=== PATIENT | male | born 1950 | race Caucasian/White ===

== ENCOUNTER 2019-02-02 11:42 | Inpatient (IN) | payer MEDICARE, OTHER ==
[2019-02-02 12:16] LABS: ABSOLUTE EOSINOPHILS # (AUTO) 0.1 10^3/uL (0.0-0.6); BASOPHILS % (AUTO) 0.5 % (0-2); HEMATOCRIT 49.3 % (37.9-51.0); HEMOGLOBIN 16.4 g/dL (13.5-17.0); LYMPHOCYTES % (AUTO) 28.1 % (13-45); MEAN CORPUSCULAR HEMOGLOBIN 30.7 pg (27.0-33.4); MEAN CORPUSCULAR HGB CONC 33.2 g/dL (32.0-36.0); MEAN CORPUSCULAR VOLUME 92 fl (80-97); MONOCYTES % (AUTO) 13.9 % (3-13); PLATELET COUNT 175 10^3/uL (150-450); RED BLOOD COUNT 5.34 10^6/uL (4.35-5.55); RED CELL DISTRIBUTION WIDTH 15.5 % (11.5-14.0); SEGMENTED NEUTROPHILS % (AUTO) 56.5 % (42-78); TOTAL CELLS COUNTED % (AUTO) 100 %; WHITE BLOOD COUNT 7.1 10^3/uL (4.0-10.5)
[2019-02-02 12:39] LABS: ALANINE AMINOTRANSFERASE 158 U/L (21-72); ALBUMIN 4.2 g/dL (3.5-5.0); ALKALINE PHOSPHATASE 98 U/L (38-126); ANION GAP 10 (5-19); ASPARTATE AMINO TRANSFERASE 330 U/L (17-59); BILIRUBIN,DIRECT 0.6 mg/dL (0.0-0.4); BILIRUBIN,TOTAL 1.2 mg/dL (0.2-1.3); BLOOD UREA NITROGEN 57 mg/dL (7-20); CALCIUM 10.1 mg/dL (8.4-10.2); CARBON DIOXIDE 31 mmol/L (22-30); CHLORIDE 98 mmol/L (98-107); GLUCOSE 148 mg/dL (75-110); POTASSIUM 4.9 mmol/L (3.6-5.0); SODIUM 138.5 mmol/L (137-145); TOTAL PROTEIN 7.1 g/dL (6.3-8.2)
[2019-02-02 12:41] LABS: ARTERIAL BLOOD BASE EXCESS 0.7 mmol/L; ARTERIAL BLOOD HCO3 23.6 mmol/L (20-24); ARTERIAL BLOOD PCO2 33.2 mmHg (35-45); ARTERIAL BLOOD PH 7.47 (7.35-7.45); ARTERIAL BLOOD PO2 141.4 mmHg (80-100); ARTERIAL BLOOD TOTAL CO2 24.6 mmol/L (23-27)
[2019-02-02 12:43] LABS: ARTERIAL BLOOD FIO2 2L
[2019-02-02 12:49] LABS: CREATINE KINASE MB 50.4 ng/mL (<4.55)
[2019-02-02 12:50] LABS: CREATINE KINASE 2683 U/L (55-170)
[2019-02-02 12:51] LABS: TROPONIN I 0.048 ng/mL
--- NOTE | 2019-02-02 13:07 | RADIOLOGY REPORT (SQ) ---
EXAM DESCRIPTION: CHEST SINGLE VIEW COMPLETED DATE/TIME: 02/02/2019 12:48 pm REASON FOR STUDY: SOB COMPARISON: None. EXAM PARAMETERS: NUMBER OF VIEWS: One view. TECHNIQUE: Single frontal radiographic view of the chest acquired. RADIATION DOSE: NA LIMITATIONS: None. FINDINGS: LUNGS AND PLEURA: No opacities, masses or pneumothorax. No pleural effusion. MEDIASTINUM AND HILAR STRUCTURES: No masses. Contour normal. HEART AND VASCULAR STRUCTURES: Cardiomegaly with left chest multi lead pacer defibrillator. BONES: No acute findings. HARDWARE: None in the chest. OTHER: No other significant finding. IMPRESSION: Cardiomegaly without acute abnormality of the lungs in AP projection. TECHNICAL DOCUMENTATION: JOB ID: [id number] [email or web address]- All Rights Reserved Reading location - IP/workstation name: [email or web address]
[2019-02-02 15:40] LABS: APPEARANCE,URINE CLEAR; BILIRUBIN,URINE NEGATIVE (NEGATIVE); COLOR,URINE YELLOW; GLUCOSE, URINE NEGATIVE (NEGATIVE); KETONES,URINE NEGATIVE (NEGATIVE); LEUKOCYTE ESTERASE,URINE NEGATIVE (NEGATIVE); NITRITE,URINE NEGATIVE (NEGATIVE); PROTEIN,URINE NEGATIVE (NEGATIVE); UROBILINOGEN,URINE NEGATIVE mg/dL (<2.0)
--- NOTE | 2019-02-02 17:25 | ER Document Report ---
Entered by GEENA SANTIAGO SCRIBE 02/02/19 1221 Acting as scribe for:TAMY HARMON MD ED General - General Chief Complaint: Shortness Of Breath Stated Complaint: ABNORMAL LABS Time Seen by Provider: 02/02/19 11:55 Primary Care Provider: ELISABETH CORONA DPM [ACTIVE STAFF] - Follow up as needed Mode of Arrival: Ambulatory Information source: Patient Notes: Patient is a 68 year old male presenting to the emergency department complaining of increasing generalized weakness and shortness of breath onset 6 weeks ago. Patient states he has had a decline in general health for the last 6 weeks after having 3 foot ulcers and being diagnosed with MRSA. Patient was sent here from metal engineering process worker, Dr. Valenzuela, for low oxygen saturation rate. Patient states he has not seen his PCP, Dr. Barnes, in the last 6 weeks. Patient also complains of weight loss within the last 6 weeks. TRAVEL OUTSIDE OF THE [place] IN LAST 30 DAYS: No - Related Data Allergies/Adverse Reactions: cholestyramine [From Questran] Allergy (Verified 02/02/19 11:45) gemfibrozil [From Lopid] Allergy (Verified 02/02/19 11:45) morphine Allergy (Verified 02/02/19 11:45) niacin Allergy (Verified 02/02/19 11:45) sucrose [From Questran] Allergy (Verified 02/02/19 11:45) colesevelam [From WelChol] Adverse Reaction (Verified 02/02/19 11:45) metoprolol [From Lopressor] Adverse Reaction (Verified 02/02/19 11:45) Past Medical History - General Information source: Patient, Relative - Social History Smoking Status: Former Smoker Cigarette use (# per day): No Chew tobacco use (# tins/day): No Smoking Education Provided: No Frequency of alcohol use: None Family History: Reviewed & Not Pertinent - Past Medical History Cardiac Medical History: Reports: Hx Atrial Fibrillation, Hx Coronary Artery Disease, Hx Heart Attack - x2 1996, 2000, Hx Hypertension, Other - history of Vtach, vfib Pulmonary Medical History: Reports: Hx Bronchitis - chronic, Hx COPD, Other - history of atelectasis of LLL EENT Medical History: Reports: Eyes - Grade II retinoarteriosclerosis, Ears - Bilateral hearing loss Endocrine Medical History: Reports: Hx Diabetes Mellitus Type 2 Renal/ Medical History: Reports: Hx Benign Prostatic Hyperplasia, Hx Renal Insufficiency GI Medical History: Reports: Other - Chronic Liver disease Musculoskeletal Medical History: Reports Hx Gout, Reports Other - Spinal Degenerative Joint disease Infectious Medical History: Reports: Hx C-Diff Past Surgical History: Reports: Hx Pacemaker Review of Systems - Review of Systems Constitutional: See HPI, Weakness EENT: No symptoms reported Cardiovascular: No symptoms reported Respiratory: See HPI, Short of breath Gastrointestinal: No symptoms reported Genitourinary: No symptoms reported Male Genitourinary: No symptoms reported Musculoskeletal: No symptoms reported Skin: No symptoms reported Hematologic/Lymphatic: No symptoms reported Neurological/Psychological: No symptoms reported -: Yes All other systems reviewed and negative Physical Exam - Vital signs Vitals: Temp Pulse Resp BP Pulse Ox 97.7 F 85 18 101/66 99 02/02/19 11:50 02/02/19 11:50 02/02/19 11:50 02/02/19 11:50 02/02/19 11:50 - Notes Notes: GENERAL: Alert, appears anxious, interacts well. No acute distress. HEAD: Normocephalic, atraumatic. EYES: Pupils equal, round, and reactive to light. Extraocular movements intact. ENT: Oral mucosa moist, tongue midline. NECK: Full range of motion. Supple. Trachea midline. Venous pulsations R>L. Palpating the liver does not meet the pulsations bulge. LUNGS: Clear to auscultation bilaterally, no wheezes, rales, or rhonchi. No respiratory distress. HEART: Regular rate and rhythm. Low pitch systolic murmur. ABDOMEN: Soft, non-tender. Non-distended. Bowel sounds present in all 4 quadrants. No guarding, rigidity, or rebound. EXTREMITIES: Moves all 4 extremities spontaneously. Trace pretibial edema. Radial and dorsalis pedis pulses 2/4 bilaterally. No cyanosis. NEUROLOGICAL: Alert and oriented x3. Normal speech. PSYCH: Appears anxious. SKIN: Warm, dry, normal turgor. No rashes or lesions noted. Course - Re-evaluation Re-evalutation: 02/02/19 12:48 ABG on 2 L nasal cannula shows PCO2 of 33 and a PO2 of 141. PH is 7.47 this would suggest the patient is hyperventilating. 02/02/19 14:17 I did turn the patient's oxygen off. His room air pulse ox is 97%. I did discuss the patient's case at length with his primary care provider, Dr. Barnes. His liver function elevation is not a new finding. His last CK was about 360. I suspect his symptoms of generalized weakness and feeling short of breath along with his elevated CPK may indicate his myositis is worsening and he needs to be on higher doses of prednisone. He also may be suffering from rhabdomyolysis secondary to the statin therapy he is on. He has been on Septra for his MRSA infection in his right foot. - Vital Signs Vital signs: Temp Pulse Resp BP Pulse Ox 97.7 F 87 15 103/69 97 02/02/19 11:50 02/02/19 12:37 02/02/19 16:00 02/02/19 16:00 02/02/19 16:00 - Laboratory Result Diagrams: 02/02/19 11:58 02/02/19 11:58 Laboratory results interpreted by me: 02/02/19 02/02/19 02/02/19 11:58 11:58 11:58 RDW 15.5 H Monocytes % 13.9 H Carbonic Acid ABG pH ABG pCO2 ABG pO2 ABG O2 Saturation Carbon Dioxide 31 H BUN 57 H Creatinine 2.45 H Est GFR ( Amer) 32 L Est GFR (Non-Af Amer) 26 L Glucose 148 H Direct Bilirubin 0.6 H AST 330 H ALT 158 H Creatine Kinase 2683 H CK-MB (CK-2) 50.40 H NT-Pro-B Natriuret Pep 02/02/19 02/02/19 11:58 12:31 RDW Monocytes % Carbonic Acid 1.00 L ABG pH 7.47 H ABG pCO2 33.2 L ABG pO2 141.4 H ABG O2 Saturation 99.0 H Carbon Dioxide BUN Creatinine Est GFR ( Amer) Est GFR (Non-Af Amer) Glucose Direct Bilirubin AST ALT Creatine Kinase CK-MB (CK-2) NT-Pro-B Natriuret Pep 03715 H - Diagnostic Test Radiology reviewed: Image reviewed, Reports reviewed - Chest x-ray shows cardiomegaly without acute changes. - EKG Interpretation by Me EKG shows normal: Sinus rhythm, Drums, Intervals, ST-T Waves. abnormal: QRS Complexes - Borderline inferior Q waves, consider old anterior infarct Rate: Normal - 77 Rhythm: NSR, PVC's Voltage: Consistant with LVH When compared to previous EKG there are: Previous EKG unavailable - Consults Dr. Barnes Time consulted: 13:50 Consulted provider: will see as inpatient - [facility]MCU Discharge - Discharge Clinical Impression: Weakness, Right foot infection Dyspnea Qualifiers: Dyspnea type: unspecified Qualified Code(s): R06.00 - Dyspnea, unspecified Rhabdomyolysis Qualifiers: Rhabdomyolysis type: non-traumatic Qualified Code(s): M62.82 - Rhabdomyolysis Renal failure Qualifiers: Renal failure chronicity: acute on chronic Acute renal failure type: unspecified Chronic kidney disease stage: stage 4 (severe) Qualified Code(s): N17.9 - Acute kidney failure, unspecified; N18.4 - Chronic kidney disease, stage 4 (severe) Myositis Qualifiers: Myositis type: unspecified type Myositis location: unspecified site Qualified Code(s): M60.9 - Myositis, unspecified Condition: Good Disposition: ADMITTED INPATIENT Admitting Provider: [facility] Unit Admitted: IMCU Referrals: ELISABETH CORONA DPM [ACTIVE STAFF] - Follow up as needed Scribe Attestation: 02/02/19 12:53 I personally performed the services described in the documentation, reviewed and edited the documentation which was dictated to the scribe in my presence, and it accurately records my words and actions. I personally performed the services described in the documentation, reviewed and edited the documentation which was dictated to the scribe in my presence, and it accurately records my words and actions.
--- NOTE | 2019-02-02 17:29 | EKG REPORT ---
SEVERITY:- ABNORMAL ECG - SINUS RHYTHM MULTIFORM VENTRICULAR PREMATURE COMPLEXES LVH WITH SECONDARY REPOLARIZATION ABNORMALITY BORDERLINE INFERIOR Q WAVES CONSIDER ANTERIOR INFARCT : Confirmed by: Remington Quarles MD 02-Feb-2019 17:29:11
[2019-02-02] MEDS ORDERED: PREDNISONE 20 MG TABLET PO SCH (22:00)
[2019-02-02] MEDS ORDERED: NITROGLYCERIN 5 MG (0.2 MG/HR) PATCH.TD24 TD PRN (22:03)
[2019-02-02] MEDS ORDERED: NITROGLYCERIN 0.4 MG/TAB 25 TAB/BOTTLE SL PRN (22:03)
[2019-02-02] MEDS ORDERED: TORSEMIDE 20 MG TABLET PO SCH (22:15)
[2019-02-02] MEDS ORDERED: FENOFIBRATE NANOCRYSTALLIZED 145 MG TABLET PO SCH (22:15)
[2019-02-02] MEDS ORDERED: ERGOCALCIFEROL (VITAMIN D2) 50000 UNIT (1.25 MG) CAPSULE PO SCH (23:00)
[2019-02-03] MEDS: ASPIRIN 81 MG TABLET, ENT COATED PO SCH ×2 (00:11→10:35)
[2019-02-03] MEDS: FINASTERIDE 5 MG TABLET PO SCH ×2 (00:12→10:35)
[2019-02-03] MEDS: SPIRONOLACTONE 25 MG TABLET PO SCH ×2 (00:12→10:35)
[2019-02-03] MEDS: CLOPIDOGREL BISULFATE 75 MG TABLET PO SCH ×2 (00:12→11:20)
[2019-02-03] MEDS: FAMOTIDINE 20 MG TABLET PO SCH ×3 (00:12→21:05)
[2019-02-03] MEDS: COLCHICINE 0.6 MG TABLET PO SCH ×3 (00:14→21:05)
[2019-02-03] MEDS ORDERED: TORSEMIDE 20 MG TABLET ONE (00:31)
[2019-02-03] MEDS ORDERED: FENOFIBRATE NANOCRYSTALLIZED 145 MG TABLET ONE (00:32)
[2019-02-03] MEDS ORDERED: AMITRIPTYLINE HCL 25 MG TABLET ONE (00:32)
[2019-02-03] MEDS ORDERED: CARVEDILOL 6.25 MG TABLET ONE (00:33)
[2019-02-03] MEDS: FEBUXOSTAT 40 MG TABLET PO SCH ×2 (00:56→11:20)
[2019-02-03] MEDS: CARVEDILOL 12.5 MG TABLET PO SCH ×3 (01:01→21:04)
[2019-02-03] MEDS: AMITRIPTYLINE HCL 25 MG TABLET PO SCH ×2 (01:03→21:05)
[2019-02-03 05:02] LABS: ANION GAP 10 (5-19); BLOOD UREA NITROGEN 55 mg/dL (7-20); CALCIUM 9.9 mg/dL (8.4-10.2); CARBON DIOXIDE 31 mmol/L (22-30); CHLORIDE 97 mmol/L (98-107); GLUCOSE 227 mg/dL (75-110); POTASSIUM 4.8 mmol/L (3.6-5.0); SODIUM 138.1 mmol/L (137-145)
[2019-02-03] MEDS ORDERED: (PENDING PHARMACY ID) (Insulin Aspart [Novolog Flexpen] 20 UNIT) SUBCUT SCH (08:00)
[2019-02-03] MEDS ORDERED: GLUCAGON,HUMAN RECOMB 1 MG INJ IM PRN (08:50)
--- NOTE | 2019-02-03 09:00 | PDOC H&P ---
History of Present Illness Admission Date/PCP: 02/02/19 17:27 JEFF GLEASON MD Patient complains of: muscular weakness History of Present Illness: SIDNEY CARROLL is a 68 year old male with chronic systolic & diastolic failure and 6w increasing alegria & proximal weakness progressing throughout the day. 2008 [id number] & atorva=lft. 2015 Dr Ngo inflamatory polyarthropathy myalgia. CK667. OK sed crp c3 c4 ch50 dna. CK came down to 206 but went up to 816 by 2017. ALT usually 2*normal. 6w progressive proximal weakness. Must lift L leg with R hand. Down 20# in 1y. Past Medical History Cardiac Medical History: Reports: Atrial Fibrillation, Congestive Heart Failure, Coronary Artery Disease, Myocardial Infarction - x2 1996, 2000, Hyperlipidema, Hypertension, Other - history of Vtach, vfib Pulmonary Medical History: Reports: Bronchitis - chronic, Chronic Obstructive Pulmonary Disease (COPD), Other - history of atelectasis of LLL EENT Medical History: Reports: Eyes - Grade II retinoarteriosclerosis, Ears - Bilateral hearing loss Neurological Medical History: Reports: None Endocrine Medical History: Reports: Diabetes Mellitus Type 2 Renal/ Medical History: Reports: Chronic Kidney Disease Malignancy Medical History: Reports: None GI Medical History: Reports: Gastroesophageal Reflux Disease, Other - Chronic Liver disease Musculoskeltal Medical History: Reports: Gout, Other - Spinal Degenerative Joint disease Skin Medical History: Reports: None Psychiatric Medical History: Reports: Bipolar Disorder Traumatic Medical History: Reports: None Hematology: Reports: None Infectious Medical History: Reports: Clostridium Difficile, 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 Osei Lives with: Family Smoking Status: Former Smoker Frequency of Alcohol Use: None Hx Recreational Drug Use: No Hx Prescription Drug Abuse: No - Advance Directive Resuscitation Status: Full Code Family History Family History: Other - adopted Parental Family History Reviewed: Yes Children Family History Reviewed: Yes Sibling(s) Family History Reviewed.: Yes Medication/Allergy Home Medications: Amitriptyline HCl [Elavil 25 mg Tablet] 25 mg PO QHS 02/02/19 Aspirin [Ecotrin 81 mg EC Tablet] 81 mg PO DAILY 02/02/19 Carvedilol [Coreg 25 mg Tablet] 25 mg PO Q12 02/02/19 Clopidogrel Bisulfate [Plavix 75 mg Tablet] 75 mg PO DAILY 02/02/19 Colchicine [Colchicine 0.6 mg Tablet] 0.6 mg PO Q12 02/02/19 Ergocalciferol (Vitamin D2) [Drisdol 50,000 Unit (1.25MG) Capsule] 50,000 unit PO .02/02/19 Febuxostat [Uloric 40 mg Tablet] 40 mg PO DAILY 02/02/19 Fenofibrate Nanocrystallized [Tricor 145 mg Tablet] 145 mg PO QHS 02/02/19 Finasteride [Proscar 5 mg Tablet] 5 mg PO DAILY 02/02/19 Insulin Aspart [Novolog Flexpen] 20 unit SUBCUT AC MDD UP TO 30 PER MEAL 02/02/19 Insulin Glargine,Hum.rec.anlog [Lantus Insulin 100 Unit/1 ml 10 ml] 65 unit SUBCUT QHS 02/02/19 Nitroglycerin [Nitro-Dur 5 mg (0.2 mg/Hr) Transdermal Patch] 1 patch TD QAMP PRN 02/02/19 Nitroglycerin [Nitrostat 0.4 mg (1/150 Gr) Tabs 25/Bottle] 1 tab SL Q5MP PRN 02/02/19 Prednisone [Deltasone 5 mg Tablet] 5 mg PO DAILY 02/02/19 Ranitidine HCl [Zantac 150 mg Tablet] 150 mg PO BID 02/02/19 Ropinirole HCl [Requip 2 Mg Tablet] 2 mg PO QHS 02/02/19 Rosuvastatin Calcium [Crestor 10 mg Tablet] 10 mg PO QHS 02/02/19 Spironolactone [Aldactone 25 mg Tablet] 25 mg PO DAILY 02/02/19 Torsemide [Demadex 20 mg Tablet] 20 mg PO DAILY 02/02/19 Tramadol HCl [Ultram 50 mg Tablet] 50 mg PO Q6HP PRN 02/02/19 Allergies/Adverse Reactions: cholestyramine [From Questran] Allergy (Verified 02/02/19 11:45) gemfibrozil [From Lopid] Allergy (Verified 02/02/19 11:45) morphine Allergy (Verified 02/02/19 11:45) niacin Allergy (Verified 02/02/19 11:45) sucrose [From Questran] Allergy (Verified 02/02/19 11:45) colesevelam [From WelChol] Adverse Reaction (Verified 02/02/19 11:45) metoprolol [From Lopressor] Adverse Reaction (Verified 02/02/19 11:45) Review of Systems Constitutional: PRESENT: fatigue, weakness, weight loss. ABSENT: fever(s), headache(s) Nose, Mouth, and Throat: ABSENT: sore throat Cardiovascular: PRESENT: dyspnea on exertion, orthropnea. ABSENT: chest pain Respiratory: ABSENT: cough Gastrointestinal: ABSENT: abdominal pain, constipation, diarrhea, hematochezia, vomiting Genitourinary: ABSENT: dysuria, hematuria Musculoskeletal: PRESENT: muscle weakness, other - diffuse arthralgia worse in shoulders Integumentary: ABSENT: rash Neurological: PRESENT: weakness. ABSENT: numbness Physical Exam Vital Signs: Temp Pulse Resp BP Pulse Ox 97.8 F 87 25 H 100/73 96 02/03/19 00:01 02/02/19 12:37 02/03/19 04:31 02/03/19 04:31 02/03/19 04:31 Intake & Output 02/01/19 02/02/19 02/03/19 07:59 07:59 07:59 Weight 187 lb 6.287 oz General appearance: PRESENT: mild distress Eye exam: ABSENT: conjunctival injection, scleral icterus Mouth exam: PRESENT: moist Neck exam: ABSENT: lymphadenopathy, tenderness, thyromegaly, tracheal deviation Respiratory exam: PRESENT: clear to auscultation jerry Cardiovascular exam: ABSENT: diastolic murmur, irregular rhythm, systolic murmur Pulses: ABSENT: normal dorsalis pedis pul - thready GI/Abdominal exam: ABSENT: mass, organolmegaly, tenderness Extremities exam: ABSENT: pedal edema Neurological exam: PRESENT: oriented to situation Psychiatric exam: PRESENT: anxious Skin exam: PRESENT: other - wound lateral R foot Results Laboratory Results: Abnormal - 24 hr 02/02/19 02/02/19 02/02/19 11:58 11:58 11:58 RDW 15.5 H Monocytes % 13.9 H Carbonic Acid ABG pH ABG pCO2 ABG pO2 ABG O2 Saturation Chloride Carbon Dioxide 31 H BUN 57 H Creatinine 2.45 H Est GFR ( Amer) 32 L Est GFR (Non-Af Amer) 26 L Glucose 148 H POC Glucose Direct Bilirubin 0.6 H AST 330 H ALT 158 H Creatine Kinase 2683 H CK-MB (CK-2) 50.40 H NT-Pro-B Natriuret Pep 02/02/19 02/02/19 02/03/19 11:58 12:31 00:58 RDW Monocytes % Carbonic Acid 1.00 L ABG pH 7.47 H ABG pCO2 33.2 L ABG pO2 141.4 H ABG O2 Saturation 99.0 H Chloride Carbon Dioxide BUN Creatinine Est GFR ( Amer) Est GFR (Non-Af Amer) Glucose POC Glucose 158 H Direct Bilirubin AST ALT Creatine Kinase CK-MB (CK-2) NT-Pro-B Natriuret Pep 44036 H 02/03/19 03:55 RDW Monocytes % Carbonic Acid ABG pH ABG pCO2 ABG pO2 ABG O2 Saturation Chloride 97 L Carbon Dioxide 31 H BUN 55 H Creatinine 2.27 H Est GFR ( Amer) 35 L Est GFR (Non-Af Amer) 29 L Glucose 227 H POC Glucose Direct Bilirubin AST ALT Creatine Kinase CK-MB (CK-2) NT-Pro-B Natriuret Pep Impressions: Chest X-Ray 02/02/19 12:05 IMPRESSION: Cardiomegaly without acute abnormality of the lungs in AP projection. Assessment & Plan - Diagnosis (1) Rhabdomyolysis due to statin therapy Is this a current diagnosis for this admission?: Yes Plan: autoimmune vizcaino in past negative. Stop statin fenofibrate. 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: with fpc use Chronic kidney disease stage: stage 4 (severe) Qualified Code(s): E11.22 - Type 2 diabetes mellitus with diabetic chronic kidney disease; N18.4 - Chronic kidney disease, stage 4 (severe); Z79.4 - detention (current) use of insulin Is this a current diagnosis for this admission?: Yes (3) Restless legs syndrome Is this a current diagnosis for this admission?: Yes (4) Bipolar disorder, current episode depressed, mild Is this a current diagnosis for this admission?: Yes (5) Angina of effort Is this a current diagnosis for this admission?: Yes (6) Chronic combined systolic and diastolic heart failure Is this a current diagnosis for this admission?: Yes Plan: echo consult (7) Ventricular tachycardia Is this a current diagnosis for this admission?: Yes (8) Chronic atrial fibrillation Is this a current diagnosis for this admission?: Yes (9) Gastro-esophageal reflux disease without esophagitis Is this a current diagnosis for this admission?: Yes (10) Enlarged prostate with lower urinary tract symptoms (LUTS) Qualifiers: Lower urinary tract symptom detail: urinary hesitancy Qualified Code(s): N40.1 - Benign prostatic hyperplasia with lower urinary tract symptoms; R39.11 - Hesitancy of micturition Is this a current diagnosis for this admission?: Yes (11) Idiopathic chronic gout of multiple sites without tophus Is this a current diagnosis for this admission?: Yes (12) Foot ulcer due to secondary DM Is this a current diagnosis for this admission?: Yes Plan: Dr Riggs treated R1mtp ulcer with bactrim for mrsa till yesterday when healed but still hurts. Lateral R foot wound not healing. Doppler.
[2019-02-03] MEDS: INSULIN LISPRO 100 UNIT/ML 3 ML VIAL SUBCUT SCH ×3 (09:02→17:14)
[2019-02-03] MEDS ORDERED: (PENDING PHARMACY ID) (Ranitidine Hcl [Zantac 150 Mg Tablet] 150 MG) PO SCH (10:00)
[2019-02-03] MEDS: ENOXAPARIN SODIUM INJ 30 MG/0.3 ML DISP.SYRIN SUBCUT SCH (10:38)
--- NOTE | 2019-02-03 12:26 | XCELERA REPORT ---
[address] [address] Lower Extremity Arterial Evaluation Name: SIDNEY CARROLL Age: 68 yrs Gender: Male : 1950 Patient Status: Inpatient Patient Location: [place] [address]A Study Date: 02/03/2019 09:59 AM Procedure: A color flow and duplex scan of the lower extremity arteries was performed bilaterally with velocity and waveform anaylsis. Reason For Study: nonhealing diabetic ulcers R foot. Ordering Physician: JEFF GLEASON Performed By: Simon Emery Measurements and Calculations Right Left UX RESEARCH ASSOCIATE PSV 77.6 81.1 cm/sec Prox PFA PSV -43.7 -52.6 cm/sec Prox SFA PSV 38.5 56.6 cm/sec Mid SFA PSV -57.6 -70.7 cm/sec Dist SFA PSV -49.2 -61.1 cm/sec Prox Pop A PSV 27.8 30.6 cm/sec Dist MILLIE PSV 46.0 33.4 cm/sec Dist SENIOR CORPORATE RECRUITER PSV 13.4 36.8 cm/sec Ryan Pedis PSV -36.2 49.2 cm/sec Right Side Arterial Evaluation Normal velocity and triphasic waveforms noted from the Common Femoral artery to the infrageniculate vessels . Left Side Arterial Evaluation Normal velocity and triphasic waveforms noted from the Common Femoral artery to the infrageniculate vessels . Interpretation Summary No hemodynamically significant lesions in the bilateral lower extremities, on duplex imaging, at rest. : JEFF GLEASON > Gurmeet Orr
--- NOTE | 2019-02-03 20:43 | PDOC CONSULTATION ---
Consultation-Blank Consultation: CARDIOLOGY PROGRESS NOTE by Dr. Bonnie Doe on 02/03/2019. Patient seen at 9 AM on 02/03/2019. Reason for consultation: CHF/cardiomyopathy. CONSULT requesting physician: Dr. Howard Barnes HISTORY of PRESENT ILLNESS. Patient is a 68-year-old male with known history of coronary artery disease, history of myocardial infarction x2 in 1996 and 2000, history of stent placement in LAD in 2000, hypertension, hyperlipidemia, COPD, diabetes mellitus type 2 and chronic history of chronic kidney disease who was admitted with progressive dyspnea on exertion to rest shortness of breath. There is no leg edema. He does not have any orthopnea PND. He has an AICD placed but there is no firing of his AICD. He also has severe muscle weakness and has to use his hands to lift his leg up. The patient has a history of myositis. It was thought that the patient had myalgias secondary to simvastatin in the past and also had abnormal LFTs due to atorvastatin. But the patient also sees a crane man, and as per Dr. Sam he carries a diagnosis of myositis. The patient has not had a biopsy. The patient has no anginal symptoms. He states that he has a history of cardiac myopathy, but there is LV ejection fraction not known. Nevertheless he has an AICD placed.. He also has a history of bipolar disorder which is being stable. The patient's and the patient came that a few weeks ago he had a ulcer in the log which was positive for MRSA and which was debrided as an outpatient and subsequently the patient's symptoms escalated since then. The patient also has history of weight loss which is significant, but the exact number of problems last is not known. He also has decreased appetite. There is no fever chills or Reiger's. PAST MEDICAL HISTORY: He has history of paroxysmal atrial fibrillation, with no recurrence. He he has a history of coronary artery disease, history of LAD stent, history of myocardial infarction in the past. He has no anginal symptoms in a long time. He has a history of hypertension, but his blood pressure is low. He also has a history of hyperlipidemia. He has a history of COPD/chronic bronchitis. He has a history of bipolar disorder. He has a past history of C. difficile diarrhea. He also has a history of methicillin resistant staph aureus in the foot ulcers. He has a history of GERD. There is no history of GI bleed. He has a history of diabetes mellitus type 2. He has no thyroid disease. There is no history of TIA or CVA. He also has a history of chronic kidney disease stage appears to be stage III. He also has a history of myositis and has had a collagen vascular work-up in the past. PAST SURGICAL HISTORY: He has had a history of cardiac catheterization and stent placement. History of AICD. He is initial RV lead was recalled due to malfunction, this lead was not taken out but was capped and a new RV lead was placed. Since then the patient has not had any problems with this AICD. SOCIAL HISTORY he quit smoking long time ago. There is no history of EtOH abuse. FAMILY HISTORY: Is unknown since the patient is adopted. ALLERGIES: The patient is allergic to cholestyramine, Lopid morphine Nader sucrose metoprolol WelChol. His allergy to metoprolol might be bradycardia prior to the AICD placement. We will start the patient on Toprol since the patient has no hives or other allergies to metoprolol. DISPOSITION: The patient is a: The patient is a full code his is his surrogate healthcare decision maker. Medications reviewed as per MAR. Review SYSTEMS: CONSTITUTIONAL: Denies any fever chills or rigors. Complains of generalized fatigue and severe muscle weakness. Head denies dizziness, but states that his mentation is slow. HE eyes: No history of amblyopia diplopia. No history of amaurosis fugax. I hears: The patient has bilateral hearing loss. He has no tinnitus or vertigo. NOSE: No history of hayfever no history of bleeding from the nose. MOOD: No history of altered taste sensation. No ulcers in the mouth. THROAT: No odynophagia dysphagia no history of recurrent sore throats. SKIN: No history of skin rashes. No history of petechia or ecchymosis. No history of pruritus. No history of yellowish discoloration of the skin. NECK: Denies neck pain or neck swelling. LUNGS: Has intermittent shortness of breath. No cough or wheezing no history of sleep apnea. Patient has a history of chronic bronchitis and COPD. No history of asthma. No history of pleuritic chest pain no history of hemoptysis. No symptoms suggestive of acute exacerbation of COPD at present. HEART: History of coronary artery disease history of MT and history of stent in the LAD. No anginal symptoms. History of cardia myopathy with AICD placement no firing of AICD. History of proximal atrial fibrillation. Has not recurred in a long time. No leg swelling no PND orthopnea. GI: History of GERD present no history of GI bleed. No history of ascites. No history of jaundice. History of questionable cirrhosis of liver most likely secondary to his chronic right heart failure. And pulmonary hypertension. RENAL: History of chronic kidney disease. No symptoms of hematuria pyuria or dysuria. ENDOCRINE: No history of polydipsia polyuria no history of heat or cold intolerance. Does seem to have diabetic retinopathy by history. MUSCULOSKELETAL denies any collagen vascular disease severe muscle weakness history of myositis present? Secondary to autoimmune disease. No history of lupus. DESIGN COORDINATOR: No history of TIA or CVA. No history of sleep apnea no history of headaches migraines or seizures. History of severe muscle weakness. EXTREMITIES: He has foot ulcers which had MRSA infection. He has no calf or buttock claudication. There is no pedal edema. There is no sinus or clubbing. Hematological: No history of bleeding diathesis or clotting disorders. PSYCHIATRIC: History of bipolar disorder in remission. PHYSICAL EXAMINATION: The patient appears to be chronically ill and emaciated and malnourished he is in some mild distress due to intermittent shortness of br eath. Selected Entries 02/03/19 02/03/19 09:00 09:01 Temperature 98.4 F Temperature Oral Source Heart Rate ( 66 Monitors) Respiratory 13 Rate Blood Pressure 95/71 L Blood Pressure 79 Mean O2 Sat by Pulse 100 Oximetry HEAD: Head is atraumatic and normocephalic. EYES: Pupils are equal round regular reactive to light accommodation. Extraocular movements are normal, there is no conjunctival pallor, and no scleral icterus. EARS: Tympanic membranes are intact external auditory canals are clear. NOSE: There is no inflammation of the nasal mucous membrane there is no deviated nasal septum. MOUTH: Mucous membranes of mouth and tongue are moist, there is no ulcers in the mouth or tongue, and no bleeding from the gums. THROAT: There is no redness of the oropharynx, no exudate seen. SKIN: There is no petechia or ecchymosis. There is no rashes or lesions. NECK: Supple. There is no JVD. Carotids are equal there is no bruit. There is no lymphadenopathy. There is no goiter. Trachea central LUNGS: There is diminished air entry and prolonged expiration. Clear to auscultation bilaterally, no wheezes, rales or rhonchi. On percussion there is hyperresonance although there is no chest wall tenderness HEART: S1 and S2 are heard. S1 is of normal intensity, there is no S3 or S4 gallops. There is a systolic murmur the left sternal border and the apex. There is no rub. ABDOMEN: Normoactive bowel sounds, soft, nontender, no masses, no rebound, no guarding. There is no hepatosplenomegaly. EXTREMITIES: Femorals are slightly diminished. There is no femoral bruits. Leg pulses are diminished. There is no pedal edema. There is no DVT or cellulitis. There is no cyanosis or clubbing. There is no calf tenderness. NEUROLOGICAL the patient is awake alert oriented 3 with no focal deficits. There is muscle weakness proximal group more than distal group of muscle show weakness. PSYCHIATRIC: The patient judgment and insight are intact his affect is normal. 02/02/19 02/02/19 02/02/19 11:58 11:58 11:58 WBC 7.1 RBC 5.34 Hgb 16.4 Hct 49.3 MCV 92 MCH 30.7 MCHC 33.2 RDW 15.5 H Plt Count 175 Seg Neutrophils % 56.5 Lymphocytes % 28.1 Monocytes % 13.9 H Eosinophils % 1.0 Basophils % 0.5 Absolute Neutrophils 4.0 Absolute Lymphocytes 2.0 Absolute Monocytes 1.0 Absolute Eosinophils 0.1 Absolute Basophils 0.0 ESR Carbonic Acid HCO3/H2CO3 Ratio ABG pH ABG pCO2 ABG pO2 ABG HCO3 ABG Total CO2 ABG O2 Saturation ABG Base Excess FiO2 Sodium 138.5 Potassium 4.9 Chloride 98 Carbon Dioxide 31 H Anion Gap 10 BUN 57 H Creatinine 2.45 H Est GFR (Non-Af Amer) 26 L Glucose 148 H POC Glucose Calcium 10.1 Magnesium 2.2 Total Bilirubin 1.2 Direct Bilirubin 0.6 H Neonat Total Bilirubin Not Reportable Neonat Direct Bilirubin Not Reportable Neonat Indirect Bili Not Reportable AST 330 H ALT 158 H Alkaline Phosphatase 98 Creatine Kinase 2683 H CK-MB (CK-2) 50.40 H Troponin I 0.048 NT-Pro-B Natriuret Pep Total Protein 7.1 Albumin 4.2 02/02/19 02/02/19 02/03/19 11:58 12:31 00:58 WBC RBC Hgb Hct MCV MCH MCHC RDW Plt Count Seg Neutrophils % Lymphocytes % Monocytes % Eosinophils % Basophils % Absolute Neutrophils Absolute Lymphocytes Absolute Monocytes Absolute Eosinophils Absolute Basophils ESR Carbonic Acid 1.00 L HCO3/H2CO3 Ratio 23:1 ABG pH 7.47 H ABG pCO2 33.2 L ABG pO2 141.4 H ABG HCO3 23.6 ABG Total CO2 24.6 ABG O2 Saturation 99.0 H ABG Base Excess 0.7 FiO2 2L Sodium Potassium Chloride Carbon Dioxide Anion Gap BUN Creatinine Est GFR (Non-Af Amer) Glucose POC Glucose 158 H Calcium Magnesium Total Bilirubin Direct Bilirubin Neonat Total Bilirubin Neonat Direct Bilirubin Neonat Indirect Bili AST ALT Alkaline Phosphatase Creatine Kinase CK-MB (CK-2) Troponin I NT-Pro-B Natriuret Pep 50426 H Total Protein Albumin 02/03/19 02/08/19 03:55 06:07 WBC RBC Hgb Hct MCV MCH MCHC RDW Plt Count Seg Neutrophils % Lymphocytes % Monocytes % Eosinophils % Basophils % Absolute Neutrophils Absolute Lymphocytes Absolute Monocytes Absolute Eosinophils Absolute Basophils ESR 8 Carbonic Acid HCO3/H2CO3 Ratio ABG pH ABG pCO2 ABG pO2 ABG HCO3 ABG Total CO2 ABG O2 Saturation ABG Base Excess FiO2 Sodium 138.1 Potassium 4.8 Chloride 97 L Carbon Dioxide 31 H Anion Gap 10 BUN 55 H Creatinine 2.27 H Est GFR (Non-Af Amer) 29 L Glucose 227 H POC Glucose Calcium 9.9 Magnesium Total Bilirubin Direct Bilirubin Neonat Total Bilirubin Neonat Direct Bilirubin Neonat Indirect Bili AST ALT Alkaline Phosphatase Creatine Kinase CK-MB (CK-2) Troponin I NT-Pro-B Natriuret Pep Total Protein Albumin The patient's chest x-ray shows cardiomegaly, without heart failure. The patient's lower extremity arterial Dopplers are negative for any hemodynamically significant lesions. The patient is EKG shows sinus rhythm with APCs with ventricular capture. PVCs present possible LVH by voltage cannot exclude old anterior MT. There is small Q waves in the inferior leads. The patient's echocardiogram showed that there is a non-mobile clot adherent to the LV apex. There is left ventricle apex is akinetic to dyskinetic. The LV carrasquillo are severely hypokinetic LV ejection fraction is 15%. There is moderate to severe MR. There is no aortic stenosis. There is trace to mild aortic regurgitation. There is moderate amount of tricuspid regurgitation with a moderate pulmonary hypertension with a right total systolic pressure of 54 mmHg. There is no pericardial effusion. Please see report. IMPRESSION/RECOMMENDATION: 1. Dyspnea on exertion most likely secondary to patient's cardiomyopathy. 2. Elevated CPK with muscle weakness most likely patient has a history of myositis. But also since the sed rate is within normal limits we will try to get the patient's cardiac output increased by starting him on dobutamine to see if the patient's muscle weakness symptoms improve. Barnes to see if we can increase the patient's steroids to 1 mg/kg/day. 2. Acute on chronic systolic heart failure with low cardiac output:? Partly responsible for the patient's elevated CPK and the patient's muscle weakness due to poor perfusion. Note the patient's muscle weakness is improved and his CPK did come down with the patient being started on dobutamine IV with better cardiac output. The patient may require [place] Marylou catheter. But the patient has 3 leads and hence it might be a little problematic to place a [place]-Eric. . 3. Coronary artery disease. Patient has a prior history of MT in 1996 and 2000. History of stent in the left anterior descending artery in the past. No anginal symptoms. Note that the patient troponin I during this admission was negative, in spite of the CPK-MB being positive. 4. Hypotension: Most likely secondary to the patient's poor cardiac output. This may also due to poor cardiac output may cause the patient's CPK and CPK-MB elevation and muscle weakness. We will start the patient on dobutamine at 2.5 mcg/kg/min and increase as tolerated. We will see if these maneuvers improve the patient's blood pressure and the patient's muscle weakness. T 5. Diabetes mellitus with chronic kidney disease, and neuropathy. 6. Chronic kidney disease stage III. Most likely this is secondary to cardiorenal syndrome 7. Cardiomyopathy with severely reduced LV ejection fraction. Note that there is left ventricular apical akinesia to dyskinesia, with a chronically calcified clot . Hence there is no danger of embolization. Also the patient has no history of peripheral emboli from the LV clot. 8. Moderate to severe mitral regurgitation. 9. Moderate pulmonary hypertension with moderate tricuspid regurgitation. 10. History of AICD placement. Note that earlier paced right ventricular lead was recalled, and Hence This Was a new right ventricular lead was placed. At present seems to be functioning appropriately. No firing of the AICD this admission. 11. History of chronic obstructive pulmonary disease. 12. History of paroxysmal atrial fibrillation. No recurrence. Medications reviewed. Medications added/adjusted. Management plan discussed with Dr. Barnes as well as the medication changes. Medical decision making is of high complexity. 60 minutes spent on this patient with more than 50% of time spent in direct patient care.
[2019-02-03] MEDS: PREDNISONE 5 MG TABLET PO SCH (21:04)
[2019-02-03] MEDS: ROPINIROLE HCL 2 MG TABLET PO SCH (21:05)
[2019-02-03] MEDS: TRAMADOL HCL 50 MG TABLET PO PRN (21:09)
--- NOTE | 2019-02-03 21:57 | XCELERA REPORT ---
[address] [address] Transthoracic Echocardiogram Report Name: SIDNEY CARROLL Age: 68 yrs Gender: Male : 1950 Patient Status: Inpatient Patient Location: [place] [address]^A Study Date: 02/03/2019 09:57 AM Height: 72 in Weight: 187 lb BSA: 2.1 m2 Procedure: A two-dimensional transthoracic echocardiogram with color flow and Doppler was performed. The study was technically limited with all images being suboptimal in quality. Reason For Study: increased alegria History: increased alegria. Ordering Physician: JEFF GELASON Performed By: Stephanie Schmid Interpretation Summary LV EF is 15% The LV apex is akinetic to dyskinetic.There is a non moble clot adharent to the LV apex.The rest of the LV carrasquillo are severely hypokinetic. No subcostal views to assess for SD,VSD or PFO. The right ventricle is mild to moderately dilated. The right ventricular apex is not well visualized. There is a pacemaker lead in the right ventricle. The right atrium is mildly dilated. The left atrium is moderately dilated. There is no evidence of mitral valve prolapse. There is no vegetation seen on the mitral valve. This is a posteriorly directed eccntric MR jet. There is a moderate to severe amount of mitral regurgitation There is no aortic valvular vegetation. There is no aortic valve stenosis There is aortic sclerosis without aortic stenosis. There is a trace to mild amount of aortic regurgitation There is no tricuspid stenosis. There is a moderate amount of tricuspid regurgitation There is moderate pulmonary hypertension by echo RVSP is 54 mm of Hg , with RA mean of 10. There is no pulmonic valvular stenosis. There is a trace amount of pulmonic regurgitation There is no pericardial effusion. MMode/2D Measurements & Calculations RVDd: 4.0 cm LVIDd: 6.2 cm FS: 18.0 % Ao root diam: 3.5 cm IVSd: 0.79 cm LVIDs: 5.0 cm EDV(Teich): 190.7 ml Ao root area: 9.4 cm2 LVPWd: 1.1 cm ESV(Teich): 120.9 ml EF(Teich): 36.6 % Doppler Measurements & Calculations MV E max luanne: MV dec slope: Ao V2 max: AI max luanne: 84.2 cm/sec 620.8 cm/sec2 65.8 cm/sec 223.1 cm/sec MV A max luanne: MV dec time: Ao max PG: AI max P.9 mmHg 33.0 cm/sec 0.14 sec 1.7 mmHg AI dec slope: MV E/A: 2.6 104.0 cm/sec2 AI P1/2t: 628.4 msec LV V1 max PG: PA V2 max: TR max luanne: 1.9 mmHg 42.5 cm/sec 332.6 cm/sec LV V1 max: PA max P.72 mmHgTR max P.7 cm/sec 44.3 mmHg LV dP/dt: 491.0 mmHg/s Left Ventricle The left ventricle is moderately to severly dilated. There is normal left ventricular wall thickness. LV EF is 15%. The LV apex is akinetic to dyskinetic.There is a non moble clot adharent to the LV apex.The rest of the LV carrasquillo are severely hypokinetic. No subcostal views to assess for SD,VSD or PFO. Right Ventricle The right ventricle is mild to moderately dilated. The right ventricular apex is not well visualized. There is a pacemaker lead in the right ventricle. Atria The right atrium is mildly dilated. The left atrium is moderately dilated. Mitral Valve There is no evidence of mitral valve prolapse. There is no vegetation seen on the mitral valve. There is no mitral valve stenosis. There is a moderate to severe amount of mitral regurgitation. This is a posteriorly directed eccntric MR jet. Aortic Valve There is no aortic valvular vegetation. There is no aortic valve stenosis. There is aortic sclerosis without aortic stenosis. There is a trace to mild amount of aortic regurgitation. Tricuspid Valve There is no tricuspid stenosis. There is a moderate amount of tricuspid regurgitation. There is moderate pulmonary hypertension by echo. RVSP is 54 mm of Hg , with RA mean of 10. Pulmonic Valve There is no pulmonic valvular stenosis. There is a trace amount of pulmonic regurgitation. Great Vessels The aortic root is not well visualized. The inferior vena cava was not visualized. Effusions There is no pericardial effusion. : JEFF GLEASON > Bonnie Doe
[2019-02-03] MEDS ORDERED: INSULIN GLARGINE,HUM.REC.ANLOG 1,000 UNIT/10 ML VIAL SUBCUT SCH (22:00)
[2019-02-03] MEDS ORDERED: PREDNISONE 20 MG TABLET PO SCH (22:00)
[2019-02-03] MEDS ORDERED: ATORVASTATIN CALCIUM 20 MG TABLET PO SCH (22:00)
[2019-02-03] MEDS ORDERED: INSULIN GLARGINE,HUM.REC.ANLOG 1,000 UNIT/10 ML VIAL (PYX) SUBCUT ONE ×2 (22:10→22:11)
[2019-02-04 05:05] LABS: ANION GAP 8 (5-19); BLOOD UREA NITROGEN 59 mg/dL (7-20); CALCIUM 9.5 mg/dL (8.4-10.2); CARBON DIOXIDE 26 mmol/L (22-30); CHLORIDE 99 mmol/L (98-107); CHOLESTEROL 93.69 mg/dL (0-200); GLUCOSE 107 mg/dL (75-110); POTASSIUM 4.6 mmol/L (3.6-5.0); SODIUM 133.2 mmol/L (137-145); TRIGLYCERIDES 133 mg/dL (<150)
[2019-02-04 05:18] LABS: DIRECT LDL 54 mg/dL (<100)
[2019-02-04 05:19] LABS: CREATINE KINASE 2713 U/L (55-170)
--- NOTE | 2019-02-04 07:50 | PDOC PROGRESS REPORT ---
Subjective Progress Note for:: 02/04/19 Subjective:: no better Reason For Visit: HEART FAILURE Physical Exam Vital Signs: Temp Pulse Resp BP Pulse Ox 97.7 F 60 20 93/62 L 96 02/04/19 04:22 02/04/19 06:54 02/04/19 04:22 02/04/19 04:22 02/04/19 04:22 Intake & Output 02/02/19 02/03/19 02/04/19 07:59 07:59 07:59 Intake Total 1136 Output Total 375 Balance 761 Weight 187 lb 6.287 oz 167 lb 12.348 oz General appearance: PRESENT: no acute distress Respiratory exam: PRESENT: clear to auscultation jerry Cardiovascular exam: ABSENT: diastolic murmur, irregular rhythm, systolic murmur GI/Abdominal exam: ABSENT: mass, organolmegaly, tenderness Extremities exam: ABSENT: pedal edema Neurological exam: PRESENT: oriented to situation Psychiatric exam: PRESENT: appropriate affect Results Laboratory Results: 02/02/19 11:58 02/04/19 03:58 02/04/19 03:58 Sodium 133.2 L Potassium 4.6 Chloride 99 Carbon Dioxide 26 Anion Gap 8 BUN 59 H Creatinine 1.80 H Est GFR ( Amer) 46 L Est GFR (Non-Af Amer) 38 L Glucose 107 Calcium 9.5 Triglycerides 133 Cholesterol 93.69 LDL Cholesterol Direct 54 VLDL Cholesterol 27.0 HDL Cholesterol 30 L 02/02/19 02/02/19 02/02/19 11:58 11:58 11:58 Creatine Kinase 2683 H CK-MB (CK-2) 50.40 H Troponin I 0.048 NT-Pro-B Natriuret Pep 26918 H 02/04/19 03:58 Creatine Kinase 2713 H CK-MB (CK-2) Troponin I NT-Pro-B Natriuret Pep Impressions: Chest X-Ray 02/02/19 12:05 IMPRESSION: Cardiomegaly without acute abnormality of the lungs in AP projection. Assessment & Plan - Diagnosis (1) Chronic combined systolic and diastolic heart failure Is this a current diagnosis for this admission?: Yes Plan: La big, mr bad, pw11, Lv50, dyskinesis apical, ej15, ar mild, Rvp53, Ra Rv big. 2013 ej40. Cardiac cachexia. (2) Rhabdomyolysis due to statin therapy Is this a current diagnosis for this admission?: Yes Plan: cant fluid challenge. Will simply hold diuretics for now. (3) Type 2 diabetes mellitus with diabetic chronic kidney disease Qualifiers: Diabetes mellitus terminal clerk insulin use: with alf use Chronic kidney disease stage: stage 4 (severe) Qualified Code(s): E11.22 - Type 2 diabetes mellitus with diabetic chronic kidney disease; N18.4 - Chronic kidney disease, stage 4 (severe); Z79.4 - terminal supervisor (current) use of insulin Is this a current diagnosis for this admission?: Yes Plan: refused his basal bolus. Started SS (4) Restless legs syndrome Is this a current diagnosis for this admission?: Yes (5) Bipolar disorder, current episode depressed, mild Is this a current diagnosis for this admission?: Yes (6) Angina of effort Is this a current diagnosis for this admission?: Yes (7) Ventricular tachycardia Is this a current diagnosis for this admission?: Yes (8) Chronic atrial fibrillation Is this a current diagnosis for this admission?: Yes (9) Gastro-esophageal reflux disease without esophagitis Is this a current diagnosis for this admission?: Yes (10) Enlarged prostate with lower urinary tract symptoms (LUTS) Qualifiers: Lower urinary tract symptom detail: urinary hesitancy Qualified Code(s): N40.1 - Benign prostatic hyperplasia with lower urinary tract symptoms; R39.11 - Hesitancy of micturition Is this a current diagnosis for this admission?: Yes (11) Idiopathic chronic gout of multiple sites without tophus Is this a current diagnosis for this admission?: Yes (12) Foot ulcer due to secondary DM Is this a current diagnosis for this admission?: Yes - Inpatient Certification Medical Necessity: Failure to Improve With Outpatient Therapy, Significant Comorbidiites Make Outpatient Treatment Too Risky, Need Close Monitoring Due to Risk of Patient Decompensation, Need For Continuous Telemetry Monitoring, Risk of Complication if Not Cared For in Hospital, Risk of Diagnosis Which Will Require Inpatient Eval/Care/Monitoring
[2019-02-04] MEDS: INSULIN REG, HUMAN 100 UNIT/ML 3 ML VIAL (PYX) SUBCUT SCH ×4 (08:21→21:09)
[2019-02-04] MEDS: COLCHICINE 0.6 MG TABLET PO SCH ×2 (09:40→21:03)
[2019-02-04] MEDS: CARVEDILOL 12.5 MG TABLET PO SCH ×2 (09:40→21:04)
[2019-02-04] MEDS: CLOPIDOGREL BISULFATE 75 MG TABLET PO SCH (09:43)
[2019-02-04] MEDS: ASPIRIN 81 MG TABLET, ENT COATED PO SCH (09:44)
[2019-02-04] MEDS: FINASTERIDE 5 MG TABLET PO SCH (09:44)
[2019-02-04] MEDS: FEBUXOSTAT 40 MG TABLET PO SCH (09:44)
[2019-02-04] MEDS: FAMOTIDINE 20 MG TABLET PO SCH ×2 (09:44→21:03)
[2019-02-04] MEDS: ENOXAPARIN SODIUM INJ 30 MG/0.3 ML DISP.SYRIN SUBCUT SCH (09:44)
[2019-02-04] MEDS: DOBUTAMINE HCL/D5W 500 MG/250 ML RTUINJ IV PRN (11:56)
[2019-02-04] MEDS: AMITRIPTYLINE HCL 25 MG TABLET PO SCH (21:03)
[2019-02-04] MEDS: ROPINIROLE HCL 2 MG TABLET PO SCH (21:04)
[2019-02-04] MEDS: PREDNISONE 5 MG TABLET PO SCH (21:04)
[2019-02-04] MEDS: TRAMADOL HCL 50 MG TABLET PO PRN (21:05)
--- NOTE | 2019-02-04 22:57 | Progress Note ---
Provider Note Provider Note: CARDIOLOGY PROGRESS NOTE by Dr. Bonnie Jade on 02/04/2019. SUBJECTIVE: The patient states that this is a muscle weakness is improved on dobutamine. He is also able to tolerate the beta-nessa and RANJANA inhibitor. There is no ill effects or side effects or allergic reaction to Toprol XL. He denies any chest pain or discomfort. There is no PND orthopnea or leg edema. There is no firing of his AICD. There is no recurrence of atrial fibrillation. There is no ventricular arrhythmia seen. The patient's appetite is still not very good. The patient also seems to have some intermittent shortness of breath which is relieved with respiratory treatments. But he denies any wheezing or cough or sputum production. PHYSICAL EXAMINATION: The patient appears to be cachectic and chronically ill. In spite of is in no acute distress Selected Entries 02/04/19 12:00 Temperature 97.1 F Temperature Oral Source Pulse Rate 67 Blood Pressure 101/64 [Left Upper Arm ] Blood Pressure Supine Position [Left Upper Arm] O2 Sat by Pulse 100 Oximetry Oxygen Delivery Room Air Method ( includes room air) HEAD: Head is atraumatic and normocephalic. EYES: Pupils are equal round regular reactive to light accommodation. Extraocular movements are normal, there is no conjunctival pallor, and no scleral icterus. EARS: Tympanic membranes are intact external auditory canals are clear. NOSE: There is no inflammation of the nasal mucous membrane there is no deviated nasal septum. MOUTH: Mucous membranes of mouth and tongue are moist, there is no ulcers in the mouth or tongue, and no bleeding from the gums. THROAT: There is no redness of the oropharynx, no exudate seen. SKIN: There is no petechia or ecchymosis. There is no rashes or lesions. NECK: Supple. There is no JVD. Carotids are equal there is no bruit. There is no lymphadenopathy. There is no goiter. Trachea central LUNGS: There is diminished air entry and prolonged expiration. Clear to auscultation bilaterally, no wheezes, rales or rhonchi. On percussion there is hyperresonance although there is no chest wall tenderness HEART: S1 and S2 are heard. S1 is of normal intensity, there is no S3 or S4 gallops. There is a systolic murmur the left sternal border and the apex. There is no rub. ABDOMEN: Normoactive bowel sounds, soft, nontender, no masses, no rebound, no guarding. There is no hepatosplenomegaly. EXTREMITIES: Femorals are slightly diminished. There is no femoral bruits. Leg pulses are diminished. There is no pedal edema. There is no DVT or cellulitis. There is no cyanosis or clubbing. There is no calf tenderness. NEUROLOGICAL the patient is awake alert oriented 3 with no focal deficits. There is muscle weakness proximal group more than distal group of muscle show weakness. PSYCHIATRIC: The patient judgment and insight are intact his affect is normal. 02/04/19 02/04/19 03:58 03:58 Hemoglobin A1c % 6.6 H Creatine Kinase 2713 H Triglycerides 133 Cholesterol 93.69 LDL Cholesterol Direct 54 VLDL Cholesterol 27.0 HDL Cholesterol 30 L IMPRESSION/RECOMMENDATION: 1. Elevated CPK CPK-MB aldolase: The sed rate is also elevated.? 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 Note I have reviewed the rheumatological work- up he had he has not had any smooth muscle antibody levels done. He had a DNA which was negative. Will discuss with the [facility] rheumatology and see if the patient's multiple comorbidities are connected to a single autoimmune disease. Will discuss with Dr. Barnes to see if we can increase the patient's steroids to 1 mg/kg/day. 2. Acute on chronic systolic heart failure with low cardiac output:? Partly re sponsible for the patient's elevated CPK and the patient's muscle weakness due to poor perfusion. Note the patient's muscle weakness is improved and his CPK did come down with the patient being started on dobutamine IV with better cardiac output. The patient may require [place] Marylou catheter. But the patient has 3 leads and hence it might be a little problematic to place a [place]-Eric. Will discuss with [facility] cardiology. To make sure that the patient's cardiomyopathy is not related to a ongoing autoimmune disease the patient may need a right ventricular biopsy. 3. Coronary artery disease. Patient has a prior history of ID in 1996 and 2000. History of stent in the left anterior descending artery in the past. No anginal symptoms. Note that the patient troponin I during this admission was negative, in spite of the CPK-MB being positive. 4. Hypotension: Most likely secondary to the patient's poor cardiac output. Note his blood pressure is better with dobutamine. Also has muscle symptoms are improved with dobutamine. Will increase the dobutamine to 5 mg/kg/min. In view of the patient blood pressure coming up the patient has been started on Toprol- XL and RANJANA inhibitor. 5. Diabetes mellitus with chronic kidney disease, and neuropathy. 6. Chronic kidney disease stage III. 7. Cardiomyopathy with severely reduced LV ejection fraction. Note that there is left ventricular apical akinesia to dyskinesia, with a chronically calcified clot which is a variant. Hence there is no danger of embolization. Also the patient has no history of peripheral emboli from the LV clot. 8. Moderate to severe mitral regurgitation. 9. Moderate pulmonary hypertension with moderate tricuspid regurgitation. 10. History of AICD placement. Note that earlier paced right ventricular lead was recalled, and Hence This Was a new right ventricular lead was placed. At present seems to be functioning appropriately. No firing of the AICD this admission. 11. History of chronic obstructive pulmonary disease. 12. History of paroxysmal atrial fibrillation. No recurrence. Discussed the patient patient's . Medications reviewed medications adjusted. Management plan discussed with Dr. Barnes. Medical decision making is of high complexity. 40 minutes spent on this patient more than 50% of time spent on direct patient care. Will follow.
[2019-02-05] MEDS ORDERED: ONDANSETRON HCL INJ/PF 4 MG/2 ML SDV IV PRN (00:29)
[2019-02-05 04:47] LABS: ANION GAP 14 (5-19); BLOOD UREA NITROGEN 69 mg/dL (7-20); CALCIUM 9.5 mg/dL (8.4-10.2); CARBON DIOXIDE 24 mmol/L (22-30); CHLORIDE 97 mmol/L (98-107); GLUCOSE 87 mg/dL (75-110); SODIUM 135.1 mmol/L (137-145)
[2019-02-05 05:27] LABS: CREATINE KINASE 2085 U/L (55-170); POTASSIUM 5.8 mmol/L (3.6-5.0)
--- NOTE | 2019-02-05 08:08 | PDOC PROGRESS REPORT ---
Subjective Progress Note for:: 02/05/19 Subjective:: still weak in pm Reason For Visit: HEART FAILURE Physical Exam Vital Signs: Temp Pulse Resp BP Pulse Ox 98.8 F 66 24 H 123/61 100 02/05/19 03:34 02/05/19 06:00 02/05/19 03:01 02/05/19 06:00 02/05/19 03:01 Intake & Output 02/04/19 02/05/19 02/06/19 07:59 07:59 07:59 Intake Total 1136 1471 Output Total 375 950 Balance 761 521 Weight 167 lb 12.348 oz General appearance: PRESENT: no acute distress Respiratory exam: PRESENT: clear to auscultation jerry Cardiovascular exam: PRESENT: systolic murmur. ABSENT: diastolic murmur, irregular rhythm Murmur grade: 1 - apical GI/Abdominal exam: ABSENT: mass, organolmegaly, tenderness Extremities exam: ABSENT: pedal edema Neurological exam: PRESENT: oriented to situation Psychiatric exam: PRESENT: appropriate affect Results Laboratory Results: 02/02/19 11:58 02/05/19 03:35 02/05/19 03:35 Sodium 135.1 L Potassium 5.8 H D Chloride 97 L Carbon Dioxide 24 Anion Gap 14 BUN 69 H Creatinine 1.91 H Est GFR ( Amer) 43 L Est GFR (Non-Af Amer) 35 L Glucose 87 Calcium 9.5 02/02/19 02/02/19 02/02/19 11:58 11:58 11:58 Creatine Kinase 2683 H CK-MB (CK-2) 50.40 H Troponin I 0.048 NT-Pro-B Natriuret Pep 57232 H 02/04/19 02/05/19 03:58 03:35 Creatine Kinase 2713 H 2085 H CK-MB (CK-2) Troponin I NT-Pro-B Natriuret Pep Impressions: Chest X-Ray 02/02/19 12:05 IMPRESSION: Cardiomegaly without acute abnormality of the lungs in AP projection. Assessment & Plan - Diagnosis (1) Chronic combined systolic and diastolic heart failure Is this a current diagnosis for this admission?: Yes Plan: on dobutamine 2.5mcg. Bp low. Stop carvedilol ntg elavil. Prognosis poor. 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 Chronic kidney disease stage: stage 4 (severe) Qualified Code(s): E11.22 - Type 2 diabetes mellitus with diabetic chronic kidney disease; N18.4 - Chronic kidney disease, stage 4 (severe); Z79.4 - snf (current) use of insulin Is this a current diagnosis for this admission?: Yes (4) Restless legs syndrome Is this a current diagnosis for this admission?: Yes (5) Bipolar disorder, current episode depressed, mild Is this a current diagnosis for this admission?: Yes (6) Angina of effort Is this a current diagnosis for this admission?: Yes (7) Ventricular tachycardia Is this a current diagnosis for this admission?: Yes (8) Chronic atrial fibrillation Is this a current diagnosis for this admission?: Yes (9) Gastro-esophageal reflux disease without esophagitis Is this a current diagnosis for this admission?: Yes (10) Enlarged prostate with lower urinary tract symptoms (LUTS) Qualifiers: Lower urinary tract symptom detail: urinary hesitancy Qualified Code(s): N40.1 - Benign prostatic hyperplasia with lower urinary tract symptoms; R39.11 - Hesitancy of micturition Is this a current diagnosis for this admission?: Yes (11) Idiopathic chronic gout of multiple sites without tophus Is this a current diagnosis for this admission?: Yes (12) Foot ulcer due to secondary DM Is this a current diagnosis for this admission?: Yes - Inpatient Certification Medical Necessity: Failure to Improve With Outpatient Therapy, Significant Comorbidiites Make Outpatient Treatment Too Risky, Need Close Monitoring Due to Risk of Patient Decompensation, Need For IV Fluids, Need For Continuous Telem etry Monitoring, Need for Pain Control, Risk of Complication if Not Cared For in Hospital, Risk of Diagnosis Which Will Require Inpatient Eval/Care/Monitoring
[2019-02-05] MEDS: INSULIN REG, HUMAN 100 UNIT/ML 3 ML VIAL (PYX) SUBCUT SCH ×4 (10:07→22:05)
[2019-02-05] MEDS: FEBUXOSTAT 40 MG TABLET PO SCH (10:21)
[2019-02-05] MEDS: ASPIRIN 81 MG TABLET, ENT COATED PO SCH (10:21)
[2019-02-05] MEDS: FAMOTIDINE 20 MG TABLET PO SCH ×2 (10:22→21:55)
[2019-02-05] MEDS: FINASTERIDE 5 MG TABLET PO SCH (10:22)
[2019-02-05] MEDS: COLCHICINE 0.6 MG TABLET PO SCH (10:22)
[2019-02-05] MEDS: CLOPIDOGREL BISULFATE 75 MG TABLET PO SCH (10:22)
[2019-02-05] MEDS: ENOXAPARIN SODIUM INJ 30 MG/0.3 ML DISP.SYRIN SUBCUT SCH (10:23)
[2019-02-05] MEDS: CARVEDILOL 6.25 MG TABLET PO SCH (21:54)
[2019-02-05] MEDS: LISINOPRIL 5 MG TABLET PO SCH (21:55)
[2019-02-05] MEDS: PREDNISONE 5 MG TABLET PO SCH (21:55)
[2019-02-05] MEDS: ROPINIROLE HCL 2 MG TABLET PO SCH (21:55)
[2019-02-05] MEDS: DOBUTAMINE HCL/D5W 500 MG/250 ML RTUINJ IV PRN (22:21)
[2019-02-06] MEDS ORDERED: ACETAMINOPHEN 325 MG TABLET PO PRN (05:28)
--- NOTE | 2019-02-06 05:35 | PDOC PROGRESS REPORT ---
Subjective Progress Note for:: 02/06/19 Subjective:: slightly less weak on 5mcg Reason For Visit: HEART FAILURE Physical Exam Vital Signs: Temp Pulse Resp BP Pulse Ox 98.8 F 63 16 110/56 L 100 02/05/19 21:00 02/06/19 02:00 02/05/19 16:12 02/06/19 01:00 02/05/19 16:12 Intake & Output 02/04/19 02/05/19 02/06/19 07:59 07:59 07:59 Intake Total 1136 1471 457 Output Total 901 011 3514 Balance 761 521 -743 Weight 167 lb 12.348 oz General appearance: PRESENT: no acute distress Respiratory exam: PRESENT: clear to auscultation jerry Cardiovascular exam: ABSENT: diastolic murmur, irregular rhythm, systolic murmur GI/Abdominal exam: ABSENT: mass, organolmegaly, tenderness Extremities exam: ABSENT: pedal edema Neurological exam: PRESENT: oriented to situation Psychiatric exam: PRESENT: appropriate affect Skin exam: PRESENT: other - tender callus R1mtp with xofh2dp. Nontender crack R5mtp with old blood. Results Laboratory Results: 02/02/19 11:58 02/05/19 03:35 Impressions: Chest X-Ray 02/02/19 12:05 IMPRESSION: Cardiomegaly without acute abnormality of the lungs in AP projection. Assessment & Plan - Diagnosis (1) Chronic combined systolic and diastolic heart failure Is this a current diagnosis for this admission?: Yes Plan: bp coming up. Dr Flores resumed carvedilol at 6mg bid and toni at 5mg bid. Said plans swan today. Creatinine stable off diuretics but bun up to 70. 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 Is this a current diagnosis for this admission?: Yes (4) Restless legs syndrome Is this a current diagnosis for this admission?: Yes (5) Bipolar disorder, current episode depressed, mild Is this a current diagnosis for this admission?: Yes (6) Angina of effort Is this a current diagnosis for this admission?: Yes (7) Ventricular tachycardia Is this a current diagnosis for this admission?: Yes (8) Chronic atrial fibrillation Is this a current diagnosis for this admission?: Yes (9) Gastro-esophageal reflux disease without esophagitis Is this a current diagnosis for this admission?: Yes (10) Enlarged prostate with lower urinary tract symptoms (LUTS) Qualifiers: Lower urinary tract symptom detail: urinary hesitancy Qualified Code(s): N40.1 - Benign prostatic hyperplasia with lower urinary tract symptoms; R39.11 - Hesitancy of micturition Is this a current diagnosis for this admission?: Yes (11) Idiopathic chronic gout of multiple sites without tophus Is this a current diagnosis for this admission?: Yes (12) Foot ulcer due to secondary DM Is this a current diagnosis for this admission?: Yes - Inpatient Certification Medical Necessity: Failure to Improve With Outpatient Therapy, Significant Comorbidiites Make Outpatient Treatment Too Risky, Need for Pain Control, Risk of Complication if Not Cared For in Hospital, Risk of Diagnosis Which Will Require Inpatient Eval/Care/Monitoring
[2019-02-06] MEDS: CARVEDILOL 6.25 MG TABLET PO SCH (06:04)
[2019-02-06] MEDS: LISINOPRIL 5 MG TABLET PO SCH (06:04)
[2019-02-06 08:33] LABS: ANION GAP 7 (5-19); BLOOD UREA NITROGEN 65 mg/dL (7-20); CALCIUM 9.3 mg/dL (8.4-10.2); CARBON DIOXIDE 28 mmol/L (22-30); CHLORIDE 99 mmol/L (98-107); CREATINE KINASE 1280 U/L (55-170); GLUCOSE 134 mg/dL (75-110); POTASSIUM 4.8 mmol/L (3.6-5.0); SODIUM 134.3 mmol/L (137-145)
[2019-02-06] MEDS: INSULIN REG, HUMAN 100 UNIT/ML 3 ML VIAL (PYX) SUBCUT SCH ×4 (09:28→22:41)
[2019-02-06] MEDS: FEBUXOSTAT 40 MG TABLET PO SCH (09:37)
[2019-02-06] MEDS: FINASTERIDE 5 MG TABLET PO SCH (09:37)
[2019-02-06] MEDS: ENOXAPARIN SODIUM INJ 30 MG/0.3 ML DISP.SYRIN SUBCUT SCH (09:37)
[2019-02-06] MEDS: FAMOTIDINE 20 MG TABLET PO SCH ×2 (09:37→22:40)
[2019-02-06] MEDS: CLOPIDOGREL BISULFATE 75 MG TABLET PO SCH (09:37)
[2019-02-06] MEDS: ASPIRIN 81 MG TABLET, ENT COATED PO SCH (09:37)
[2019-02-06] MEDS ORDERED: LISINOPRIL 5 MG TABLET PO ONE (14:00)
[2019-02-06] MEDS: FUROSEMIDE INJ/PF 20 MG/2 ML SDV IV SCH ×2 (15:09→22:40)
--- NOTE | 2019-02-06 17:14 | EKG REPORT ---
SEVERITY:- ABNORMAL ECG - SINUS RHYTHM WITH FIRST DEGREE AVB WITH DEMAND A PACING. PAIRED VENTRICULAR PREMATURE COMPLEXES LVH WITH IVCD AND SECONDARY REPOL ABNRM INFERIOR INFARCT, AGE INDETERMINATE : Confirmed by: Remington Quarles MD 06-Feb-2019 17:13:30
[2019-02-06] MEDS: LISINOPRIL 10 MG TABLET PO SCH (17:56)
[2019-02-06] MEDS: CARVEDILOL 12.5 MG TABLET PO SCH (17:56)
[2019-02-06] MEDS ORDERED: CARVEDILOL 6.25 MG TABLET PO SCH (18:00)
[2019-02-06] MEDS ORDERED: LISINOPRIL 5 MG TABLET PO SCH (18:00)
--- NOTE | 2019-02-06 21:25 | Progress Note ---
Provider Note Provider Note: CARDIOLOGY PROGRESS NOTE by Dr.Lakshman Doe on 02/05/2019 SUBJECTIVE: Patient's muscle weakness slightly better. His CPK is coming down but not drastically. He has no further intermittent shortness of breath.'s. He has no firing of the AICD. He has no anginal symptoms. There is no PND orthopnea or leg edema. His renal function is improving suggesting that the patient's renal compromise may be secondary to cardiorenal syndrome. There is no TIA or CVA symptoms. There is no recurrence of atrial fibrillation. Physical EXAMINATION: The patient appears to be chronically ill and cachectic. At present in no acute distress. Selected Entries 02/05/19 10:52 Pulse Rate 62 Respiratory 18 Rate Blood Pressure 117/45 L Blood Pressure 69 Mean BP Location Left Leg BP Position Sitting O2 Sat by Pulse 100 Oximetry Oxygen Flow 2.00 Rate Oxygen Delivery Nasal Cannula Method HEAD: Head is atraumatic and normocephalic. EYES: Pupils are equal round regular reactive to light accommodation. Extraocular movements are normal, there is no conjunctival pallor, and no scleral icterus. EARS: Tympanic membranes are intact external auditory canals are clear. NOSE: There is no inflammation of the nasal mucous membrane there is no deviated nasal septum. MOUTH: Mucous membranes of mouth and tongue are moist, there is no ulcers in the mouth or tongue, and no bleeding from the gums. THROAT: There is no redness of the oropharynx, no exudate seen. SKIN: There is no petechia or ecchymosis. There is no rashes or lesions. NECK: Supple. There is no JVD. Carotids are equal there is no bruit. There is no lymphadenopathy. There is no goiter. Trachea central LUNGS: There is diminished air entry and prolonged expiration. Clear to auscultation bilaterally, no wheezes, rales or rhonchi. On percussion there is hyperresonance although there is no chest wall tenderness HEART: S1 and S2 are heard. S1 is of normal intensity, there is no S3 or S4 gallops. There is a systolic murmur the left sternal border and the apex. There is no rub. ABDOMEN: Normoactive bowel sounds, soft, nontender, no masses, no rebound, no guarding. There is no hepatosplenomegaly. EXTREMITIES: Femorals are slightly diminished. There is no femoral bruits. Leg pulses are diminished. There is no pedal edema. There is no DVT or cellulitis. There is no cyanosis or clubbing. There is no calf tenderness. NEUROLOGICAL the patient is awake alert oriented 3 with no focal deficits. There is muscle weakness proximal group more than distal group of muscle show weakness. PSYCHIATRIC: The patient judgment and insight are intact his affect is normal. 02/05/19 02/05/19 03:35 07:23 Carbon Dioxide 24 Anion Gap 14 BUN 69 H Creatinine 1.91 H Est GFR ( Amer) 43 L Est GFR (Non-Af Amer) 35 L Glucose 87 POC Glucose 82 Calcium 9.5 Creatine Kinase 2085 H IMPRESSION/RECOMMENDATION: 1. Elevated CPK CPK-MB aldolase: The sed rate is also elevated.? 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 Note I have reviewed the rheumatological work- up he had he has not had any smooth muscle antibody levels done. He had a DNA which was negative. Will discuss with the [facility] rheumatology and see if the patient's multiple comorbidities are connected to a single autoimmune disease. Will discuss with Dr. Barnes to see if we can increase the patient's steroids to 1 mg/kg/day. 2. Acute on chronic systolic heart failure with low cardiac output:? Partly responsible for the patient's elevated CPK and the patient's muscle weakness due to poor perfusion. Note the patient's muscle weakness is improved and his CPK did come down with the patient being started on dobutamine IV with better cardiac output. The patient may require [place] Marylou catheter. But the patient has 3 leads and hence it might be a little problematic to place a [place]-Eric. Will discuss with [facility] cardiology. To make sure that the patient's cardiomyopathy is not related to a ongoing autoimmune disease the patient may need a right ventricular biopsy. 3. Coronary artery disease. Patient has a prior history of PA in 1996 and 2000. History of stent in the left anterior descending artery in the past. No anginal symptoms. Note that the patient troponin I during this admission was negative, in spite of the CPK-MB being positive. 4. Hypotension: Most likely secondary to the patient's poor cardiac output. The patient at present on dobutamine support. Will add midodrine if the blood pressure still remains low. Continue with the current medication including dobutamine infusion, and the patient is being able to be placed on meaningful doses of beta-nessa and RANJANA inhibitor. 5. Diabetes mellitus with chronic kidney disease, and neuropathy. 6. Chronic kidney disease stage III. This is improving, most likely secondary to cardiorenal syndrome. 7. Cardiomyopathy with severely reduced LV ejection fraction. Note that there is left ventricular apical akinesia to dyskinesia, with a chronically calcified clot which is a variant. Hence there is no danger of embolization. Also the patient has no history of peripheral emboli from the LV clot. 8. Moderate to severe mitral regurgitation. 9. Moderate pulmonary hypertension with moderate tricuspid regurgitation. 10. History of AICD placement. Note that earlier paced right ventricular lead was recalled, and Hence This Was a new right ventricular lead was placed. At present seems to be functioning appropriately. No firing of the AICD this admission. 11. History of chronic obstructive pulmonary disease. 12. History of paroxysmal atrial fibrillation. No recurrence. Medications reviewed. Medications management plan discussed with the attending physician Dr. Barnes. Medical decision making is of high complexity. 40 minutes spent on this patient with more than 50% of time spent on direct patient care. Will follow
--- NOTE | 2019-02-06 21:27 | Progress Note ---
Provider Note Provider Note: CARDIOLOGY PROGRESS NOTE by Dr. Soraya Ray on 02/06/2019. SUBJECTIVE: The patient is feeling slightly better but still has some muscle weakness but this is improved. There is no PND orthopnea or leg edema. There is no anginal symptoms. There is no firing of the AICD. There is no TIA CVA symptoms. There is no recurrence of atrial fibrillation. There is no ventricular arrhythmia seen on the monitor. His CPK is come down to 1280 from the s. His serum aldolase is also elevated. This raises the possibility of autoimmune mild situs. PHYSICAL EXAMINATION: The patient is chronically ill-appearing and malnourished and cachectic. But he is in no acute distress. Selected Entries 02/06/19 02/06/19 02/06/19 11:00 11:53 12:00 Temperature 97.7 F Temperature Rectal Source Pulse Rate 62 71 Respiratory 16 Rate Blood Pressure 112/52 L 114/59 L O2 Sat by Pulse 100 Oximetry Oxygen Flow 2.00 Rate Oxygen Delivery Nasal Cannula Method HEAD: Head is atraumatic and normocephalic. EYES: Pupils are equal round regular reactive to light accommodation. Extraocular movements are normal, there is no conjunctival pallor, and no scleral icterus. EARS: Tympanic membranes are intact external auditory canals are clear. NOSE: There is no inflammation of the nasal mucous membrane there is no deviated nasal septum. MOUTH: Mucous membranes of mouth and tongue are moist, there is no ulcers in the mouth or tongue, and no bleeding from the gums. THROAT: There is no redness of the oropharynx, no exudate seen. SKIN: There is no petechia or ecchymosis. There is no rashes or lesions. NECK: Supple. There is no JVD. Carotids are equal there is no bruit. There is no lymphadenopathy. There is no goiter. Trachea central LUNGS: There is diminished air entry and prolonged expiration. Clear to auscultation bilaterally, no wheezes, rales or rhonchi. On percussion there is hyperresonance although there is no chest wall tenderness HEART: S1 and S2 are heard. S1 is of normal intensity, there is no S3 or S4 gallops. There is a systolic murmur the left sternal border and the apex. There is no rub. ABDOMEN: Normoactive bowel sounds, soft, nontender, no masses, no rebound, no guarding. There is no hepatosplenomegaly. EXTREMITIES: Femorals are slightly diminished. There is no femoral bruits. Leg pulses are diminished. There is no pedal edema. There is no DVT or cellulitis. There is no cyanosis or clubbing. There is no calf tenderness. NEUROLOGICAL the patient is awake alert oriented 3 with no focal deficits. There is muscle weakness proximal group more than distal group of muscle show weakness. PSYCHIATRIC: The patient judgment and insight are intact his affect is normal. 02/04/19 02/06/19 02/06/19 03:58 07:28 08:14 Sodium 134.3 L Potassium 4.8 Chloride 99 Carbon Dioxide 28 Anion Gap 7 BUN 65 H Creatinine 1.51 H Est GFR (Non-Af Amer) 46 L Glucose 134 H POC Glucose 125 H Calcium 9.3 Creatine Kinase 1280 H Aldolase 41.7 H IMPRESSION/RECOMMENDATION: 1. Elevated CPK CPK-MB and aldolase: The sed rate is also elevated.? 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 Note I have reviewed the rheumatological work- up he had he has not had any smooth muscle antibody levels done. He had a DNA which was negative. Will discuss with the [facility] rheumatology and see if the patient's multiple comorbidities are connected to a single autoimmune disease. Will discuss with Dr. Barnes to see if we can increase the patient's steroids to 1 mg/kg/day. 2. Acute on chronic systolic heart failure with low cardiac output:? Partly responsible for the patient's elevated CPK and the patient's muscle weakness due to poor perfusion. Note the patient's muscle weakness is improved and his CPK did come down with the patient being started on dobutamine IV with better cardiac output. The patient may require [place] Marylou catheter. But the patient has 3 leads and hence it might be a little problematic to place a [place]-Eric. Will discuss with [facility] cardiology. To make sure that the patient's cardiomyopathy is not related to a ongoing autoimmune disease the patient may need a right ventricular biopsy. 3. Coronary artery disease. Patient has a prior history of [place] in 1996 and 2000. History of stent in the left anterior descending artery in the past. No anginal symptoms. Note that the patient troponin I during this admission was negative, in spite of the CPK-MB being positive. 4. Hypotension: Most likely secondary to the patient's poor cardiac output. The patient at present on dobutamine support. Will add midodrine if the blood pressure still remains low. Continue with the current medication including dobutamine infusion, and the patient is being able to be placed on meaningful doses of beta-nessa and RANJANA inhibitor. 5. Diabetes mellitus with chronic kidney disease, and neuropathy. 6. Chronic kidney disease stage III. Renal functions have improved slightly. This is secondary to most likely cardiorenal syndrome. 7. Cardiomyopathy with severely reduced LV ejection fraction. Note that there is left ventricular apical akinesia to dyskinesia, with a chronically calcified clot which is a variant. Hence there is no danger of embolization. Also the patient has no history of peripheral emboli from the LV clot. 8. Moderate to severe mitral regurgitation. 9. Moderate pulmonary hypertension with moderate tricuspid regurgitation. 10. History of AICD placement. Note that earlier paced right ventricular lead was recalled, and Hence This Was a new right ventricular lead was placed. At present seems to be functioning appropriately. No firing of the AICD this admission. 11. History of chronic obstructive pulmonary disease. 12. History of paroxysmal atrial fibrillation. No recurrence.. Medications reviewed and adjusted. Medical management and management plan discussed with the attending physician Dr. Barnes. Medical decision making is of high complexity. 40 minutes spent on this patient with more than 50% of time spent direct patient care. I am trying to get hold of Dr. Murguia. Will discuss with the [facility] cardiology also about transfer. Discussed all of their well with the patient and patient's .
[2019-02-06] MEDS: PREDNISONE 5 MG TABLET PO SCH (22:40)
[2019-02-06] MEDS: ROPINIROLE HCL 2 MG TABLET PO SCH (22:40)
[2019-02-06] MEDS: DOBUTAMINE HCL/D5W 500 MG/250 ML RTUINJ IV PRN (22:46)
[2019-02-07] MEDS: CARVEDILOL 12.5 MG TABLET PO SCH ×2 (05:33→18:07)
[2019-02-07] MEDS: LISINOPRIL 10 MG TABLET PO SCH ×2 (05:33→18:08)
--- NOTE | 2019-02-07 06:58 | PDOC PROGRESS REPORT ---
Subjective Progress Note for:: 02/07/19 Subjective:: diffuse arthralgia worse off tramadol for azotemia. Reason For Visit: HEART FAILURE Physical Exam Vital Signs: Temp Pulse Resp BP Pulse Ox 97.7 F 61 20 158/98 H 100 02/06/19 20:00 02/07/19 04:00 02/06/19 23:28 02/07/19 04:00 02/06/19 23:28 Intake & Output 02/05/19 02/06/19 02/07/19 07:59 07:59 07:59 Intake Total 1471 457 848 Output Total 950 1700 2350 Balance 881 -2203 -1502 Weight 169 lb 5.04 oz 166 lb 10.711 oz General appearance: PRESENT: no acute distress Respiratory exam: PRESENT: clear to auscultation jerry Cardiovascular exam: ABSENT: diastolic murmur, irregular rhythm, systolic murmur GI/Abdominal exam: ABSENT: mass, organolmegaly, tenderness Extremities exam: ABSENT: pedal edema Neurological exam: PRESENT: oriented to situation Psychiatric exam: PRESENT: anxious Results Laboratory Results: 02/02/19 11:58 02/06/19 07:28 02/06/19 07:28 Sodium 134.3 L Potassium 4.8 Chloride 99 Carbon Dioxide 28 Anion Gap 7 BUN 65 H Creatinine 1.51 H Est GFR ( Amer) 56 L Est GFR (Non-Af Amer) 46 L Glucose 134 H Calcium 9.3 02/02/19 02/02/19 02/02/19 11:58 11:58 11:58 Creatine Kinase 2683 H CK-MB (CK-2) 50.40 H Troponin I 0.048 NT-Pro-B Natriuret Pep 77395 H 02/04/19 02/05/19 02/06/19 03:58 03:35 07:28 Creatine Kinase 2713 H 2085 H 1280 H CK-MB (CK-2) Troponin I NT-Pro-B Natriuret Pep Impressions: Chest X-Ray 02/02/19 12:05 IMPRESSION: Cardiomegaly without acute abnormality of the lungs in AP projection. Assessment & Plan - Diagnosis (1) Chronic combined systolic and diastolic heart failure Is this a current diagnosis for this admission?: Yes Plan: This is his primary diagnosis. On dobutamine 5mcg his pressure has risen enough for carvedilol 12mg lisinopril 10mg and furosemide 20mg bid. Diuresing. Azotemia improving. (2) Rhabdomyolysis due to statin therapy Is this a current diagnosis for this admission?: Yes Plan: ck decreasing (3) Type 2 diabetes mellitus with diabetic chronic kidney disease Qualifiers: Diabetes mellitus exterminator termite insulin use: with jail use Chronic kidney disease stage: stage 4 (severe) Qualified Code(s): E11.22 - Type 2 diabetes mellitus with diabetic chronic kidney disease; N18.4 - Chronic kidney disease, stage 4 (severe); Z79.4 - rat exterminator (current) use of insulin Is this a current diagnosis for this admission?: Yes (4) Restless legs syndrome Is this a current diagnosis for this admission?: Yes (5) Bipolar disorder, current episode depressed, mild Is this a current diagnosis for this admission?: Yes (6) Angina of effort Is this a current diagnosis for this admission?: Yes (7) Ventricular tachycardia Is this a current diagnosis for this admission?: Yes (8) Chronic atrial fibrillation Is this a current diagnosis for this admission?: Yes (9) Gastro-esophageal reflux disease without esophagitis Is this a current diagnosis for this admission?: Yes (10) Enlarged prostate with lower urinary tract symptoms (LUTS) Qualifiers: Lower urinary tract symptom detail: urinary hesitancy Qualified Code(s): N40.1 - Benign prostatic hyperplasia with lower urinary tract symptoms; R39.11 - Hesitancy of micturition Is this a current diagnosis for this admission?: Yes (11) Idiopathic chronic gout of multiple sites without tophus Is this a current diagnosis for this admission?: Yes (12) Foot ulcer due to secondary DM Is this a current diagnosis for this admission?: Yes (13) Rotator cuff impingement syndrome Qualifiers: Laterality: unspecified laterality Qualified Code(s): M75.40 - Impingement syndrome of unspecified shoulder Is this a current diagnosis for this admission?: Yes Plan: resume tramadol - Inpatient Certification Medical Necessity: Failure to Improve With Outpatient Therapy, Significant Comorbidiites Make Outpatient Treatment Too Risky, Need Close Monitoring Due to Risk of Patient Decompensation, Need For IV Fluids, Need For Continuous Telemetry Monitoring, Need for Pain Control, Risk of Complication if Not Cared For in Hospital, Risk of Diagnosis Which Will Require Inpatient Eval/Care/Monitoring
[2019-02-07] MEDS: INSULIN REG, HUMAN 100 UNIT/ML 3 ML VIAL (PYX) SUBCUT SCH ×4 (10:50→21:37)
[2019-02-07] MEDS: TRAMADOL HCL 50 MG TABLET PO PRN ×2 (10:51→21:48)
[2019-02-07] MEDS: ASPIRIN 81 MG TABLET, ENT COATED PO SCH (10:51)
[2019-02-07] MEDS: ENOXAPARIN SODIUM INJ 30 MG/0.3 ML DISP.SYRIN SUBCUT SCH (10:51)
[2019-02-07] MEDS: FAMOTIDINE 20 MG TABLET PO SCH ×2 (10:51→21:48)
[2019-02-07] MEDS: FINASTERIDE 5 MG TABLET PO SCH (10:51)
[2019-02-07] MEDS: FUROSEMIDE INJ/PF 20 MG/2 ML SDV IV SCH ×2 (10:51→21:48)
[2019-02-07] MEDS: FEBUXOSTAT 40 MG TABLET PO SCH (10:51)
[2019-02-07] MEDS: CLOPIDOGREL BISULFATE 75 MG TABLET PO SCH (10:51)
--- NOTE | 2019-02-07 16:10 | RADIOLOGY REPORT (SQ) ---
EXAM DESCRIPTION: CT CHEST WITHOUT COMPLETED DATE/TIME: 02/07/2019 3:41 pm REASON FOR STUDY: Pulmoary fibrosis:HI-RES COMPARISON: Chest radiograph, 02/02/2019 TECHNIQUE: CT scan performed of the chest without intravenous contrast. Images reviewed with lung, soft tissue and bone windows. All images stored on PACS. All CT scanners at this facility use dose modulation, iterative reconstruction, and/or weight based d osing when appropriate to reduce radiation dose to as low as reasonably achievable (ALARA). [facility]: Dose Right [facility]: CareDose [facility]: Dose Right [facility]: Teradose 4D [facility]: [employer] Technologies RADIATION DOSE: CT Rad equipment meets quality standard of care and radiation dose reduction techniq ues were employed. CTDIvol: 4.6 mGy. DLP: 146 mGy-cm. mGy. LIMITATIONS: No technical limitations. FINDINGS: LUNGS AND PLEURA: There is mild tubular bronchiectasis. There is no significant interstit ial lung disease. There are minimal glass centrilobular ground-glass nodules of the superior segment right lower lobe (series 2, image 14). HILAR AND MEDIASTINAL STRUCTURES: No identified masses or abnormal nodes. No obvious aneurysm. HEART AND VASCULAR STRUCTURES: No aneurysm. No pericardial effusion. Coronary artery calcifications and left chest multi lead pacer. UPPER ABDOMEN: The gallbladder is densely packed with calcified gallstones. THYROID AND OTHER SOFT TISSUES: No masses. No adenopathy. BONES: No significant finding. HARDWARE: None in the chest. OTHER: No other significant findings. IMPRESSION: 1. Mild tubular bronchiectasis. No significant interstitial lung disease. There are mi nimal clustered centrilobular ground-glass nodules of the superior segment right lower lobe, nonspeci fic and infectious or inflammatory. 2. Cholelithiasis. TECHNICAL DOCUMENTATION: JOB ID: [id number] Quality ID # [id number]: Final reports with documentation of one or more dose reduction techniques (e.g., Au tomated exposure control, adjustment of the mA and/or kV according to patient size, use of iterative reconstruction technique) 2010 [employer]- All Rights Reserved Reading location - IP/workstation name: [email or web address]
--- NOTE | 2019-02-07 20:52 | Progress Note ---
Provider Note Provider Note: CARDIOLOGY PROGRESS NOTE by Dr. Bonnie Doe on 02/07/2019. SUBJECTIVE: The patient states his muscle weakness is slightly improved on the dobutamine, with his blood pressure slightly much improved, and with his urine output also being better. There is no recurrence of atrial fibrillation. The patient denies any chest pain or discomfort. There is no increase in shortness of breath or episodic shortness of breath. There is no PND orthopnea. There is at present no leg edema. There is no firing of his AICD. Selected Entries PHYSICAL EXAMINATION: Patient appears to be chronically ill and cachectic. In spite of this he is in no acute distress. 02/07/19 02/07/19 16:53 17:00 Temperature 97.8 F Temperature Oral Source Pulse Rate 60 65 Respiratory 16 Rate Blood Pressure 97/44 L 105/48 L Blood Pressure 61 Mean BP Location Right Arm BP Position Supine O2 Sat by Pulse 96 Oximetry Oxygen Flow 2.00 Rate Oxygen Delivery Nasal Cannula Method HEAD: Head is atraumatic and normocephalic. EYES: Pupils are equal round regular reactive to light accommodation. Extraocular movements are normal, there is no conjunctival pallor, and no scleral icterus. EARS: Tympanic membranes are intact external auditory canals are clear. NOSE: There is no inf lammation of the nasal mucous membrane there is no deviated nasal septum. MOUTH: Mucous membranes of mouth and tongue are moist, there is no ulcers in the mouth or tongue, and no bleeding from the gums. THROAT: There is no redness of the oropharynx, no exudate seen. SKIN: There is no petechia or ecchymosis. There is no rashes or lesions. NECK: Supple. There is no JVD. Carotids are equal there is no bruit. There is no lymphadenopathy. There is no goiter. Trachea central LUNGS: There is diminished air entry and prolonged expiration. Clear to auscultation bilaterally, no wheezes, rales or rhonchi. On percussion there is hyperresonance although there is no chest wall tenderness HEART: S1 and S2 are heard. S1 is of normal intensity, there is no S3 or S4 gallops. There is a systolic murmur the left sternal border and the apex. There is no rub. ABDOMEN: Normoactive bowel sounds, soft, nontender, no masses, no rebound, no guarding. There is no hepatosplenomegaly. EXTREMITIES: Femorals are slightly diminished. There is no femoral bruits. Leg pulses are diminished. There is no pedal edema. There is no DVT or cellulitis. There is no cyanosis or clubbing. There is no calf tenderness. NEUROLOGICAL the patient is awake alert oriented 3 with no focal deficits. There is muscle weakness proximal group more than distal group of muscle show weakness. PSYCHIATRIC: The patient judgment and insight are intact his affect is normal. 02/07/19 02/07/19 11:38 15:00 POC Glucose 155 H Creatine Kinase 1363 H IMPRESSION/RECOMMENDATION: 1. Elevated CPK CPK-MB aldolase: The CPK has come down with dobutamine. The sed rate is also elevated.? 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 Note I have reviewed the rheumatological work-up he had he has not had any smooth muscle antibody levels done. He had a DNA which was negative. Will discuss with the [facility] rheumatology and see if the patient's multiple comorbidities are connected to a single autoimmune disease. Will discuss with Dr. Barnes to see if we can increase the patient's steroids to 1 mg/kg/day. 2. Acute on chronic systolic heart failure with low cardiac output:? Partly responsible for the patient's elevated CPK and the patient's muscle weakness due to poor perfusion. Note the patient's muscle weakness is improved and his CPK did come down with the patient being started on dobutamine IV with better cardiac output. The patient may require [place] Marylou catheter. But the patient has 3 leads and hence it might be a little problematic to place a [place]-Eric. Will discuss with [facility] cardiology. To make sure that the patient's cardiomyopathy is not related to a ongoing autoimmune disease the patient may need a right ventricular biopsy. 3. Coronary artery disease. Patient has a prior history of [place] in 1996 and 2000. History of stent in the left anterior descending artery in the past. No anginal symptoms. Note that the patient troponin I during this admission was negative, in spite of the CPK-MB being positive. 4. Hypotension: Most likely secondary to the patient's poor cardiac output. The patient at present on dobutamine support. Will add midodrine if the blood pressure still remains low. Continue with the current medication including dobutamine infusion, and the patient is being able to be placed on meaningful doses of beta-nessa and RANJANA inhibitor. 5. Diabetes mellitus with chronic kidney disease, and neuropathy. 6. Chronic kidney disease stage III. Improving this is most likely secondary to cardiorenal syndrome. 7. Cardiomyopathy with severely reduced LV ejection fraction. Note that there is left ventricular apical akinesia to dyskinesia, with a chronically calcified clot which is a variant. Hence there is no danger of embolization. Also the patient has no history of peripheral emboli from the LV clot. 8. Moderate to severe mitral regurgitation. 9. Moderate pulmonary hypertension with moderate tricuspid regurgitation. 10. History of AICD placement. Note that earlier paced right ventricular lead was recalled, and Hence This Was a new right ventricular lead was placed. At present seems to be functioning appropriately. No firing of the AICD this admission. 11. History of chronic obstructive pulmonary disease. 12. History of paroxysmal atrial fibrillation. No recurrence. Medications reviewed. Management plan discussed with the attending physician Dr. Barnes. Medical decision making is of high complexity in view of the multiple factors. Will follow. 40 minutes spent on this patient more than 50% of that spent in direct patient care.
[2019-02-07] MEDS: ROPINIROLE HCL 2 MG TABLET PO SCH (21:48)
[2019-02-07] MEDS: PREDNISONE 5 MG TABLET PO SCH (21:48)
[2019-02-07] MEDS: DOBUTAMINE HCL/D5W 500 MG/250 ML RTUINJ IV PRN (22:31)
[2019-02-08] MEDS: CARVEDILOL 12.5 MG TABLET PO SCH ×2 (05:12→17:17)
[2019-02-08] MEDS: LISINOPRIL 10 MG TABLET PO SCH ×2 (05:13→17:17)
[2019-02-08 06:46] LABS: ANION GAP 8 (5-19); BLOOD UREA NITROGEN 42 mg/dL (7-20); CALCIUM 9.3 mg/dL (8.4-10.2); CARBON DIOXIDE 30 mmol/L (22-30); CHLORIDE 97 mmol/L (98-107); GLUCOSE 115 mg/dL (75-110); SODIUM 134.8 mmol/L (137-145)
--- NOTE | 2019-02-08 07:13 | PDOC PROGRESS REPORT ---
Subjective Reason For Visit: HEART FAILURE Physical Exam Vital Signs: Temp Pulse Resp BP Pulse Ox 97.7 F 60 20 96/56 L 96 02/07/19 23:53 02/08/19 02:00 02/07/19 23:53 02/08/19 06:00 02/07/19 16:53 Intake & Output 02/06/19 02/07/19 02/08/19 07:59 07:59 07:59 Intake Total 457 848 844 Output Total 1700 8110 1800 Balance -1243 -1502 -956 Weight 169 lb 5.04 oz 166 lb 10.711 oz General appearance: PRESENT: no acute distress Respiratory exam: PRESENT: clear to auscultation jerry Cardiovascular exam: ABSENT: diastolic murmur, irregular rhythm, systolic murmur GI/Abdominal exam: ABSENT: mass, organolmegaly, tenderness Extremities exam: ABSENT: pedal edema Neurological exam: PRESENT: oriented to situation Psychiatric exam: PRESENT: appropriate affect Results Laboratory Results: 02/02/19 11:58 02/08/19 06:07 02/08/19 06:07 Sodium 134.8 L Potassium 5.0 Chloride 97 L Carbon Dioxide 30 Anion Gap 8 BUN 42 H Creatinine 0.99 Est GFR ( Amer) > 60 Est GFR (Non-Af Amer) > 60 Glucose 115 H Calcium 9.3 02/02/19 13:07 Blood Blood Culture - Final NO GROWTH IN 5 DAYS 02/02/19 11:58 Blood Blood Culture - Final NO GROWTH IN 5 DAYS 02/02/19 02/02/19 02/02/19 11:58 11:58 11:58 Creatine Kinase 2683 H CK-MB (CK-2) 50.40 H Troponin I 0.048 NT-Pro-B Natriuret Pep 96337 H 02/04/19 02/05/19 02/06/19 03:58 03:35 07:28 Creatine Kinase 2713 H 2085 H 1280 H CK-MB (CK-2) Troponin I NT-Pro-B Natriuret Pep 02/07/19 15:00 Creatine Kinase 1363 H CK-MB (CK-2) Troponin I NT-Pro-B Natriuret Pep Impressions: Chest X-Ray 02/02/19 12:05 IMPRESSION: Cardiomegaly without acute abnormality of the lungs in AP projection. Chest CT 02/07/19 00:00 IMPRESSION: 1. Mild tubular bronchiectasis. No significant interstitial lung disease. There are minimal clustered centrilobular ground-glass nodules of the superior segment right lower lobe, nonspecific and infectious or inflammatory. 2. Cholelithiasis. Assessment & Plan - Diagnosis (1) Chronic combined systolic and diastolic heart failure Is this a current diagnosis for this admission?: Yes Plan: bp lower on more toni beta but diuresing. Bun down to 42. (2) Rhabdomyolysis due to statin therapy Is this a current diagnosis for this admission?: Yes Plan: ck up slightly to 1360. Polymyositis would require emg & biospy. Sed8. I increa sed prednisone from 5 to 80mg (75kg). 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 Polymyositis antigen still unknown. (3) Type 2 diabetes mellitus with diabetic chronic kidney disease Qualifiers: Diabetes mellitus senior living insulin use: with technician terminal and repeater use Chronic kidney disease stage: stage 4 (severe) Qualified Code(s): E11.22 - Type 2 diabetes mellitus with diabetic chronic kidney disease; N18.4 - Chronic kidney disease, stage 4 (severe); Z79.4 - penitentiary (current) use of insulin Is this a current diagnosis for this admission?: Yes (4) Restless legs syndrome Is this a current diagnosis for this admission?: Yes (5) Bipolar disorder, current episode depressed, mild Is this a current diagnosis for this admission?: Yes (6) Angina of effort Is this a current diagnosis for this admission?: Yes (7) Ventricular tachycardia Is this a current diagnosis for this admission?: Yes (8) Chronic atrial fibrillation Is this a current diagnosis for this admission?: Yes (9) Gastro-esophageal reflux disease without esophagitis Is this a current diagnosis for this admission?: Yes (10) Enlarged prostate with lower urinary tract symptoms (LUTS) Qualifiers: Lower urinary tract symptom detail: urinary hesitancy Qualified Code(s): N40.1 - Benign prostatic hyperplasia with lower urinary tract symptoms; R39.11 - Hesitancy of micturition Is this a current diagnosis for this admission?: Yes (11) Idiopathic chronic gout of multiple sites without tophus Is this a current diagnosis for this admission?: Yes (12) Foot ulcer due to secondary DM Is this a current diagnosis for this admission?: Yes (13) Rotator cuff impingement syndrome Qualifiers: Laterality: unspecified laterality Qualified Code(s): M75.40 - Impingement syndrome of unspecified shoulder Is this a current diagnosis for this admission?: Yes - Inpatient Certification Medical Necessity: Failure to Improve With Outpatient Therapy, Significant Comorbidiites Make Outpatient Treatment Too Risky, Need Close Monitoring Due to Risk of Patient Decompensation, Need For IV Fluids, Need For Continuous Telemetry Monitoring, Need for Pain Control, Risk of Complication if Not Cared For in Hospital, Risk of Diagnosis Which Will Require Inpatient Eval/Care/Monitoring
[2019-02-08] MEDS: INSULIN REG, HUMAN 100 UNIT/ML 3 ML VIAL (PYX) SUBCUT SCH ×4 (09:50→22:47)
[2019-02-08] MEDS: ENOXAPARIN SODIUM INJ 30 MG/0.3 ML DISP.SYRIN SUBCUT SCH (10:18)
[2019-02-08] MEDS: PREDNISONE 20 MG TABLET PO SCH ×2 (10:18→17:17)
[2019-02-08] MEDS: FAMOTIDINE 20 MG TABLET PO SCH ×2 (10:18→22:48)
[2019-02-08] MEDS: ASPIRIN 81 MG TABLET, ENT COATED PO SCH (10:18)
[2019-02-08] MEDS: FEBUXOSTAT 40 MG TABLET PO SCH (10:18)
[2019-02-08] MEDS: CLOPIDOGREL BISULFATE 75 MG TABLET PO SCH (10:18)
[2019-02-08] MEDS: FINASTERIDE 5 MG TABLET PO SCH (10:18)
[2019-02-08] MEDS: FUROSEMIDE INJ/PF 20 MG/2 ML SDV IV SCH ×2 (10:19→22:47)
[2019-02-08] MEDS ORDERED: MIDODRINE HCL 5 MG TABLET PO ONE (10:30)
[2019-02-08] MEDS: MIDODRINE HCL 5 MG TABLET PO SCH ×2 (15:16→17:17)
[2019-02-08] MEDS: DOBUTAMINE HCL/D5W 500 MG/250 ML RTUINJ IV PRN (21:00)
[2019-02-08] MEDS: ROPINIROLE HCL 2 MG TABLET PO SCH (22:48)
[2019-02-08] MEDS: TRAMADOL HCL 50 MG TABLET PO PRN (22:49)
--- NOTE | 2019-02-08 22:51 | Progress Note ---
Provider Note Provider Note: CARDIOLOGY PROGRESS NOTE by Dr. Bonnie Doe on 02/08/2019. OBJECTIVE: The patient states that his limb/muscle weakness is slightly more than what it was yesterday. Also his blood pressure has been on the lower side. He is blood pressure did merchandise pickup/receiving associate with me to drain 10 mg and hence the patient will be placed on Midrin 10 mg p.o. 3 times daily. In the meantime the dobutamine drip was decreased to 2.5 mg/kg/min. He at present he has no shortness of breath at rest. He is too weak to get up and walk out of bed he has no chest pain or discomfort. There is no arrhythmia seen. There is no firing of his AICD. There is no TIA CVA symptoms. His renal function now is normal with a GFR of greater than 60. PHYSICAL EXAMINATION: The patient appears to be chronically ill and malnourished and cachectic. But he is in no acute distress. Selected Entries 02/08/19 16:29 Pulse Rate 63 Respiratory 15 Rate Blood Pressure 124/62 Blood Pressure 82 Mean BP Location Left Leg O2 Sat by Pulse 100 Oximetry Oxygen Flow 2.00 Rate Oxygen Delivery Nasal Cannula Method HEAD: Head is atraumatic and normocephalic. EYES: Pupils are equal round regular reactive to light accommodation. Extraocular movements are normal, there is no conjunctival pallor, and no scleral icterus. EARS: Tympanic membranes are intact external auditory canals are clear. NOSE: There is no inflammation of the nasal mucous membrane there is no deviated nasal septum. MOUTH: Mucous membranes of mouth and tongue are moist, there is no ulcers in the mouth or tongue, and no bleeding from the gums. THROAT: There is no redness of the oropharynx, no exudate seen. SKIN: There is no petechia or ecchymosis. There is no rashes or lesions. NECK: Supple. There is no JVD. Carotids are equal there is no bruit. There is no lymphadenopathy. There is no goiter. Trachea central LUNGS: There is diminished air entry and prolonged expiration. Clear to auscultation bilaterally, no wheezes, rales or rhonchi. On percussion there is hyperresonance although there is no chest wall tenderness HEART: S1 and S2 are heard. S1 is of normal intensity, there is no S3 or S4 gallops. There is a systolic murmur the left sternal border and the apex. There is no rub. ABDOMEN: Normoactive bowel sounds, soft, nontender, no masses, no rebound, no guarding. There is no hepatosplenomegaly. EXTREMITIES: Femorals are slightly diminished. There is no femoral bruits. Leg pulses are diminished. There is no pedal edema. There is no DVT or cellulitis. There is no cyanosis or clubbing. There is no calf tenderness. NEUROLOGICAL the patient is awake alert oriented 3 with no focal deficits. There is muscle weakness proximal group more than distal group of muscle show weakness. PSYCHIATRIC: The patient judgment and insight are intact his affect is normal. Chest X-Ray 02/02/19 12:05 IMPRESSION: Cardiomegaly without acute abnormality of the lungs in AP projection. Chest CT 02/07/19 00:00 IMPRESSION: 1. Mild tubular bronchiectasis. No significant interstitial lung disease. There are minimal clustered centrilobular ground-glass nodules of the superior segment right lower lobe, nonspecific and infectious or inflammatory. 2. Cholelithiasis. 02/08/19 06:07 Sodium 134.8 L Potassium 5.0 Chloride 97 L Carbon Dioxide 30 Anion Gap 8 BUN 42 H Creatinine 0.99 Est GFR (Non-Af Amer) > 60 Glucose 115 H Calcium 9.3 IMPRESSION/RECOMMENDATION. 1. Elevated CPK CPK-MB aldolase: The sed rate is also elevated.? 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 I spoke to the patient's property claim rep Dr. Murguia, who sees the patient as an outpatient. Dr. 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 He recommends an egg recommends that the patient be placed on high-dose steroids, which at present Dr. Barnes started the patient on. Dr. Murguia also thinks is a good idea to transfer the patient to [facility], where the patient can have further work-up including biopsies of the right ventricle or muscle and also have cardiac MRI. Will discuss with them in the morning. 2. Acute on chronic systolic heart failure with low cardiac output:? Partly responsible for the patient's elevated CPK and the patient's muscle weakness due to poor perfusion. Note the patient's muscle weakness is improved and his CPK did come down with the patient being started on dobutamine IV with better cardiac output. The patient may require [place] Marylou catheter. But the patient has 3 leads and hence it might be a little problematic to place a [place]-Eric. Will discuss with [facility] cardiology. To make sure that the patient's cardiomyopathy is not related to a ongoing autoimmune disease the patient may need a right ventricular biopsy. The patient's blood pressure was low hence Midrin was given and the patient blood pressure did come up. His dobutamine also has been decreased to 2.5 mg/kg/min. Will discuss with the [facility] cardiology tomorrow.. 3. Coronary artery disease. Patient has a prior history of [place] in 1996 and 2000. History of stent in the left anterior descending artery in the past. No anginal symptoms. Note that the patient troponin I during this admission was negative, in spite of the CPK-MB being positive. 4. Hypotension: Most likely secondary to the patient's poor cardiac output. The patient at present on dobutamine support. Will add midodrine if the blood pressure still remains low. Continue with the current medication including dobutamine infusion, and the patient is being able to be placed on meaningful doses of beta-nessa and RANJANA inhibitor. 5. Diabetes mellitus with chronic kidney disease, and neuropathy. 6. Chronic kidney disease stage III. Now the patient's kidney functions reverted to normal with a GFR greater than 60. This is most likely due to improved cardiac output with resolution of the cardiorenal syndrome. 7. Cardiomyopathy with severely reduced LV ejection fraction. Note that there is left ventricular apical akinesia to dyskinesia, with a chronically calcified clot which is a variant. Hence there is no danger of embolization. Also the patient has no history of peripheral emboli from the LV clot. 8. Moderate to severe mitral regurgitation. 9. Moderate pulmonary hypertension with moderate tricuspid regurgitation. 10. History of AICD placement. Note that earlier paced right ventricular lead was recalled, and Hence This Was a new right ventricular lead was placed. At present seems to be functioning appropriately. No firing of the AICD this admission. 11. History of chronic obstructive pulmonary disease. 12. History of paroxysmal atrial fibrillation. No recurrence. The patient medications reviewed. Medication adjusted. Medication changes and management plan discussed with Dr. Barnes. He is agreeable to the patient being transferred to [facility]. Will discuss with him medical decision making is of high complexity. 45 minutes spent on the patient including discussions with Dr. Murguia on the telephone, with more than 50% of the time spent in direct patient care. Will follow
[2019-02-09] MEDS: LISINOPRIL 10 MG TABLET PO SCH ×2 (06:04→19:24)
[2019-02-09] MEDS: CARVEDILOL 12.5 MG TABLET PO SCH ×2 (06:05→19:24)
[2019-02-09 06:40] LABS: ANION GAP 10 (5-19); BLOOD UREA NITROGEN 42 mg/dL (7-20); CALCIUM 9.4 mg/dL (8.4-10.2); CARBON DIOXIDE 28 mmol/L (22-30); CHLORIDE 98 mmol/L (98-107); GLUCOSE 185 mg/dL (75-110); POTASSIUM 5.1 mmol/L (3.6-5.0); SODIUM 135.7 mmol/L (137-145)
--- NOTE | 2019-02-09 08:33 | PDOC PROGRESS REPORT ---
Subjective Progress Note for:: 02/09/19 Subjective:: still weak Reason For Visit: HEART FAILURE Physical Exam Vital Signs: Temp Pulse Resp BP Pulse Ox 98.0 F 73 16 121/62 99 02/09/19 03:39 02/09/19 06:00 02/09/19 03:39 02/09/19 06:00 02/09/19 01:21 Intake & Output 02/08/19 02/09/19 02/10/19 07:59 07:59 07:59 Intake Total 844 650 Output Total 1800 1780 Balance -956 -1130 General appearance: PRESENT: no acute distress Respiratory exam: PRESENT: clear to auscultation jerry Cardiovascular exam: ABSENT: diastolic murmur, irregular rhythm, systolic murmur GI/Abdominal exam: ABSENT: mass, organolmegaly, tenderness Neurological exam: PRESENT: oriented to situation, motor sensory deficit - resisted shoulder abduction tender and weak [id number] Psychiatric exam: PRESENT: appropriate affect Results Laboratory Results: 02/02/19 11:58 02/09/19 05:49 02/09/19 05:49 Sodium 135.7 L Potassium 5.1 H Chloride 98 Carbon Dioxide 28 Anion Gap 10 BUN 42 H Creatinine 0.93 Est GFR ( Amer) > 60 Est GFR (Non-Af Amer) > 60 Glucose 185 H Calcium 9.4 Impressions: Chest X-Ray 02/02/19 12:05 IMPRESSION: Cardiomegaly without acute abnormality of the lungs in AP projection. Chest CT 02/07/19 00:00 IMPRESSION: 1. Mild tubular bronchiectasis. No significant interstitial lung disease. There are minimal clustered centrilobular ground-glass nodules of the superior segment right lower lobe, nonspecific and infectious or inflammatory. 2. Cholelithiasis. Assessment & Plan - Diagnosis (1) Chronic combined systolic and diastolic heart failure Is this a current diagnosis for this admission?: Yes Plan: Dr Flores plans R heart biopsy at [facility] when bed available. (2) Rhabdomyolysis due to statin therapy Is this a current diagnosis for this admission?: Yes Plan: Needs emg & muscle biopsy at [facility] to prove or disprove polymyositits. Continue [id number] (3) Type 2 diabetes mellitus with diabetic chronic kidney disease Qualifiers: Diabetes mellitus termite treater helper insulin use: with mcfp use Chronic kidney disease stage: stage 4 (severe) Qualified Code(s): E11.22 - Type 2 diabetes mellitus with diabetic chronic kidney disease; N18.4 - Chronic kidney disease, stage 4 (severe); Z79.4 - termite control servicer (current) use of insulin Is this a current diagnosis for this admission?: Yes (4) Restless legs syndrome Is this a current diagnosis for this admission?: Yes (5) Bipolar disorder, current episode depressed, mild Is this a current diagnosis for this admission?: Yes (6) Angina of effort Is this a current diagnosis for this admission?: Yes (7) Ventricular tachycardia Is this a current diagnosis for this admission?: Yes (8) Chronic atrial fibrillation Is this a current diagnosis for this admission?: Yes (9) Gastro-esophageal reflux disease without esophagitis Is this a current diagnosis for this admission?: Yes (10) Enlarged prostate with lower urinary tract symptoms (LUTS) Qualifiers: Lower urinary tract symptom detail: urinary hesitancy Qualified Code(s): N40.1 - Benign prostatic hyperplasia with lower urinary tract symptoms; R39.11 - Hesitancy of micturition Is this a current diagnosis for this admission?: Yes (11) Idiopathic chronic gout of multiple sites without tophus Is this a current diagnosis for this admission?: Yes (12) Foot ulcer due to secondary DM Is this a current diagnosis for this admission?: Yes (13) Rotator cuff impingement syndrome Qualifiers: Laterality: unspecified laterality Qualified Code(s): M75.40 - Impingement syndrome of unspecified shoulder Is this a current diagnosis for this admission?: Yes - Inpatient Certification Medical Necessity: Failure to Improve With Outpatient Therapy, Significant Comorbidiites Make Outpatient Treatment Too Risky, Need Close Monitoring Due to Risk of Patient Decompensation, Need For IV Fluids, Need For Continuous Telemetry Monitoring, Need for Pain Control, Risk of Complication if Not Cared For in Hospital, Risk of Diagnosis Which Will Require Inpatient Eval/Care/Monitoring
[2019-02-09] MEDS: FEBUXOSTAT 40 MG TABLET PO SCH (10:57)
[2019-02-09] MEDS: PREDNISONE 20 MG TABLET PO SCH ×2 (10:57→19:24)
[2019-02-09] MEDS: MIDODRINE HCL 5 MG TABLET PO SCH ×3 (10:57→19:24)
[2019-02-09] MEDS: CLOPIDOGREL BISULFATE 75 MG TABLET PO SCH (10:57)
[2019-02-09] MEDS: FAMOTIDINE 20 MG TABLET PO SCH ×2 (10:57→22:06)
[2019-02-09] MEDS: FINASTERIDE 5 MG TABLET PO SCH (10:57)
[2019-02-09] MEDS: FUROSEMIDE INJ/PF 20 MG/2 ML SDV IV SCH ×2 (10:57→22:01)
[2019-02-09] MEDS: ASPIRIN 81 MG TABLET, ENT COATED PO SCH (10:57)
[2019-02-09] MEDS: INSULIN REG, HUMAN 100 UNIT/ML 3 ML VIAL (PYX) SUBCUT SCH ×4 (10:58→22:05)
[2019-02-09] MEDS: ENOXAPARIN SODIUM INJ 30 MG/0.3 ML DISP.SYRIN SUBCUT SCH (10:58)
[2019-02-09] MEDS: TRAMADOL HCL 50 MG TABLET PO PRN ×2 (14:40→22:05)
[2019-02-09] MEDS: DOBUTAMINE HCL/D5W 500 MG/250 ML RTUINJ IV PRN (19:30)
--- NOTE | 2019-02-09 20:32 | Progress Note ---
Provider Note Provider Note: CARDIOLOGY PROGRESS NOTE by Dr. Bonnie Doe on 02/09/2019. SUBJECTIVE: The patient states that there is some improvement is mild muscle weakness. His CPK has come down and his sed rate is remained normal. I am not sure whether this is due to the high-dose steroids or versus increased cardiac output due to the dobutamine. The patient's blood pressure stable on midodrine. There is no firing of the AICD. There is no recurrence of paroxysmal atrial fibrillation. There is no ventricular arrhythmia seen. There is no chest pain or discomfort. There is no PND orthopnea. The patient's muscle weakness is marginally better. He can move his extremities with a little better strength than before. But still there is seeing significant weakness in his muscles of both upper and lower extremities. Selected Entries 02/09/19 15:26 Temperature 97.7 F Temperature Oral Source Pulse Rate 60 Respiratory 18 Rate Blood Pressure 107/57 L Blood Pressure 73 Mean BP Location Right Arm BP Position Supine O2 Sat by Pulse 100 Oximetry Oxygen Flow 2.00 Rate Oxygen Delivery Nasal Cannula Method HEAD: Head is atraumatic and normocephalic. EYES: Pupils are equal round regular reactive to light accommodation. Extraocular movements are normal, there is no conjunctival pallor, and no scleral icterus. EARS: Tympanic membranes are intact external auditory canals are clear. NOSE: There is no inflammation of the nasal mucous membrane there is no deviated nasal septum. MOUTH: Mucous membranes of mouth and tongue are moist, there is no ulcers in the mouth or tongue, and no bleeding from the gums. THROAT: There is no redness of the oropharynx, no exudate seen. SKIN: There is no petechia or ecchymosis. There is no rashes or lesions. NECK: Supple. There is no JVD. Carotids are equal there is no bruit. There is no lymphadenopathy. There is no goiter. Trachea central LUNGS: There is diminished air entry and prolonged expiration. Clear to auscultation bilaterally, no wheezes, rales or rhonchi. On percussion there is hyperresonance although there is no chest wall tenderness HEART: S1 and S2 are heard. S1 is of normal intensity, there is no S3 or S4 gallops. There is a systolic murmur the left sternal border and the apex. There is no rub. ABDOMEN: Normoactive bowel sounds, soft, nontender, no masses, no rebound, no guarding. There is no hepatosplenomegaly. EXTREMITIES: Femorals are slightly diminished. There is no femoral bruits. Leg pulses are diminished. There is no pedal edema. There is no DVT or cellulitis. There is no cyanosis or clubbing. There is no calf tenderness. NEUROLOGICAL the patient is awake alert oriented 3 with no focal deficits. There is muscle weakness proximal group more than distal group of muscle show weakness. PSYCHIATRIC: The patient judgment and insight are intact his affect is normal. 02/09/19 02/09/19 02/09/19 05:49 05:49 05:49 ESR 8 Sodium 135.7 L Potassium 5.1 H Chloride 98 Carbon Dioxide 28 Anion Gap 10 BUN 42 H Creatinine 0.93 Est GFR (Non-Af Amer) > 60 Glucose 185 H Calcium 9.4 Creatine Kinase 948 H The patient's 24-hour intake is 650 mL. Output is 1780 mL. IMPRESSION/RECOMMENDATION. 1. Elevated CPK CPK-MB aldolase: The sed rate is not elevated.? 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 I spoke to the patient's railway station manager Dr. Murguia, who sees the patient as an outpatient. Dr. Murguia states that the pa joanne has a diagnosis of polymyositis, but has not been proven by biopsy. He recommends an egg recommends that the patient be placed on high-dose steroids, which at present Dr. Barnes started the patient on. Dr. Murguia also thinks is a good idea to transfer the patient to [facility], where the patient can have further work-up including biopsies of the right ventricle or muscle and also have cardiac MRI. Will discuss with them in the morning. 2. Acute on chronic systolic heart failure with low cardiac output:? Partly responsible for the patient's elevated CPK and the patient's muscle weakness due to poor perfusion. Note the patient's muscle weakness is improved and his CPK did come down with the patient being started on dobutamine IV with better cardiac output. The patient may require [place] Marylou catheter. But the patient has 3 leads and hence it might be a little problematic to place a [place]-Eric. Will discuss with [facility] cardiology. To make sure that the patient's car diomyopathy is not related to a ongoing autoimmune disease the patient may need a right ventricular biopsy. The patient's blood pressure was low hence Midrin was given and the patient blood pressure did come up. His dobutamine also has been decreased to 2.5 mg/kg/min. Will discuss with the [facility] cardiology tomorrow.. 3. Coronary artery disease. Patient has a prior history of [place] in 1996 and 2000 . History of stent in the left anterior descending artery in the past. No anginal symptoms. Note that the patient troponin I during this admission was negative, in spite of the CPK-MB being positive. 4. Hypotension: Most likely secondary to the patient's poor cardiac output. The patient at present on dobutamine support. Will add midodrine if the blood pressure still remains low. Continue with the current medication including dobutamine infusion, and the patient is being able to be placed on meaningful doses of beta-nessa and RANJANA inhibitor. 5. Diabetes mellitus with chronic kidney disease, and neuropathy. 6. Chronic kidney disease stage III. Now the patient's kidney functions reverted to normal with a GFR greater than 60. This is most likely due to improved cardiac output with resolution of the cardiorenal syndrome. 7. Cardiomyopathy with severely reduced LV ejection fraction. Note that there is left ventricular apical akinesia to dyskinesia, with a chronically calcified clot which is a variant. Hence there is no danger of embolization. Also the patient has no history of peripheral emboli from the LV clot. 8. Moderate to severe mitral regurgitation. 9. Moderate pulmonary hypertension with moderate tricuspid regurgitation. 10. History of AICD placement. Note that earlier paced right ventricular lead was recalled, and Hence This Was a new right ventricular lead was placed. At present seems to be functioning appropriately. No firing of the AICD this admission. 11. History of chronic obstructive pulmonary disease. 12. History of paroxysmal atrial fibrillation. No recurrence. The patient medications reviewed. Medication adjusted. Medication changes and management plan discussed with Dr. Barnes. The patient was discussed with the [facility] cardiology, about possibly the pending myositis the patient's cardiomyopathy may be related to autoimmune disease. He may require a right radical biopsy as well as muscle biopsy and EMG. Since the diagnosis of polymyositis has not been supported by EMG or muscle biopsy. He has been accepted and is pending transfer when a bed is available in [place]. 50 minutes spent on this patient with more than 50% of time spent in direct patient care. The plan for transfer and the treatment plan have been discussed with the patient patient's . Medical decision making is of high complexity.
[2019-02-09] MEDS: ROPINIROLE HCL 2 MG TABLET PO SCH (22:05)
[2019-02-10] MEDS: LISINOPRIL 10 MG TABLET PO SCH ×2 (06:26→17:46)
[2019-02-10] MEDS: CARVEDILOL 12.5 MG TABLET PO SCH ×2 (06:26→17:46)
--- NOTE | 2019-02-10 06:46 | PDOC TRANSFER SUMMARY ---
General Admission Date/PCP: 02/02/19 17:27 JEFF GLEASON MD Admission Date: 02/02/19 Accepting Facility: [facility] Resuscitation Status: Full Code - Transfer Diagnosis (1) Polymyositis Is this a current diagnosis for this admission?: Yes Diagnosis Summary: zigzag stitcher diagnosis by Dr Ngo but needs emg & biopsy to prove. CK trending down on prednisone 40bid. (2) Chronic combined systolic and diastolic heart failure Is this a current diagnosis for this admission?: Yes (3) Rhabdomyolysis due to statin therapy Is this a current diagnosis for this admission?: Yes (4) Type 2 diabetes mellitus with diabetic chronic kidney disease Is this a current diagnosis for this admission?: Yes (5) Restless legs syndrome Is this a current diagnosis for this admission?: Yes (6) Bipolar disorder, current episode depressed, mild Is this a current diagnosis for this admission?: Yes (7) Angina of effort Is this a current diagnosis for this admission?: Yes (8) Ventricular tachycardia Is this a current diagnosis for this admission?: Yes (9) Chronic atrial fibrillation Is this a current diagnosis for this admission?: Yes (10) Gastro-esophageal reflux disease without esophagitis Is this a current diagnosis for this admission?: Yes (11) Enlarged prostate with lower urinary tract symptoms (LUTS) Is this a current diagnosis for this admission?: Yes (12) Idiopathic chronic gout of multiple sites without tophus Is this a current diagnosis for this admission?: Yes (13) Foot ulcer due to secondary DM Is this a current diagnosis for this admission?: Yes (14) Rotator cuff impingement syndrome Is this a current diagnosis for this admission?: Yes - Transfer Medications Home Medications: Amitriptyline HCl [Elavil 25 mg Tablet] 25 mg PO QHS 02/02/19 Aspirin [Ecotrin 81 mg EC Tablet] 81 mg PO DAILY 02/02/19 Carvedilol [Coreg 25 mg Tablet] 25 mg PO Q12 02/02/19 Clopidogrel Bisulfate [Plavix 75 mg Tablet] 75 mg PO DAILY 02/02/19 Colchicine [Colchicine 0.6 mg Tablet] 0.6 mg PO Q12 02/02/19 Ergocalciferol (Vitamin D2) [Drisdol 50,000 Unit (1.25MG) Capsule] 50,000 unit PO .02/02/19 Febuxostat [Uloric 40 mg Tablet] 40 mg PO DAILY 02/02/19 Fenofibrate Nanocrystallized [Tricor 145 mg Tablet] 145 mg PO QHS 02/02/19 Finasteride [Proscar 5 mg Tablet] 5 mg PO DAILY 02/02/19 Insulin Aspart [Novolog Flexpen] 20 unit SUBCUT AC MDD UP TO 30 PER MEAL Insulin Glargine,Hum.rec.anlog [Lantus Insulin 100 Unit/1 ml 10 ml] 65 unit SUBCUT QHS 02/02/19 Nitroglycerin [Nitro-Dur 5 mg (0.2 mg/Hr) Transdermal Patch] 1 patch TD QAMP PRN 02/02/19 Nitroglycerin [Nitrostat 0.4 mg (1/150 Gr) Tabs 25/Bottle] 1 tab SL Q5MP PRN 02/02/19 Prednisone [Deltasone 5 mg Tablet] 5 mg PO DAILY 02/02/19 Ranitidine HCl [Zantac 150 mg Tablet] 150 mg PO BID 02/02/19 Ropinirole HCl [Requip 2 Mg Tablet] 2 mg PO QHS 02/02/19 Rosuvastatin Calcium [Crestor 10 mg Tablet] 10 mg PO QHS 02/02/19 Spironolactone [Aldactone 25 mg Tablet] 25 mg PO DAILY 02/02/19 Torsemide [Demadex 20 mg Tablet] 20 mg PO DAILY 02/02/19 Tramadol HCl [Ultram 50 mg Tablet] 50 mg PO Q6HP PRN 02/02/19 Transfer Medications: Current Medications Acetaminophen (Tylenol 325 Mg Tablet) 325 mg PO Q4HP PRN PRN Reason: NEUROPATHIC PAIN Stop: 03/08/19 05:27 Last Admin: 02/06/19 06:04 Dose: 325 mg Documented by: Aspirin (Ecotrin 81 Mg Ec Tablet) 81 mg PO DAILY [facility] Stop: 03/04/19 22:59 Last Admin: 02/09/19 10:57 Dose: 81 mg Documented by: Carvedilol (Coreg 12.5 Mg Tablet) 12.5 mg PO Q12A [facility] Stop: 03/08/19 17:59 Last Admin: 02/10/19 06:26 Dose: 12.5 mg Documented by: Clopidogrel Bisulfate (Plavix 75 Mg Tablet) 75 mg PO DAILY [facility] Stop: 03/04/19 22:14 Last Admin: 02/09/19 10:57 Dose: 75 mg Documented by: Enoxaparin Sodium (Lovenox Inj 30 Mg/0.3 Ml Disp.Syrin) 30 mg SUBCUT DAILY [facility] Stop: 03/05/19 09:59 Last Admin: 02/09/19 10:58 Dose: 30 mg Documented by: Ergocalciferol (Drisdol 50,000 Unit (1.25mg) Capsule) 50,000 unit PO . [facility] Stop: 03/04/19 22:59 Famotidine (Pepcid 20 Mg Tablet) 20 mg PO Q12 JOANNE Stop: 03/04/19 22:59 Last Admin: 02/09/19 22:06 Dose: 20 mg Documented by: Febuxostat (Uloric 40 Mg Tablet) 40 mg PO DAILY [facility] Stop: 03/04/19 22:14 Last Admin: 02/09/19 10:57 Dose: 40 mg Documented by: Finasteride (Proscar 5 Mg Tablet) 5 mg PO DAILY [facility] Stop: 03/04/19 22:14 Last Admin: 02/09/19 10:57 Dose: 5 mg Documented by: Furosemide (Lasix Inj/Pf 20 Mg/2 Ml Sdv) 20 mg IV Q12 [facility] Stop: 03/08/19 13:59 Last Admin: 02/09/19 22:01 Dose: 20 mg Documented by: Glucagon (Glucagen Inj 1 Mg Vial) 1 mg IM PRN PRN; Protocol PRN Reason: Evaluate for BG < 70 Stop: 03/05/19 08:49 Dobutamine HCl/Dextrose (Dobutrex Rtu 500 Mg-D5w 250 Ml Premixed Bag) 500 mg in 250 mls @ 5.708 mls/hr IV CONTINUOUS PRN; Protocol PRN Reason: THIS MED IS NOT "PRN" Stop: 03/06/19 11:22 Last Admin: 02/09/19 19:30 Dose: 5 mcg/kg/min, 11.42 mls/hr Documented by: Insulin Human Regular (Humulin R (Pyxis) Insulin 100 Unit/Ml 3ml) 0 - 12 unit SUBCUT ACHS [facility]; Protocol Stop: 03/06/19 07:59 Last Admin: 02/09/19 22:05 Dose: 4 unit Documented by: Lisinopril (Prinivil 10 Mg Tablet) 10 mg PO Q12A [facility] Stop: 03/08/19 17:59 Last Admin: 02/10/19 06:26 Dose: 10 mg Documented by: Midodrine (Proamatine 5 Mg Tablet) 5 mg PO TID [facility] Stop: 03/10/19 14:39 Last Admin: 02/09/19 19:24 Dose: 5 mg Documented by: Nitroglycerin (Nitrostat 0.4 Mg (1/150 Gr) Tabs 25/Bottle) 1 tab SL Q5MP PRN PRN Reason: CHEST PAIN Stop: 03/04/19 22:02 Ondansetron HCl (Zofran Inj/Pf 4 Mg/2 Ml Sdv) 4 mg IV Q4HP PRN PRN Reason: FOR NAUSEA Stop: 03/07/19 00:28 Last Admin: 02/05/19 00:34 Dose: 4 mg Documented by: Prednisone (Deltasone 20 Mg Tablet) 40 mg PO BID [facility] Stop: 03/10/19 09:59 Last Admin: 02/09/19 19:24 Dose: 40 mg Documented by: Ropinirole HCl (Requip 2 Mg Tablet) 2 mg PO QHS [facility] Stop: 03/05/19 21:59 Last Admin: 02/09/19 22:05 Dose: 2 mg Documented by: Sodium Chloride (Saline Flush 2.5 Ml Monoject Prefil Syrin) 2.5 ml IV Q8 [facility] Stop: 03/05/19 05:59 Last Admin: 02/10/19 06:25 Dose: Not Given Documented by: Tramadol HCl (Ultram 50 Mg Tablet) 50 mg PO Q6HP PRN PRN Reason: FOR PAIN Stop: 02/14/19 06:40 Last Admin: 02/09/19 22:05 Dose: 50 mg Documented by: - Allergies Allergies/Adverse Reactions: cholestyramine [From Questran] Allergy (Verified 02/02/19 11:45) gemfibrozil [From Lopid] Allergy (Verified 02/02/19 11:45) morphine Allergy (Verified 02/02/19 11:45) niacin Allergy (Verified 02/02/19 11:45) sucrose [From Questran] Allergy (Verified 02/02/19 11:45) colesevelam [From WelChol] Adverse Reaction (Verified 02/02/19 11:45) metoprolol [From Lopressor] Adverse Reaction (Verified 02/02/19 11:45) - Diet/Activity Discharge Diet: Cardiac Discharge Activity: Activity As Tolerated Hospital Course Hospital Course: On admission his chief complaint was proximal weakness which has improved a little off rosuvastatin & colchicine on prednisone 40bid. CK has fallen from 2700 to 900. Ejection was 15%, down from 40% in 2013. On dobutamine 5mcg, he has tolerated lisinopril 10bid carvedilol 12bid and furosemide 20mg iv bid. Dr Flores requested help from [employer] for EMG and skelatal & cardiac muscle biopsies to prove or disprove polymyositis before supervisor agency appointments high dose prednisone. (Baseline dose has been 5mg.) Physical Exam Vital Signs: Temp Pulse Resp BP Pulse Ox 97.5 F 60 16 108/63 98 02/10/19 03:41 02/10/19 03:41 02/10/19 03:41 02/10/19 03:41 02/10/19 03:41 Intake & Output 02/08/19 02/09/19 02/10/19 07:59 07:59 07:59 Intake Total 464 772 1024 Output Total 1800 1780 2175 Balance -956 -1130 -815 Weight 163 lb 9.328 oz 164 lb 3.91 oz General appearance: PRESENT: no acute distress Respiratory exam: PRESENT: clear to auscultation jerry Cardiovascular exam: ABSENT: diastolic murmur, irregular rhythm, systolic murmur GI/Abdominal exam: ABSENT: mass, organolmegaly, tenderness Extremities exam: ABSENT: pedal edema Neurological exam: PRESENT: oriented to situation Psychiatric exam: PRESENT: appropriate affect Results Laboratory Results: Labs- Last Values WBC 7.1 10^3/uL (4.0-10.5) 02/02/19 11:58 RBC 5.34 10^6/uL (4.35-5.55) 02/02/19 11:58 Hgb 16.4 g/dL (13.5-17.0) 02/02/19 11:58 Hct 49.3 % (37.9-51.0) 02/02/19 11:58 MCV 92 fl (80-97) 02/02/19 11:58 MCH 30.7 pg (27.0-33.4) 02/02/19 11:58 MCHC 33.2 g/dL (32.0-36.0) 02/02/19 11:58 RDW 15.5 % (11.5-14.0) H 02/02/19 11:58 Plt Count 175 10^3/uL (150-450) 02/02/19 11:58 Seg Neutrophils % 56.5 % (42-78) 02/02/19 11:58 Lymphocytes % 28.1 % (13-45) 02/02/19 11:58 Monocytes % 13.9 % (3-13) H 02/02/19 11:58 Eosinophils % 1.0 % (0-6) 02/02/19 11:58 Basophils % 0.5 % (0-2) 02/02/19 11:58 Absolute Neutrophils 4.0 10^3/uL (1.7-8.2) 02/02/19 11:58 Absolute Lymphocytes 2.0 10^3/uL (0.5-4.7) 02/02/19 11:58 Absolute Monocytes 1.0 10^3/uL (0.1-1.4) 02/02/19 11:58 Absolute Eosinophils 0.1 10^3/uL (0.0-0.6) 02/02/19 11:58 Absolute Basophils 0.0 10^3/uL (0.0-0.2) 02/02/19 11:58 ESR 8 mm/hr (0-20) 02/09/19 05:49 Carbonic Acid 1.00 mmol/L (1.05-1.35) L 02/02/19 12:31 HCO3/H2CO3 Ratio 23:1 02/02/19 12:31 ABG pH 7.47 (7.35-7.45) H 02/02/19 12:31 ABG pCO2 33.2 mmHg (35-45) L 02/02/19 12:31 ABG pO2 141.4 mmHg (80-100) H 02/02/19 12:31 ABG HCO3 23.6 mmol/L (20-24) 02/02/19 12:31 ABG Total CO2 24.6 mmol/L (23-27) 02/02/19 12:31 ABG O2 Saturation 99.0 % (94-98) H 02/02/19 12:31 ABG Base Excess 0.7 mmol/L 02/02/19 12:31 FiO2 2L 02/02/19 12:31 Sodium 135.7 mmol/L (137-145) L 02/09/19 05:49 Potassium 5.1 mmol/L (3.6-5.0) H 02/09/19 05:49 Chloride 98 mmol/L (98-107) 02/09/19 05:49 Carbon Dioxide 28 mmol/L (22-30) 02/09/19 05:49 Anion Gap 10 (5-19) 02/09/19 05:49 BUN 42 mg/dL (7-20) H 02/09/19 05:49 Creatinine 0.93 mg/dL (0.52-1.25) 02/09/19 05:49 Est GFR ( Amer) > 60 (>60) 02/09/19 05:49 Est GFR (Non-Af Amer) > 60 (>60) 02/09/19 05:49 Glucose 185 mg/dL (75-110) H 02/09/19 05:49 POC Glucose 201 mg/dL (70-110) H 02/09/19 21:45 Hemoglobin A1c % 6.6 % (4.7-6.0) H 02/04/19 03:58 Lactic Acid 1.9 mmol/L (0.7-2.1) 02/02/19 12:31 Calcium 9.4 mg/dL (8.4-10.2) 02/09/19 05:49 Magnesium 2.2 mg/dL (1.6-2.3) 02/02/19 11:58 Total Bilirubin 1.2 mg/dL (0.2-1.3) 02/02/19 11:58 Direct Bilirubin 0.6 mg/dL (0.0-0.4) H 02/02/19 11:58 Neonat Total Bilirubin Not Reportable 02/02/19 11:58 Neonat Direct Bilirubin Not Reportable 02/02/19 11:58 Neonat Indirect Bili Not Reportable 02/02/19 11:58 AST 330 U/L (17-59) H 02/02/19 11:58 ALT 158 U/L (21-72) H 02/02/19 11:58 Alkaline Phosphatase 98 U/L (38-126) 02/02/19 11:58 Creatine Kinase 948 U/L (55-170) H 02/09/19 05:49 CK-MB (CK-2) 50.40 ng/mL (<4.55) H 02/02/19 11:58 Troponin I 0.048 ng/mL 02/02/19 11:58 NT-Pro-B Natriuret Pep 61770 pg/mL (5-900) H 02/02/19 11:58 Total Protein 7.1 g/dL (6.3-8.2) 02/02/19 11:58 Albumin 4.2 g/dL (3.5-5.0) 02/02/19 11:58 Triglycerides 133 mg/dL (<150) 02/04/19 03:58 Cholesterol 93.69 mg/dL (0-200) 02/04/19 03:58 LDL Cholesterol Direct 54 mg/dL (<100) 02/04/19 03:58 VLDL Cholesterol 27.0 mg/dL (10-31) 02/04/19 03:58 HDL Cholesterol 30 mg/dL (>40) L 02/04/19 03:58 Aldolase 41.7 U/L (3.3-10.3) H 02/04/19 03:58 Urine Color YELLOW 02/02/19 15:15 Urine Appearance CLEAR 02/02/19 15:15 Urine pH 5.0 (5.0-9.0) 02/02/19 15:15 Ur Specific [place] 1.010 02/02/19 15:15 Urine Protein NEGATIVE mg/dL (NEGATIVE) 02/02/19 15:15 Urine Glucose (UA) NEGATIVE mg/dL (NEGATIVE) 02/02/19 15:15 Urine Ketones NEGATIVE mg/dL (NEGATIVE) 02/02/19 15:15 Urine Blood NEGATIVE (NEGATIVE) 02/02/19 15:15 Urine Nitrite NEGATIVE (NEGATIVE) 02/02/19 15:15 Urine Bilirubin NEGATIVE (NEGATIVE) 02/02/19 15:15 Urine Urobilinogen NEGATIVE mg/dL (<2.0) 02/02/19 15:15 Ur Leukocyte Esterase NEGATIVE (NEGATIVE) 02/02/19 15:15 Urine WBC (Auto) 1 /HPF 02/02/19 15:15 Urine RBC (Auto) 0 /HPF 02/02/19 15:15 U Hyaline Cast (Auto) 22 /LPF 02/02/19 15:15 Squamous Epi Cells Auto <1 /HPF 02/02/19 15:15 Urine Mucus (Auto) RARE /LPF 02/02/19 15:15 Urine Ascorbic Acid NEGATIVE (NEGATIVE) 02/02/19 15:15 Impressions: Chest X-Ray 02/02/19 12:05 IMPRESSION: Cardiomegaly without acute abnormality of the lungs in AP projection. Chest CT 02/07/19 00:00 IMPRESSION: 1. Mild tubular bronchiectasis. No significant interstitial lung disease. There are minimal clustered centrilobular ground-glass nodules of the superior segment right lower lobe, nonspecific and infectious or inflammatory. 2. Cholelithiasis. Plan Discharge Plan: to [facility]
[2019-02-10 07:50] LABS: ANION GAP 9 (5-19); BLOOD UREA NITROGEN 43 mg/dL (7-20); CALCIUM 9.4 mg/dL (8.4-10.2); CARBON DIOXIDE 31 mmol/L (22-30); CHLORIDE 96 mmol/L (98-107); GLUCOSE 178 mg/dL (75-110); POTASSIUM 5.1 mmol/L (3.6-5.0); SODIUM 136.2 mmol/L (137-145)
[2019-02-10] MEDS: PREDNISONE 20 MG TABLET PO SCH ×2 (09:38→17:46)
[2019-02-10] MEDS: ASPIRIN 81 MG TABLET, ENT COATED PO SCH (09:39)
[2019-02-10] MEDS: FINASTERIDE 5 MG TABLET PO SCH (09:39)
[2019-02-10] MEDS: CLOPIDOGREL BISULFATE 75 MG TABLET PO SCH (09:39)
[2019-02-10] MEDS: FAMOTIDINE 20 MG TABLET PO SCH ×2 (09:39→21:44)
[2019-02-10] MEDS: FEBUXOSTAT 40 MG TABLET PO SCH (09:39)
[2019-02-10] MEDS: MIDODRINE HCL 5 MG TABLET PO SCH ×3 (09:39→17:46)
[2019-02-10] MEDS: FUROSEMIDE INJ/PF 20 MG/2 ML SDV IV SCH ×2 (09:39→21:43)
[2019-02-10] MEDS: INSULIN REG, HUMAN 100 UNIT/ML 3 ML VIAL (PYX) SUBCUT SCH ×4 (09:40→21:43)
[2019-02-10] MEDS: ENOXAPARIN SODIUM INJ 30 MG/0.3 ML DISP.SYRIN SUBCUT SCH (09:40)
[2019-02-10] MEDS: TRAMADOL HCL 50 MG TABLET PO PRN ×2 (14:22→21:47)
--- NOTE | 2019-02-10 19:20 | Progress Note ---
Provider Note Provider Note: CARDIOLOGY PROGRESS NOTE by Dr. Bonnie Jade on 02/10/2019. SUBJECTIVE: The patient still waiting for a bed for transfer to the [facility] cardiology in [place]. He states his weakness is better and is able to lift his legs without using the help of his hands. He has no chest pain or discomfort. There is no shortness of breath. There is no cough or sputum production. There is no PND orthopnea leg edema. There is no firing of his AICD. Has no arrhythmia seen on the monitor of ventricular or atrial. He has a no TIA CVA symptoms. There is no symptoms of peripheral embolization. Selected Entries 02/10/19 02/10/19 02/10/19 07:18 09:59 15:07 Temperature 97.4 F 97.2 F Temperature Oral Axillary Source Pulse Rate 57 L 62 60 Respiratory 18 18 Rate Blood Pressure 97/51 L 94/51 L Blood Pressure 66 65 Mean BP Location Right Arm Right Arm BP Position Supine Supine O2 Sat by Pulse 100 100 Oximetry Oxygen Flow 2.00 2.00 Rate Oxygen Delivery Nasal Cannula Method HEAD: Head is atraumatic and normocephalic. EYES: Pupils are equal round regula r reactive to light accommodation. Extraocular movements are normal, there is no conjunctival pallor, and no scleral icterus. EARS: Tympanic membranes are intact external auditory canals are clear. NOSE: There is no inflammation of the nasal mucous membrane there is no deviated nasal septum. MOUTH: Mucous membranes of mouth and tongue are moist, there is no ulcers in the mouth or tongue, and no bleeding from the gums. THROAT: There is no redness of the oropharynx, no exudate seen. SKIN: There is no petechia or ecchymosis. There is no rashes or lesions. NECK: Supple. There is no JVD. Carotids are equal there is no bruit. There is no lymphadenopathy. There is no goiter. Trachea central LUNGS: There is diminished air entry and prolonged expiration. Clear to auscultation bilaterally, no wheezes, rales or rhonchi. On percussion there is hyperresonance although there is no chest wall tenderness HEART: S1 and S2 are heard. S1 is of normal intensity, there is no S3 or S4 gallops. There is a systolic murmur the left sternal border and the apex. There is no rub. ABDOMEN: Normoactive bowel sounds, soft, nontender, no masses, no rebound, no guarding. There is no hepatosplenomegaly. EXTREMITIES: Femorals are slightly diminished. There is no femoral bruits. Leg pulses are diminished. There is no pedal edema. There is no DVT or cellulitis. There is no cyanosis or clubbing. There is no calf tenderness. NEUROLOGICAL the patient is awake alert oriented 3 with no focal deficits. There is muscle weakness proximal group more than distal group of muscle show weakness. But with weakness has improved. PSYCHIATRIC: The patient judgment and insight are intact his affect is normal. 02/10/19 06:46 Sodium 136.2 L Potassium 5.1 H Chloride 96 L Carbon Dioxide 31 H Anion Gap 9 BUN 43 H Creatinine 0.78 Est GFR (Non-Af Amer) > 60 Glucose 178 H Calcium 9.4 The patient's 24-hour intake is 1360 mL. Output is 2175 mL. IMPRESSION/RECOMMENDATION. 1. Elevated CPK CPK-MB aldolase: The sed rate is not elevated.? 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 There is been some improvement in the patient's symptomatology. He is less weakness in the muscles. Whether this is due to increased cardiac output versus secondary to the steroids is not clear. 2. Acute on chronic systolic heart failure with low cardiac output:? Partly re sponsible for the patient's elevated CPK and the patient's muscle weakness due to poor perfusion. Note the patient's muscle weakness is improved and his CPK did come down with the patient being started on dobutamine IV with better cardiac output. The patient may require [place] catheter. But the patient has 3 leads and hence it might be a little problematic to place a [place]. The case was discussed Dr Farrell.. with [facility]. To make sure that the patient's cardiomyopathy is not related to a ongoing autoimmune disease the patient may need a right ventricular biopsy. The patient's blood pressure was low hence Midrin was given and the patient blood pressure did come up. His dobutamine also at 5 mcg/kg/min. 3. Coronary artery disease. Patient has a prior history of RI in 1996 and 2000. History of stent in the left anterior descending artery in the past. No anginal symptoms. Note that the patient troponin I during this admission was negative, in spite of the CPK-MB being positive. 4. Hypotension: Most likely secondary to the patient's poor cardiac output. The patient at present on dobutamine support. Will add midodrine if the blood pressure still remains low. Continue with the current medication including dobutamine infusion, and the patient is being able to be placed on meaningful doses of beta-nessa and RANJANA inhibitor. 5. Diabetes mellitus with chronic kidney disease, and neuropathy. 6. Chronic kidney disease stage III. Now the patient's kidney functions reverted to normal with a GFR greater than 60. This is most likely due to improved cardiac output with resolution of the cardiorenal syndrome. 7. Cardiomyopathy with severely reduced LV ejection fraction. Note that there is left ventricular apical akinesia to dyskinesia, with a chronically calcified clot which is a variant. Hence there is no danger of embolization. Also the patient has no history of peripheral emboli from the LV clot. 8. Moderate to severe mitral regurgitation. 9. Moderate pulmonary hypertension with moderate tricuspid regurgitation. 10. History of AICD placement. Note that earlier paced right ventricular lead was recalled, and Hence This Was a new right ventricular lead was placed. At present seems to be functioning appropriately. No firing of the AICD this admission. 11. History of chronic obstructive pulmonary disease. 12. History of paroxysmal atrial fibrillation. No recurrence. Medications reviewed. Management plan discussed with Dr. Barnes, the attending physician on the case. Medical decision making is still of high complexity. I discussed the case with Dr. Nenita Farrell.
[2019-02-10] MEDS: DOBUTAMINE HCL/D5W 500 MG/250 ML RTUINJ IV PRN (21:38)
[2019-02-10] MEDS: ROPINIROLE HCL 2 MG TABLET PO SCH (21:44)
[2019-02-11 05:29] LABS: ANION GAP 7 (5-19); BLOOD UREA NITROGEN 54 mg/dL (7-20); CALCIUM 9.4 mg/dL (8.4-10.2); CARBON DIOXIDE 30 mmol/L (22-30); CHLORIDE 99 mmol/L (98-107); GLUCOSE 182 mg/dL (75-110); POTASSIUM 4.9 mmol/L (3.6-5.0); SODIUM 136.1 mmol/L (137-145)
[2019-02-11] MEDS: LISINOPRIL 10 MG TABLET PO SCH ×2 (05:32→17:37)
[2019-02-11] MEDS: CARVEDILOL 12.5 MG TABLET PO SCH ×2 (05:32→17:37)
--- NOTE | 2019-02-11 06:52 | PDOC PROGRESS REPORT ---
Subjective Progress Note for:: 02/11/19 Subjective:: Shoulders & hips stronger. Reason For Visit: HEART FAILURE Physical Exam Vital Signs: Temp Pulse Resp BP Pulse Ox 97.1 F 62 20 116/54 L 100 02/11/19 03:44 02/11/19 06:00 02/11/19 03:44 02/11/19 06:00 02/11/19 03:44 Intake & Output 02/09/19 02/10/19 02/11/19 07:59 07:59 07:59 Intake Total 650 1360 1852 Output Total 1780 2175 3200 Balance -1130 -547 -1345 Weight 163 lb 9.328 oz 164 lb 3.91 oz General appearance: PRESENT: no acute distress Respiratory exam: PRESENT: clear to auscultation jerry Cardiovascular exam: ABSENT: diastolic murmur, irregular rhythm, systolic murmur GI/Abdominal exam: ABSENT: mass, organolmegaly, tenderness Neurological exam: PRESENT: oriented to situation, motor sensory deficit - R deltoid 4.8 Psychiatric exam: PRESENT: appropriate affect Results Laboratory Results: Abnormal - 24 hr 02/10/19 02/10/19 02/10/19 06:46 07:16 11:32 Sodium 136.2 L Potassium 5.1 H Chloride 96 L Carbon Dioxide 31 H BUN 43 H Glucose 178 H POC Glucose 174 H 324 H 02/10/19 02/10/19 02/11/19 16:44 20:24 04:21 Sodium 136.1 L Potassium Chloride Carbon Dioxide BUN 54 H Glucose 182 H POC Glucose 279 H 252 H Impressions: Chest X-Ray 02/02/19 12:05 IMPRESSION: Cardiomegaly without acute abnormality of the lungs in AP projection. Chest CT 02/07/19 00:00 IMPRESSION: 1. Mild tubular bronchiectasis. No significant interstitial lung disease. There are minimal clustered centrilobular ground-glass nodules of the superior segment right lower lobe, nonspecific and infectious or inflammatory. 2. Cholelithiasis. Assessment & Plan - Diagnosis (1) Polymyositis Is this a current diagnosis for this admission?: Yes Plan: [id number]. Still awaiting [facility] bed. (2) Chronic combined systolic and diastolic heart failure Is this a current diagnosis for this admission?: Yes (3) Rhabdomyolysis due to statin therapy Is this a current diagnosis for this admission?: Yes (4) Type 2 diabetes mellitus with diabetic chronic kidney disease Qualifiers: Diabetes mellitus soccer commentator insulin use: with senior living use Chronic kidney disease stage: stage 4 (severe) Qualified Code(s): E11.22 - Type 2 diabetes mellitus with diabetic chronic kidney disease; N18.4 - Chronic kidney disease, stage 4 (severe); Z79.4 - bed placement coordinator (current) use of insulin Is this a current diagnosis for this admission?: Yes Plan: double sliding scale (5) Restless legs syndrome Is this a current diagnosis for this admission?: Yes (6) Bipolar disorder, current episode depressed, mild Is this a current diagnosis for this admission?: Yes (7) Angina of effort Is this a current diagnosis for this admission?: Yes (8) Ventricular tachycardia Is this a current diagnosis for this admission?: Yes (9) Chronic atrial fibrillation Is this a current diagnosis for this admission?: Yes (10) Gastro-esophageal reflux disease without esophagitis Is this a current diagnosis for this admission?: Yes (11) Enlarged prostate with lower urinary tract symptoms (LUTS) Qualifiers: Lower urinary tract symptom detail: urinary hesitancy Qualified Code(s): N40.1 - Benign prostatic hyperplasia with lower urinary tract symptoms; R39.11 - Hesitancy of micturition Is this a current diagnosis for this admission?: Yes (12) Idiopathic chronic gout of multiple sites without tophus Is this a current diagnosis for this admission?: Yes (13) Foot ulcer due to secondary DM Is this a current diagnosis for this admission?: Yes (14) Rotator cuff impingement syndrome Qualifiers: Laterality: unspecified laterality Qualified Code(s): M75.40 - Impingement syndrome of unspecified shoulder Is this a current diagnosis for this admission?: Yes
[2019-02-11] MEDS: INSULIN REG, HUMAN 100 UNIT/ML 3 ML VIAL (PYX) SUBCUT SCH ×4 (09:07→21:25)
[2019-02-11] MEDS: MIDODRINE HCL 5 MG TABLET PO SCH ×3 (10:11→17:37)
[2019-02-11] MEDS: CLOPIDOGREL BISULFATE 75 MG TABLET PO SCH (10:11)
[2019-02-11] MEDS: FUROSEMIDE INJ/PF 20 MG/2 ML SDV IV SCH ×2 (10:11→21:25)
[2019-02-11] MEDS: FINASTERIDE 5 MG TABLET PO SCH (10:11)
[2019-02-11] MEDS: PREDNISONE 20 MG TABLET PO SCH ×2 (10:11→17:37)
[2019-02-11] MEDS: FEBUXOSTAT 40 MG TABLET PO SCH (10:11)
[2019-02-11] MEDS: ASPIRIN 81 MG TABLET, ENT COATED PO SCH (10:11)
[2019-02-11] MEDS: FAMOTIDINE 20 MG TABLET PO SCH ×2 (10:11→21:25)
[2019-02-11 10:50] LABS: HEMATOCRIT 46.3 % (37.9-51.0); HEMOGLOBIN 15.3 g/dL (13.5-17.0); MEAN CORPUSCULAR HEMOGLOBIN 30.4 pg (27.0-33.4); MEAN CORPUSCULAR VOLUME 92 fl (80-97); PLATELET COUNT 163 10^3/uL (150-450); RED BLOOD COUNT 5.04 10^6/uL (4.35-5.55); RED CELL DISTRIBUTION WIDTH 16.3 % (11.5-14.0)
[2019-02-11] MEDS: ENOXAPARIN SODIUM INJ 30 MG/0.3 ML DISP.SYRIN SUBCUT SCH (11:56)
[2019-02-11] MEDS: TRAMADOL HCL 50 MG TABLET PO PRN (13:39)
[2019-02-11] MEDS ORDERED: DIAZEPAM 2 MG TABLET PO ONE (16:15)
[2019-02-11] MEDS: DOBUTAMINE HCL/D5W 500 MG/250 ML RTUINJ IV PRN (18:56)
[2019-02-11] MEDS: ROPINIROLE HCL 2 MG TABLET PO SCH (21:25)
[2019-02-12 02:27] VITALS: BP 118/72
== END 2019-02-12 03:02 | disposition short-term general hospital (02) | DRG 291 ==
LOC: ER 11:42 → EH 17:27 → 3N 02-03 13:56
PROVIDERS: ADMIT Family Medicine; ATTEND Family Medicine
DX: I13.0 Hypertensive heart and chronic kidney disease with heart failure and stage 1 through stage 4 chronic kidney disease, or unspecified chronic kidney disease (principal); I50.43 Acute on chronic combined systolic (congestive) and diastolic (congestive) heart failure; M33.20 Polymyositis, organ involvement unspecified; N17.9 Acute kidney failure, unspecified; N18.4 Chronic kidney disease, stage 4 (severe); I47.2 Ventricular tachycardia; R64 Cachexia; T46.6X5A Adverse effect of antihyperlipidemic and antiarteriosclerotic drugs, initial encounter; I48.2 Chronic atrial fibrillation; E11.621 Type 2 diabetes mellitus with foot ulcer; L97.519 Non-pressure chronic ulcer of other part of right foot with unspecified severity; I08.1 Rheumatic disorders of both mitral and tricuspid valves; I27.20 Pulmonary hypertension, unspecified; E11.22 Type 2 diabetes mellitus with diabetic chronic kidney disease; I25.10 Atherosclerotic heart disease of native coronary artery without angina pectoris; K21.9 Gastro-esophageal reflux disease without esophagitis; J44.9 Chronic obstructive pulmonary disease, unspecified; N40.1 Benign prostatic hyperplasia with lower urinary tract symptoms; R39.11 Hesitancy of micturition; M75.40 Impingement syndrome of unspecified shoulder; M1A.09X0 Idiopathic chronic gout, multiple sites, without tophus (tophi); G25.81 Restless legs syndrome; F31.9 Bipolar disorder, unspecified; I25.2 Old myocardial infarction; Z68.21 Body mass index [BMI] 21.0-21.9, adult; Z95.0 Presence of cardiac pacemaker; Z87.891 Personal history of nicotine dependence; Z79.01 Long term (current) use of anticoagulants; Z79.82 Long term (current) use of aspirin; Z79.4 Long term (current) use of insulin; Z79.52 Long term (current) use of systemic steroids; Z79.899 Other long term (current) drug therapy; Z75.1 Person awaiting admission to adequate facility elsewhere
CPT/HCPCS: 36415; 36600; 71045; 71250; 80048; 80053; 80061; 81001; 82085; 82550; 82553; 82803; 82962; 83036; 83605; 83735; 83880; 84484; 85025; 85027; 85652; 87040; 93005; 93010; 93306; 93925; 99285; J1250; J1650; J1815; J1940; J2405; J3490; J7512

== ENCOUNTER 2019-02-25 12:29 | Inpatient (IN) | payer OTHER, MEDICARE ==
--- NOTE | 2019-02-25 13:39 | RADIOLOGY REPORT (SQ) ---
EXAM DESCRIPTION: FOOT RIGHT COMPLETE COMPLETED DATE/TIME: 02/25/2019 1:28 pm REASON FOR STUDY: Malodorous diabetic ulcer at first metatarsal head COMPARISON: None. NUMBER OF VIEWS: Three views. TECHNIQUE: AP, lateral and oblique radiographic images acquired of the right foot. LIMITATIONS: None. FINDINGS: MINERALIZATION: Normal. BONES: No acute fracture or dislocation. No worrisome bone lesions. JOINTS: No effusions. SOFT TISSUES: Soft tissue swelling and ulceration over the plantar right 1st metatarsal. There is a linear metallic radiopaque foreign body in the plantar soft tissues of the heel measuring approximate ly 3 mm. OTHER: Vascular calcinosis about the ankle. IMPRESSION: 1. Soft tissue swelling and ulceration over the plantar right 1st metatarsal. No radiog raphic evidence of osteomyelitis. Consider MRI to more sensitively evaluate bone marrow edema and os teomyelitis if suspected. 2. There is a linear metallic radiopaque foreign body in the plantar soft tissues of the heel measuri ng approximately 3 mm. TECHNICAL DOCUMENTATION: JOB ID: [id number] [employer]- All Rights Reserved Reading location - IP/workstation name: [email or web address]
--- NOTE | 2019-02-25 14:10 | EKG REPORT ---
SEVERITY:- ABNORMAL ECG - ATRIAL-PACED COMPLEXES LVH WITH IVCD AND SECONDARY REPOL ABNRM INFERIOR INFARCT, AGE INDETERMINATE : Confirmed by: Remington Quarles MD 25-Feb-2019 14:10:13
[2019-02-25 14:14] LABS: ABSOLUTE LYMPHOCYTES (AUTO) 0.7 10^3/uL (0.5-4.7); ABSOLUTE MONOCYTES (AUTO) 0.4 10^3/uL (0.1-1.4); ABSOLUTE NEUT (AUTO) 8.2 10^3/uL (1.7-8.2); BASOPHILS % (AUTO) 0.1 % (0-2); EOSINOPHILS % (AUTO) 0.1 % (0-6); HEMATOCRIT 43.1 % (37.9-51.0); HEMOGLOBIN 14.3 g/dL (13.5-17.0); LYMPHOCYTES % (AUTO) 7.2 % (13-45); MEAN CORPUSCULAR HEMOGLOBIN 30.3 pg (27.0-33.4); MEAN CORPUSCULAR HGB CONC 33.3 g/dL (32.0-36.0); MEAN CORPUSCULAR VOLUME 91 fl (80-97); MONOCYTES % (AUTO) 4.5 % (3-13); PLATELET COUNT 213 10^3/uL (150-450); RED BLOOD COUNT 4.73 10^6/uL (4.35-5.55); RED CELL DISTRIBUTION WIDTH 16.4 % (11.5-14.0); SEGMENTED NEUTROPHILS % (AUTO) 88.1 % (42-78); TOTAL CELLS COUNTED % (AUTO) 100 %; WHITE BLOOD COUNT 9.3 10^3/uL (4.0-10.5)
--- NOTE | 2019-02-25 14:34 | ER Document Report ---
Entered by KAITLYNN TAVERAS SCRIBE 02/25/19 1313 Acting as scribe for:TAMY HARMON MD ED General - General Chief Complaint: Wound Infection Stated Complaint: RIGHT FOOT PAIN Time Seen by Provider: 02/25/19 12:48 Primary Care Provider: JEFF BARNES MD [Primary Care Provider] - Follow up as needed Mode of Arrival: Ambulatory Information source: Patient, Relative, [facility] Records Notes: Patient is a 69-year-old male that presents to the emergency department sent by Dr. Riggs his clarifier for concerns of possible osteomyelitis in right foot. Patient states that this ulcer was present a long time ago, healed up quite nicely without any complications. Recently noticed a small break in skin which has advanced to this deep malodorous ulcer. TRAVEL OUTSIDE OF THE [place] IN LAST 30 DAYS: No - Related Data Allergies/Adverse Reactions: cholestyramine [From Questran] Allergy (Verified 02/25/19 12:30) gemfibrozil [From Lopid] Allergy (Verified 02/25/19 12:30) morphine Allergy (Verified 02/25/19 12:30) niacin Allergy (Verified 02/25/19 12:30) sucrose [From Questran] Allergy (Verified 02/25/19 12:30) colesevelam [From WelChol] Adverse Reaction (Verified 02/25/19 12:30) metoprolol [From Lopressor] Adverse Reaction (Verified 02/25/19 12:30) Past Medical History - General Information source: Patient, Parent, [facility] Records - Social History Smoking Status: Never Smoker Cigarette use (# per day): No Chew tobacco use (# tins/day): No Smoking Education Provided: No Frequency of alcohol use: None Drug Abuse: None Lives with: Spouse/Significant other Family History: Other - adopted - Past Medical History Cardiac Medical History: Reports: Hx Atrial Fibrillation, Hx Congestive Heart Failure, Hx Coronary Artery Disease, Hx Heart Attack - x2 1996, 2000, Hx Hypercholesterolemia, Hx Hypertension Pulmonary Medical History: Reports: Hx Bronchitis - chronic, Hx COPD Endocrine Medical History: Reports: Hx Diabetes Mellitus Type 2 Renal/ Medical History: Reports: Hx Benign Prostatic Hyperplasia, Hx Renal Insufficiency GI Medical History: Reports: Hx Gastroesophageal Reflux Disease Musculoskeletal Medical History: Reports Hx Gout Psychiatric Medical History: Reports: Hx Bipolar Disorder Infectious Medical History: Reports: Hx C-Diff, Hx MRSA - foot ulcers Past Surgical History: Reports: Hx Pacemaker Review of Systems - Review of Systems Constitutional: No symptoms reported EENT: No symptoms reported Cardiovascular: No symptoms reported Respiratory: No symptoms reported Gastrointestinal: No symptoms reported Genitourinary: No symptoms reported Male Genitourinary: No symptoms reported Musculoskeletal: No symptoms reported Skin: See HPI, Lesions - ulcer on right foot Hematologic/Lymphatic: No symptoms reported Neurological/Psychological: No symptoms reported -: Yes All other systems reviewed and negative Physical Exam - Vital signs Vitals: Temp Pulse Resp BP Pulse Ox 97.9 F 70 18 100/58 L 97 02/25/19 12:36 02/25/19 12:36 02/25/19 12:36 02/25/19 12:36 02/25/19 12:36 - Notes Notes: Physical Exam: General: Alert, cachectic. HEENT: Normocephalic. Atraumatic. PERRL. Extraocular movements intact. Oropharynx clear. Neck: Supple. Non-tender. Respiratory: No respiratory distress. Clear and equal breath sounds bilaterally. Cardiovascular: Low pitched systolic murmur. Regular rhythm. Abdominal: Normal Inspection. Non-tender. No distension. Normal Bowel Sounds. Back: Non-tender. No deformity or step off. Extremities: Moves all four extremities. Upper extremities: Normal inspection. Normal ROM. Lower extremities: Right foot has a healing ulcer on the distal lateral aspect of the foot, under the first metatarsal head there is a very deep ulcer with a strong odor that is actively bleeding. No edema. Normal ROM. Neurological: Normal cognition. AAOx4. Normal speech. Psychological: Normal affect. Normal Mood. Skin: Warm. Dry. Normal color. Course - Vital Signs Vital signs: Temp Pulse Resp BP Pulse Ox 97.9 F 70 22 H 107/63 95 02/25/19 12:36 02/25/19 12:36 02/25/19 14:01 02/25/19 14:01 02/25/19 14:01 - Laboratory Result Diagrams: 02/25/19 13:54 02/25/19 13:54 Laboratory results interpreted by me: 02/25/19 02/25/19 02/25/19 13:54 13:54 13:54 RDW 16.4 H Seg Neutrophils % 88.1 H Lymphocytes % 7.2 L Carbon Dioxide 34 H BUN 36 H Glucose 126 H CK-MB (CK-2) 5.83 H Total Protein 5.8 L Albumin 3.2 L - Diagnostic Test Radiology reviewed: Image reviewed, Reports reviewed - Soft tissue swelling and ulceration seen over the plantar surface of the first metatarsal head on the right foot. No definite osteomyelitis is seen. - EKG Interpretation by Me EKG shows normal: [place], Intervals, ST-T Waves. abnormal: QRS Complexes - Old inferior VA Rate: Normal - 70 Rhythm: Other - Atrial paced complexes [place]/QRS: IVCD Voltage: Consistant with LVH When compared to previous EKG there are: No significant change - Consults Dr. Barnes Time consulted: 15:30 Consulted provider: will see as inpatient Discharge - Discharge Clinical Impression: Adult failure to thrive Diabetic foot ulcer associated with type 2 diabetes mellitus Qualifiers: Diabetic foot ulcer location: midfoot Laterality: right Non-pressure ulcer stage: with necrosis of muscle Qualified Code(s): E11.621 - Type 2 diabetes mellitus with foot ulcer; L97.413 - Non-pressure chronic ulcer of right heel and midfoot with necrosis of muscle Condition: Stable Disposition: ADMITTED INPATIENT Admitting Provider: [facility] Admitted: Medical Floor Referrals: JEFF BARNES MD [Primary Care Provider] - Follow up as needed Scribe Attestation: 02/25/19 14:45 I personally performed the services described in the documentation, reviewed and edited the documentation which was dictated to the scribe in my presence, and it accurately records my words and actions. I personally performed the services described in the documentation, reviewed and edited the documentation which was dictated to the scribe in my presence, and it accurately records my words and actions.
[2019-02-25 14:39] LABS: ALANINE AMINOTRANSFERASE 71 U/L (21-72); ALBUMIN 3.2 g/dL (3.5-5.0); ALKALINE PHOSPHATASE 70 U/L (38-126); ANION GAP 6 (5-19); ASPARTATE AMINO TRANSFERASE 39 U/L (17-59); BILIRUBIN,DIRECT 0.3 mg/dL (0.0-0.4); BLOOD UREA NITROGEN 36 mg/dL (7-20); CALCIUM 8.9 mg/dL (8.4-10.2); CARBON DIOXIDE 34 mmol/L (22-30); CHLORIDE 99 mmol/L (98-107); CREATINE KINASE 64 U/L (55-170); GLUCOSE 126 mg/dL (75-110); POTASSIUM 4.1 mmol/L (3.6-5.0); SODIUM 139.3 mmol/L (137-145); TOTAL PROTEIN 5.8 g/dL (6.3-8.2)
[2019-02-25 14:47] LABS: CREATINE KINASE MB 5.83 ng/mL (<4.55)
[2019-02-25 14:52] LABS: TROPONIN I 0.036 ng/mL
[2019-02-25 17:37] LABS: APPEARANCE,URINE CLEAR; BILIRUBIN,URINE NEGATIVE (NEGATIVE); COLOR,URINE YELLOW; GLUCOSE, URINE 50 mg/dL (NEGATIVE); KETONES,URINE NEGATIVE (NEGATIVE); LEUKOCYTE ESTERASE,URINE NEGATIVE (NEGATIVE); NITRITE,URINE NEGATIVE (NEGATIVE); PROTEIN,URINE NEGATIVE (NEGATIVE); URINE SPECIFIC GRAVITY 1.009; UROBILINOGEN,URINE NEGATIVE mg/dL (<2.0)
[2019-02-25] MEDS ORDERED: DOCUSATE SODIUM 100 MG CAPSULE PO PRN (18:51)
[2019-02-25] MEDS ORDERED: NITROGLYCERIN 0.4 MG/TAB 25 TAB/BOTTLE SL PRN (18:51)
[2019-02-25] MEDS ORDERED: NITROGLYCERIN 5 MG (0.2 MG/HR) PATCH.TD24 TD PRN (18:51)
[2019-02-25 21:35] LABS: INTERNATIONAL RATION (INR) 1.04; PROTHROMBIN TIME 14.1 SEC (11.4-15.4)
[2019-02-25 21:36] LABS: PARTIAL THROMBOPLASTIN TIME 29.7 SEC (23.5-35.8)
[2019-02-25] MEDS ORDERED: INSULIN GLARGINE,HUM.REC.ANLOG 1,000 UNIT/10 ML VIAL SUBCUT SCH (22:00)
[2019-02-25] MEDS: CARVEDILOL 6.25 MG TABLET PO SCH (22:37)
[2019-02-25] MEDS: FENOFIBRATE NANOCRYSTALLIZED 145 MG TABLET PO SCH (22:38)
[2019-02-25] MEDS: AMITRIPTYLINE HCL 25 MG TABLET PO SCH (22:38)
[2019-02-25] MEDS: ROPINIROLE HCL 2 MG TABLET PO SCH (22:38)
[2019-02-25] MEDS ORDERED: DEXTROSE 40% GEL 15 GM TUBE PO PRN (23:30)
[2019-02-25] MEDS ORDERED: DEXTROSE 40% GEL 15 GM TUBE X 2 PO PRN (23:30)
[2019-02-25] MEDS ORDERED: GLUCAGON,HUMAN RECOMB 1 MG INJ IM PRN (23:30)
[2019-02-25] MEDS ORDERED: DEXTROSE 50%-WATER SYRINGE 25 GM/50 ML DOSE IV PRN (23:30)
[2019-02-25] MEDS ORDERED: INSULIN GLARGINE,HUM.REC.ANLOG 1,000 UNIT/10 ML VIAL (PYX) SUBCUT PRN (23:36)
[2019-02-25] MEDS ORDERED: INSULIN GLARGINE,HUM.REC.ANLOG 1,000 UNIT/10 ML VIAL SUBCUT ONE (23:59)
[2019-02-25] MEDS ORDERED: INSULIN LISPRO 100 UNIT/ML 3 ML VIAL SUBCUT ONE (23:59)
--- NOTE | 2019-02-26 07:28 | PDOC H&P ---
History of Present Illness Admission Date/PCP: 02/25/19 15:44 JEFF GLEASON MD Patient complains of: R1mtp ulcer History of Present Illness: SIDNEY CARROLL is a 69 year old male 1m R1mtp crack. [address]d opened [address] Dr Riggs into foul ulcer. [facility] biopsies we requested because of rapid improvement in proximal strength. They said he could have outpatient R heart cath. Emg abnormal. Home on half of our dose of prednisone 80mg, namely 40mg qd. 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 Past Surgical History Past Surgical History: Reports: Pacemaker Social History Information Source: Office Lives with: Spouse/Significant other Smoking Status: Never Smoker Frequency of Alcohol Use: None Hx Recreational Drug Use: No Drugs: None Hx Prescription Drug Abuse: No - Advance Directive Resuscitation Status: Full Code Family History Family History: Other - adopted Parental Family History Reviewed: Yes Children Family History Reviewed: Yes Sibling(s) Family History Reviewed.: Yes Medication/Allergy Home Medications: Amitriptyline HCl [Elavil 25 mg Tablet] 25 mg PO QHS 02/02/19 Aspirin [Ecotrin 81 mg EC Tablet] 81 mg PO DAILY 02/02/19 Clopidogrel Bisulfate [Plavix 75 mg Tablet] 75 mg PO DAILY 02/02/19 Colchicine [Colchicine 0.6 mg Tablet] 0.6 mg PO Q12 02/02/19 Ergocalciferol (Vitamin D2) [Drisdol 50,000 Unit (1.25MG) Capsule] 50,000 unit PO .02/02/19 Febuxostat [Uloric 40 mg Tablet] 40 mg PO DAILY 02/02/19 Fenofibrate Nanocrystallized [Tricor 145 mg Tablet] 145 mg PO QHS 02/02/19 Finasteride [Proscar 5 mg Tablet] 5 mg PO DAILY 02/02/19 Insulin Aspart [Novolog Flexpen] 20 unit SUBCUT AC MDD UP TO 30 PER MEAL 02/02/19 Insulin Glargine,Hum.rec.anlog [Lantus Insulin 100 Unit/1 ml 10 ml] 65 unit SUBCUT QHS 02/02/19 Nitroglycerin [Nitro-Dur 5 mg (0.2 mg/Hr) Transdermal Patch] 1 patch TD QAMP PRN 02/02/19 Nitroglycerin [Nitrostat 0.4 mg (1/150 Gr) Tabs 25/Bottle] 1 tab SL Q5MP PRN 02/02/19 Ranitidine HCl [Zantac 150 mg Tablet] 150 mg PO BID 02/02/19 Ropinirole HCl [Requip 2 Mg Tablet] 2 mg PO QHS 02/02/19 Rosuvastatin Calcium [Crestor 10 mg Tablet] 10 mg PO QHS 02/02/19 Spironolactone [Aldactone 25 mg Tablet] 25 mg PO DAILY 02/02/19 Torsemide [Demadex 20 mg Tablet] 20 mg PO DAILY 02/02/19 Tramadol HCl [Ultram 50 mg Tablet] 50 mg PO Q6HP PRN 02/02/19 Apixaban [Eliquis 5 mg Tablet] 5 mg PO BID 02/25/19 Carvedilol [Coreg 6.25 mg Tablet] 6.25 mg PO Q12 02/25/19 Docusate Sodium [Colace 100 mg Capsule] 100 mg PO TIDP PRN 02/25/19 Prednisone [Deltasone 20 mg Tablet] 40 mg PO DAILY 02/25/19 Valsartan [Diovan 40 mg Tablet] 20 mg PO DAILY 02/25/19 Allergies/Adverse Reactions: cholestyramine [From Questran] Allergy (Verified 02/25/19 12:30) gemfibrozil [From Lopid] Allergy (Verified 02/25/19 12:30) morphine Allergy (Verified 02/25/19 12:30) niacin Allergy (Verified 02/25/19 12:30) sucrose [From Questran] Allergy (Verified 02/25/19 12:30) colesevelam [From WelChol] Adverse Reaction (Verified 02/25/19 12:30) metoprolol [From Lopressor] Adverse Reaction (Verified 02/25/19 12:30) Review of Systems Constitutional: PRESENT: weakness, weight loss. ABSENT: fever(s) Nose, Mouth, and Throat: ABSENT: sore throat Cardiovascular: PRESENT: dyspnea on exertion, orthropnea. ABSENT: chest pain Respiratory: ABSENT: cough Gastrointestinal: PRESENT: constipation. ABSENT: abdominal pain, diarrhea, h ematochezia, vomiting Genitourinary: ABSENT: dysuria, hematuria Musculoskeletal: PRESENT: muscle weakness Integumentary: ABSENT: rash Physical Exam Vital Signs: Temp Pulse Resp BP Pulse Ox 97.8 F 60 16 116/61 100 02/26/19 03:48 02/26/19 03:48 02/25/19 20:10 02/26/19 03:48 02/26/19 03:48 Intake & Output 02/24/19 02/25/19 02/26/19 07:59 07:59 07:59 Intake Total 420 Balance 420 Weight 152 lb 1 oz General appearance: PRESENT: no acute distress Eye exam: ABSENT: conjunctival injection, scleral icterus Mouth exam: PRESENT: neck supple Neck exam: PRESENT: lymphadenopathy. ABSENT: tenderness, thyromegaly, tracheal deviation Respiratory exam: PRESENT: clear to auscultation jerry Cardiovascular exam: ABSENT: diastolic murmur, irregular rhythm, systolic murmur GI/Abdominal exam: PRESENT: tenderness. ABSENT: mass, organolmegaly Neurological exam: PRESENT: oriented to situation Psychiatric exam: PRESENT: appropriate affect Results Laboratory Results: 02/25/19 13:54 02/25/19 13:54 02/25/19 02/25/19 02/25/19 13:54 13:54 13:54 WBC 9.3 RBC 4.73 Hgb 14.3 Hct 43.1 MCV 91 MCH 30.3 MCHC 33.3 RDW 16.4 H Plt Count 213 Seg Neutrophils % 88.1 H Lymphocytes % 7.2 L Monocytes % 4.5 Eosinophils % 0.1 Basophils % 0.1 Absolute Neutrophils 8.2 Absolute Lymphocytes 0.7 Absolute Monocytes 0.4 Absolute Eosinophils 0.0 Absolute Basophils 0.0 Sodium 139.3 Potassium 4.1 Chloride 99 Carbon Dioxide 34 H Anion Gap 6 BUN 36 H Creatinine 0.82 Est GFR ( Amer) > 60 Est GFR (Non-Af Amer) > 60 Glucose 126 H Lactic Acid 1.4 Calcium 8.9 Total Bilirubin 1.0 AST 39 ALT 71 Alkaline Phosphatase 70 Total Protein 5.8 L Albumin 3.2 L Urine Color Urine Appearance Urine pH Ur Specific [place] Urine Protein Urine Glucose (UA) Urine Ketones Urine Blood Urine Nitrite Ur Leukocyte Esterase Urine RBC (Auto) Abnormal - 24 hr 02/25/19 02/25/19 02/25/19 13:54 13:54 13:54 RDW 16.4 H Seg Neutrophils % 88.1 H Lymphocytes % 7.2 L Carbon Dioxide 34 H BUN 36 H Glucose 126 H POC Glucose CK-MB (CK-2) 5.83 H Total Protein 5.8 L Albumin 3.2 L Urine Glucose (UA) 02/25/19 02/25/19 16:49 22:41 RDW Seg Neutrophils % Lymphocytes % Carbon Dioxide BUN Glucose POC Glucose 339 H CK-MB (CK-2) Total Protein Albumin Urine Glucose (UA) 50 H Impressions: Foot X-Ray 02/25/19 13:16 IMPRESSION: 1. Soft tissue swelling and ulceration over the plantar right 1st metatarsal. No radiographic evidence of osteomyelitis. Consider MRI to more sensitively evaluate bone marrow edema and osteomyelitis if suspected. 2. There is a linear metallic radiopaque foreign body in the plantar soft tissues of the heel measuring approximately 3 mm. Assessment & Plan - Diagnosis (1) Diabetic foot ulcer associated with type 2 diabetes mellitus Qualifiers: Diabetic foot ulcer location: toe Laterality: right Non-pressure ulcer stage: with necrosis of muscle Qualified Code(s): E11.621 - Type 2 diabetes mellitus with foot ulcer; L97.513 - Non-pressure chronic ulcer of other part of right foot with necrosis of muscle Is this a current diagnosis for this admission?: Yes Plan: hold snf antibiotics till microbiological diagnosis. CT aspiration. Consult Dr Riggs for wide debridement. Hold anticoagulants. Doppler (2) Chronic atrial fibrillation Is this a current diagnosis for this admission?: Yes (3) Chronic combined systolic and diastolic heart failure Is this a current diagnosis for this admission?: Yes (4) Idiopathic chronic gout of multiple sites without tophus Is this a current diagnosis for this admission?: Yes (5) Polymyositis Is this a current diagnosis for this admission?: Yes Plan: look like tertiary centers no longer believe in biopsies. Continue prednisone 40. (6) Type 2 diabetes mellitus with diabetic chronic kidney disease Qualifiers: Diabetes mellitus snf insulin use: with watermelon inspector use Chronic kidney disease stage: stage 4 (severe) Qualified Code(s): E11.22 - Type 2 diabetes mellitus with diabetic chronic kidney disease; N18.4 - Chronic kidney disease, stage 4 (severe); Z79.4 - shelter (current) use of insulin Is this a current diagnosis for this admission?: Yes (7) Ventricular tachycardia Is this a current diagnosis for this admission?: Yes - Inpatient Certification Based on my medical assessment, after consideration of the patient's comorbidities, presenting symptoms, or acuity I expect that the services needed warrant INPATIENT care.: Yes I certify that my determination is in accordance with my understanding of Medicare's requirements for reasonable and necessary INPATIENT services [42 CFR 412.3e].: Yes Medical Necessity: Failure to Improve With Outpatient Therapy, Significant Comorbidiites Make Outpatient Treatment Too Risky, Need Close Monitoring Due to Risk of Patient Decompensation, Need for Surgery, Risk of Complication if Not Cared For in Hospital, Risk of Diagnosis Which Will Require Inpatient Eval/Care/Monitoring
[2019-02-26] MEDS: INSULIN LISPRO 100 UNIT/ML 3 ML VIAL SUBCUT SCH ×4 (08:02→21:26)
[2019-02-26] MEDS: TRAMADOL HCL 50 MG TABLET PO PRN ×2 (08:04→19:59)
[2019-02-26] MEDS ORDERED: ENOXAPARIN SODIUM INJ 30 MG/0.3 ML DISP.SYRIN SUBCUT SCH (10:00)
[2019-02-26] MEDS ORDERED: CLOPIDOGREL BISULFATE 75 MG TABLET PO SCH (10:00)
[2019-02-26] MEDS: TORSEMIDE 20 MG TABLET PO SCH (10:25)
[2019-02-26] MEDS: ASPIRIN 81 MG TABLET, ENT COATED PO SCH (10:25)
[2019-02-26] MEDS: SPIRONOLACTONE 25 MG TABLET PO SCH (10:25)
[2019-02-26] MEDS: CARVEDILOL 6.25 MG TABLET PO SCH ×2 (10:25→21:27)
[2019-02-26] MEDS: VALSARTAN 40 MG TABLET PO SCH (10:26)
[2019-02-26] MEDS: FEBUXOSTAT 40 MG TABLET PO SCH (10:26)
[2019-02-26] MEDS: PREDNISONE 20 MG TABLET PO SCH (10:26)
[2019-02-26] MEDS: FINASTERIDE 5 MG TABLET PO SCH (10:26)
--- NOTE | 2019-02-26 15:28 | PDOC CONSULTATION ---
Consultation Consult Date: 02/26/19 Provider Consulted: ELISABETH CORONA History of Present Illness Admission Date/PCP: 02/25/19 15:44 JEFF GLEASON MD Patient complains of: A painful ulcer plantar aspect right foot. History of Present Illness: SIDNEY CARROLL is a 69 year old male 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 Past Surgical History Past Surgical History: Reports: Pacemaker Social History Lives with: Spouse/Significant other Smoking Status: Never Smoker Frequency of Alcohol Use: None Hx Recreational Drug Use: No Drugs: None Hx Prescription Drug Abuse: No - Advance Directive Resuscitation Status: Full Code Family History Family History: None - adopted, Other - adopted Parental Family History Reviewed: No - adopted Children Family History Reviewed: Unknown Sibling(s) Family History Reviewed.: Unknown Medication/Allergy Home Medications: Amitriptyline HCl [Elavil 25 mg Tablet] 25 mg PO QHS 02/02/19 Aspirin [Ecotrin 81 mg EC Tablet] 81 mg PO DAILY 02/02/19 Clopidogrel Bisulfate [Plavix 75 mg Tablet] 75 mg PO DAILY 02/02/19 Colchicine [Colchicine 0.6 mg Tablet] 0.6 mg PO Q12 02/02/19 Ergocalciferol (Vitamin D2) [Drisdol 50,000 Unit (1.25MG) Capsule] 50,000 unit PO .,02/02/19 Febuxostat [Uloric 40 mg Tablet] 40 mg PO DAILY 02/02/19 Fenofibrate Nanocrystallized [Tricor 145 mg Tablet] 145 mg PO QHS 02/02/19 Finasteride [Proscar 5 mg Tablet] 5 mg PO DAILY 02/02/19 Insulin Aspart [Novolog Flexpen] 20 unit SUBCUT AC MDD UP TO 30 PER MEAL 02/02/19 Insulin Glargine,Hum.rec.anlog [Lantus Insulin 100 Unit/1 ml 10 ml] 65 unit SUBCUT QHS 02/02/19 Nitroglycerin [Nitro-Dur 5 mg (0.2 mg/Hr) Transdermal Patch] 1 patch TD QAMP PRN 02/02/19 Nitroglycerin [Nitrostat 0.4 mg (1/150 Gr) Tabs 25/Bottle] 1 tab SL Q5MP PRN 02/02/19 Ranitidine HCl [Zantac 150 mg Tablet] 150 mg PO BID 02/02/19 Ropinirole HCl [Requip 2 Mg Tablet] 2 mg PO QHS 02/02/19 Rosuvastatin Calcium [Crestor 10 mg Tablet] 10 mg PO QHS 02/02/19 Spironolactone [Aldactone 25 mg Tablet] 25 mg PO DAILY 02/02/19 Torsemide [Demadex 20 mg Tablet] 20 mg PO DAILY 02/02/19 Tramadol HCl [Ultram 50 mg Tablet] 50 mg PO Q6HP PRN 02/02/19 Apixaban [Eliquis 5 mg Tablet] 5 mg PO BID 02/25/19 Carvedilol [Coreg 6.25 mg Tablet] 6.25 mg PO Q12 02/25/19 Docusate Sodium [Colace 100 mg Capsule] 100 mg PO TIDP PRN 02/25/19 Prednisone [Deltasone 20 mg Tablet] 40 mg PO DAILY 02/25/19 Valsartan [Diovan 40 mg Tablet] 20 mg PO DAILY 02/25/19 Allergies/Adverse Reactions: cholestyramine [From Questran] Allergy (Verified 02/25/19 12:30) gemfibrozil [From Lopid] Allergy (Verified 02/25/19 12:30) morphine Allergy (Verified 02/25/19 12:30) niacin Allergy (Verified 02/25/19 12:30) sucrose [From Questran] Allergy (Verified 02/25/19 12:30) colesevelam [From WelChol] Adverse Reaction (Verified 02/25/19 12:30) metoprolol [From Lopressor] Adverse Reaction (Verified 02/25/19 12:30) Physical Exam Vital Signs: Temp Pulse Resp BP Pulse Ox 97.4 F 63 18 102/57 L 100 02/26/19 08:07 02/26/19 08:07 02/26/19 08:07 02/26/19 08:07 02/26/19 08:07 Intake & Output 02/25/19 02/26/19 02/27/19 06:59 06:59 06:59 Intake Total 420 720 Output Total 750 900 Balance -330 -180 Weight 71.1 kg General appearance: PRESENT: no acute distress, thin Pulses: PRESENT: +1 pedal pulses bilateral Vascular exam: PRESENT: pallor Extremities exam: PRESENT: pedal edema - right foot, +2 edema - right foot Additional comments: Plantar aspect right 1st metatarsal head, ulcer site is closed, with moderate pain on palpation of the site. The erythema of the right foot has resolved since yesterday but the edema has not changed. Results Laboratory Results: 02/25/19 13:54 02/25/19 13:54 02/25/19 16:49 Urine Color YELLOW Urine Appearance CLEAR Urine pH 8.0 Ur Specific [place] 1.009 Urine Protein NEGATIVE Urine Glucose (UA) 50 H Urine Ketones NEGATIVE Urine Blood NEGATIVE Urine Nitrite NEGATIVE Ur Leukocyte Esterase NEGATIVE Urine RBC (Auto) 0 02/25/19 02/25/19 13:54 13:54 Creatine Kinase 64 CK-MB (CK-2) 5.83 H Troponin I 0.036 Impressions: Foot X-Ray 02/25/19 13:16 IMPRESSION: 1. Soft tissue swelling and ulceration over the plantar right 1st metatarsal. No radiographic evidence of osteomyelitis. Consider MRI to more sensitively evaluate bone marrow edema and osteomyelitis if suspected. 2. There is a linear metallic radiopaque foreign body in the plantar soft tissues of the heel measuring approximately 3 mm. Assessment & Plan - Diagnosis (1) Diabetic foot ulcer associated with type 2 diabetes mellitus Qualifiers: Diabetic foot ulcer location: unspecified part of foot Laterality: right Non-pressure ulcer stage: limited to breakdown of skin Qualified Code(s): E11.621 - Type 2 diabetes mellitus with foot ulcer; L97.511 - Non-pressure chronic ulcer of other part of right foot limited to breakdown of skin Is this a current diagnosis for this admission?: Yes - Plan Summary Plan Summary: Advise a consult with the surgicalist for debridement of the ulcer site and to obtain deep cultures of the tissue. Also, advise a teleconference with infectious disease once culture results are obtained.
--- NOTE | 2019-02-26 19:17 | XCELERA REPORT ---
[address] [address] Transthoracic Echocardiogram Report Name: SIDNEY CARROLL Age: 69 yrs Gender: Male : 1950 Patient Status: Inpatient Patient Location: [address] [place], [place] [address]A Study Date: 02/26/2019 02:46 PM Height: 72 in Weight: 156 lb BSA: 1.9 m2 Procedure: A limited two-dimensional transthoracic echocardiogram was performed (2D). Study Quality: Good. Reason For Study: FOLLOW UP ECHO FOR LV THROMBUS Ordering Physician: JEFF GLEASON Performed By: Stephanie Schmid Interpretation Summary There are 2 calcfied clots in the apical inferior wall, and this is is small in size.cl and the LV apex.This is small to moderate in size,These represent old organised and calcified clots. MMode/2D Measurements & Calculations IVSd: 1.1 cm LVIDd: 5.5 cm FS: 24.5 % LVIDs: 4.2 cm EDV(Teich): 147.8 ml LVPWd: 1.2 cm ESV(Teich): 76.6 ml EF(Teich): 48.2 % Left Ventricle There are 2 calcfied clots in the apical inferior wall, and this is is small in size.cl and the LV apex.This is small to moderate in size,These represent old organised and calcified clots. : JEFF GLEASON Lakshmi
[2019-02-26] MEDS: AMITRIPTYLINE HCL 25 MG TABLET PO SCH (21:27)
[2019-02-26] MEDS: ROPINIROLE HCL 2 MG TABLET PO SCH (21:28)
[2019-02-26] MEDS: FENOFIBRATE NANOCRYSTALLIZED 145 MG TABLET PO SCH (21:28)
[2019-02-26] MEDS ORDERED: INSULIN GLARGINE,HUM.REC.ANLOG 1,000 UNIT/10 ML VIAL (PYX) SUBCUT SCH (22:00)
[2019-02-27] MEDS: INSULIN LISPRO 100 UNIT/ML 3 ML VIAL SUBCUT SCH ×4 (07:54→22:25)
[2019-02-27] MEDS: FINASTERIDE 5 MG TABLET PO SCH (10:04)
[2019-02-27] MEDS: PREDNISONE 20 MG TABLET PO SCH (10:04)
[2019-02-27] MEDS: ASPIRIN 81 MG TABLET, ENT COATED PO SCH (10:04)
[2019-02-27] MEDS: SPIRONOLACTONE 25 MG TABLET PO SCH (10:04)
[2019-02-27] MEDS: CARVEDILOL 6.25 MG TABLET PO SCH ×3 (10:04→22:29)
[2019-02-27] MEDS: VALSARTAN 40 MG TABLET PO SCH (10:04)
[2019-02-27] MEDS: FEBUXOSTAT 40 MG TABLET PO SCH (10:05)
[2019-02-27] MEDS: TORSEMIDE 20 MG TABLET PO SCH (10:05)
[2019-02-27] MEDS ORDERED: VANCOMYCIN HCL 0 MG in DEXTROSE 5%-WATER 250 ML IV NR (10:45)
[2019-02-27] MEDS: PIPERACILLIN SODIUM/TAZOBACTAM 3.375 GM in NORMAL SALINE 100 ML IV SCH ×3 (14:00→23:10)
--- NOTE | 2019-02-27 14:02 | PDOC CONSULTATION ---
Consultation Consult Date: 02/27/19 Provider Consulted: ZULY HOFFMAN Consult reason:: right foot plantar first MTP joint drainage and pain History of Present Illness Admission Date/PCP: 02/25/19 15:44 JEFF GLEASON MD History of Present Illness: SIDNEY CARROLL is a 69 year old male with type 2 diabetes. severe heart disease (low EF 15%), AICD implant, atrial fibrillation, atrial mural thrombi x 2, coronary artery stent x 1 with clot, recently diagnosed polymyositis on steroids x 6 weeks, recent wasting syndrome who was admitted for a right foot first MTP plantar surface with drainage which is very painful. According to the patient, he underwent several aggressive debridments of a plantar callus in the area; eventually a wound developed followed by multiple bouts of infections alternated with ulcer healing. Finally, culture from the area demonstrated the growth of MRSA and Klebsiella and he was treated with appropriated oral antibiotics with partial success. Also, he has a right foot lateral aspect superficial ulceration at the 5th MPJ area caused by an orthotic boot. This ulcer is minimally draining and somewhat tender. 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 Past Surgical History Past Surgical History: Reports: Pacemaker Social History Lives with: Spouse/Significant other Smoking Status: Never Smoker Frequency of Alcohol Use: None Hx Recreational Drug Use: No Drugs: None Hx Prescription Drug Abuse: No - Advance Directive Resuscitation Status: Full Code Family History Family History: None - adopted, Other - adopted Parental Family History Reviewed: No Children Family History Reviewed: No Sibling(s) Family History Reviewed.: No Medication/Allergy Home Medications: Amitriptyline HCl [Elavil 25 mg Tablet] 25 mg PO QHS 02/02/19 Aspirin [Ecotrin 81 mg EC Tablet] 81 mg PO DAILY 02/02/19 Clopidogrel Bisulfate [Plavix 75 mg Tablet] 75 mg PO DAILY 02/02/19 Colchicine [Colchicine 0.6 mg Tablet] 0.6 mg PO Q12 02/02/19 Ergocalciferol (Vitamin D2) [Drisdol 50,000 Unit (1.25MG) Capsule] 50,000 unit PO .02/02/19 Febuxostat [Uloric 40 mg Tablet] 40 mg PO DAILY 02/02/19 Fenofibrate Nanocrystallized [Tricor 145 mg Tablet] 145 mg PO QHS 02/02/19 Finasteride [Proscar 5 mg Tablet] 5 mg PO DAILY 02/02/19 Insulin Aspart [Novolog Flexpen] 20 unit SUBCUT AC MDD UP TO 30 PER MEAL 02/02/19 Insulin Glargine,Hum.rec.anlog [Lantus Insulin 100 Unit/1 ml 10 ml] 65 unit SUBCUT QHS 02/02/19 Nitroglycerin [Nitro-Dur 5 mg (0.2 mg/Hr) Transdermal Patch] 1 patch TD QAMP PRN 02/02/19 Nitroglycerin [Nitrostat 0.4 mg (1/150 Gr) Tabs 25/Bottle] 1 tab SL Q5MP PRN 02/02/19 Ranitidine HCl [Zantac 150 mg Tablet] 150 mg PO BID 02/02/19 Ropinirole HCl [Requip 2 Mg Tablet] 2 mg PO QHS 02/02/19 Rosuvastatin Calcium [Crestor 10 mg Tablet] 10 mg PO QHS 02/02/19 Spironolactone [Aldactone 25 mg Tablet] 25 mg PO DAILY 02/02/19 Torsemide [Demadex 20 mg Tablet] 20 mg PO DAILY 02/02/19 Tramadol HCl [Ultram 50 mg Tablet] 50 mg PO Q6HP PRN 02/02/19 Apixaban [Eliquis 5 mg Tablet] 5 mg PO BID 02/25/19 Carvedilol [Coreg 6.25 mg Tablet] 6.25 mg PO Q12 02/25/19 Docusate Sodium [Colace 100 mg Capsule] 100 mg PO TIDP PRN 02/25/19 Prednisone [Deltasone 20 mg Tablet] 40 mg PO DAILY 02/25/19 Valsartan [Diovan 40 mg Tablet] 20 mg PO DAILY 02/25/19 Allergies/Adverse Reactions: cholestyramine [From Questran] Allergy (Verified 02/25/19 12:30) gemfibrozil [From Lopid] Allergy (Verified 02/25/19 12:30) morphine Allergy (Verified 02/25/19 12:30) niacin Allergy (Verified 02/25/19 12:30) sucrose [From Questran] Allergy (Verified 02/25/19 12:30) colesevelam [From WelChol] Adverse Reaction (Verified 02/25/19 12:30) metoprolol [From Lopressor] Adverse Reaction (Verified 02/25/19 12:30) Physical Exam Vital Signs: Temp Pulse Resp BP Pulse Ox 97.9 F 63 15 106/58 L 98 02/27/19 04:00 02/27/19 07:00 02/27/19 04:00 02/27/19 04:00 02/27/19 04:00 Intake & Output 02/26/19 02/27/19 02/28/19 06:59 06:59 06:59 Intake Total 420 2560 Output Total 750 2775 Balance -330 -215 Weight 71.1 kg 72.9 kg General appearance: PRESENT: no acute distress Eye exam: PRESENT: EOMI Mouth exam: PRESENT: neck supple Neck exam: PRESENT: full ROM Respiratory exam: PRESENT: clear to auscultation jerry Cardiovascular exam: PRESENT: irregular rhythm, +S2 Vascular exam: PRESENT: normal capillary refill GI/Abdominal exam: PRESENT: soft Rectal exam: PRESENT: deferred Extremities exam: PRESENT: other - right foot: palpable DT pulse, good capillary refill, ulcer of the planter 1st MTP joint, small, draining, no odor, tender, no erythema; small ulceration right foot lateral aspect 5th MTP joint, tender,no drainage Results Laboratory Results: 02/25/19 13:54 02/25/19 13:54 02/25/19 02/25/19 13:54 13:54 Creatine Kinase 64 CK-MB (CK-2) 5.83 H Troponin I 0.036 Impressions: Foot X-Ray 02/25/19 13:16 IMPRESSION: 1. Soft tissue swelling and ulceration over the plantar right 1st metatarsal. No radiographic evidence of osteomyelitis. Consider MRI to more sensitively evaluate bone marrow edema and osteomyelitis if suspected. 2. There is a linear metallic radiopaque foreign body in the plantar soft tissues of the heel measuring approximately 3 mm. Assessment & Plan - Diagnosis (1) Diabetic foot ulcer associated with type 2 diabetes mellitus Qualifiers: Diabetic foot ulcer location: unspecified part of foot Laterality: right Non-pressure ulcer stage: limited to breakdown of skin Qualified Code(s): E11.621 - Type 2 diabetes mellitus with foot ulcer; L97.511 - Non-pressure chronic ulcer of other part of right foot limited to breakdown of skin Is this a current diagnosis for this admission?: Yes - Plan Summary Plan Summary: A/ right foot recurrent ulcer plantar surface, 1st MTP joint, tender, with drianage MRSA and Klebsiella grown from this ulcer Moderately severe cardiac condition type 2 diabeets patient cannot undergo an MRI due to the presence of an AIDC not MRI compatible P/ CT scan right ankle and foot to r/o osteomyelitis Continue conservative management of trhe right foot ulcer
[2019-02-27] MEDS: TRAMADOL HCL 50 MG TABLET PO PRN (14:47)
--- NOTE | 2019-02-27 16:01 | PDOC PROGRESS REPORT ---
Subjective Progress Note for:: 02/27/19 Subjective:: No adverse events overnight. No new complaints. Vital signs been stable. Is been afebrile. His says that the redness on the bottom of his foot has improved. Reason For Visit: DIABETIC FOOT Physical Exam Vital Signs: Temp Pulse Resp BP Pulse Ox 97.8 F 64 12 110/64 100 02/27/19 11:20 02/27/19 14:00 02/27/19 11:20 02/27/19 11:20 02/27/19 11:20 Intake & Output 02/26/19 02/27/19 02/28/19 06:59 06:59 06:59 Intake Total 420 2560 100 Output Total 750 2775 Balance -330 -215 100 Weight 71.1 kg 72.9 kg General appearance: PRESENT: no acute distress, cooperative, disheveled Respiratory exam: PRESENT: clear to auscultation jerry, symmetrical, unlabored. ABSENT: accessory muscle use, crackles, prolonged expiratory phas, rhonchi, tachypnea, wheezes Cardiovascular exam: PRESENT: RRR, +S1, +S2 Pulses: PRESENT: normal carotid pulses Vascular exam: PRESENT: other - Capillary refill about 4 seconds in the right great toe GI/Abdominal exam: PRESENT: normal bowel sounds, soft. ABSENT: distended, guarding, rebound, tenderness Extremities exam: PRESENT: other - Shallow ulcer on plantar surface of the right first metatarsal head. ABSENT: clubbing, pedal edema Musculoskeletal exam: PRESENT: normal inspection. ABSENT: deformity Neurological exam: PRESENT: alert, awake, oriented to person, oriented to place, oriented to situation Psychiatric exam: PRESENT: appropriate affect, normal mood Skin exam: PRESENT: dry, warm Results Laboratory Results: 02/25/19 13:54 02/25/19 13:54 02/25/19 02/25/19 13:54 13:54 Creatine Kinase 64 CK-MB (CK-2) 5.83 H Troponin I 0.036 Impressions: Foot X-Ray 02/25/19 13:16 IMPRESSION: 1. Soft tissue swelling and ulceration over the plantar right 1st metatarsal. No radiographic evidence of osteomyelitis. Consider MRI to more sensitively evaluate bone marrow edema and osteomyelitis if suspected. 2. There is a linear metallic radiopaque foreign body in the plantar soft tissues of the heel measuring approximately 3 mm. Assessment and Plan - Diagnosis (1) Diabetic foot ulcer associated with type 2 diabetes mellitus Qualifiers: Diabetic foot ulcer location: other Laterality: right Non-pressure ulcer stage: limited to breakdown of skin Qualified Code(s): E11.621 - Type 2 diabetes mellitus with foot ulcer; L97.511 - Non-pressure chronic ulcer of other part of right foot limited to breakdown of skin Is this a current diagnosis for this admission?: Yes Plan: We will start empiric antibiotics. Surgeries been consulted. (2) Chronic atrial fibrillation Is this a current diagnosis for this admission?: Yes Plan: Only controlled with his home medication (3) Chronic combined systolic and diastolic heart failure Is this a current diagnosis for this admission?: Yes Plan: Not acutely exacerbated, controlled with his home medications (4) Polymyositis Is this a current diagnosis for this admission?: Yes Plan: He is on long-term steroids. He is responding to them. Fortunately his blood sugars are well controlled. - Time Time Spent with patient: 15-24 minutes
[2019-02-27] MEDS: VANCOMYCIN HCL 1,500 MG in DEXTROSE 5%-WATER 250 ML IV SCH ×2 (17:27→21:05)
--- NOTE | 2019-02-27 18:31 | RADIOLOGY REPORT (SQ) ---
EXAM DESCRIPTION: CT RT LOWER EXTREMITY WITH COMPLETED DATE/TIME: 02/27/2019 5:34 pm REASON FOR STUDY: r/o osteomyelitis first MTP joint with ulcer COMPARISON: Radiographs 02/25/2018 TECHNIQUE: Postcontrast axial imaging performed through the right foot with reformatted coronal and sagittal imaging windowed for bone and soft tissues. Images saved to PACS. 3D IMAGING: Were 3D images as MIP, SSD, or volume rendering performed at the work station? No. All CT scanners at this facility use dose modulation, iterative reconstruction, and/or weight based d osing when appropriate to reduce radiation dose to as low as reasonably achievable (ALARA). [facility]: Dose Right [facility]: CareDose [facility]: Dose Right [facility]: Teradose 4D [facility]: [employer] CT scan of the right foot performed without intravenous or oral contrast. Images reviewed with soft tissue and bone windows. Reconstructed coronal and sagittal MPR images reviewed. All images stored on PACS. CONTRAST TYPE AND DOSE: contrast/concentration: Isovue 350.00 mg/ml; Total Contrast Delivered: 50.0 ml; Total Saline Delivered: 68.0 ml 50 mL IV of Isovue 350- low osmolar. RENAL FUNCTION: BUN 36 creatinine 0.82 LIMITATIONS: None. RADIATION DOSE: CT Rad equipment meets quality standard of care and radiation dose reduction techniq ues were employed. CTDIvol: 4.1 mGy. DLP: 97 mGy-cm.mGy. FINDINGS: SOFT TISSUES: 3 mm radiopaque linear foreign body within the plantar soft tissues overlyin g the posterior calcaneus (sagittal image 39). Extensive vascular calcifications. Mild diffuse soft tissue swelling. No soft tissue gas. BONES: No acute fracture. No dislocation. Subcortical geode of the distal fibula. Mild interphalan geal joint space narrowing of the 2nd through 5th digits. No erosions. No sinister bone lesion. Sm all plantar calcaneal and Achilles enthesophytes. MINERALIZATION: Normal. ENHANCEMENT: No enhancing fluid collections. OTHER: No other significant finding. IMPRESSION: 1. No findings to suggest active osteitis. Again, recommend MRI or triple phase nuclear medicine bon e scan for further evaluation if clinical concern persists. 2. Small radiopaque foreign body within the plantar soft tissues overlying the calcaneus as seen on p rior radiographs. TECHNICAL DOCUMENTATION: JOB ID: [id number] Quality ID # [id number]: Final reports with documentation of one or more dose reduction techniques (e.g., Au tomated exposure control, adjustment of the mA and/or kV according to patient size, use of iterative reconstruction technique) 2010 [employer] [facility] [employer] [facility] [employer]- All Rights Reserved Reading location - IP/workstation name: [email or web address]
[2019-02-27] MEDS: FENOFIBRATE NANOCRYSTALLIZED 145 MG TABLET PO SCH (21:05)
[2019-02-27] MEDS: ROPINIROLE HCL 2 MG TABLET PO SCH (21:05)
[2019-02-27] MEDS: AMITRIPTYLINE HCL 25 MG TABLET PO SCH (21:26)
[2019-02-27] MEDS: INSULIN GLARGINE,HUM.REC.ANLOG 1,000 UNIT/10 ML VIAL SUBCUT SCH (21:28)
[2019-02-28] MEDS: PIPERACILLIN SODIUM/TAZOBACTAM 3.375 GM in NORMAL SALINE 100 ML IV SCH ×3 (05:37→22:06)
[2019-02-28] MEDS: INSULIN LISPRO 100 UNIT/ML 3 ML VIAL SUBCUT SCH ×4 (08:43→22:00)
[2019-02-28] MEDS: PREDNISONE 20 MG TABLET PO SCH (11:02)
[2019-02-28] MEDS: SPIRONOLACTONE 25 MG TABLET PO SCH (11:02)
[2019-02-28] MEDS: TORSEMIDE 20 MG TABLET PO SCH (11:03)
[2019-02-28] MEDS: CARVEDILOL 6.25 MG TABLET PO SCH ×2 (11:03→22:03)
[2019-02-28] MEDS: FEBUXOSTAT 40 MG TABLET PO SCH (11:03)
[2019-02-28] MEDS: ASPIRIN 81 MG TABLET, ENT COATED PO SCH (11:03)
[2019-02-28] MEDS: VALSARTAN 40 MG TABLET PO SCH (11:03)
[2019-02-28] MEDS: FINASTERIDE 5 MG TABLET PO SCH (11:03)
[2019-02-28] MEDS: VANCOMYCIN HCL 1,500 MG in DEXTROSE 5%-WATER 250 ML IV SCH (11:04)
--- NOTE | 2019-02-28 13:14 | PDOC PROGRESS REPORT ---
Subjective Progress Note for:: 02/28/19 Subjective:: This is a 69-year-old male with a malperforans ulcer of the right foot. He reports significant amounts of pain in the foot. He also reports purulent drainage. The patient reports that he is not getting better. He denies chest pain, shortness of breath, nausea, vomiting, abdominal pain, blurry vision, headache, dizziness, orthostasis, fatigue. Reason For Visit: DIABETIC FOOT Physical Exam Vital Signs: Temp Pulse Resp BP Pulse Ox 98.0 F 60 17 107/54 L 98 02/28/19 03:53 02/28/19 07:00 02/28/19 03:53 02/28/19 03:53 02/28/19 03:53 Intake & Output 02/27/19 02/28/19 03/01/19 06:59 06:59 06:59 Intake Total 2560 1823 Output Total 2775 3713 Balance -215 -1890 Weight 72.9 kg 72.3 kg General appearance: PRESENT: no acute distress, cooperative Head exam: PRESENT: atraumatic, normocephalic Eye exam: PRESENT: EOMI, PERRLA. ABSENT: scleral icterus Mouth exam: PRESENT: moist, neck supple Teeth exam: ABSENT: poor dentation Neck exam: ABSENT: meningismus, tenderness, thyromegaly, tracheal deviation Respiratory exam: PRESENT: unlabored. ABSENT: chest wall tenderness, tachypnea, wheezes Cardiovascular exam: PRESENT: RRR Pulses: PRESENT: normal radial pulses GI/Abdominal exam: PRESENT: soft. ABSENT: distended, tenderness Rectal exam: PRESENT: deferred Extremities exam: PRESENT: other - Malperforans ulcer on the right foot with severe tenderness to palpation and purulent drainage. Callus to the right lateral aspect of the foot, no obvious infection.. ABSENT: clubbing Musculoskeletal exam: ABSENT: deformity - No clubbing no deformity Neurological exam: PRESENT: alert, awake, oriented to person, oriented to place, oriented to time, oriented to situation Psychiatric exam: ABSENT: agitated, anxious, depressed Skin exam: ABSENT: cyanosis, jaundice Results Laboratory Results: 02/25/19 13:54 02/25/19 13:54 02/25/19 02/25/19 13:54 13:54 Creatine Kinase 64 CK-MB (CK-2) 5.83 H Troponin I 0.036 Impressions: Foot X-Ray 02/25/19 13:16 IMPRESSION: 1. Soft tissue swelling and ulceration over the plantar right 1st metatarsal. No radiographic evidence of osteomyelitis. Consider MRI to more sensitively evaluate bone marrow edema and osteomyelitis if suspected. 2. There is a linear metallic radiopaque foreign body in the plantar soft tissues of the heel measuring approximately [address] 02/27/19 00:00 IMPRESSION: 1. No findings to suggest active osteitis. Again, recommend MRI or triple phase nuclear medicine bone scan for further evaluation if clinical concern persists. 2. Small radiopaque foreign body within the plantar soft tissues overlying the calcaneus as seen on prior radiographs. Assessment & Plan - Diagnosis (1) Diabetic foot ulcer associated with type 2 diabetes mellitus Qualifiers: Diabetic foot ulcer location: other Laterality: right Non-pressure ulcer stage: limited to breakdown of skin Qualified Code(s): E11.621 - Type 2 diabetes mellitus with foot ulcer; L97.511 - Non-pressure chronic ulcer of other part of right foot limited to breakdown of skin Is this a current diagnosis for this admission?: Yes - Plan Summary Plan Summary: This is a 69-year-old male with a diabetic foot infection. The patient is draining purulent material from the ulcerated area. I have reviewed the patient's CT scan. He has a large amount of inflammation and swelling adjacent to the first MTP joint (this is likely the area where the purulent material is coalescing). I discussed his options at length. I believe the patient will req uire surgical intervention. The patient has eaten a regular diet today. I will make him n.p.o. after midnight and plan for surgical intervention tomorrow. I have discussed the possibility of potentially losing the first toe due to infection. Patient has expressed understanding of this.
--- NOTE | 2019-02-28 16:59 | PDOC PROGRESS REPORT ---
Subjective Progress Note for:: 02/28/19 Subjective:: No adverse events overnight. No new complaints. Vital signs been stable. He has had some elevated blood sugars associated with taking his prednisone but is also had some blood sugars in a very good range. Dr. Corcoran saw him today and is planning on taking him to the OR tomorrow. Reason For Visit: DIABETIC FOOT Physical Exam Vital Signs: Temp Pulse Resp BP Pulse Ox 97.8 F 70 15 91/58 L 100 02/28/19 12:00 02/28/19 12:00 02/28/19 12:00 02/28/19 12:00 02/28/19 12:00 Intake & Output 02/27/19 02/28/19 03/01/19 06:59 06:59 06:59 Intake Total 2560 1823 350 Output Total 2775 3713 Balance -215 -1890 350 Weight 72.9 kg 72.3 kg General appearance: PRESENT: no acute distress, cooperative, disheveled Respiratory exam: PRESENT: clear to auscultation jerry, symmetrical, unlabored. A BSENT: accessory muscle use, crackles, prolonged expiratory phas, rhonchi, tachypnea, wheezes Cardiovascular exam: PRESENT: RRR, +S1, +S2 Pulses: PRESENT: normal carotid pulses Vascular exam: PRESENT: other - Capillary refill about 4 seconds in the right great toe GI/Abdominal exam: PRESENT: normal bowel sounds, soft. ABSENT: distended, guarding, rebound, tenderness Extremities exam: PRESENT: other - Shallow ulcer on plantar surface of the right first metatarsal head. ABSENT: clubbing, pedal edema Musculoskeletal exam: PRESENT: normal inspection. ABSENT: deformity Neurological exam: PRESENT: alert, awake, oriented to person, oriented to place, oriented to situation Psychiatric exam: PRESENT: appropriate affect, normal mood Skin exam: PRESENT: dry, warm Results Laboratory Results: 02/25/19 13:54 02/25/19 13:54 02/25/19 02/25/19 13:54 13:54 Creatine Kinase 64 CK-MB (CK-2) 5.83 H Troponin I 0.036 Impressions: Foot X-Ray 02/25/19 13:16 IMPRESSION: 1. Soft tissue swelling and ulceration over the plantar right 1st metatarsal. No radiographic evidence of osteomyelitis. Consider MRI to more sensitively evaluate bone marrow edema and osteomyelitis if suspected. 2. There is a linear metallic radiopaque foreign body in the plantar soft tissues of the heel measuring approximately [address] 02/27/19 00:00 IMPRESSION: 1. No findings to suggest active osteitis. Again, recommend MRI or triple phase nuclear medicine bone scan for further evaluation if clinical concern persists. 2. Small radiopaque foreign body within the plantar soft tissues overlying the calcaneus as seen on prior radiographs. Assessment and Plan - Diagnosis (1) Diabetic foot ulcer associated with type 2 diabetes mellitus Qualifiers: Diabetic foot ulcer location: other Laterality: right Non-pressure ulcer stage: limited to breakdown of skin Qualified Code(s): E11.621 - Type 2 diabetes mellitus with foot ulcer; L97.511 - Non-pressure chronic ulcer of other part of right foot limited to breakdown of skin Is this a current diagnosis for this admission?: Yes Plan: He continues on antibiotics. Dr. Corcoran is going to take him to the OR tomorrow to debride the wound. Hopefully will be able to get some cultures as well. (2) Chronic atrial fibrillation Is this a current diagnosis for this admission?: Yes Plan: Only controlled with his home medication (3) Chronic combined systolic and diastolic heart failure Is this a current diagnosis for this admission?: Yes Plan: Not acutely exacerbated, controlled with his home medications (4) Polymyositis Is this a current diagnosis for this admission?: Yes Plan: He is on long-term steroids. He is responding to them. Fortunately his blood sugars are fairly well controlled with episodic increases in the glucose. - Time Time Spent with patient: 15-24 minutes
[2019-02-28] MEDS: AMITRIPTYLINE HCL 25 MG TABLET PO SCH (22:02)
[2019-02-28] MEDS: INSULIN GLARGINE,HUM.REC.ANLOG 1,000 UNIT/10 ML VIAL SUBCUT SCH (22:03)
[2019-02-28] MEDS: ROPINIROLE HCL 2 MG TABLET PO SCH (22:07)
[2019-02-28] MEDS: FENOFIBRATE NANOCRYSTALLIZED 145 MG TABLET PO SCH (22:07)
[2019-03-01] MEDS: VANCOMYCIN HCL 1,500 MG in DEXTROSE 5%-WATER 250 ML IV SCH ×3 (00:59→21:50)
[2019-03-01] MEDS: PIPERACILLIN SODIUM/TAZOBACTAM 3.375 GM in NORMAL SALINE 100 ML IV SCH ×4 (05:39→21:49)
--- NOTE | 2019-03-01 08:35 | Progress Note ---
Provider Note Provider Note: Right foot examined: very tender on palpation of the forefoot, no erythema, drainage form volar aspect of MTP joint Plan: after long discussion with the patient and options described, he agrees on right great toe ray amputation if necessary
[2019-03-01] MEDS: INSULIN LISPRO 100 UNIT/ML 3 ML VIAL SUBCUT SCH ×4 (08:44→21:50)
[2019-03-01] MEDS ORDERED: MIDAZOLAM 2 MG/2 ML INJ ONE (09:40)
[2019-03-01] MEDS ORDERED: ONDANSETRON HCL INJ/PF 4 MG/2 ML SDV ONE (09:40)
[2019-03-01] MEDS ORDERED: FENTANYL CITRATE INJ/PF 100 MCG/2 ML AMPUL ONE (09:40)
[2019-03-01] MEDS ORDERED: KETOROLAC TROMETHAMINE 60 MG/2 ML SDV ONE (09:40)
[2019-03-01] MEDS ORDERED: PROPOFOL INJ 200 MG/20 ML VIAL IV ONE ×2 (09:41→09:49)
[2019-03-01] MEDS ORDERED: ACETAMINOPHEN 1,000 MG/100 ML RTUPB IV ONE (09:41)
[2019-03-01] MEDS ORDERED: LIDOCAINE 1% INJ-PF (10 MG/ML) 30 ML SDV ONE (09:51)
[2019-03-01] MEDS ORDERED: FENTANYL CITRATE INJ/PF 100 MCG/2 ML AMPUL IV PRN ×3 (10:26)
[2019-03-01] MEDS ORDERED: MEPERIDINE HCL/PF INJ 25 MG/1 ML DISP.SYRIN IV PRN (10:26)
[2019-03-01] MEDS ORDERED: PROMETHAZINE HCL INJ 25 MG/1 ML VIAL IV PRN ×2 (10:26)
[2019-03-01] MEDS ORDERED: ONDANSETRON HCL INJ/PF 4 MG/2 ML SDV IV PRN (10:26)
[2019-03-01] MEDS ORDERED: DIPHENHYDRAMINE HCL 50 MG/ML VIAL IV PRN (10:26)
--- NOTE | 2019-03-01 12:44 | OPERATIVE REPORT E ---
Operative Report NAME: SIDNEY CARROLL : 1950 AGE: 69Y DATE OF SURGERY: 03/01/2019 ROOM: 430 PREOPERATIVE DIAGNOSIS: Right great toe plantar subcutaneous abscess. POSTOPERATIVE DIAGNOSES: 1. Right great toe plantar subcutaneous abscess. 2. Infectious process affecting the right first metatarsophalangeal joint. OPERATION: Right great toe ray amputation. SURGEON: ZULY HOFFMAN M.D. FORGING PRESS SETTER UP: None. ANESTHESIA: IV sedation plus 30 mL of 1% lidocaine with epinephrine. ESTIMATED BLOOD LOSS: None. COMPLICATIONS: None. INDICATIONS AND FINDINGS: This 69-year-old male with a history of type 1 diabetes and polymyositis on steroids who has developed an infection of the right foot located on the plantar surface of the first metatarsophalangeal joint. The infection was initially caused by MRSA. The patient was appropriately treated with oral antibiotics; however, there has been a recurrence of drainage and edema together with swelling together with redness. A CAT scan of the foot was done which was negative for possible osteomyelitis. However, the patient's symptoms have increased in terms of pain and purulent drainage from the right plantar ulcer. A decision was made to take the patient to surgery and perform a right great toe amputation with clinical suspicion of a possible osteomyelitis and/or involvement of the joint of the first metatarsophalangeal joint. DESCRIPTION OF PROCEDURE: The patient was taken to the operating room. The patient was placed in the supine position. IV sedation was provided by the anesthesiologist via MAC anesthesia. A tourniquet was applied to the groin and the right foot was prepped and draped in the usual fashion. The right foot was exsanguinated with an Esmarch rubber band. The tourniquet was increased to 580 mmHg. The rubber band was then removed. A tear drop-shaped marking was made around the base of the great toe and extended toward the medial aspect of the foot for about an inch and a half. The skin was incised with a #10 blade. The subcutaneous tissue was then elevated with Bovie circumferentially until the entire great toe was freed from the surrounding attachments with the subcutaneous tissue and tendon. The dissection was then continued more distally to involve the head of the first metatarsal bone for about 2 cm. Once this was circumferentially dissected with Bovie, the head of the 1st metatarsal phalangeal joint was divided with an electric orthopaedic saw and the entire specimen was removed from the surgical field. During the operation it was noted that a tract of purulent drainage was occurring from the first metatarsophalangeal joint to the plantar aspect of the foot, explaining involvement of the joint with the infectious process. Following the ray amputation the area was irrigated with normal saline until clear. The edges of the first metatarsal bone were then filed and the stump was covered with bone wax. The subcutaneous tissue was then approximated with interrupted inverted 3-0 Vicryl sutures and horizontal mattress 2-0 nylon sutures as well. A quarter-inch [place] drain was then inserted subcutaneously from the proximal to distal end of the incision. Flat 4 x 4's were placed between the toes and around the surgical area and throughout the entire foot followed by Webril, Kerlix roll, and a posterior plantar splint. The patient tolerated the procedure well and was transferred to the recovery room in satisfactory condition. DICTATING PHYSICIAN: ZULY HOFFMAN M.D. [id number] PHY#: [id number] ID: [id number] JOB#: [id number] ACCT: [id number] cc:ZULY HOFFMAN M.D. > MTDD
[2019-03-01] MEDS: SPIRONOLACTONE 25 MG TABLET PO SCH (13:28)
[2019-03-01] MEDS: CARVEDILOL 6.25 MG TABLET PO SCH ×2 (13:28→21:29)
[2019-03-01] MEDS: ASPIRIN 81 MG TABLET, ENT COATED PO SCH (13:28)
[2019-03-01] MEDS: VALSARTAN 40 MG TABLET PO SCH (13:29)
[2019-03-01] MEDS: PREDNISONE 20 MG TABLET PO SCH (13:29)
[2019-03-01] MEDS: TORSEMIDE 20 MG TABLET PO SCH (13:30)
[2019-03-01] MEDS: FEBUXOSTAT 40 MG TABLET PO SCH (13:30)
[2019-03-01] MEDS: FINASTERIDE 5 MG TABLET PO SCH (13:31)
[2019-03-01 13:37] LABS: VANCOMYCIN,TROUGH 18.2 ug/mL (5.0-20.0)
--- NOTE | 2019-03-01 15:05 | Operative Report ---
Nonrecallable Operative Report DATE OF SURGERY: 03/01/19 PREOPERATIVE DIAGNOSIS: purulent drainage from right plantar surface at 1st MTP joint POSTOPERATIVE DIAGNOSIS: same. Infected rigth 1st MTP joint OPERATION: Right great toe ray amputation SURGEON: ZULY HOFFMAN ANESTHESIA: GA - plus 30 mL 1% lidocaine without epinephrine TISSUE REMOVED OR ALTERED: right great toe with distal head of 1st metatarsal bone COMPLICATIONS: none ESTIMATED BLOOD LOSS: none INTRAOPERATIVE FINDINGS: infected tract between 1st MTP joint and plantar skin draining site PROCEDURE: see dictation
--- NOTE | 2019-03-01 16:55 | PDOC PROGRESS REPORT ---
Subjective Progress Note for:: 03/01/19 Subjective:: No adverse events overnight. No new complaints. N.p.o. awaiting his procedure this morning. No fevers. Reason For Visit: DIABETIC FOOT Physical Exam Vital Signs: Temp Pulse Resp BP Pulse Ox 97.6 F 63 16 82/49 L 98 03/01/19 13:20 03/01/19 13:20 03/01/19 13:20 03/01/19 13:20 03/01/19 13:20 Intake & Output 02/28/19 03/01/19 03/02/19 06:59 06:59 06:59 Intake Total 1823 2288 1842 Output Total 3713 2802 740 Balance -1890 -514 1102 Weight 72.3 kg 70.9 kg General appearance: PRESENT: no acute distress, cooperative, disheveled Respiratory exam: PRESENT: clear to auscultation jerry, symmetrical, unlabored. ABSENT: accessory muscle use, crackles, prolonged expiratory phas, rhonchi, tachypnea, wheezes Cardiovascular exam: PRESENT: RRR, +S1, +S2 Pulses: PRESENT: normal carotid pulses Vascular exam: PRESENT: other - Capillary refill about 4 seconds in the right great toe GI/Abdominal exam: PRESENT: normal bowel sounds, soft. ABSENT: distended, guarding, rebound, tenderness Extremities exam: PRESENT: other - Shallow ulcer on plantar surface of the right first metatarsal head. ABSENT: clubbing, pedal edema Musculoskeletal exam: PRESENT: normal inspection. ABSENT: deformity Neurological exam: PRESENT: alert, awake, oriented to person, oriented to place, oriented to situation Psychiatric exam: PRESENT: appropriate affect, normal mood Skin exam: PRESENT: dry, warm Results Laboratory Results: 02/25/19 13:54 02/25/19 13:54 02/25/19 02/25/19 13:54 13:54 Creatine Kinase 64 CK-MB (CK-2) 5.83 H Troponin I 0.036 Impressions: Foot X-Ray 02/25/19 13:16 IMPRESSION: 1. Soft tissue swelling and ulceration over the plantar right 1st metatarsal. No radiographic evidence of osteomyelitis. Consider MRI to more sensitively evaluate bone marrow edema and osteomyelitis if suspected. 2. There is a linear metallic radiopaque foreign body in the plantar soft tissues of the heel measuring approximately [address] 02/27/19 00:00 IMPRESSION: 1. No findings to suggest active osteitis. Again, recommend MRI or triple phase nuclear medicine bone scan for further evaluation if clinical concern persists. 2. Small radiopaque foreign body within the plantar soft tissues overlying the calcaneus as seen on prior radiographs. Assessment and Plan - Diagnosis (1) Diabetic foot ulcer associated with type 2 diabetes mellitus Qualifiers: Diabetic foot ulcer location: other Laterality: right Non-pressure ulcer stage: limited to breakdown of skin Qualified Code(s): E11.621 - Type 2 diabetes mellitus with foot ulcer; L97.511 - Non-pressure chronic ulcer of other part of right foot limited to breakdown of skin Is this a current diagnosis for this admission?: Yes Plan: Currently on broad-spectrum antibiotics. Planning for surgical debridement and possible toe amputation this morning. (2) Chronic atrial fibrillation Is this a current diagnosis for this admission?: Yes Plan: Only controlled with his home medication (3) Chronic combined systolic and diastolic heart failure Is this a current diagnosis for this admission?: Yes Plan: Not acutely exacerbated, controlled with his home medications (4) Polymyositis Is this a current diagnosis for this admission?: Yes Plan: He is on long-term steroids. He is responding to them. Fortunately his blood sugars are fairly well controlled with episodic increases in the glucose. - Time Time Spent with patient: 15-24 minutes
[2019-03-01] MEDS: TRAMADOL HCL 50 MG TABLET PO PRN (17:10)
[2019-03-01] MEDS: NEOMY/BACITRAC ZN/POLY OINT 15 GM TP SCH (18:13)
[2019-03-01] MEDS ORDERED: KETOROLAC TROMETHAMINE INJ/PF 30 MG/1 ML SDV ONE (21:28)
[2019-03-01] MEDS ORDERED: KETOROLAC TROMETHAMINE INJ/PF 30 MG/1 ML SDV IV PRN (21:30)
[2019-03-01] MEDS: ROPINIROLE HCL 2 MG TABLET PO SCH (21:49)
[2019-03-01] MEDS: AMITRIPTYLINE HCL 25 MG TABLET PO SCH (21:49)
[2019-03-01] MEDS: INSULIN GLARGINE,HUM.REC.ANLOG 1,000 UNIT/10 ML VIAL SUBCUT SCH (21:49)
[2019-03-01] MEDS: NORMAL SALINE 1000 ML 1,000 ML IV PRN (21:51)
[2019-03-01] MEDS: FENOFIBRATE NANOCRYSTALLIZED 145 MG TABLET PO SCH (21:52)
[2019-03-02] MEDS: TRAMADOL HCL 50 MG TABLET PO PRN ×3 (03:18→16:38)
[2019-03-02] MEDS: PIPERACILLIN SODIUM/TAZOBACTAM 3.375 GM in NORMAL SALINE 100 ML IV SCH ×3 (03:18→15:16)
[2019-03-02] MEDS: NORMAL SALINE 1000 ML 1,000 ML IV PRN (03:19)
[2019-03-02] MEDS ORDERED: ENOXAPARIN SODIUM INJ 40 MG/0.4 ML DISP.SYRIN SUBCUT SCH (06:00)
[2019-03-02] MEDS: INSULIN LISPRO 100 UNIT/ML 3 ML VIAL SUBCUT SCH ×4 (07:20→22:35)
[2019-03-02] MEDS: CARVEDILOL 6.25 MG TABLET PO SCH ×2 (09:25→22:36)
[2019-03-02] MEDS: ASPIRIN 81 MG TABLET, ENT COATED PO SCH (09:25)
[2019-03-02] MEDS: PREDNISONE 20 MG TABLET PO SCH (09:26)
[2019-03-02] MEDS: FINASTERIDE 5 MG TABLET PO SCH (09:26)
[2019-03-02] MEDS: TORSEMIDE 20 MG TABLET PO SCH (09:26)
[2019-03-02] MEDS: VALSARTAN 40 MG TABLET PO SCH (09:27)
[2019-03-02] MEDS: FEBUXOSTAT 40 MG TABLET PO SCH (09:27)
[2019-03-02] MEDS: NEOMY/BACITRAC ZN/POLY OINT 15 GM TP SCH ×2 (09:28→17:50)
--- NOTE | 2019-03-02 09:49 | PDOC PROGRESS REPORT ---
Subjective Progress Note for:: 03/02/19 Subjective:: Reports right foot phantom pain Reason For Visit: DIABETIC FOOT Physical Exam Vital Signs: Temp Pulse Resp BP Pulse Ox 97.4 F 65 17 96/53 L 100 03/02/19 08:00 03/02/19 08:00 03/02/19 08:00 03/02/19 08:00 03/02/19 08:00 Intake & Output 03/01/19 03/02/19 03/03/19 06:59 06:59 06:59 Intake Total 2288 3372 Output Total 2802 2240 Balance -514 1132 Weight 70.9 kg 75.1 kg General appearance: PRESENT: no acute distress Extremities exam: PRESENT: other - RLE: foot dressing and splint in place, wound edges pink, viable, drain in place Results Laboratory Results: 02/25/19 13:54 03/02/19 05:58 03/02/19 05:58 Creatinine 1.04 Est GFR ( Amer) > 60 Est GFR (Non-Af Amer) > 60 02/25/19 02/25/19 13:54 13:54 Creatine Kinase 64 CK-MB (CK-2) 5.83 H Troponin I 0.036 Impressions: Foot X-Ray 02/25/19 13:16 IMPRESSION: 1. Soft tissue swelling and ulceration over the plantar right 1st metatarsal. No radiographic evidence of osteomyelitis. Consider MRI to more sensitively evaluate bone marrow edema and osteomyelitis if suspected. 2. There is a linear metallic radiopaque foreign body in the plantar soft tissues of the heel measuring approximately [address] 02/27/19 00:00 IMPRESSION: 1. No findings to suggest active osteitis. Again, recommend MRI or triple phase nuclear medicine bone scan for further evaluation if clinical concern persists. 2. Small radiopaque foreign body within the plantar soft tissues overlying the calcaneus as seen on prior radiographs. Assessment & Plan - Diagnosis (1) Diabetic foot ulcer associated with type 2 diabetes mellitus Qualifiers: Diabetic foot ulcer location: other Laterality: right Non-pressure ulcer stage: limited to breakdown of skin Qualified Code(s): E11.621 - Type 2 diabetes mellitus with foot ulcer; L97.511 - Non-pressure chronic ulcer of other part of right foot limited to breakdown of skin Is this a current diagnosis for this admission?: Yes (2) Toe infection Is this a current diagnosis for this admission?: Yes - Plan Summary Plan Summary: A/ POD#1 after great toe ray amputation VSS, AF PE shows viable wound skn flaps, no odor P/ Waiting for cx results continue IV abx Bedrest with foot elevation for now
[2019-03-02] MEDS: VANCOMYCIN HCL 1,500 MG in DEXTROSE 5%-WATER 250 ML IV SCH ×2 (10:51→22:37)
[2019-03-02] MEDS: SPIRONOLACTONE 25 MG TABLET PO SCH (10:52)
[2019-03-02 14:16] LABS: HEMATOCRIT 42.9 % (37.9-51.0); HEMOGLOBIN 14.1 g/dL (13.5-17.0); MEAN CORPUSCULAR HEMOGLOBIN 30.4 pg (27.0-33.4); MEAN CORPUSCULAR VOLUME 92 fl (80-97); PLATELET COUNT 137 10^3/uL (150-450); RED BLOOD COUNT 4.65 10^6/uL (4.35-5.55); RED CELL DISTRIBUTION WIDTH 17.4 % (11.5-14.0); WHITE BLOOD COUNT 9.2 10^3/uL (4.0-10.5)
[2019-03-02 14:20] LABS: ANION GAP 6 (5-19); BLOOD UREA NITROGEN 36 mg/dL (7-20); CALCIUM 8.6 mg/dL (8.4-10.2); CARBON DIOXIDE 33 mmol/L (22-30); CHLORIDE 99 mmol/L (98-107); GLUCOSE 137 mg/dL (75-110); POTASSIUM 4.5 mmol/L (3.6-5.0); SODIUM 137.5 mmol/L (137-145)
[2019-03-02 14:41] LABS: ABSOLUTE LYMPHOCYTES# (MANUAL) 1.1 10^3/uL (0.5-4.7); ABSOLUTE MONOCYTES # (MANUAL) 0.7 10^3/uL (0.1-1.4); BASOPHILS % (MANUAL) 0 % (0-2); EOSINOPHILS % (MANUAL) 0 % (0-6); LYMPHOCYTES % (MANUAL) 12 % (13-45); MONOCYTES % (MANUAL) 8 % (3-13); SEGMENTED NEUTROPHILS % (MAN) 80 % (42-78); TOTAL CELLS COUNTED 100
[2019-03-02 14:43] LABS: TOXIC GRANULATION SLIGHT; TOXIC VACUOLATION PRESENT
[2019-03-02 14:44] LABS: ANISOCYTOSIS 1+; OVALOCYTES 1+; PLATELET COMMENT DECREASED
--- NOTE | 2019-03-02 18:52 | PDOC PROGRESS REPORT ---
Subjective Progress Note for:: 03/02/19 Subjective:: This is a 69 yr old male with a PMH of IDDM, chronic AFib, history of inferior wall thrombus, polymyositis and CHF who was admitted for an infected ulcer on the right 1st MTP. He underwent ray amputation yesterday 03/01 by surgery. He complains of mild pain today. He and his did express concern about his weight loss as he lost 30 lbs since 01/01/19 despite his good appetite and oral intake. Reason For Visit: DIABETIC FOOT Physical Exam Vital Signs: Temp Pulse Resp BP Pulse Ox 97.8 F 69 18 101/52 L 98 03/02/19 16:00 03/02/19 16:00 03/02/19 16:00 03/02/19 16:00 03/02/19 16:00 Intake & Output 03/01/19 03/02/19 03/03/19 06:59 06:59 06:59 Intake Total 2288 3372 1830 Output Total 2802 2240 400 Balance -514 1132 1430 Weight 156 lb 4.924 oz 165 lb 9.074 oz General appearance: PRESENT: no acute distress, well-developed, well-nourished Head exam: PRESENT: atraumatic, normocephalic Eye exam: PRESENT: conjunctiva pink, EOMI, PERRLA. ABSENT: scleral icterus Ear exam: PRESENT: normal external ear exam Mouth exam: PRESENT: moist, tongue midline Neck exam: ABSENT: carotid bruit, JVD, lymphadenopathy, thyromegaly Respiratory exam: PRESENT: clear to auscultation jerry. ABSENT: rales, rhonchi, wheezes Cardiovascular exam: PRESENT: RRR. ABSENT: diastolic murmur, rubs, systolic murmur Pulses: PRESENT: normal dorsalis pedis pul GI/Abdominal exam: PRESENT: normal bowel sounds, soft. ABSENT: distended, guarding, mass, organolmegaly, rebound, tenderness Rectal exam: PRESENT: deferred Extremities exam: PRESENT: other - dressing in place Neurological exam: PRESENT: alert, awake, oriented to person, oriented to place, oriented to time, oriented to situation, CN II-XII grossly intact. ABSENT: chayo r sensory deficit Results Laboratory Results: 03/02/19 05:58 03/02/19 05:58 05/03/02/19 03/02/19 05:58 05:58 05:58 WBC 9.2 RBC 4.65 Hgb 14.1 Hct 42.9 MCV 92 MCH 30.4 MCHC 33.0 RDW 17.4 H Plt Count 137 L Seg Neutrophils % Not Reportable Lymphocytes % Not Reportable Monocytes % Not Reportable Eosinophils % Not Reportable Basophils % Not Reportable Absolute Neutrophils Not Reportable Absolute Lymphocytes Not Reportable Absolute Monocytes Not Reportable Absolute Eosinophils Not Reportable Absolute Basophils Not Reportable Sodium 137.5 Potassium 4.5 Chloride 99 Carbon Dioxide 33 H Anion Gap 6 BUN 36 H Creatinine 1.04 1.04 Est GFR ( Amer) > 60 > 60 Est GFR (Non-Af Amer) > 60 > 60 Glucose 137 H Calcium 8.6 02/25/19 15:31 Blood Blood Culture - Final NO GROWTH IN 5 DAYS 02/25/19 13:54 Blood Blood Culture - Final NO GROWTH IN 5 DAYS 02/25/19 02/25/19 13:54 13:54 Creatine Kinase 64 CK-MB (CK-2) 5.83 H Troponin I 0.036 Impressions: Foot X-Ray 02/25/19 13:16 IMPRESSION: 1. Soft tissue swelling and ulceration over the plantar right 1st metatarsal. No radiographic evidence of osteomyelitis. Consider MRI to more sensitively evaluate bone marrow edema and osteomyelitis if suspected. 2. There is a linear metallic radiopaque foreign body in the plantar soft tissues of the heel measuring approximately [address] 02/27/19 00:00 IMPRESSION: 1. No findings to suggest active osteitis. Again, recommend MRI or triple phase nuclear medicine bone scan for further evaluation if clinical concern persists. 2. Small radiopaque foreign body within the plantar soft tissues overlying the calcaneus as seen on prior radiographs. Assessment and Plan - Diagnosis (1) Diabetic foot ulcer associated with type 2 diabetes mellitus Qualifiers: Diabetic foot ulcer location: other Laterality: right Non-pressure ulcer stage: limited to breakdown of skin Qualified Code(s): E11.621 - Type 2 diabetes mellitus with foot ulcer; L97.511 - Non-pressure chronic ulcer of other part of right foot limited to breakdown of skin Is this a current diagnosis for this admission?: Yes Plan: S/P ray amputation on 03/01/10. Wound culture is growing GPC. Discontinue Zosyn. Continue vancomycin for now pending final culture results. (2) Failure to thrive in adult Is this a current diagnosis for this admission?: Yes Plan: Discussed possible causes of weight loss with patient and family. Will check TSH and A1c. Discussed further extensive work up to determine cause of his weight loss will mostly be outpatient work-up. (3) Chronic atrial fibrillation Is this a current diagnosis for this admission?: Yes Plan: Resume Eliquis now that surgery is done. DC Lovenox. (4) Chronic combined systolic and diastolic heart failure Is this a current diagnosis for this admission?: Yes Plan: Not acutely exacerbated. Continue home meds. (5) Diabetes Is this a current diagnosis for this admission?: Yes Plan: Sugars running high. Currnelty on Lantus 15 u HS. He is on 65 u HS at home. Increase Lantus to 45 u tonight. Will adjust based on subsequent blood sugars. (6) Polymyositis Is this a current diagnosis for this admission?: Yes Plan: On prednisone. - Time Time Spent with patient: 25-34 minutes
[2019-03-02] MEDS ORDERED: INSULIN GLARGINE,HUM.REC.ANLOG 1,000 UNIT/10 ML VIAL SUBCUT SCH (22:00)
[2019-03-02] MEDS: AMITRIPTYLINE HCL 25 MG TABLET PO SCH (22:36)
[2019-03-02] MEDS: ROPINIROLE HCL 2 MG TABLET PO SCH (22:36)
[2019-03-02] MEDS: FENOFIBRATE NANOCRYSTALLIZED 145 MG TABLET PO SCH (22:37)
[2019-03-03] MEDS: INSULIN LISPRO 100 UNIT/ML 3 ML VIAL SUBCUT SCH ×4 (07:56→22:15)
[2019-03-03] MEDS: TRAMADOL HCL 50 MG TABLET PO PRN ×2 (08:04→22:15)
[2019-03-03] MEDS: APIXABAN 5 MG TABLET PO SCH ×2 (09:34→17:18)
[2019-03-03] MEDS: FEBUXOSTAT 40 MG TABLET PO SCH (09:34)
[2019-03-03] MEDS: PREDNISONE 20 MG TABLET PO SCH (09:35)
[2019-03-03] MEDS: VALSARTAN 40 MG TABLET PO SCH (09:35)
[2019-03-03] MEDS: TORSEMIDE 20 MG TABLET PO SCH (09:35)
[2019-03-03] MEDS: SPIRONOLACTONE 25 MG TABLET PO SCH (09:36)
[2019-03-03] MEDS: ASPIRIN 81 MG TABLET, ENT COATED PO SCH (09:36)
[2019-03-03] MEDS: CARVEDILOL 6.25 MG TABLET PO SCH ×2 (09:36→22:14)
[2019-03-03] MEDS: FINASTERIDE 5 MG TABLET PO SCH (09:38)
[2019-03-03] MEDS: VANCOMYCIN HCL 1,500 MG in DEXTROSE 5%-WATER 250 ML IV SCH (09:43)
[2019-03-03] MEDS: NEOMY/BACITRAC ZN/POLY OINT 15 GM TP SCH ×2 (09:44→17:19)
[2019-03-03 09:47] LABS: FREE T3 2.36 pg/mL (2.77-5.27); FREE T4 (FREE THYROXINE) 0.75 ng/dL (0.78-2.19)
[2019-03-03] MEDS ORDERED: HYDROMORPHONE HCL INJ/PF 2 MG/ML AMPULE INJ PRN (11:35)
[2019-03-03] MEDS ORDERED: MORPHINE SULFATE 10 MG/ML INJ IV PRN (11:38)
[2019-03-03] MEDS ORDERED: HYDROMORPHONE HCL INJ/PF 2 MG/ML AMPULE ONE (11:39)
[2019-03-03] MEDS ORDERED: KETOROLAC TROMETHAMINE INJ/PF 30 MG/1 ML SDV IV PRN (13:00)
[2019-03-03] MEDS: HYDROMORPHONE HCL INJ/PF 2 MG/ML AMPULE IV PRN ×2 (15:33→22:29)
--- NOTE | 2019-03-03 16:52 | PDOC PROGRESS REPORT ---
Subjective Progress Note for:: 03/03/19 Subjective:: This is a 69 yr old male with a PMH of IDDM, chronic AFib, history of inferior wall thrombus, polymyositis and CHF who was admitted for an infected ulcer on the right 1st MTP. He underwent ray amputation yesterday 03/01 by surgery. 03/02: He complains of mild pain today. He and his did express concern about his weight loss as he lost 30 lbs since 01/01/19 despite his good appetite and oral intake. 03/03: No acute event overnight. He is tolerating diet well. He reports this morning that he forgot to tell the surgeon that he has a retained splinter/fragment on his right foot and that causes him to hurt a lot when he steps on that foot. Reason For Visit: DIABETIC FOOT Physical Exam Vital Signs: Temp Pulse Resp BP Pulse Ox 98.0 F 55 L 18 99/63 L 93 03/03/19 11:16 03/03/19 11:16 03/03/19 11:16 03/03/19 11:16 03/03/19 11:16 Intake & Output 03/02/19 03/03/19 03/04/19 06:59 06:59 06:59 Intake Total 3372 4070 500 Output Total 2240 3850 650 Balance 1132 220 -150 Weight 165 lb 9.074 oz 166 lb 0.129 oz General appearance: PRESENT: no acute distress, well-developed, well-nourished Head exam: PRESENT: atraumatic, normocephalic Eye exam: PRESENT: conjunctiva pink, EOMI, PERRLA. ABSENT: scleral icterus Ear exam: PRESENT: normal external ear exam Mouth exam: PRESENT: moist, tongue midline Neck exam: ABSENT: carotid bruit, JVD, lymphadenopathy, thyromegaly Respiratory exam: PRESENT: clear to auscultation jerry. ABSENT: rales, rhonchi, wheezes Cardiovascular exam: PRESENT: RRR. ABSENT: diastolic murmur, rubs, systolic murmur Pulses: PRESENT: normal dorsalis pedis pul GI/Abdominal exam: PRESENT: normal bowel sounds, soft. ABSENT: distended, guarding, mass, organolmegaly, rebound, tenderness Rectal exam: PRESENT: deferred Extremities exam: PRESENT: other - dressings in place on right foot Neurological exam: PRESENT: alert, awake, oriented to person, oriented to place, oriented to time, oriented to situation, CN II-XII grossly intact. ABSENT: motor sensory deficit Results Laboratory Results: 03/02/19 05:58 03/02/19 05:58 03/02/19 03/02/19 05:58 05:58 TSH 0.15 L Free T4 0.75 L Free T3 pg/mL 2.36 L 02/25/19 15:31 Blood Blood Culture - Final NO GROWTH IN 5 DAYS 02/25/19 13:54 Blood Blood Culture - Final NO GROWTH IN 5 DAYS 02/25/19 02/25/19 13:54 13:54 Creatine Kinase 64 CK-MB (CK-2) 5.83 H Troponin I 0.036 Impressions: Foot X-Ray 02/25/19 13:16 IMPRESSION: 1. Soft tissue swelling and ulceration over the plantar right 1st metatarsal. No radiographic evidence of osteomyelitis. Consider MRI to more sensitively evaluate bone marrow edema and osteomyelitis if suspected. 2. There is a linear metallic radiopaque foreign body in the plantar soft tissues of the heel measuring approximately [address] 02/27/19 00:00 IMPRESSION: 1. No findings to suggest active osteitis. Again, recommend MRI or triple phase nuclear medicine bone scan for further evaluation if clinical concern persists. 2. Small radiopaque foreign body within the plantar soft tissues overlying the calcaneus as seen on prior radiographs. Assessment and Plan - Diagnosis (1) Diabetic foot ulcer associated with type 2 diabetes mellitus Qualifiers: Diabetic foot ulcer location: other Laterality: right Non-pressure ulcer stage: limited to breakdown of skin Qualified Code(s): E11.621 - Type 2 diabetes mellitus with foot ulcer; L97.511 - Non-pressure chronic ulcer of other part of right foot limited to breakdown of skin Is this a current diagnosis for this admission?: Yes Plan: S/P ray amputation on 03/01/10. Wound culture is growing GPC. Discontinue Zosyn. 03/03: Final culture shows MSSA. Discontinue vancomycin and switch to Augmentin. (2) Failure to thrive in adult Is this a current diagnosis for this admission?: Yes Plan: Discussed possible causes of weight loss with patient and family. Will check TSH and A1c. Discussed further extensive work up to determine cause of his weight loss will mostly be outpatient work-up. (3) Chronic atrial fibrillation Is this a current diagnosis for this admission?: Yes Plan: Resumed Eliquis. (4) Chronic combined systolic and diastolic heart failure Is this a current diagnosis for this admission?: Yes Plan: Not acutely exacerbated. Continue home meds. Everyone (5) Diabetes Is this a current diagnosis for this admission?: Yes Plan: Sugars running high. Currently on Lantus 15 u HS. He is on 65 u HS at home. Increase Lantus to 45 u tonight. Will adjust based on subsequent blood sugars. 03/03: Increase Lantus to 60 units. (6) Polymyositis Is this a current diagnosis for this admission?: Yes Plan: On prednisone. - Time Time Spent with patient: 15-24 minutes
[2019-03-03] MEDS ORDERED: INSULIN GLARGINE,HUM.REC.ANLOG 1,000 UNIT/10 ML VIAL SUBCUT SCH (22:00)
--- NOTE | 2019-03-03 22:04 | PDOC PROGRESS REPORT ---
Subjective Progress Note for:: 03/03/19 Reason For Visit: DIABETIC FOOT Physical Exam Vital Signs: Temp Pulse Resp BP Pulse Ox 98.0 F 55 L 18 99/63 L 93 03/03/19 11:16 03/03/19 11:16 03/03/19 11:16 03/03/19 11:16 03/03/19 11:16 Intake & Output 03/02/19 03/03/19 03/04/19 06:59 06:59 06:59 Intake Total 3372 4070 2750 Output Total 2240 3850 2250 Balance 1132 220 500 Weight 75.1 kg 75.3 kg Exam: Wound examined and drain removed. Appears to be clean and dry. Redressed and consulted PT for ambulation. Results Laboratory Results: 03/02/19 05:58 03/02/19 05:58 03/02/19 05:58 Free T4 0.75 L Free T3 pg/mL 2.36 L 02/25/19 02/25/19 13:54 13:54 Creatine Kinase 64 CK-MB (CK-2) 5.83 H Troponin I 0.036 Impressions: Foot X-Ray 02/25/19 13:16 IMPRESSION: 1. Soft tissue swelling and ulceration over the plantar right 1st metatarsal. No radiographic evidence of osteomyelitis. Consider MRI to more sensitively evaluate bone marrow edema and osteomyelitis if suspected. 2. There is a linear metallic radiopaque foreign body in the plantar soft tissues of the heel measuring approximately [address] 02/27/19 00:00 IMPRESSION: 1. No findings to suggest active osteitis. Again, recommend MRI or triple phase nuclear medicine bone scan for further evaluation if clinical concern persists. 2. Small radiopaque foreign body within the plantar soft tissues overlying the calcaneus as seen on prior radiographs. Assessment & Plan - Time Time Spent with patient: 15-24 minutes - Inpatient Certification Medical Necessity: Need for IV Antibiotics - Plan Summary Plan Summary: Continue antibiotics Patient apparently has a small splinter in the right heel on CT scan and c/o pains Will re-evaluate in am and keep NPO after midnight for possible removal in the OR
[2019-03-03] MEDS: AMOXICILLIN TR/POT CLAVULANATE 500-125 MG TAB PO SCH (22:14)
[2019-03-03] MEDS: ROPINIROLE HCL 2 MG TABLET PO SCH (22:15)
[2019-03-03] MEDS: FENOFIBRATE NANOCRYSTALLIZED 145 MG TABLET PO SCH (22:15)
[2019-03-03] MEDS: AMITRIPTYLINE HCL 25 MG TABLET PO SCH (22:15)
[2019-03-04] MEDS: HYDROMORPHONE HCL INJ/PF 2 MG/ML AMPULE IV PRN ×2 (04:32→19:11)
[2019-03-04 06:36] LABS: ANION GAP 5 (5-19); BLOOD UREA NITROGEN 57 mg/dL (7-20); CALCIUM 9.1 mg/dL (8.4-10.2); CARBON DIOXIDE 37 mmol/L (22-30); CHLORIDE 97 mmol/L (98-107); GLUCOSE 85 mg/dL (75-110); POTASSIUM 4.7 mmol/L (3.6-5.0); SODIUM 138.5 mmol/L (137-145)
[2019-03-04] MEDS: INSULIN LISPRO 100 UNIT/ML 3 ML VIAL SUBCUT SCH ×4 (08:09→21:32)
[2019-03-04] MEDS: ASPIRIN 81 MG TABLET, ENT COATED PO SCH (09:36)
[2019-03-04] MEDS: APIXABAN 5 MG TABLET PO SCH ×2 (09:37→19:11)
[2019-03-04] MEDS: SPIRONOLACTONE 25 MG TABLET PO SCH (10:04)
[2019-03-04] MEDS: AMOXICILLIN TR/POT CLAVULANATE 500-125 MG TAB PO SCH ×2 (10:06→21:29)
[2019-03-04] MEDS: PREDNISONE 20 MG TABLET PO SCH (10:06)
[2019-03-04] MEDS: TORSEMIDE 20 MG TABLET PO SCH (10:06)
[2019-03-04] MEDS: VALSARTAN 40 MG TABLET PO SCH (10:06)
[2019-03-04] MEDS: FEBUXOSTAT 40 MG TABLET PO SCH (10:06)
[2019-03-04] MEDS: CARVEDILOL 6.25 MG TABLET PO SCH ×2 (10:06→21:29)
[2019-03-04] MEDS: FINASTERIDE 5 MG TABLET PO SCH (10:06)
[2019-03-04] MEDS: DEXTROSE 50%-WATER SYRINGE 12.5 GM/25 ML DOSE IV PRN ×2 (11:20→12:55)
[2019-03-04] MEDS: NEOMY/BACITRAC ZN/POLY OINT 15 GM TP SCH ×2 (11:27→17:14)
[2019-03-04] MEDS ORDERED: NORMAL SALINE 500 ML IV ONE (13:30)
[2019-03-04] MEDS ORDERED: CEFAZOLIN INJ 1 GM VIAL ONE (14:45)
[2019-03-04] MEDS ORDERED: LIDOCAINE 1% INJ-PF (10 MG/ML) 30 ML SDV ONE (14:54)
[2019-03-04] MEDS ORDERED: MIDAZOLAM 2 MG/2 ML INJ ONE (14:56)
[2019-03-04] MEDS ORDERED: FENTANYL CITRATE INJ/PF 100 MCG/2 ML AMPUL ONE (14:56)
[2019-03-04] MEDS ORDERED: PROPOFOL INJ 200 MG/20 ML VIAL IV ONE (14:56)
[2019-03-04] MEDS ORDERED: EPHEDRINE SULFATE INJ 50 MG/1 ML AMPULE ONE (15:09)
[2019-03-04] MEDS ORDERED: MEPERIDINE HCL/PF INJ 25 MG/1 ML DISP.SYRIN IV PRN (15:26)
[2019-03-04] MEDS ORDERED: FENTANYL CITRATE INJ/PF 100 MCG/2 ML AMPUL IV PRN ×3 (15:26)
[2019-03-04] MEDS ORDERED: OXYCODONE-ACETAMINOPHEN 5-325 MG TABLET PO PRN ×2 (15:26)
[2019-03-04] MEDS ORDERED: DIPHENHYDRAMINE HCL 50 MG/ML VIAL IV PRN (15:26)
[2019-03-04] MEDS ORDERED: DEXTROSE 50%-WATER 25 GM/50 ML DISP.SYRIN IV ONE (15:56)
--- NOTE | 2019-03-04 15:59 | OPERATIVE REPORT E ---
Operative Report NAME: SIDNEY CARROLL : 1950 AGE: 69Y DATE OF SURGERY: 03/04/2019 ROOM: 430 PREOPERATIVE DIAGNOSIS: FOREIGN BODY IN THE RIGHT HEEL. POSTOPERATIVE DIAGNOSIS: FOREIGN BODY IN THE RIGHT HEEL. OPERATION: Removal of foreign body right heel under fluoroscopy guidance. SURGEON: LALITA BAINS M.D. ANESTHESIA: Local, MAC. INDICATION: This is a 69-year-old male who had a right first toe ray amputation done about 3 days ago. The patient is supposed to walk on his heel, but unfortunately the patient was complaining of pain in the right heel and a previous CT scan showed a foreign body in the right heel. DESCRIPTION OF PROCEDURE: The patient was placed in the supine position after adequate IV sedation. The right foot was then prepped and draped in the usual sterile fashion. Appropriate timeout was then called. Next, local anesthesia infiltrated around the scab site on the right heel. The scab roughly measured about 5 mm in diameter. Next, a cruciate incision was made around the scab area and a small foreign body, which appears to be like a staple was removed. There is a very small amount of purulent material that also extruded out together with the foreign body. No other drainage noted. Final imaging of the right heel done with fluoroscopy and it appears that the foreign body has been removed. Sterile dressing was then placed over the operative site. Needle, instrument, and sponge count were all correct. Estimated blood loss was less than 2 mL. The patient then brought to the recovery room in satisfactory condition. DICTATING PHYSICIAN: LALITA BAINS M.D. [id number] PHY#: [id number] ID: [id number] JOB#: [id number] ACCT: [id number] cc:LALITA BAINS M.D. >
--- NOTE | 2019-03-04 16:10 | RADIOLOGY REPORT (SQ) ---
EXAM DESCRIPTION: NO CHG FLUORO; FOOT RIGHT 2 VIEWS COMPLETED DATE/TIME: 03/04/2019 4:00 pm REASON FOR STUDY: FB REMOVAL COMPARISON: None. FLUOROSCOPY TIME: 0.1 minute 2 images saved to PACS. TECHNIQUE: Intra-operative images acquired during surgical procedure to evaluate progress. NUMBER OF IMAGES: 2 LIMITATIONS: None. FINDINGS: Fluoroscopic images of the lateral calcaneus. IMPRESSION: IMAGE(S) OBTAINED DURING PROCEDURE. COMMENT: Quality ID 145: Final reports for procedures using fluoroscopy that document radiation exp osure indices, or exposure time and number of fluorographic images (if radiation exposure indices are not available) Please consult full operative report of the attending physician for description of the procedure. TECHNICAL DOCUMENTATION: JOB ID: [id number] [employer] All Rights Reserved Reading location - IP/workstation name: [email or web address]
--- NOTE | 2019-03-04 16:10 | RADIOLOGY REPORT (SQ) ---
EXAM DESCRIPTION: NO CHG FLUORO; FOOT RIGHT 2 VIEWS COMPLETED DATE/TIME: 03/04/2019 4:00 pm REASON FOR STUDY: FB REMOVAL COMPARISON: None. FLUOROSCOPY TIME: 0.1 minute 2 images saved to PACS. TECHNIQUE: Intra-operative images acquired during surgical procedure to evaluate progress. NUMBER OF IMAGES: 2 LIMITATIONS: None. FINDINGS: Fluoroscopic images of the lateral calcaneus. IMPRESSION: IMAGE(S) OBTAINED DURING PROCEDURE. COMMENT: Quality ID 145: Final reports for procedures using fluoroscopy that document radiation exp osure indices, or exposure time and number of fluorographic images (if radiation exposure indices are not available) Please consult full operative report of the attending physician for description of the procedure. TECHNICAL DOCUMENTATION: JOB ID: [id number] [employer]- All Rights Reserved Reading location - IP/workstation name: [email or web address]
--- NOTE | 2019-03-04 16:12 | PDOC PROGRESS REPORT ---
Subjective Progress Note for:: 03/04/19 Subjective:: This is a 69 yr old male with a PMH of IDDM, chronic AFib, history of inferior wall thrombus, polymyositis and CHF who was admitted for an infected ulcer on the right 1st MTP. He underwent ray amputation yesterday 03/01 by surgery. 03/02: He complains of mild pain today. He and his did express concern about his weight loss as he lost 30 lbs since 01/01/19 despite his good appetite and oral intake. 03/03: He is tolerating diet well. He reports this morning that he forgot to tell the surgeon that he has a retained splinter/fragment on his right foot and that causes him to hurt a lot when he steps on that foot. 03/04: No acute event overnight. Denies acute complaints. He is going for surgery later today for removal of retained splinter/foreign body on is right foot. Reason For Visit: DIABETIC FOOT Physical Exam Vital Signs: Temp Pulse Resp BP Pulse Ox 97.8 F 66 18 88/52 L 95 03/04/19 13:42 03/04/19 13:42 03/04/19 13:42 03/04/19 13:42 03/04/19 13:42 Intake & Output 03/03/19 03/04/19 03/05/19 06:59 06:59 06:59 Intake Total 4070 2750 Output Total 3850 2725 Balance 220 25 Weight 166 lb 0.129 oz 168 lb 3.403 oz General appearance: PRESENT: no acute distress, well-developed, well-nourished Head exam: PRESENT: atraumatic, normocephalic Eye exam: PRESENT: conjunctiva pink, EOMI, PERRLA. ABSENT: scleral icterus Ear exam: PRESENT: normal external ear exam Mouth exam: PRESENT: moist, tongue midline Neck exam: ABSENT: carotid bruit, JVD, lymphadenopathy, thyromegaly Respiratory exam: PRESENT: clear to auscultation jerry. ABSENT: rales, rhonchi, wheezes Cardiovascular exam: PRESENT: RRR. ABSENT: diastolic murmur, rubs, systolic murmur Pulses: PRESENT: normal dorsalis pedis pul GI/Abdominal exam: PRESENT: normal bowel sounds, soft. ABSENT: distended, guarding, mass, organolmegaly, rebound, tenderness Rectal exam: PRESENT: deferred Musculoskeletal exam: PRESENT: other - dressing on right foot Neurological exam: PRESENT: alert, awake, oriented to person, oriented to place, oriented to time, oriented to situation, CN II-XII grossly intact. ABSENT: motor sensory deficit Results Laboratory Results: 03/02/19 05:58 03/04/19 05:40 03/04/19 05:40 Sodium 138.5 Potassium 4.7 Chloride 97 L Carbon Dioxide 37 H Anion Gap 5 BUN 57 H Creatinine 0.87 Est GFR ( Amer) > 60 Est GFR (Non-Af Amer) > 60 Glucose 85 Calcium 9.1 02/25/19 02/25/19 13:54 13:54 Creatine Kinase 64 CK-MB (CK-2) 5.83 H Troponin I 0.036 Impressions: Lower Extremity CT 02/27/19 00:00 IMPRESSION: 1. No findings to suggest active osteitis. Again, recommend MRI or triple phase nuclear medicine bone scan for further evaluation if clinical concern persists. 2. Small radiopaque foreign body within the plantar soft tissues overlying the calcaneus as seen on prior radiographs. Assessment and Plan - Diagnosis (1) Diabetic foot ulcer associated with type 2 diabetes mellitus Qualifiers: Diabetic foot ulcer location: other Laterality: right Non-pressure ulcer stage: limited to breakdown of skin Qualified Code(s): E11.621 - Type 2 diabetes mellitus with foot ulcer; L97.511 - Non-pressure chronic ulcer of other part of right foot limited to breakdown of skin Is this a current diagnosis for this admission?: Yes Plan: S/P ray amputation on 03/01/10. Wound culture is growing GPC. Discontinue Zosyn. 03/03: Final culture shows MSSA. Discontinue vancomycin and switch to Augmentin. (2) Failure to thrive in adult Is this a current diagnosis for this admission?: Yes Plan: Discussed possible causes of weight loss with patient and family. Will check TSH and A1c. Discussed further extensive work up to determine cause of his weight loss will mostly be outpatient work-up. (3) Chronic atrial fibrillation Is this a current diagnosis for this admission?: Yes Plan: Resumed Eliquis. (4) Chronic combined systolic and diastolic heart failure Is this a current diagnosis for this admission?: Yes Plan: Not acutely exacerbated. Continue home meds. (5) Diabetes Is this a current diagnosis for this admission?: Yes Plan: Sugars running high. Currently on Lantus 15 u HS. He is on 65 u HS at home. Increase Lantus to 45 u tonight. Will adjust based on subsequent blood sugars. 03/03: Increase Lantus to 60 units. 03/04: Decrease back to 50 units due to low sugars as he was made NPO last night. (6) Polymyositis Is this a current diagnosis for this admission?: Yes Plan: On prednisone. - Time Time Spent with patient: 15-24 minutes
[2019-03-04] MEDS: ROPINIROLE HCL 2 MG TABLET PO SCH (21:28)
[2019-03-04] MEDS: FENOFIBRATE NANOCRYSTALLIZED 145 MG TABLET PO SCH (21:29)
[2019-03-04] MEDS: AMITRIPTYLINE HCL 25 MG TABLET PO SCH (21:29)
[2019-03-04] MEDS ORDERED: INSULIN GLARGINE,HUM.REC.ANLOG 1,000 UNIT/10 ML VIAL SUBCUT SCH (22:00)
[2019-03-05] MEDS: HYDROMORPHONE HCL INJ/PF 2 MG/ML AMPULE IV PRN ×2 (01:12→07:56)
[2019-03-05] MEDS: INSULIN LISPRO 100 UNIT/ML 3 ML VIAL SUBCUT SCH ×2 (07:43→11:53)
--- NOTE | 2019-03-05 09:02 | PDOC PROGRESS REPORT ---
Subjective Progress Note for:: 03/05/19 Reason For Visit: DIABETIC FOOT Physical Exam Vital Signs: Temp Pulse Resp BP Pulse Ox 98.4 F 74 18 133/51 H 98 03/05/19 00:00 03/05/19 00:00 03/05/19 00:00 03/05/19 00:00 03/05/19 00:00 Intake & Output 03/04/19 03/05/19 03/06/19 06:59 06:59 06:59 Intake Total 2750 1410 Output Total 2725 0700 Balance 25 -440 Weight 76.3 kg 73.1 kg General appearance: PRESENT: no acute distress Head exam: PRESENT: normocephalic Eye exam: PRESENT: EOMI Ear exam: PRESENT: normal external ear exam Mouth exam: PRESENT: moist Neck exam: PRESENT: full ROM Respiratory exam: PRESENT: clear to auscultation jerry Cardiovascular exam: PRESENT: RRR Vascular exam: PRESENT: normal capillary refill GI/Abdominal exam: PRESENT: soft Rectal exam: PRESENT: deferred Extremities exam: PRESENT: other - ft foot amp site and previous area of foreign body in heel healing well no cellulitis or area of fluctulence ok from surgery standpoint for discharge will arrange for outpt f/u Results Laboratory Results: 03/02/19 05:58 03/04/19 05:40 02/25/19 02/25/19 13:54 13:54 Creatine Kinase 64 CK-MB (CK-2) 5.83 H Troponin I 0.036 Impressions: Lower Extremity CT 02/27/19 00:00 IMPRESSION: 1. No findings to suggest active osteitis. Again, recommend MRI or triple phase nuclear medicine bone scan for further evaluation if clinical concern persists. 2. Small radiopaque foreign body within the plantar soft tissues overlying the calcaneus as seen on prior radiographs. Fluoroscopy 03/04/19 00:00 IMPRESSION: IMAGE(S) OBTAINED DURING PROCEDURE. Foot X-Ray 03/04/19 00:00
[2019-03-05] MEDS: FINASTERIDE 5 MG TABLET PO SCH (09:53)
[2019-03-05] MEDS: FEBUXOSTAT 40 MG TABLET PO SCH (09:54)
[2019-03-05] MEDS: CARVEDILOL 6.25 MG TABLET PO SCH (09:54)
[2019-03-05] MEDS: TORSEMIDE 20 MG TABLET PO SCH (09:54)
[2019-03-05] MEDS: APIXABAN 5 MG TABLET PO SCH (09:54)
[2019-03-05] MEDS: SPIRONOLACTONE 25 MG TABLET PO SCH (09:55)
[2019-03-05] MEDS: ASPIRIN 81 MG TABLET, ENT COATED PO SCH (09:55)
[2019-03-05] MEDS: AMOXICILLIN TR/POT CLAVULANATE 500-125 MG TAB PO SCH (09:55)
[2019-03-05] MEDS: PREDNISONE 20 MG TABLET PO SCH (09:55)
[2019-03-05] MEDS: VALSARTAN 40 MG TABLET PO SCH (09:55)
[2019-03-05] MEDS: NEOMY/BACITRAC ZN/POLY OINT 15 GM TP SCH (10:04)
[2019-03-05 12:40] VITALS: BP 115/50
--- NOTE | 2019-03-05 18:43 | PDOC DISCHARGE SUMMARY ---
General - Admit/Disc Date/PCP Admission Date/Primary Care Provider: 02/25/19 15:44 JEFF GLEASON MD Discharge Date: 03/05/19 - Discharge Diagnosis (1) Diabetic foot ulcer associated with type 2 diabetes mellitus Is this a current diagnosis for this admission?: Yes (2) Failure to thrive in adult Is this a current diagnosis for this admission?: Yes (3) Chronic atrial fibrillation Is this a current diagnosis for this admission?: Yes (4) Chronic combined systolic and diastolic heart failure Is this a current diagnosis for this admission?: Yes (5) Diabetes Is this a current diagnosis for this admission?: Yes (6) Polymyositis Is this a current diagnosis for this admission?: Yes - Additional Information Resuscitation Status: Full Code Discharge Diet: As Tolerated Discharge Activity: Activity As Tolerated, Balance Activity w/Rest Prescriptions: Amox Tr/Potassium Clavulanate [Augmentin "500" Tablet] 1 tab PO Q12 4 Days #8 tablet Gabapentin [Neurontin 300 mg Capsule] 300 mg PO Q8 PRN #30 cap PRN Reason: Home Medications: Amitriptyline HCl [Elavil 25 mg Tablet] 25 mg PO QHS 02/02/19 Aspirin [Ecotrin 81 mg EC Tablet] 81 mg PO DAILY 02/02/19 Clopidogrel Bisulfate [Plavix 75 mg Tablet] 75 mg PO DAILY 02/02/19 Colchicine [Colchicine 0.6 mg Tablet] 0.6 mg PO Q12 02/02/19 Ergocalciferol (Vitamin D2) [Drisdol 50,000 unit (1.25MG) Capsule] 50,000 unit PO .02/02/19 Febuxostat [Uloric 40 mg Tablet] 40 mg PO DAILY 02/02/19 Fenofibrate Nanocrystallized [Tricor 145 mg Tablet] 145 mg PO QHS 02/02/19 Finasteride [Proscar 5 mg Tablet] 5 mg PO DAILY 02/02/19 Insulin Aspart [Novolog Flexpen] 20 unit SUBCUT AC MDD UP TO 30 PER MEAL 02/02 Nitroglycerin [Nitro-Dur 5 mg (0.2 mg/Hr) Transdermal Patch] 1 patch TD QAMP PRN 02/02/19 Nitroglycerin [Nitrostat 0.4 mg (1/150 Gr) Tabs 25/Bottle] 1 tab SL Q5MP PRN 02/02/19 Ranitidine HCl [Zantac 150 mg Tablet] 150 mg PO BID 02/02/19 Ropinirole HCl [Requip 2 mg Tablet] 2 mg PO QHS 02/02/19 Rosuvastatin Calcium [Crestor 10 mg Tablet] 10 mg PO QHS 02/02/19 Spironolactone [Aldactone 25 mg Tablet] 25 mg PO DAILY 02/02/19 Torsemide [Demadex 20 mg Tablet] 20 mg PO DAILY 02/02/19 Tramadol HCl [Ultram 50 mg Tablet] 50 mg PO Q6HP PRN 02/02/19 Apixaban [Eliquis 5 mg Tablet] 5 mg PO BID 02/25/19 Carvedilol [Coreg 6.25 mg Tablet] 6.25 mg PO Q12 02/25/19 Docusate Sodium [Colace 100 mg Capsule] 100 mg PO TIDP PRN 02/25/19 Prednisone [Deltasone 20 mg Tablet] 40 mg PO DAILY 02/25/19 Valsartan [Diovan 40 mg Tablet] 20 mg PO DAILY 02/25/19 Amox Tr/Potassium Clavulanate [Augmentin "500" Tablet] 1 tab PO Q12 4 Days #8 tablet 03/05/19 Gabapentin [Neurontin 300 mg Capsule] 300 mg PO Q8 PRN #30 cap 03/05/19 Insulin Glargine,Hum.rec.anlog [Lantus Insulin 100 Unit/1 ml 10 ml] 45 unit SUBCUT QHS #0 03/05/19 History of Present Illness History of Present Illness: SIDNEY CARROLL is a 69 year old male who was 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 Hospital Course Hospital Course: This is a 69 yr old male with a PMH of IDDM, chronic AFib, history of inferior wall thrombus, polymyositis and CHF who was admitted for an infected ulcer on the right 1st MTP. Patient was admitted for concern for possible osteomyelitis. He was initially admitted under Dr. Gleason. Care was transferred to hospitalist service per patient and family request. CT did not show signs suggestive of osteomyelitis. He was started initially on IV antibiotics. He underwent ray amputation on 03/01 by surgery. He also underwent removal of a prior retained splinter on the same foot on 03/04. He improved significantly. Wound culture grew MSSA. He will be sent home on Augmentin. He will ff-up with the wound care clinic. His Lantus was decreased on discharge to 45 u due to hypolgycemic episodes on his previous home dose of 65 u HS. Physical Exam Vital Signs: Temp Pulse Resp BP Pulse Ox 98.4 F 91 16 115/50 L 97 03/05/19 16:23 03/05/19 16:23 03/05/19 16:23 03/05/19 16:23 03/05/19 16:23 Intake & Output 03/04/19 03/05/19 03/06/19 06:59 06:59 06:59 Intake Total 2750 1410 Output Total 2725 1850 Balance 25 -440 Weight 168 lb 3.403 oz 161 lb 2.526 oz Results Laboratory Results: 03/02/19 05:58 03/04/19 05:40 03/01/19 10:38 Toe - Diabetic Ulcer Gram Stain - Final 03/01/19 10:38 Toe - Diabetic Ulcer Wound Culture - Final Staphylococcus Aureus No Anaerobic Organisms 02/25/19 02/25/19 13:54 13:54 Creatine Kinase 64 CK-MB (CK-2) 5.83 H Troponin I 0.036 Impressions: Lower Extremity CT 02/27/19 00:00 IMPRESSION: 1. No findings to suggest active osteitis. Again, recommend MRI or triple phase nuclear medicine bone scan for further evaluation if clinical concern persists. 2. Small radiopaque foreign body within the plantar soft tissues overlying the calcaneus as seen on prior radiographs. Fluoroscopy 03/04/19 00:00 IMPRESSION: IMAGE(S) OBTAINED DURING PROCEDURE. Foot X-Ray 03/04/19 00:00 IMPRESSION: IMAGE(S) OBTAINED DURING PROCEDURE. Qualifiers - * PATIENT BEING DISCHARGED WITH ANY OF THE FOLLOWING DIAGNOSIS: No Acute Heart Failure Is this a Heart Failure Patient?: No
--- NOTE | 2019-03-11 12:26 | XCELERA REPORT ---
[address] [address] Lower Extremity Arterial Evaluation Name: SIDNEY CARROLL Age: 69 yrs Gender: Male : 1950 Patient Status: Inpatient Patient Location: [address] [place] [address] Study Date: 02/26/2019 10:38 AM Procedure: A color flow and duplex scan of the lower extremity arteries was performed bilaterally with velocity and waveform anaylsis. Reason For Study: diabetic foot ulcer [id number] Ordering Physician: JEFF GLEASON Performed By: Simon Emery Measurements and Calculations Right Left HALF SECTION IRONER PSV 102.5 80.0 cm/sec Prox PFA PSV -69.1 53.4 cm/sec Prox SFA PSV 51.1 64.6 cm/sec Mid SFA PSV -89.9 -89.9 cm/sec Dist SFA PSV -62.9 -64.3 cm/sec Prox Pop A PSV 48.2 42.8 cm/sec Dist MILLIE PSV 137.6 48.4 cm/sec Prox CARDIOLOGY TECHNOLOGIST PSV 18.1 cm/sec Mid CARDIOLOGY TECHNOLOGIST PSV -15.3 cm/sec Dist CARDIOLOGY TECHNOLOGIST PSV -9.6 41.5 cm/sec Prox Tammy A 19.1 cm/sec PSV Mid Tammy A PSV -11.6 cm/sec Dist Tammy A -24.8 cm/sec PSV Ryan Pedis PSV 100.4 36.5 cm/sec Right Side Arterial Evaluation Normal velocity and triphasic waveforms noted from the Common Femoral artery to the Anterior Tibial artery . Biphasic with low velocity, retrograde, in the Peroneal, antegrade in the Posterior Tibial. Ankle Brachial index not done. Left Side Arterial Evaluation Normal to low normal velocity and triphasic waveforms noted from the Common Femoral artery to the infrageniculate vessels . Ankle Brachial index not done. Interpretation Summary No hemodynamically significant lesions in the left lower extremity only, on duplex imaging, at rest. Slightly low normal velocity on left, normal otherwise. On the right, distal , moderate diminution in the Posterior Tibial, good reconstitution in a presumed proximal obstruction in the Peroneal artery. Excellent flow characteristics in the Anterior Tibial. : JEFF GLEASON > Gurmeet Orr
== END 2019-03-05 17:00 | disposition home or self-care (01) | DRG 617 ==
LOC: ER 12:29 → EH 15:44 → 4S 17:51
PROVIDERS: ADMIT Family Medicine; ATTEND Family Medicine
PROC: 0Y6P0Z0 Detachment at Right 1st Toe, Complete, Open Approach (ICD-10-PCS; principal; 2019-03-01 09:15)
PROC: 0HCMXZZ Extirpation of Matter from Right Foot Skin, External Approach (ICD-10-PCS; 2019-03-04)
DX: E11.621 Type 2 diabetes mellitus with foot ulcer (principal); M33.20 Polymyositis, organ involvement unspecified; I47.2 Ventricular tachycardia; R64 Cachexia; I13.0 Hypertensive heart and chronic kidney disease with heart failure and stage 1 through stage 4 chronic kidney disease, or unspecified chronic kidney disease; I50.42 Chronic combined systolic (congestive) and diastolic (congestive) heart failure; L97.411 Non-pressure chronic ulcer of right heel and midfoot limited to breakdown of skin; E11.22 Type 2 diabetes mellitus with diabetic chronic kidney disease; N18.4 Chronic kidney disease, stage 4 (severe); L97.513 Non-pressure chronic ulcer of other part of right foot with necrosis of muscle; I48.2 Chronic atrial fibrillation; J44.9 Chronic obstructive pulmonary disease, unspecified; M1A.09X0 Idiopathic chronic gout, multiple sites, without tophus (tophi); S90.851A Superficial foreign body, right foot, initial encounter; W45.8XXA Other foreign body or object entering through skin, initial encounter; I25.10 Atherosclerotic heart disease of native coronary artery without angina pectoris; E78.5 Hyperlipidemia, unspecified; K21.9 Gastro-esophageal reflux disease without esophagitis; F31.9 Bipolar disorder, unspecified; R62.7 Adult failure to thrive; N40.0 Benign prostatic hyperplasia without lower urinary tract symptoms; E11.649 Type 2 diabetes mellitus with hypoglycemia without coma; B95.61 Methicillin susceptible Staphylococcus aureus infection as the cause of diseases classified elsewhere; Z89.411 Acquired absence of right great toe; Z95.5 Presence of coronary angioplasty implant and graft; Z68.20 Body mass index [BMI] 20.0-20.9, adult; I25.2 Old myocardial infarction; Z86.14 Personal history of Methicillin resistant Staphylococcus aureus infection; Z86.19 Personal history of other infectious and parasitic diseases; Z95.0 Presence of cardiac pacemaker; Z88.6 Allergy status to analgesic agent; Z88.8 Allergy status to other drugs, medicaments and biological substances; Z86.718 Personal history of other venous thrombosis and embolism; Z79.02 Long term (current) use of antithrombotics/antiplatelets; Z79.82 Long term (current) use of aspirin; Z79.4 Long term (current) use of insulin; Z79.01 Long term (current) use of anticoagulants; Z79.52 Long term (current) use of systemic steroids
CPT/HCPCS: 01470; 01480; 36415; 80048; 80053; 80202; 81001; 82550; 82553; 82565; 82962; 83036; 83605; 84439; 84443; 84481; 84484; 85025; 85610; 85730; 87040; 87070; 87075; 87077; 87186; 87205; 88305; 88311; 93005; 93010; 93321; 93925; 99285; J0131; J0690; J1170; J1650; J1815; J1885; J2250; J2405; J2543; J2704; J3010; J3370; J3490; J7030; J7040; J7050; J7060; J7512

== ENCOUNTER → 2019-04-07 | Outpatient (CLI) | payer MEDICARE, OTHER ==
[2019-04-07 12:38] LABS: ABSOLUTE LYMPHOCYTES (AUTO) 1.6 10^3/uL (0.5-4.7); ABSOLUTE MONOCYTES (AUTO) 0.5 10^3/uL (0.1-1.4); BASOPHILS % (AUTO) 0.2 % (0-2); EOSINOPHILS % (AUTO) 0.1 % (0-6); HEMATOCRIT 40.5 % (37.9-51.0); HEMOGLOBIN 13.5 g/dL (13.5-17.0); LYMPHOCYTES % (AUTO) 19.5 % (13-45); MEAN CORPUSCULAR HEMOGLOBIN 31.2 pg (27.0-33.4); MEAN CORPUSCULAR HGB CONC 33.3 g/dL (32.0-36.0); MEAN CORPUSCULAR VOLUME 94 fl (80-97); MONOCYTES % (AUTO) 5.9 % (3-13); PLATELET COUNT 195 10^3/uL (150-450); RED BLOOD COUNT 4.32 10^6/uL (4.35-5.55); RED CELL DISTRIBUTION WIDTH 21.2 % (11.5-14.0); SEGMENTED NEUTROPHILS % (AUTO) 74.3 % (42-78); TOTAL CELLS COUNTED % (AUTO) 100 %
[2019-04-07 13:15] LABS: ERYTHROCYTE SEDIMENTATION RATE 27 mm/hr (0-20)
--- NOTE | 2019-04-07 13:56 | RADIOLOGY REPORT (SQ) ---
EXAM DESCRIPTION: FOOT RIGHT COMPLETE COMPLETED DATE/TIME: 04/07/2019 12:36 pm REASON FOR STUDY: [id number] E11.628 TYPE 2 DIABETES MELLITUS WITH OTHER SKIN COMPLICATIO Z89. 411 ACQUIRED ABSENCE OF RIGHT GREAT TOE COMPARISON: 02/25/2019. NUMBER OF VIEWS: Three views. TECHNIQUE: AP, lateral and oblique radiographic images acquired of the right foot. LIMITATIONS: None. FINDINGS: MINERALIZATION: Normal. BONES: Interval amputation of the 1st toe at the metatarsal level. No acute fracture or dislocation. Small calcaneal spurs. No worrisome bone lesions. JOINTS: No effusions. SOFT TISSUES: Soft tissue swelling and gas at the surgical site of the 1st toe. No radiopaque foreig n body. OTHER: No other significant finding. IMPRESSION: INTERVAL AMPUTATION OF THE 1ST TOE. SOFT TISSUE SWELLING AND GAS AT THE SURGICAL SITE, PRESUMED RELATED TO RECENT SURGERY. NO OTHER SIGNIFICANT FINDINGS. TECHNICAL DOCUMENTATION: JOB ID: [id number] [employer]- All Rights Reserved Reading location - IP/workstation name: [email or web address]
== END ==
LOC: OD 12:11
PROVIDERS: ATTEND Surgery
DX: E11.628 Type 2 diabetes mellitus with other skin complications (principal); Z89.411 Acquired absence of right great toe
CPT/HCPCS: 36415; 85025; 85652; 86140

== ENCOUNTER → 2019-04-14 | Outpatient (CLI) | payer MEDICARE, OTHER ==
[2019-04-14 10:40] LABS: ALANINE AMINOTRANSFERASE 45 U/L (21-72); ALBUMIN 3.2 g/dL (3.5-5.0); ALKALINE PHOSPHATASE 65 U/L (38-126); ASPARTATE AMINO TRANSFERASE 38 U/L (17-59); BILIRUBIN,DIRECT 0.3 mg/dL (0.0-0.4); BILIRUBIN,TOTAL 1.2 mg/dL (0.2-1.3); BLOOD UREA NITROGEN 38 mg/dL (7-20); CALCIUM 8.9 mg/dL (8.4-10.2); CHOLESTEROL 252.23 mg/dL (0-200); CREATINE KINASE 73 U/L (55-170); POTASSIUM 3.8 mmol/L (3.6-5.0); TOTAL PROTEIN 5.5 g/dL (6.3-8.2); TRIGLYCERIDES 247 mg/dL (<150)
[2019-04-14 10:45] LABS: CARBON DIOXIDE 36 mmol/L (22-30); CHLORIDE 101 mmol/L (98-107); SODIUM 139.9 mmol/L (137-145)
[2019-04-14 11:16] LABS: GLUCOSE 51 mg/dL (75-110); VLDL CHOLESTEROL 49.4 mg/dL (10-31)
[2019-04-14 11:17] LABS: ANION GAP 3 (5-19)
[2019-04-17 11:37] LABS: CREATININE URINE 57.9 mg/dL (Not Estab.); MICROALBUMIN URINE <3.0 ug/mL (Not Estab.)
== END ==
LOC: OD 09:33
PROVIDERS: ATTEND Family Medicine Geriatric Medicine
DX: E11.40 Type 2 diabetes mellitus with diabetic neuropathy, unspecified (principal); M33.20 Polymyositis, organ involvement unspecified; I25.10 Atherosclerotic heart disease of native coronary artery without angina pectoris; E55.9 Vitamin D deficiency, unspecified; N40.1 Benign prostatic hyperplasia with lower urinary tract symptoms; Z79.899 Other long term (current) drug therapy; M10.9 Gout, unspecified; E78.5 Hyperlipidemia, unspecified
CPT/HCPCS: 36415; 80053; 80061; 82043; 82306; 82550; 82570; 83036; 84153; 84443

== ENCOUNTER → 2019-04-30 | Outpatient (CLI) | payer MEDICARE, OTHER ==
--- NOTE | 2019-04-30 15:45 | RADIOLOGY REPORT (SQ) ---
EXAM DESCRIPTION: FOOT RIGHT COMPLETE COMPLETED DATE/TIME: 04/30/2019 2:48 pm REASON FOR STUDY: L97.512 NON-PRS CHRONIC ULCER OTH PRT RIGHT FOOT W FAT LAYER EXPOSED L97.512 NON- PRS CHRONIC ULCER OTH PRT RIGHT FOOT W FAT LAYER E11.621 TYPE 2 DIABETES MELLITUS WITH FOOT ULCER COMPARISON: 04/07/2019, 03/04/2019 NUMBER OF VIEWS: Three views. TECHNIQUE: AP, lateral and oblique radiographic images acquired of the right foot. LIMITATIONS: None. FINDINGS: MINERALIZATION: Normal. BONES: Post transmetatarsal amputation great toe. There is periosteal new bone at the amputation sit e. Remainder of the bones of the foot are otherwise unremarkable. JOINTS: No effusions. SOFT TISSUES: There is soft tissue gas with ulcer and soft tissue swelling over the medial right fore foot OTHER: No other significant finding. IMPRESSION: Healing transmetatarsal amputation of the great toe. Overlying soft tissue swelling and ulceration. TECHNICAL DOCUMENTATION: JOB ID: [id number] [email or web address]- All Rights Reserved Reading location - IP/workstation name: [email or web address]
[2019-04-30 15:47] LABS: ABSOLUTE LYMPHOCYTES (AUTO) 0.9 10^3/uL (0.5-4.7); ABSOLUTE MONOCYTES (AUTO) 0.3 10^3/uL (0.1-1.4); ABSOLUTE NEUT (AUTO) 5.8 10^3/uL (1.7-8.2); BASOPHILS % (AUTO) 0.2 % (0-2); LYMPHOCYTES % (AUTO) 13.2 % (13-45); MEAN CORPUSCULAR HEMOGLOBIN 32.8 pg (27.0-33.4); MEAN CORPUSCULAR HGB CONC 33.3 g/dL (32.0-36.0); MONOCYTES % (AUTO) 4.2 % (3-13); PLATELET COUNT 183 10^3/uL (150-450); RED BLOOD COUNT 3.65 10^6/uL (4.35-5.55); RED CELL DISTRIBUTION WIDTH 20.4 % (11.5-14.0); SEGMENTED NEUTROPHILS % (AUTO) 82.4 % (42-78); TOTAL CELLS COUNTED % (AUTO) 100 %
[2019-04-30 16:12] LABS: MEAN CORPUSCULAR VOLUME 99 fl (80-97)
[2019-04-30 16:19] LABS: ALANINE AMINOTRANSFERASE 52 U/L (21-72); ALBUMIN 3.4 g/dL (3.5-5.0); ALKALINE PHOSPHATASE 77 U/L (38-126); ASPARTATE AMINO TRANSFERASE 47 U/L (17-59); BILIRUBIN,DIRECT 0.3 mg/dL (0.0-0.4); BILIRUBIN,TOTAL 0.9 mg/dL (0.2-1.3); BLOOD UREA NITROGEN 39 mg/dL (7-20); C-REACTIVE PROTEIN 14.2 mg/L (<10.0); CALCIUM 8.7 mg/dL (8.4-10.2); GLUCOSE 272 mg/dL (75-110); POTASSIUM 4.5 mmol/L (3.6-5.0)
[2019-04-30 16:22] LABS: ANION GAP 5 (5-19); CARBON DIOXIDE 35 mmol/L (22-30); CHLORIDE 96 mmol/L (98-107); SODIUM 135.5 mmol/L (137-145)
[2019-04-30 16:40] LABS: ERYTHROCYTE SEDIMENTATION RATE 29 mm/hr (0-20)
--- NOTE | 2019-04-30 17:16 | XCELERA REPORT ---
[address] [facility] [address] Lower Extremity Venous Evaluation Procedure: Color flow and duplex imaging bilaterally of the veins of the lower extremities as well as the Common Femoral veins. Right Sided Venous Evaluation Normal vessel filling wall to wall, compression and augmentation as well as Colour flow down to the infrageniculate veins. Left Sided Venous Evaluation Normal vessel filling wall to wall, compression and augmentation as well as Colour flow down to the infrageniculate veins. Interpretation Summary No duplex evidence of DVT or obstruction in the bilateral lower extremities. Name: SIDNEY CARROLL Age: 69 yrs Gender: Male : 1950 Patient Status: Outpatient Patient Location: Study Date: 04/30/2019 03:02 PM Reason For Study: PAIN/SWELLING Ordering Physician: JULIO CESAR AMADOR Performed By: Simon Emery : JULIO CESAR AMADOR > Julio Cesar Amador
== END ==
LOC: SP 14:39
PROVIDERS: ATTEND Surgery
DX: E11.621 Type 2 diabetes mellitus with foot ulcer (principal); L97.512 Non-pressure chronic ulcer of other part of right foot with fat layer exposed
CPT/HCPCS: 36415; 80053; 85025; 85652; 86140; 93970

== ENCOUNTER → 2019-04-30 | Outpatient (CLI) | payer MEDICARE, OTHER | LOC: OD 11:08 | PROVIDERS: ATTEND Family Medicine Geriatric Medicine | DX: M10.9 Gout, unspecified (principal); R79.89 Other specified abnormal findings of blood chemistry; Z79.899 Other long term (current) drug therapy | CPT/HCPCS: 36415; 84443; 84550 ==

== ENCOUNTER → 2019-05-18 | Outpatient (CLI) | payer MEDICARE, OTHER ==
[2019-05-18 12:28] LABS: HEMATOCRIT 35.3 % (37.9-51.0); HEMOGLOBIN 11.7 g/dL (13.5-17.0); MEAN CORPUSCULAR HGB CONC 33.1 g/dL (32.0-36.0); MEAN CORPUSCULAR VOLUME 100 fl (80-97); PLATELET COUNT 318 10^3/uL (150-450); RED BLOOD COUNT 3.55 10^6/uL (4.35-5.55); RED CELL DISTRIBUTION WIDTH 17.8 % (11.5-14.0); WHITE BLOOD COUNT 12.4 10^3/uL (4.0-10.5)
--- NOTE | 2019-05-18 12:49 | RADIOLOGY REPORT (SQ) ---
EXAM DESCRIPTION: CHEST PA/LATERAL COMPLETED DATE/TIME: 05/18/2019 12:35 pm REASON FOR STUDY: PLEURAL EFFUSION, NOT ELSEWHERE CLASSIFIED COMPARISON: 02/02/2019 EXAM PARAMETERS: NUMBER OF VIEWS: two views TECHNIQUE: Digital Frontal and Lateral radiographic views of the chest acquired. RADIATION DOSE: NA LIMITATIONS: none FINDINGS: LUNGS AND PLEURA: No opacities, masses or pneumothorax. No pleural effusion. MEDIASTINUM AND HILAR STRUCTURES: No masses or contour abnormalities. HEART AND VASCULAR STRUCTURES: Heart normal size. No evidence for failure. BONES: No acute findings. HARDWARE: Pacemaker defibrillator. OTHER: No other significant finding. IMPRESSION: NO SIGNIFICANT RADIOGRAPHIC FINDING IN THE CHEST. TECHNICAL DOCUMENTATION: JOB ID: [id number] [employer]- All Rights Reserved Reading location - IP/workstation name: [email or web address]
[2019-05-18 12:54] LABS: ABSOLUTE LYMPHOCYTES# (MANUAL) 1.4 10^3/uL (0.5-4.7); ABSOLUTE MONOCYTES # (MANUAL) 0.1 10^3/uL (0.1-1.4); BAND NEUTROPHILS % (MANUAL) 4 % (3-5); BASOPHILS % (MANUAL) 0 % (0-2); EOSINOPHILS % (MANUAL) 1 % (0-6); LYMPHOCYTES % (MANUAL) 11 % (13-45); MONOCYTES % (MANUAL) 1 % (3-13); SEGMENTED NEUTROPHILS % (MAN) 83 % (42-78); TOTAL CELLS COUNTED 100
[2019-05-18 12:55] LABS: ANISOCYTOSIS 1+; PLATELET COMMENT ADEQUATE; POLYCHROMASIA 1+
== END ==
LOC: OD 11:42
PROVIDERS: ATTEND Family Medicine Geriatric Medicine
DX: D64.9 Anemia, unspecified (principal); J90 Pleural effusion, not elsewhere classified
CPT/HCPCS: 36415; 71046; 85025

== ENCOUNTER 2019-06-30 13:18 | Emergency (ER) | payer MEDICARE, OTHER ==
[2019-06-30] MEDS ORDERED: NORMAL SALINE 1000 ML 1,000 ML IV ONE (13:47)
[2019-06-30] MEDS ORDERED: CEFEPIME INJ 1 GM VIAL IM ONE (13:47)
[2019-06-30] MEDS ORDERED: VANCOMYCIN HCL INJ 1000 MG VIAL IV ONE (13:47)
[2019-06-30 14:01] LABS: INTERNATIONAL RATION (INR) 2.11
[2019-06-30 14:05] LABS: ALBUMIN 2.7 g/dL (3.5-5.0); ALKALINE PHOSPHATASE 107 U/L (38-126); ANION GAP 11 (5-19); ASPARTATE AMINO TRANSFERASE 79 U/L (17-59); BILIRUBIN,DIRECT 0.3 mg/dL (0.0-0.4); BILIRUBIN,TOTAL 0.9 mg/dL (0.2-1.3); BLOOD UREA NITROGEN 102 mg/dL (7-20); CALCIUM 8.7 mg/dL (8.4-10.2); CARBON DIOXIDE 27 mmol/L (22-30); CHLORIDE 97 mmol/L (98-107); GLUCOSE 137 mg/dL (75-110); POTASSIUM 5.5 mmol/L (3.6-5.0); TOTAL PROTEIN 5.2 g/dL (6.3-8.2)
[2019-06-30] MEDS ORDERED: DEXTROSE 5%-WATER 250 ML with NOREPINEPHRINE BITARTRATE 4 MG IV PRN ×2 (14:37)
--- NOTE | 2019-06-30 14:41 | RADIOLOGY REPORT (SQ) ---
EXAM DESCRIPTION: CHEST SINGLE VIEW COMPLETED DATE/TIME: 06/30/2019 2:15 pm REASON FOR STUDY: cough COMPARISON: 05/18/2019 EXAM PARAMETERS: NUMBER OF VIEWS: One view. TECHNIQUE: Single frontal radiographic view of the chest acquired. RADIATION DOSE: NA LIMITATIONS: None. FINDINGS: LUNGS AND PLEURA: No opacities, masses or pneumothorax. No pleural effusion. MEDIASTINUM AND HILAR STRUCTURES: No masses. Contour normal. HEART AND VASCULAR STRUCTURES: Heart normal in size. Normal vasculature. BONES: No acute findings. HARDWARE: Left-sided cardiac pacer/ defibrillator with leads overlying right atrium and right ventric le. OTHER: No other significant finding. IMPRESSION: No focal airspace disease or other evidence of acute cardiopulmonary process. TECHNICAL DOCUMENTATION: JOB ID: [id number] [employer]- All Rights Reserved Reading location - IP/workstation name: [email or web address]
[2019-06-30] MEDS ORDERED: NOREPINEPHRINE BITARTRATE INJ/PF 4 MG/4 ML SDV IV ONE (14:48)
--- NOTE | 2019-06-30 15:41 | ER Document Report ---
ED Blood Pressure Problem - General Chief Complaint: Blood Pressure Problem Stated Complaint: BLOOD PRESSURE ISSUES Time Seen by Provider: 06/30/19 13:24 Primary Care Provider: YANIV AZEVEDO MD [Primary Care Provider] - Follow up as needed Information source: Patient, Relative TRAVEL OUTSIDE OF THE [place] IN LAST 30 DAYS: No - HPI Notes: Patient presents from home with lethargy and weakness. Per patient has had a lot of recent illnesses. He has chronic CHF with an ejection fraction of 15%. He also has had recent wound infection of the lower extremities with possible osteomyelitis with amputations. Patient's lethargy has been going on for the last 2 days. It is severe. There is no known radiation of the symptoms. He does complain of severe leg pain that radiates up both legs. This is worse with any movement. Patient is also on Eliquis for 2 clots in the heart. He has had no known bleeding from the rectum or vomiting of blood. states that he does bleed very easily though. Patient also has diabetes. - Related Data Allergies/Adverse Reactions: cholestyramine [From Questran] Allergy (Verified 06/30/19 13:39) gemfibrozil [From Lopid] Allergy (Verified 06/30/19 13:39) morphine Allergy (Verified 06/30/19 13:39) niacin Allergy (Verified 06/30/19 13:39) colesevelam [From WelChol] Adverse Reaction (Verified 06/30/19 13:39) metoprolol [From Lopressor] Adverse Reaction (Verified 06/30/19 13:39) Past Medical History - General Information source: Patient, Relative - Social History Smoking Status: Former Smoker Frequency of alcohol use: None Drug Abuse: None Family History: None, Reviewed & Not Pertinent, Other Patient has suicidal ideation: No Patient has homicidal ideation: No - Past Medical History Cardiac Medical History: Reports: Hx Atrial Fibrillation, Hx Congestive Heart Failure - EF is 15%, Hx Coronary Artery Disease, Hx Heart Attack - x2 1996, 2000, Hx Hypercholesterolemia, Hx Hypertension Pulmonary Medical History: Reports: Hx Bronchitis - chronic, Hx COPD Endocrine Medical History: Reports: Hx Diabetes Mellitus Type 2 Renal/ Medical History: Reports: Hx Benign Prostatic Hyperplasia, Hx Renal Insufficiency. Denies: Hx Peritoneal Dialysis GI Medical History: Reports: Hx Gastroesophageal Reflux Disease Musculoskeletal Medical History: Reports Hx Gout Psychiatric Medical History: Reports: Hx Bipolar Disorder Denies: Hx Depression Infectious Medical History: Reports: Hx C-Diff, Hx MRSA - foot ulcers Past Surgical History: Reports: Hx Internal Defibrillator, Hx Pacemaker Review of Systems - Review of Systems Constitutional: Malaise, Weakness Cardiovascular: Syncope, Dizziness, Lightheaded. denies: Chest pain, Palpitations Respiratory: denies: Cough, Short of breath Neurological/Psychological: Confusion, Weakness, Gait changes -: Yes All other systems reviewed and negative Physical Exam - Vital signs Vitals: Temp 97.5 F 06/30/19 13:39 Interpretation: Hypotensive - General General appearance: Lethargic In distress: Moderate - HEENT Head: Normocephalic, Atraumatic Eyes: Normal Pupils: PERRL Mouth/Lips: Normal Mucous membranes: Dry - Respiratory Respiratory status: No respiratory distress Chest status: Nontender Breath sounds: Decreased air movement Chest palpation: Normal - Cardiovascular Rhythm: Regular Heart sounds: Normal auscultation Murmur: No - Abdominal Inspection: Normal Distension: Distended Bowel sounds: Hypoactive Tenderness: Tender Organomegaly: No organomegaly - Back Back: Normal, Nontender - Extremities General upper extremity: Tender, Normal ROM, Normal temperature General lower extremity: Tender, Normal ROM, Other - Both lower extremities are pale and cool. They have multiple different wounds. The worst wound seems to be in the posterior left calf which has purulent drainage with a foul smell.. No: Miriam's sign - Neurological Cognition: Confused Orientation: Disoriented to time Wilner Coma Scale Eye Opening: Spontaneous Wilner Coma Scale Verbal: Confused Wal[place]f Coma Scale Motor: Obeys Commands Wal[place] Coma Scale Total: 14 Speech: Normal Additional motor exam normals: Weakness Sensory: Normal - Psychological Associated symptoms: Confused, Depressed - Skin Skin Temperature: Cool Skin Moisture: Dry Skin Color: Pale Course - Re-evaluation Re-evalutation: 06/30/19 15:42 When patient arrived he was lethargic and hypotensive. He was never tachycardic. Patient did have a rectal exam done by the nurse and was heme positive. He has had no bleeding here however. The most obvious source of his hypotension seems to be a sepsis. It is possible that it is from the urine but this is not resulted yet however patient is making a decent amount of urine as he did fill up a half of a urinal. Patient also has some leg wounds that could possibly be the source of the infection. He has been covered with antibiotics. After 2 L of fluid his blood pressure still in the 70s the Levophed was started. His blood pressure is now 90 systolic. He is significantly more awake and conversant. He has had no respiratory distress. And chest x-ray is clear. Saturations been 100% on room air. Abdomen is somewhat distended and tender. This will need to be further evaluated at the receiving facility. Patient has been accepted to the ICU at [facility]. The helicopter is in route. I discussed care with the school health assistant here who felt the patient was too ill for our institution especially without 24-hour access to dialysis. Patient has a normal bicarb but lactate is not yet resulted. Lab called and stated that the first CBC is at 9.9 but the second CBC says a hemoglobin of 6.2. I believe the first CBC was an error because patient does look pale. I am going to transfuse 1 unit and try third CBC this that she watch on is more likely. I do not believe patient has dropped 3 units in 1 hour. It is possible he got a little diluted with the fluids but he is not actively bleeding anywhere to explain that type of drop. 06/30/19 15:49 - Vital Signs Vital signs: Temp Pulse Resp BP Pulse Ox 97.5 F 06/30/19 13:39 - Laboratory Result Diagrams: 06/30/19 12:40 06/30/19 12:40 Laboratory results interpreted by me: 06/30/19 06/30/19 12:40 12:40 PT 24.0 H Sodium 135.2 L Potassium 5.5 H Chloride 97 L BUN 102 H Creatinine 2.84 H Est GFR ( Amer) 27 L Est GFR (MDRD) Non-Af 22 L Glucose 137 H AST 79 H Total Protein 5.2 L Albumin 2.7 L - Diagnostic Test Radiology reviewed: Image reviewed, Reports reviewed - EKG Interpretation by Me EKG shows normal: Sinus rhythm Rate: Normal - 69 Rhythm: NSR Voltage: Consistant with LVH Critical Care Note - Critical Care Note Total time excluding time spent on procedures (mins): 70 Comments: 70 minutes of critical care time was spent on this patient. This included multiple reassessments. It included talking to multiple consultants. It included reviewing old records as well as current laboratory and imaging results. It included discussions with the patient and family. Discharge - Discharge Clinical Impression: Polymyositis, Insulin dependent diabetes mellitus Sepsis Qualifiers: Sepsis type: sepsis due to unspecified organism Sepsis acute organ dysfunction status: with acute organ dysfunction Severe sepsis acute organ dysfunction type: acute renal failure Severe sepsis shock status: with septic shock Anemia Qualifiers: Anemia type: iron deficiency Iron deficiency anemia type: unspecified iron deficiency Qualified Code(s): D50.9 - Iron deficiency anemia, unspecified Condition: Critical Disposition: [facility] Referrals: YANIV AZEVEDO MD [Primary Care Provider] - Follow up as needed
[2019-06-30] MEDS ORDERED: NORMAL SALINE 250 ML IV PRN (15:57)
[2019-06-30 16:09] LABS: APPEARANCE,URINE SLIGHTLY-CLOUDY; BILIRUBIN,URINE NEGATIVE (NEGATIVE); COLOR,URINE YELLOW; GLUCOSE, URINE 50 mg/dL (NEGATIVE); KETONES,URINE NEGATIVE (NEGATIVE); LEUKOCYTE ESTERASE,URINE NEGATIVE (NEGATIVE); NITRITE,URINE NEGATIVE (NEGATIVE); PROTEIN,URINE 30 mg/dL (NEGATIVE); URINE SPECIFIC GRAVITY 1.012; UROBILINOGEN,URINE NEGATIVE mg/dL (<2.0)
[2019-06-30 16:30] LABS: VENOUS BLOOD HCO3 25.8 mmol/L (20-32); VENOUS BLOOD PCO2 59.2 mmHg (35-63); VENOUS BLOOD PH 7.26 (7.30-7.42)
[2019-06-30 16:44] LABS: HEMATOCRIT 23.1 % (37.9-51.0); MEAN CORPUSCULAR HEMOGLOBIN 30.3 pg (27.0-33.4); MEAN CORPUSCULAR HGB CONC 32.3 g/dL (32.0-36.0); PLATELET COUNT 142 10^3/uL (150-450); RED BLOOD COUNT 2.46 10^6/uL (4.35-5.55); RED CELL DISTRIBUTION WIDTH 18.7 % (11.5-14.0); WHITE BLOOD COUNT 3.3 10^3/uL (4.0-10.5)
[2019-06-30 16:55] VITALS: BP 101/71
[2019-06-30 16:57] LABS: HEMOGLOBIN 7.5 g/dL (13.5-17.0); MEAN CORPUSCULAR VOLUME 94 fl (80-97)
[2019-06-30 17:08] LABS: ABSOLUTE LYMPHOCYTES# (MANUAL) 0.3 10^3/uL (0.5-4.7); ABSOLUTE MONOCYTES # (MANUAL) 0.1 10^3/uL (0.1-1.4); BASOPHILS % (MANUAL) 0 % (0-2); EOSINOPHILS % (MANUAL) 0 % (0-6); LYMPHOCYTES % (MANUAL) 8 % (13-45); MONOCYTES % (MANUAL) 3 % (3-13); SEGMENTED NEUTROPHILS % (MAN) 89 % (42-78); TOTAL CELLS COUNTED 100
[2019-06-30 17:17] LABS: ANISOCYTOSIS 2+; OVALOCYTES SLIGHT; PLATELET COMMENT DECREASED; POIKILOCYTOSIS 1+; POLYCHROMASIA SLIGHT; TEAR DROP CELLS SLIGHT
--- NOTE | 2019-06-30 18:30 | EKG REPORT ---
SEVERITY:- ABNORMAL ECG - SINUS RHYTHM LVH WITH SECONDARY REPOLARIZATION ABNORMALITY INFERIOR INFARCT, AGE INDETERMINATE REPOL ABNRM, PROBABLE ISCHEMIA, ANT-LAT LEADS : Confirmed by: Remington Quarles MD 30-Jun-2019 18:30:20
== END 2019-06-30 16:59 | disposition short-term general hospital (02) ==
LOC: ER 13:18
DX: A41.9 Sepsis, unspecified organism (principal); R65.21 Severe sepsis with septic shock; N17.9 Acute kidney failure, unspecified; R53.83 Other fatigue; I95.9 Hypotension, unspecified; I50.9 Heart failure, unspecified; M33.20 Polymyositis, organ involvement unspecified; D50.9 Iron deficiency anemia, unspecified; E11.9 Type 2 diabetes mellitus without complications; E78.00 Pure hypercholesterolemia, unspecified; I48.91 Unspecified atrial fibrillation; Z79.4 Long term (current) use of insulin; Z86.14 Personal history of Methicillin resistant Staphylococcus aureus infection; Z95.810 Presence of automatic (implantable) cardiac defibrillator; Z79.01 Long term (current) use of anticoagulants
CPT/HCPCS: 93005; 86900; 86901; 36415; 87040; 86850; 85025; 85610; 80053; 81001; 84484; 82803; 83605; 71045; 93010; J3490; J0692; J7060; J7030; J3370

== ENCOUNTER 2019-07-09 16:03 | Inpatient (IN) | payer MEDICARE, OTHER ==
[2019-07-09] MEDS ORDERED: NORMAL SALINE 500 ML IV ONE (16:20)
[2019-07-09] MEDS ORDERED: PIPERACILLIN/TAZOBACTAM 3.375 GM VIAL IV ONE (16:26)
[2019-07-09] MEDS ORDERED: VANCOMYCIN HCL INJ 1000 MG VIAL IV ONE (16:26)
--- NOTE | 2019-07-09 16:28 | ER Document Report ---
ED General - General Chief Complaint: Altered Mental Status Stated Complaint: ALTERED MENTAL STATUS/BLOOD PRESSURE CONCERNS Time Seen by Provider: 07/09/19 16:17 Primary Care Provider: DAY RANDOLPH MD [NO LOCAL MD] - Follow up as needed TRAVEL OUTSIDE OF THE [place] IN LAST 30 DAYS: Yes - HPI Notes: Patient presents from [facility] for concern of hypotension. They we re concerned about an infected foot of the right lower extremity. He had his first digit of right lower extremity removed earlier this month. They were concerned for infection. He also has multiple pressure ulcers on his bilateral lower extremities that are currently bandaged. He is oriented x3 has full discussion and appears coherent in the emergency department. He denies any pain anywhere and - Related Data Allergies/Adverse Reactions: cholestyramine [From Questran] Allergy (Verified 06/30/19 13:39) gemfibrozil [From Lopid] Allergy (Verified 06/30/19 13:39) morphine Allergy (Verified 06/30/19 13:39) niacin Allergy (Verified 06/30/19 13:39) colesevelam [From WelChol] Adverse Reaction (Verified 06/30/19 13:39) metoprolol [From Lopressor] Adverse Reaction (Verified 06/30/19 13:39) Past Medical History - Social History Smoking Status: Never Smoker Chew tobacco use (# tins/day): No Frequency of alcohol use: None Drug Abuse: None Family History: None, Reviewed & Not Pertinent, Other Patient has suicidal ideation: No Patient has homicidal ideation: No - Past Medical History Cardiac Medical History: Reports: Hx Atrial Fibrillation, Hx Congestive Heart Failure - EF is 15%, Hx Coronary Artery Disease, Hx Heart Attack - x2 1996, 2000, Hx Hypercholesterolemia, Hx Hypertension Pulmonary Medical History: Reports: Hx Bronchitis - chronic, Hx COPD Endocrine Medical History: Reports: Hx Diabetes Mellitus Type 2 Renal/ Medical History: Reports: Hx Benign Prostatic Hyperplasia, Hx Renal Insufficiency. Denies: Hx Peritoneal Dialysis GI Medical History: Reports: Hx Gastroesophageal Reflux Disease Musculoskeletal Medical History: Reports Hx Gout Psychiatric Medical History: Reports: Hx Bipolar Disorder Denies: Hx Depression Infectious Medical History: Reports: Hx C-Diff, Hx MRSA - foot ulcers Past Surgical History: Reports: Hx Internal Defibrillator, Hx Pacemaker Review of Systems - Review of Systems Constitutional: No symptoms reported EENT: No symptoms reported Cardiovascular: No symptoms reported Respiratory: No symptoms reported Gastrointestinal: No symptoms reported Genitourinary: No symptoms reported Male Genitourinary: No symptoms reported Musculoskeletal: See HPI Skin: No symptoms reported Hematologic/Lymphatic: No symptoms reported Neurological/Psychological: No symptoms reported Physical Exam - Vital signs Vitals: Resp Pulse Ox 21 H 99 07/09/19 16:12 07/09/19 16:12 - General General appearance: Appears well, Alert, Other - Frail - HEENT Head: Normocephalic, Atraumatic Eyes: Normal Conjunctiva: Normal Cornea: Normal Pupils: PERRL - Respiratory Respiratory status: No respiratory distress Chest status: Nontender Breath sounds: Normal Chest palpation: Normal - Cardiovascular Rhythm: Regular Heart sounds: Normal auscultation Murmur: No - Abdominal Inspection: Normal Distension: No distension Bowel sounds: Normal - Back Back: Normal, Nontender - Extremities General upper extremity: Normal ROM General lower extremity: Other - First toe on right lower extremity amputated with well-healing incision no signs of infection no warmth. He does have multiple pressure ulcers on his feet and on his legs are dressings were unwrapped. No overt signs of cellulitis or purulence Course - Re-evaluation Re-evalutation: 07/09/19 16:26 Patient found to be hypotensive has multiple open wounds and pressure ulcers on his lower extremities. His lactic acid was 4.3 at the [facility]. We will treat his sepsis at this time why antibiotics patient does have a history of congestive heart failure will only provide 500 cc of fluids at this time and then reassess. 07/09/19 16:58 To calling [facility] for an outpatient is currently on cefepime and vancomycin daily and Flagyl every 8 hours and he has a PICC line. Upon chart review he was here last week and was transferred to [facility] for higher level of care for presumed sepsis. There is no states he is already had a cefepime and vancomycin today. Upon further discussion appears around 230 last night he started dropping his blood pressures into the 80s and 70s. His baseline when he arrived 90s over 70s when he arrived the of this month. 07/09/19 16:59 07/09/19 19:[address] Bradshaw - Vital Signs Vital signs: Temp Pulse Resp BP Pulse Ox 17 80/32 L 100 07/09/19 18:01 07/09/19 18:01 07/09/19 17:01 - Laboratory Result Diagrams: 07/09/19 16:48 07/09/19 16:48 Laboratory results interpreted by me: 07/09/19 07/09/19 07/09/19 16:48 16:48 17:17 RBC 3.25 L Hgb 9.8 L Hct 30.1 L RDW 19.3 H Plt Count 114 L Sodium 136.8 L BUN 51 H Creatinine 1.32 H Est GFR (MDRD) Non-Af 54 L Glucose 225 H Lactic Acid 3.2 H Calcium 7.8 L Alkaline Phosphatase 143 H Total Protein 4.3 L Albumin 2.1 L Urine Glucose (UA) Urine Blood Ur Leukocyte Esterase 07/09/19 17:48 RBC Hgb Hct RDW Plt Count Sodium BUN Creatinine Est GFR (MDRD) Non-Af Glucose Lactic Acid Calcium Alkaline Phosphatase Total Protein Albumin Urine Glucose (UA) 50 H Urine Blood MODERATE H Ur Leukocyte Esterase SMALL H Discharge - Discharge Clinical Impression: Sepsis Qualifiers: Sepsis type: sepsis due to unspecified organism Sepsis acute organ dysfunction status: unspecified Qualified Code(s): A41.9 - Sepsis, unspecified organism Condition: Critical Disposition: ADMITTED INPATIENT Admitting Provider: [facility] Unit Admitted: ICU Referrals: DAY RANDOLPH MD [NO LOCAL MD] - Follow up as needed
--- NOTE | 2019-07-09 16:55 | RADIOLOGY REPORT (SQ) ---
EXAM DESCRIPTION: CHEST SINGLE VIEW COMPLETED DATE/TIME: 07/09/2019 4:41 pm REASON FOR STUDY: ams COMPARISON: 06/30/2019. EXAM PARAMETERS: NUMBER OF VIEWS: One view. TECHNIQUE: Single frontal radiographic view of the chest acquired. RADIATION DOSE: NA LIMITATIONS: None. FINDINGS: LUNGS AND PLEURA: No opacities, masses or pneumothorax. No pleural effusion. MEDIASTINUM AND HILAR STRUCTURES: No masses. Contour normal. HEART AND VASCULAR STRUCTURES: Heart normal in size. Normal vasculature. BONES: No acute findings. HARDWARE: Defibrillator. PICC line. OTHER: No other significant finding. IMPRESSION: NO ACUTE RADIOGRAPHIC FINDING IN THE CHEST. TECHNICAL DOCUMENTATION: JOB ID: [id number] [employer]- All Rights Reserved Reading location - IP/workstation name: [email or web address]
--- NOTE | 2019-07-09 16:55 | RADIOLOGY REPORT (SQ) ---
EXAM DESCRIPTION: FOOT RIGHT COMPLETE COMPLETED DATE/TIME: 07/09/2019 4:41 pm REASON FOR STUDY: recent surgery r/o infection COMPARISON: 04/30/2019. NUMBER OF VIEWS: Three views. TECHNIQUE: AP, lateral and oblique without weight bearing radiographic images acquired of the right foot. LIMITATIONS: None. FINDINGS: MINERALIZATION: Normal. BONES: No acute fracture or dislocation. Stable surgical changes with amputation of the 1st toe at t he mid metatarsal. No worrisome bone lesions. No significant osteophytes. JOINTS: No erosions. No jeanne-articular osteopenia. No chondrocalcinosis. SOFT TISSUES: Stable surgical changes. No swelling. No calcifications. OTHER: No other significant finding. IMPRESSION: STABLE SURGICAL CHANGES. NO ACUTE FINDINGS. TECHNICAL DOCUMENTATION: JOB ID: [id number] [employer]- All Rights Reserved Reading location - IP/workstation name: [email or web address]
[2019-07-09 17:17] LABS: HEMATOCRIT 30.1 % (37.9-51.0); HEMOGLOBIN 9.8 g/dL (13.5-17.0); MEAN CORPUSCULAR HGB CONC 32.4 g/dL (32.0-36.0); MEAN CORPUSCULAR VOLUME 92 fl (80-97); PLATELET COUNT 114 10^3/uL (150-450); RED BLOOD COUNT 3.25 10^6/uL (4.35-5.55); RED CELL DISTRIBUTION WIDTH 19.3 % (11.5-14.0); WHITE BLOOD COUNT 5.5 10^3/uL (4.0-10.5)
[2019-07-09 17:36] LABS: ALBUMIN 2.1 g/dL (3.5-5.0); ALKALINE PHOSPHATASE 143 U/L (38-126); ANION GAP 9 (5-19); ASPARTATE AMINO TRANSFERASE 54 U/L (17-59); BILIRUBIN,DIRECT 0.3 mg/dL (0.0-0.4); BILIRUBIN,TOTAL 0.6 mg/dL (0.2-1.3); BLOOD UREA NITROGEN 51 mg/dL (7-20); CALCIUM 7.8 mg/dL (8.4-10.2); CARBON DIOXIDE 28 mmol/L (22-30); CHLORIDE 100 mmol/L (98-107); GLUCOSE 225 mg/dL (75-110); POTASSIUM 3.7 mmol/L (3.6-5.0); TOTAL PROTEIN 4.3 g/dL (6.3-8.2)
[2019-07-09 17:43] LABS: ABSOLUTE LYMPHOCYTES# (MANUAL) 0.7 10^3/uL (0.5-4.7); ABSOLUTE MONOCYTES # (MANUAL) 0.3 10^3/uL (0.1-1.4); BAND NEUTROPHILS % (MANUAL) 3 % (3-5); BASOPHILS % (MANUAL) 0 % (0-2); EOSINOPHILS % (MANUAL) 5 % (0-6); LYMPHOCYTES % (MANUAL) 13 % (13-45); MONOCYTES % (MANUAL) 5 % (3-13); NUCLEATED RED BLOOD CELLS 2 /100 WBC (0); SEGMENTED NEUTROPHILS % (MAN) 74 % (42-78); TOTAL CELLS COUNTED 100
[2019-07-09 17:44] LABS: ANISOCYTOSIS 2+; OVALOCYTES SLIGHT; POLYCHROMASIA 1+
[2019-07-09 17:45] LABS: PLATELET COMMENT DECREASED
[2019-07-09 18:36] LABS: APPEARANCE,URINE CLOUDY; BILIRUBIN,URINE NEGATIVE (NEGATIVE); COLOR,URINE AMBER; GLUCOSE, URINE 50 mg/dL (NEGATIVE); KETONES,URINE NEGATIVE (NEGATIVE); LEUKOCYTE ESTERASE,URINE SMALL (NEGATIVE); NITRITE,URINE NEGATIVE (NEGATIVE); PROTEIN,URINE NEGATIVE (NEGATIVE); URINE SPECIFIC GRAVITY 1.016; UROBILINOGEN,URINE NEGATIVE mg/dL (<2.0)
[2019-07-09 19:10] LABS: TROPONIN I 2.35 ng/mL
[2019-07-09] MEDS ORDERED: ACETAMINOPHEN 325 MG TABLET PO PRN (19:17)
--- NOTE | 2019-07-09 19:48 | CRITICAL CARE ADMISSION REPORT ---
HPI Date:: 07/09/19 Time:: 19:00 Reason for ICU Reason:: Hypotension, cardiomyopathy HPI: This Patient is a 69 yo man treated for R foot osteomyelitis, recent dischaged khris Thorne 2 days ago. In rehap and became hyptensive to 80s. He has an EF of 15% and AICD pacemeker.His normal BP is about 95. He has not been eating or drinking well and is clinically very dry and dehydrated. He has been on prednisone 30mg/day and is hypoadrenal. He does not appear septic. Lactic acid 4.3 likelyfrom dehydration and cardiomyopathy. He needs to cotinue abx via PICC line, stress dose steroids, Gentle IVF through the night Past Medical History Cardiac Medical History: Reports: Atrial Fibrillation, Congestive Heart Failure - EF is 15%, Coronary Artery Disease, Myocardial Infarction - x2 1996, 2000, Hyperlipidema, Hypertension Pulmonary Medical History: Reports: Bronchitis - chronic, Chronic Obstructive Pulmonary Disease (COPD) Endocrine Medical History: Reports: Diabetes Mellitus Type 2 GI Medical History: Reports: Gastroesophageal Reflux Disease Musculoskeltal Medical History: Reports: Gout Psychiatric Medical History: Reports: Bipolar Disorder Denies: Depression Infectious Medical History: Reports: Clostridium Difficile, 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 Past Surgical History Past Surgical History: Reports: Internal Defibrillator, Pacemaker Social/Family History - Social History Smoking Status: Never Smoker Frequency of Alcohol Use: None Hx Recreational Drug Use: No Drugs: None Hx Prescription Drug Abuse: No - Medication/Allergies Home Medications: Colchicine [Colchicine 0.6 mg Tablet] 0.6 mg PO Q12 05/10/19 Docusate Sodium [Colace 100 mg Capsule] 100 mg PO TIDP PRN 05/10/19 Ergocalciferol (Vitamin D2) [Drisdol 50,000 unit (1.25MG) Capsule] 50,000 unit PO [id number] 05/10/19 Fenofibrate Nanocrystallized [Tricor 145 mg Tablet] 145 mg PO QHS 05/10/19 Finasteride [Proscar 5 mg Tablet] 5 mg PO DAILY 05/10/19 Nitroglycerin [Nitro-Dur 5 mg (0.2 mg/Hr) Transdermal Patch] 1 each TD QAMP PRN 05/10/19 Nitroglycerin [Nitrostat 0.4 mg (1/150 Gr) Tabs 25/Bottle] 1 tab SL Q5MP PRN 05/10/19 Ropinirole HCl [Requip 2 mg Tablet] 2 mg PO QHS 05/10/19 Rosuvastatin Calcium [Crestor 10 mg Tablet] 10 mg PO QHS 05/10/19 Valsartan [Diovan 40 mg Tablet] 20 mg PO DAILY 05/10/19 Acetaminophen [Tylenol 325 mg Tablet] 325 mg PO Q4HP PRN tablet 05/13/19 Amitriptyline HCl [Elavil 25 mg Tablet] 25 mg PO QHS #30 tablet 05/13/19 Apixaban [Eliquis 5 mg Tablet] 5 mg PO Q12 #60 tablet 05/13/19 Carvedilol [Coreg 6.25 mg Tablet] 6.25 mg PO Q12 #60 tablet 05/13/19 Febuxostat [Uloric 40 mg Tablet] 40 mg PO DAILY #30 tablet 05/13/19 Gabapentin [Neurontin 300 mg Capsule] 300 mg PO Q8HP PRN #90 capsule 05/13/19 Insulin Aspart [Novolog Flexpen] 15 unit SUBCUT AC #1 insuln.pen 05/13/19 Insulin Glargine,Hum.rec.anlog [Lantus Insulin 100 Unit/1 ml 10 ml] 45 unit SUBCUT QHS #1 vial 05/13/19 Ranitidine HCl [Zantac] 150 mg PO DAILY #30 tablet 05/13/19 Spironolactone [Aldactone 25 mg Tablet] 25 mg PO DAILY #30 tablet 05/13/19 Torsemide [Demadex 20 mg Tablet] 20 mg PO DAILY #30 tablet 05/13/19 Tramadol HCl [Ultram 50 mg Tablet] 50 mg PO Q6HP PRN #12 tablet 05/13/19 Apixaban [Eliquis 5 mg Tablet] 5 mg PO Q12 tablet 06/07/19 Clindamycin HCl [Cleocin 300 mg Capsule] 300 mg PO BID #14 capsule 06/07/19 Glipizide [Glucotrol 10 mg Tablet] 10 mg PO BIDACBS #60 tablet 06/07/19 Prednisone [Deltasone 20 mg Tablet] 20 mg PO BIDBS tablet 06/07/19 Spironolactone [Aldactone 25 mg Tablet] 25 mg PO DAILY tablet 06/07/19 Torsemide [Demadex 20 mg Tablet] 20 mg PO DAILY tablet 06/07/19 Allergies/Adverse Reactions: cholestyramine [From Questran] Allergy (Verified 06/30/19 13:39) gemfibrozil [From Lopid] Allergy (Verified 06/30/19 13:39) morphine Allergy (Verified 06/30/19 13:39) niacin Allergy (Verified 06/30/19 13:39) colesevelam [From WelChol] Adverse Reaction (Verified 06/30/19 13:39) metoprolol [From Lopressor] Adverse Reaction (Verified 06/30/19 13:39) Review of Systems Constitutional: PRESENT: anorexia, weakness, weight loss Nose, Mouth, and Throat: PRESENT: as per HPI Cardiovascular: ABSENT: chest pain, dyspnea on exertion, edema, orthropnea, palpitations Musculoskeletal: PRESENT: muscle weakness, other - Multiple painful sores and bruises Neurological: PRESENT: restless legs Physical Exam Vital Signs: Temp Pulse Resp BP Pulse Ox 17 80/32 L 100 07/09/19 18:01 07/09/19 18:01 07/09/19 17:01 Intake & Output 07/08/19 07/09/19 07/10/19 06:59 06:59 06:59 Intake Total 500 Balance 500 Weight 80.5 kg Weight/Height Weight 80.5 kg Height 6 ft 1 in General appearance: PRESENT: no acute distress, cooperative, thin Head exam: PRESENT: atraumatic Eye exam: PRESENT: EOMI, PERRLA Ear exam: PRESENT: normal external ear exam Mouth exam: PRESENT: dry mucosa, other - Very dry with possible thrush Respiratory exam: PRESENT: clear to auscultation jerry Cardiovascular exam: PRESENT: irregular rhythm, other - AICD in L chest region GI/Abdominal exam: PRESENT: soft Rectal exam: PRESENT: deferred Extremities exam: PRESENT: tenderness, other - Multiple bruise ecchymoses and sores on both legs. Asks not to unwrap due to pain Neurological exam: PRESENT: alert, oriented to person, oriented to place, federica ented to time, oriented to situation Psychiatric exam: PRESENT: anxious Laboratory/Radiographs Laboratory Results: 07/09/19 16:48 07/09/19 16:48 07/09/19 07/09/19 07/09/19 16:48 16:48 17:17 WBC 5.5 RBC 3.25 L Hgb 9.8 L Hct 30.1 L MCV 92 MCH 30.0 MCHC 32.4 RDW 19.3 H Plt Count 114 L Seg Neutrophils % Not Reportable Sodium 136.8 L Potassium 3.7 Chloride 100 Carbon Dioxide 28 Anion Gap 9 BUN 51 H Creatinine 1.32 H Est GFR ( Amer) > 60 Glucose 225 H Lactic Acid 3.2 H Calcium 7.8 L Magnesium 2.2 Total Bilirubin 0.6 AST 54 Alkaline Phosphatase 143 H Total Protein 4.3 L Albumin 2.1 L Urine Color Urine Appearance Urine pH Ur Specific [place] Urine Protein Urine Glucose (UA) Urine Ketones Urine Blood Urine Nitrite Ur Leukocyte Esterase Urine WBC (Auto) Urine RBC (Auto) Blood Type Antibody Screen 07/09/19 07/09/19 17:17 17:48 WBC RBC Hgb Hct MCV MCH MCHC RDW Plt Count Seg Neutrophils % Sodium Potassium Chloride Carbon Dioxide Anion Gap BUN Creatinine Est GFR ( Amer) Glucose Lactic Acid Calcium Magnesium Total Bilirubin AST Alkaline Phosphatase Total Protein Albumin Urine Color LISETTE Urine Appearance CLOUDY Urine pH 5.0 Ur Specific [place] 1.016 Urine Protein NEGATIVE Urine Glucose (UA) 50 H Urine Ketones NEGATIVE Urine Blood MODERATE H Urine Nitrite NEGATIVE Ur Leukocyte Esterase SMALL H Urine WBC (Auto) 10 Urine RBC (Auto) 5 Blood Type A POSITIVE Antibody Screen NEGATIVE 07/09/19 17:45 Troponin I 2.350 NT-Pro-B Natriuret Pep [id number] H Impressions: Foot X-Ray 07/09/19 16:17 IMPRESSION: STABLE SURGICAL CHANGES. NO ACUTE FINDINGS. Chest X-Ray 07/09/19 16:20 IMPRESSION: NO ACUTE RADIOGRAPHIC FINDING IN THE CHEST. Critical Time Critical Time (minutes): 40 -: The care of a critically ill patient is dynamic. This note represents a static moment in the admission process. orders and treatments may be given simulataneously and urgentl, and time is not client representative of the treatment process. This patient requires Critical Care secondary to life threating organ or limb dysfunction. Without the need for Critical Care services, the patient is at r isk for increasid mortality and morbidity.
[2019-07-09] MEDS: HYDROMORPHONE HCL INJ/PF 2 MG/ML AMPULE IV PRN (19:56)
[2019-07-09] MEDS ORDERED: HYDROCORTISONE SOD SUCCINATE INJ/PF 100 MG/2 ML SDV IV ONE (20:00)
[2019-07-09] MEDS ORDERED: CARVEDILOL 6.25 MG TABLET PO SCH (21:00)
[2019-07-09] MEDS: GABAPENTIN 300 MG CAPSULE PO SCH (21:14)
[2019-07-09] MEDS: NORMAL SALINE 1000 ML 1,000 ML IV PRN (21:14)
[2019-07-09] MEDS ORDERED: ROPINIROLE HCL 2 MG TABLET PO SCH (22:00)
[2019-07-09] MEDS: ENOXAPARIN SODIUM INJ 40 MG/0.4 ML DISP.SYRIN SUBCUT SCH (22:16)
[2019-07-10] MEDS ORDERED: DEXTROSE 40% GEL 15 GM TUBE X 2 PO PRN (01:00)
[2019-07-10] MEDS ORDERED: DEXTROSE 40% GEL 15 GM TUBE PO PRN (01:00)
[2019-07-10] MEDS ORDERED: DEXTROSE 50%-WATER SYRINGE 25 GM/50 ML DOSE IV PRN (01:00)
[2019-07-10] MEDS ORDERED: DEXTROSE 50%-WATER SYRINGE 12.5 GM/25 ML DOSE IV PRN (01:00)
[2019-07-10] MEDS ORDERED: GLUCAGON,HUMAN RECOMB 1 MG INJ IM PRN (01:00)
[2019-07-10] MEDS: HYDROMORPHONE HCL INJ/PF 2 MG/ML AMPULE IV PRN ×4 (03:40→21:55)
[2019-07-10 04:28] LABS: FREE T3 1.44 pg/mL (2.77-5.27)
[2019-07-10 04:42] LABS: THYROID STIMULATING HORMONE 0.03 uIU/mL (0.47-4.68)
[2019-07-10] MEDS: GABAPENTIN 300 MG CAPSULE PO SCH ×3 (05:23→21:56)
[2019-07-10] MEDS: HYDROCORTISONE SOD SUCCINATE INJ/PF 100 MG/2 ML SDV IV SCH ×3 (05:27→21:55)
[2019-07-10] MEDS ORDERED: CALCIUM GLUCONATE 1000 MG/10 ML INJ IV ONE (06:40)
[2019-07-10] MEDS ORDERED: DOCUSATE SODIUM 100 MG CAPSULE PO PRN (06:41)
[2019-07-10] MEDS ORDERED: NITROGLYCERIN 0.4 MG/TAB 25 TAB/BOTTLE SL PRN (06:41)
[2019-07-10] MEDS ORDERED: CALCIUM GLUCONATE 1000 MG/10 ML INJ IV PRN (06:56)
[2019-07-10] MEDS ORDERED: LEVOTHYROXINE SODIUM 0.088 MG TABLET PO ONE (07:00)
[2019-07-10] MEDS ORDERED: CALCIUM GLUCONATE 2,000 MG in DEXTROSE 5%-WATER 100 ML IV ONE (07:00)
[2019-07-10] MEDS ORDERED: CEFEPIME 2 GM/D5W RTU 2 GM/50 ML RTUPB IV ONE (07:30)
[2019-07-10] MEDS ORDERED: TORSEMIDE 20 MG TABLET ONE (08:54)
[2019-07-10] MEDS: TORSEMIDE 20 MG TABLET PO SCH (08:55)
[2019-07-10] MEDS: INSULIN REG, HUMAN 100 UNIT/ML 3 ML VIAL (PYX) SUBCUT SCH ×4 (08:57→22:22)
--- NOTE | 2019-07-10 09:12 | EKG REPORT ---
SEVERITY:- ABNORMAL ECG - SINUS TACHYCARDIA MULTIFORM VENTRICULAR PREMATURE COMPLEXES LVH WITH SECONDARY REPOLARIZATION ABNORMALITY PROBABLE INFERIOR INFARCT, AGE INDETERMINATE ST DEPRESSION, CONSIDER ISCHEMIA, ANT-LAT LDS BORDERLINE PROLONGED QT INTERVAL : Confirmed by: Evonne Sauer 10-Jul-2019 09:11:01
[2019-07-10] MEDS: FEBUXOSTAT 40 MG TABLET PO SCH (09:40)
[2019-07-10] MEDS: COLCHICINE 0.6 MG TABLET PO SCH ×2 (09:40→17:28)
[2019-07-10] MEDS: FLUCONAZOLE 100 MG TABLET PO SCH (09:40)
[2019-07-10] MEDS: ENOXAPARIN SODIUM INJ 40 MG/0.4 ML DISP.SYRIN SUBCUT SCH (09:40)
--- NOTE | 2019-07-10 09:50 | PDOC PROGRESS REPORT ---
Subjective Progress Note for:: 07/10/19 Subjective:: Patient looking and feeling a bit better Reason For Visit: CARDIOMYOPATHY,HYPOTENSION,HYPOADRENAL Physical Exam Vital Signs: Temp Pulse Resp BP Pulse Ox 96.4 F L 72 23 H 101/53 L 100 07/10/19 08:00 07/10/19 08:00 07/10/19 08:00 07/10/19 08:00 07/10/19 08:00 Intake & Output 07/09/19 07/10/19 07/11/19 06:59 06:59 06:59 Intake Total 500 Output Total 1200 100 Balance -700 -100 Weight 74.2 kg General appearance: PRESENT: no acute distress, cooperative Eye exam: PRESENT: EOMI, PERRLA Ear exam: PRESENT: normal external ear exam Mouth exam: PRESENT: dry mucosa Additional comments: Tongue with thrush on R lateral side. Neck exam: PRESENT: full ROM Respiratory exam: PRESENT: clear to auscultation jerry Cardiovascular exam: PRESENT: irregular rhythm GI/Abdominal exam: PRESENT: soft Rectal exam: PRESENT: deferred Gentrourinary exam: PRESENT: indwelling catheter Extremities exam: PRESENT: full ROM Additional comments: Very thin with marked muscle wasting. Musculoskeletal exam: PRESENT: full ROM Additional comments: Bilateral old and new bruising. Heel decubiti. Wounds are mostly healed to the point of dryness, wounds on posterior calves weeping somewhat No signs of sepsis or obvious active infection. Cant evaluate for osteomylitis. Neurological exam: PRESENT: alert, altered Psychiatric exam: PRESENT: appropriate affect Results Laboratory Results: 07/09/19 16:48 07/09/19 16:48 07/09/19 07/09/19 07/09/19 16:48 16:48 17:17 WBC 5.5 RBC 3.25 L Hgb 9.8 L Hct 30.1 L MCV 92 MCH 30.0 MCHC 32.4 RDW 19.3 H Plt Count 114 L Seg Neutrophils % Not Reportable Sodium 136.8 L Potassium 3.7 Chloride 100 Carbon Dioxide 28 Anion Gap 9 BUN 51 H Creatinine 1.32 H Est GFR ( Amer) > 60 Glucose 225 H Lactic Acid 3.2 H Calcium 7.8 L Magnesium 2.2 Total Bilirubin 0.6 AST 54 Alkaline Phosphatase 143 H Total Protein 4.3 L Albumin 2.1 L TSH Free T3 pg/mL Urine Color Urine Appearance Urine pH Ur Specific Rolette Urine Protein Urine Glucose (UA) Urine Ketones Urine Blood Urine Nitrite Ur Leukocyte Esterase Urine WBC (Auto) Urine RBC (Auto) Blood Type Antibody Screen 07/09/19 07/09/19 07/09/19 17:17 17:48 22:51 WBC RBC Hgb Hct MCV MCH MCHC RDW Plt Count Seg Neutrophils % Sodium Potassium Chloride Carbon Dioxide Anion Gap BUN Creatinine Est GFR ( Amer) Glucose Lactic Acid 3.2 H Calcium Magnesium Total Bilirubin AST Alkaline Phosphatase Total Protein Albumin TSH Free T3 pg/mL Urine Color LISETTE Urine Appearance CLOUDY Urine pH 5.0 Ur Specific Rolette 1.016 Urine Protein NEGATIVE Urine Glucose (UA) 50 H Urine Ketones NEGATIVE Urine Blood MODERATE H Urine Nitrite NEGATIVE Ur Leukocyte Esterase SMALL H Urine WBC (Auto) 10 Urine RBC (Auto) 5 Blood Type A POSITIVE Antibody Screen NEGATIVE 07/10/19 03:44 WBC RBC Hgb Hct MCV MCH MCHC RDW Plt Count Seg Neutrophils % Sodium Potassium Chloride Carbon Dioxide Anion Gap BUN Creatinine Est GFR ( Amer) Glucose Lactic Acid Calcium Magnesium Total Bilirubin AST Alkaline Phosphatase Total Protein Albumin TSH 0.03 L Free T3 pg/mL 1.44 L Urine Color Urine Appearance Urine pH Ur Specific Rolette Urine Protein Urine Glucose (UA) Urine Ketones Urine Blood Urine Nitrite Ur Leukocyte Esterase Urine WBC (Auto) Urine RBC (Auto) Blood Type Antibody Screen 07/09/19 17:45 Troponin I 2.350 NT-Pro-B Natriuret Pep [id number] H Impressions: Foot X-Ray 07/09/19 16:17 IMPRESSION: STABLE SURGICAL CHANGES. NO ACUTE FINDINGS. Chest X-Ray 07/09/19 16:20 IMPRESSION: NO ACUTE RADIOGRAPHIC FINDING IN THE CHEST. Assessment & Plan - Diagnosis (1) Hypoadrenalism Is this a current diagnosis for this admission?: Yes Plan: Continue stress dose steroids. Start cutting down in AMif (2) Hypothyroid Is this a current diagnosis for this admission?: Yes Plan: Hypothyroidism and adrenal insufficiency are frequently seen together. Both THS and free T3 are low. In the face of acute illness I'm not sure how significant this is bot will start Synthroid 88mcg/day (3) Malnutrition Qualifiers: Malnutrition type: protein-calorie malnutrition Protein-calorie malnutrition severity: severe Qualified Code(s): E43 - Unspecified severe protein-calorie malnutrition Is this a current diagnosis for this admission?: Yes Plan: Muscles very wasted. Malnutrition from not eating or drinking. Needs protein to heal wounds.Add Prosource and have Hog Ribber see. (4) Dehydration Is this a current diagnosis for this admission?: Yes Plan: Continue gentle hydration. - Time Time Spent with patient: 35 or more minutes Total Critical Time (Minutes): 40 Medications reviewed and adjusted accordingly: Yes Anticipated discharge: SNF Within: within 72 hours - Inpatient Certification Medical Necessity: Failure to Improve With Outpatient Therapy, Significant Comorbidiites Make Outpatient Treatment Too Risky, Need Close Monitoring Due to Risk of Patient Decompensation, Need For IV Fluids, Need for Pain Control, Need for IV Antibiotics, Risk of Complication if Not Cared For in Hospital
[2019-07-10] MEDS ORDERED: VALSARTAN 40 MG TABLET PO SCH (10:00)
[2019-07-10] MEDS ORDERED: CEFEPIME IV SCH (10:00)
[2019-07-10] MEDS ORDERED: [UNRECOGNIZED DRUG - OTHER] IV SCH (10:00)
[2019-07-10] MEDS ORDERED: (PENDING PHARMACY ID) (Vancomycin Hcl In 5 % Dextrose [Vancomycin 1 Gram/250 Ml-D5w] 1 GM) IV SCH (10:00)
[2019-07-10] MEDS ORDERED: PENICILLIN V PO SCH (10:00)
[2019-07-10] MEDS: FAMOTIDINE 20 MG TABLET PO SCH ×2 (10:01→17:29)
[2019-07-10] MEDS: PANTOPRAZOLE SODIUM 40 MG TABLET.DR PO SCH (10:01)
[2019-07-10] MEDS: FINASTERIDE 5 MG TABLET PO SCH (10:01)
[2019-07-10] MEDS: ASPIRIN 81 MG TABLET, ENT COATED PO SCH (10:01)
[2019-07-10] MEDS: CARVEDILOL 12.5 MG TABLET PO SCH ×2 (10:01→21:56)
[2019-07-10] MEDS: AMITRIPTYLINE HCL 25 MG TABLET PO SCH (10:01)
[2019-07-10] MEDS: CEFEPIME 2 GM/D5W RTU 2 GM/50 ML RTUPB IV SCH (10:03)
[2019-07-10] MEDS: NYSTATIN/DEXAMETH/DIPHEN SUSP 120 ML PO SCH ×4 (10:04→21:56)
[2019-07-10] MEDS: PENICILLIN V POTASSIUM 250 MG TABLET PO SCH ×2 (10:04→21:56)
[2019-07-10 10:12] LABS: ANION GAP 5 (5-19); BLOOD UREA NITROGEN 52 mg/dL (7-20); CALCIUM 7.7 mg/dL (8.4-10.2); CARBON DIOXIDE 32 mmol/L (22-30); CHLORIDE 101 mmol/L (98-107); GLUCOSE 278 mg/dL (75-110); POTASSIUM 3.1 mmol/L (3.6-5.0)
[2019-07-10] MEDS: NORMAL SALINE 1000 ML 1,000 ML IV PRN (10:45)
[2019-07-10] MEDS ORDERED: AMINO AC/PROTEIN HYDR/WHEY PRO 11 GM/45 ML PKT NG SCH (11:00)
[2019-07-10] MEDS: POTASSIUM CHLORIDE 20 MEQ/50 ML RTU IV SCH ×2 (11:09→13:30)
[2019-07-10] MEDS ORDERED: VANCOMYCIN HCL 1,500 MG in DEXTROSE 5%-WATER 250 ML IV SCH (12:00)
[2019-07-10] MEDS ORDERED: METRONIDAZOLE 500 MG TABLET PO SCH (14:00)
[2019-07-10] MEDS ORDERED: INSULIN LISPRO 100 UNIT/ML 3 ML VIAL ONE (16:26)
[2019-07-10] MEDS: INSULIN LISPRO 100 UNIT/ML 3 ML VIAL SUBCUT SCH (16:30)
[2019-07-10] MEDS: VALSARTAN 40 MG TABLET PO SCH (20:42)
[2019-07-10] MEDS: ROPINIROLE HCL 2 MG TABLET PO SCH (21:57)
[2019-07-10] MEDS ORDERED: INSULIN GLARGINE,HUM.REC.ANLOG 1,000 UNIT/10 ML VIAL SUBCUT SCH (22:00)
[2019-07-10] MEDS ORDERED: ATORVASTATIN CALCIUM 20 MG TABLET PO SCH (22:00)
[2019-07-11] MEDS: NYSTATIN/DEXAMETH/DIPHEN SUSP 120 ML PO SCH ×6 (01:28→23:22)
[2019-07-11] MEDS: NORMAL SALINE 1000 ML 1,000 ML IV PRN (01:30)
[2019-07-11 05:21] LABS: ALBUMIN 2.1 g/dL (3.5-5.0); ALKALINE PHOSPHATASE 128 U/L (38-126); ANION GAP 9 (5-19); ASPARTATE AMINO TRANSFERASE 47 U/L (17-59); BILIRUBIN,DIRECT 0.2 mg/dL (0.0-0.4); BILIRUBIN,TOTAL 0.5 mg/dL (0.2-1.3); BLOOD UREA NITROGEN 50 mg/dL (7-20); CALCIUM 7.4 mg/dL (8.4-10.2); CARBON DIOXIDE 28 mmol/L (22-30); CHLORIDE 102 mmol/L (98-107); GLUCOSE 398 mg/dL (75-110); TOTAL PROTEIN 4.1 g/dL (6.3-8.2)
[2019-07-11 05:28] LABS: POTASSIUM 2.6 mmol/L (3.6-5.0)
[2019-07-11] MEDS ORDERED: POTASSI CL 20 MEQ/50 ML RIDER 60 MEQ/150 ML RTUPB IV ONE (05:39)
[2019-07-11] MEDS: HYDROMORPHONE HCL INJ/PF 2 MG/ML AMPULE IV PRN ×2 (05:46→15:52)
[2019-07-11] MEDS: HYDROCORTISONE SOD SUCCINATE INJ/PF 100 MG/2 ML SDV IV SCH ×3 (05:47→23:23)
[2019-07-11] MEDS: GABAPENTIN 300 MG CAPSULE PO SCH ×3 (05:48→22:01)
[2019-07-11] MEDS ORDERED: LEVOTHYROXINE SODIUM 0.088 MG TABLET PO SCH (06:00)
[2019-07-11] MEDS: POTASSIUM CHLORIDE 20 MEQ/50 ML RTU IV SCH ×6 (06:09→22:24)
[2019-07-11] MEDS: INSULIN LISPRO 100 UNIT/ML 3 ML VIAL SUBCUT SCH ×3 (07:47→16:05)
[2019-07-11] MEDS: INSULIN REG, HUMAN 100 UNIT/ML 3 ML VIAL (PYX) SUBCUT SCH ×2 (07:48→11:39)
[2019-07-11] MEDS: PANTOPRAZOLE SODIUM 40 MG TABLET.DR PO SCH (09:10)
[2019-07-11] MEDS: FINASTERIDE 5 MG TABLET PO SCH (09:10)
[2019-07-11] MEDS: CARVEDILOL 12.5 MG TABLET PO SCH ×2 (09:11→22:01)
[2019-07-11] MEDS: COLCHICINE 0.6 MG TABLET PO SCH ×2 (09:11→17:29)
[2019-07-11] MEDS: ASPIRIN 81 MG TABLET, ENT COATED PO SCH (09:11)
[2019-07-11] MEDS: FEBUXOSTAT 40 MG TABLET PO SCH (09:12)
[2019-07-11] MEDS: FLUCONAZOLE 100 MG TABLET PO SCH (09:12)
[2019-07-11] MEDS: TORSEMIDE 20 MG TABLET PO SCH (09:12)
[2019-07-11] MEDS: FAMOTIDINE 20 MG TABLET PO SCH ×2 (09:12→17:29)
[2019-07-11] MEDS: PENICILLIN V POTASSIUM 250 MG TABLET PO SCH ×2 (09:13→22:01)
[2019-07-11] MEDS: ENOXAPARIN SODIUM INJ 40 MG/0.4 ML DISP.SYRIN SUBCUT SCH (09:13)
[2019-07-11] MEDS: AMITRIPTYLINE HCL 25 MG TABLET PO SCH (09:13)
[2019-07-11] MEDS: CEFEPIME 2 GM/D5W RTU 2 GM/50 ML RTUPB IV SCH (11:38)
[2019-07-11] MEDS: VANCOMYCIN HCL 1,000 MG in DEXTROSE 5%-WATER 250 ML IV SCH ×2 (11:39→23:27)
--- NOTE | 2019-07-11 13:18 | PDOC PROGRESS REPORT ---
Subjective Progress Note for:: 07/11/19 Subjective:: Looking and feeling better. Ate well this AM. Now mouth in pain Reason For Visit: CARDIOMYOPATHY,HYPOTENSION,HYPOADRENAL Physical Exam Vital Signs: Temp Pulse Resp BP Pulse Ox 97.1 F 93 20 98/77 L 100 07/11/19 03:41 07/10/19 20:00 07/11/19 12:00 07/11/19 11:26 07/11/19 12:00 Intake & Output 07/10/19 07/11/19 07/12/19 06:59 06:59 06:59 Intake Total 500 3700 1034 Output Total 1200 2300 1075 Balance -700 1400 -41 Weight 74.2 kg 77 kg General appearance: PRESENT: no acute distress, cooperative Head exam: PRESENT: atraumatic Eye exam: PRESENT: EOMI, PERRLA Ear exam: PRESENT: normal external ear exam Mouth exam: PRESENT: dry mucosa Additional comments: Less than on admission. Neck exam: PRESENT: full ROM Respiratory exam: PRESENT: unlabored Cardiovascular exam: PRESENT: irregular rhythm Vascular exam: PRESENT: normal capillary refill GI/Abdominal exam: PRESENT: soft Rectal exam: PRESENT: deferred Extremities exam: PRESENT: pedal edema, tenderness Neurological exam: PRESENT: alert, oriented to person, oriented to place, oriented to time, oriented to situation Skin exam: PRESENT: normal color Results Laboratory Results: 07/09/19 16:48 07/11/19 04:34 07/10/19 07/11/19 07/11/19 17:15 04:34 04:34 Sodium Cancelled Potassium 3.7 Cancelled Chloride Cancelled Carbon Dioxide Cancelled Anion Gap Cancelled BUN Cancelled Creatinine Cancelled Est GFR ( Amer) Cancelled Est GFR (Non-Af Amer) Cancelled Glucose Cancelled Lactic Acid 2.6 H Calcium Cancelled Phosphorus Magnesium Total Bilirubin AST Alkaline Phosphatase Total Protein Albumin 07/11/19 07/11/19 04:34 04:34 Sodium 138.8 Potassium 2.6 L* D Chloride 102 Carbon Dioxide 28 Anion Gap 9 BUN 50 H Creatinine 1.05 Est GFR ( Amer) > 60 Est GFR (Non-Af Amer) Glucose 398 H Lactic Acid Calcium 7.4 L Phosphorus 4.2 Magnesium 1.9 Total Bilirubin 0.5 AST 47 Alkaline Phosphatase 128 H Total Protein 4.1 L Albumin 2.1 L 07/09/19 07/11/19 17:45 04:34 Creatine Kinase 79 Troponin I 2.350 NT-Pro-B Natriuret Pep 19195 H Impressions: Foot X-Ray 07/09/19 16:17 IMPRESSION: STABLE SURGICAL CHANGES. NO ACUTE FINDINGS. Chest X-Ray 07/09/19 16:20 IMPRESSION: NO ACUTE RADIOGRAPHIC FINDING IN THE CHEST. Assessment & Plan - Diagnosis (1) Hypoadrenalism Is this a current diagnosis for this admission?: Yes Plan: Continue stress steroids. He may need high dose for myositis (2) Hypothyroid Qualifiers: Hypothyroidism type: acquired Qualified Code(s): E03.9 - Hypothyroidism, un specified Is this a current diagnosis for this admission?: Yes Plan: Continue Synthroid (3) Malnutrition Qualifiers: Malnutrition type: protein-calorie malnutrition Protein-calorie mal nutrition severity: severe Qualified Code(s): E43 - Unspecified severe protein-calorie malnutrition Is this a current diagnosis for this admission?: Yes Plan: Still not eating well. Start TPN. PT has no contraindications to eating but he is so malnuorished a course of TPN is indicated. Drinking better than eating. (4) Dehydration Is this a current diagnosis for this admission?: Yes Plan: Resolved, IVF stopped (5) Cardiomyopathy Qualifiers: Cardiomyopathy type: ischemic Qualified Code(s): I25.5 - Ischemic cardiomyopathy Is this a current diagnosis for this admission?: Yes Plan: EF at 15% chronically, not new. 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 (7) Osteomyelitis Qualifiers: Osteomyelitis type: other acute Osteomyelitis location: foot Laterality: right Qualified Code(s): M86.171 - Other acute osteomyelitis, right ankle and foot Is this a current diagnosis for this admission?: Yes Plan: This has been suspected but never proven. Continue abx for now. Check CRP and ESR and follow trend if elevated - Time Time Spent with patient: 35 or more minutes Total Critical Time (Minutes): 40 Medications reviewed and adjusted accordingly: Yes Anticipated discharge: SNF Within: within 72 hours - Inpatient Certification Medical Necessity: Failure to Improve With Outpatient Therapy, Significant Comorbidiites Make Outpatient Treatment Too Risky, Need Close Monitoring Due to Risk of Patient Decompensation
[2019-07-11 13:48] LABS: PREALBUMIN 22.6 mg/dL (17.6-36.0)
[2019-07-11] MEDS ORDERED: DEXTROSE 10%-WATER 1,000 ML IV PRN (15:00)
[2019-07-11 16:21] LABS: HEMATOCRIT 31.3 % (37.9-51.0); HEMOGLOBIN 10.1 g/dL (13.5-17.0); MEAN CORPUSCULAR HEMOGLOBIN 30.1 pg (27.0-33.4); MEAN CORPUSCULAR HGB CONC 32.3 g/dL (32.0-36.0); MEAN CORPUSCULAR VOLUME 93 fl (80-97); PLATELET COUNT 126 10^3/uL (150-450); RED BLOOD COUNT 3.36 10^6/uL (4.35-5.55); WHITE BLOOD COUNT 4.9 10^3/uL (4.0-10.5)
[2019-07-11 16:56] LABS: ERYTHROCYTE SEDIMENTATION RATE 57 mm/hr (0-20)
[2019-07-11 17:41] LABS: ABSOLUTE LYMPHOCYTES# (MANUAL) 0.5 10^3/uL (0.5-4.7); ABSOLUTE MONOCYTES # (MANUAL) 0.2 10^3/uL (0.1-1.4); BASOPHILS % (MANUAL) 0 % (0-2); EOSINOPHILS % (MANUAL) 1 % (0-6); LYMPHOCYTES % (MANUAL) 11 % (13-45); MONOCYTES % (MANUAL) 5 % (3-13); SEGMENTED NEUTROPHILS % (MAN) 83 % (42-78); TOTAL CELLS COUNTED 100
[2019-07-11] MEDS: AMINO ACIDS 5 %/DEXTROSE 20 % 1,000 ML IV PRN (17:42)
[2019-07-11 17:46] LABS: ANISOCYTOSIS 2+; OVALOCYTES SLIGHT; POIKILOCYTOSIS 1+; POLYCHROMASIA 1+; TOXIC GRANULATION SLIGHT
[2019-07-11 17:47] LABS: PLATELET COMMENT DECREASED
[2019-07-11] MEDS ORDERED: INSULIN GLARGINE,HUM.REC.ANLOG 1,000 UNIT/10 ML VIAL SUBCUT SCH (18:00)
[2019-07-11] MEDS ORDERED: INSULIN REG, HUMAN 100 UNIT/ML 3 ML VIAL (PYX) SUBCUT SCH (18:00)
--- NOTE | 2019-07-11 19:28 | PDOC CONSULTATION ---
Consultation-Blank Consultation: CARDIOLOGY CONSULTATION by Dr. Bonnie Doe on 07/11/2019. Note patient initially seen in detail in the morning around 12 noon. Subsequently due to patient's hypotension I came back and saw the patient at 8 PM.. 60 minutes spent on each visit the initial consultation at 12 noon, and subsequently at 8 PM, at which time I spent on second time for 60 minutes. Reached a more than 50% of time spent in direct patient care. Note the patient well-known to me since my consultation in January 2019, and subsequently office visit. The patient follows up with me in the office. REASON FOR CONSULTATION: Patient with a history of cardiomyopathy and AICD placement, paroxysmal atrial fibrillatio,and coronary artery disease. The initial visit the patient was stable and without any signs of heart failure. Subsequent visit 1 when the patient became hypotensive. The second visit needed starting the patient on multiple pressor agents and vasopressin. CONSULT REQUESTING PHYSICIAN: Dat Instructor Dr. Bradshaw. 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 On initial visit in the morning the patient seems stable and physical examination did not show any evidence of heart failure, and his blood pressure stable. I discussed with the clay molder, and since the patient was severely malnourished to start the pa tient on TPN, and to use dobutamine if the patient should decompensate and going to heart failure. Of note recently the patient was admitted to [facility] for sepsis and anemia and did get blood transfusions. The patient used to be on Eliquis, which has been held now. The patient denied any chest pain or discomfort. There is no PND orthopnea. Notes that the patient also has a history of COPD. He is on chronic steroid therapy for his myositis. He he did receive steroids. Subsequently the nurse called me saying that the patient is very lethargic and hypotensive with systolic blood pressure in the 70s. Initially the patient was started on dopamine which was increased to 10 mcg/min with still the blood pressure not coming up to the desired levels. He was also started on Elias-Synephrine and also vasopressin infusion. Subsequently with these the dopamine infusion was decreased to 2.5 mcg/min. With this combination also the patient since he had received steroids only gave him a dose of fludrocortisone for possible mineralocorticoid deficiency. With all this the blood pressure did come up to 108. The clay molder to sepsis secondary to intra-abdominal problem, and the patient is having CT scan. Of his abdomen at this time with all these pressors the patient's blood pressure is stable. The patient is more awake although slightly lethargic. He was also having a need to pass urine urgently, and a Anton catheter was placed and there was very good urine output. The patient denies any abdominal pain. There is no chest pain. There is no shortness of breath there is no PND orthopnea. In view of the patient's history of proximal atrial fibrillation and in view of the patient's being on multiple pressor agents, and with the monitor showing that the patient is having frequent APCs and PVCs, it was thought prudent to start the patient on amiodarone infusion to prevent the patient going into atrial fibrillation. Since the patient has a right bundle branch block pattern atrial fibrillation with rapid ventricular response could be interpreted by the AICD as atrial tachycardia and the patient might receive inappropriate shocks. PAST MEDICAL HISTORY: He has history of paroxysmal atrial fibrillation, with no recurrence. He he has a history of coronary artery disease, history of LAD stent, history of myocardial infarction in the past. He has no anginal symptoms in a long time. He has a history of hypertension, but his blood pressure is low. He also has a history of hyperlipidemia. He has a history of COPD/chronic bronchitis. He has a history of bipolar disorder. He has a past history of C. difficile diarrhea. He also has a history of methicillin resistant staph aureus in the foot ulcers. He has a history of GERD. There is no history of GI bleed. He has a history of diabetes mellitus type 2. He has no thyroid disease. There is no history of TIA or CVA. He also has a history of chronic kidney dise ase stage appears to be stage III. He also has a history of myositis and has had a collagen vascular work-up in the past. PAST SURGICAL HISTORY: He has had a history of cardiac catheterization and stent placement. History of AICD. He is initial RV lead was recalled due to malfunction, this lead was not taken out but was capped and a new RV lead was placed. Since then the patient has not had any problems with this AICD. Note that the patient was seen by me in consultation in January 2019. At that time the patient was admitted with hypotension, severe muscle weakness and could not even move his legs L en bloc. His CPK was elevated. This was thought secondary to his myositis and also possibly decreased perfusion due to poor cardiac output. The patient's CPK did improve with the the patient being started on dobutamine. The CPK is normalized with the patient on high-dose steroids at that time. The patient was sent to [facility] for biopsy of the muscle to get a definitive diagnosis of myositis. The patient did not have a muscle biopsy at that visit invited. Also in view of the patient's LV clot that I thought was old had not started the patient on any anticoagulation. But invited due to the patient's history of paroxysmal atrial fibrillation, and LV apical thrombus the patient was started on Eliquis. This was stopped recently because the patient in [facility] along with a sepsis also had anemia requiring multiple blood transfusions. Of note he has chronic leg ulcers and has had amputation of the right toe and has had MRSA infection of his ulcers. Although there was no definitive diagnosis of osteomyelitis it is presumed that the patient is chronic osteomyelitis and the patient is being treated with antibiotics. The patient also has been chronically on steroids. SOCIAL HISTORY he quit smoking long time ago. There is no history of EtOH abuse. FAMILY HISTORY: Is unknown since the patient is adopted. ALLERGIES: The patient is allergic to cholestyramine, Lopid morphine Nader sucrose metoprolol WelChol. His allergy to metoprolol might be bradycardia prior to the AICD placement. We will start the patient on Toprol since the patient has no hives or other allergies to metoprolol. DISPOSITION: The patient is a: The patient is a DNR, and his is his surrogate healthcare decision maker. Current Medications Generic Name Dose Route Start Last Admin Trade Name Freq PRN Reason Stop Dose Admin Acetaminophen 650 mg 07/12/19 00:43 Tylenol 325 Mg Tablet NG 08/11/19 00:42 Q4HP PRN FOR HEADACHE Amitriptyline HCl 25 mg 07/12/19 10:00 Elavil 25 Mg Tablet NG 08/11/19 09:59 DAILY [facility] Aspirin 81 mg 07/12/19 10:00 Aspirin 81 Mg Chewable Tablet NG 08/11/19 09:59 DAILY JOANNE Carvedilol 12.5 mg 07/12/19 10:00 Coreg 12.5 Mg Tablet NG 08/11/19 09:59 Q12 JOANNE Colchicine 0.6 mg 07/12/19 10:00 Colcrys 0.6 Mg Tablet NG 08/11/19 09:59 BID JOANNE Dextrose 12.5 gm 07/10/19 01:00 Dextrose Inj 50% Syringe (25 Gm/50 Ml) IV 08/09/19 00:59 PRN PRN FOR BG 50-69 IN ALERT PATIENT Protocol Dextrose 25 gm 07/10/19 01:00 Dextrose Inj 50% Syringe (25 Gm/50 Ml) IV 08/09/19 00:59 PRN PRN PER PROTOCOL Protocol Diphenhydramine/Hydrocorti/Nystatin 5 ml 07/10/19 10:00 07/11/19 23:22 Magic Mouthwash (Omh Formula) Susp PO 08/09/19 09:59 Not Given Q4 JOANNE Docusate Sodium 100 mg 07/12/19 00:45 Colace Udc 100 Mg/10 Ml Oral Soln NG 08/11/19 00:44 TIDP PRN FOR CONSTIPATION Enoxaparin Sodium 40 mg 07/09/19 20:00 07/11/19 09:13 Lovenox Inj 40 Mg/0.4 Ml Disp.Syrin SUBCUT 08/08/19 19:59 40 mg DAILY JOANNE Administration Ergocalciferol 50,000 unit 07/13/19 10:00 Drisdol 50,000 Unit (1.25mg) Capsule PO 08/12/19 09:59 Q14D@1000 JOANNE Famotidine 20 mg 07/12/19 10:00 Pepcid 20 Mg Tablet NG 08/11/19 09:59 BID [facility] Febuxostat 40 mg 07/12/19 10:00 Uloric 40 Mg Tablet NG 08/11/19 09:59 DAILY [facility] Finasteride 5 mg 07/10/19 10:00 07/11/19 09:10 Proscar 5 Mg Tablet PO 08/09/19 09:59 5 mg DAILY JOANNE Administration Fluconazole 200 mg 07/12/19 10:00 Diflucan 100 Mg Tablet NG 07/19/19 09:59 DAILY JOANNE Gabapentin 300 mg 07/12/19 06:00 Neurontin 300 Mg Capsule NG 08/11/19 05:59 Q8 JOANNE Glucagon 1 mg 07/10/19 01:00 Glucagen Inj 1 Mg Vial IM 08/09/19 00:59 PRN PRN EVALUATE FOR BG < 70 Protocol Glucose 15 gm 07/10/19 01:00 Glutose 40% Gel 15 Gm Tube PO 08/09/19 00:59 PRN PRN FOR BG 50-69 IN ALERT PATIENT Protocol Glucose 30 gm 07/10/19 01:00 Glutose 40% Gel 15 Gm Tube PO 08/09/19 00:59 PRN PRN FOR BG < 50 IN ALERT PATIENT Protocol Hydrocortisone Sodium Succinate 100 mg 07/10/19 06:00 07/11/19 23:23 Solu-Cortef Inj/Pf 100 Mg/ 2 Ml Sdv IV 08/09/19 05:59 100 mg Q8 JOANNE Administration Hydromorphone HCl 1 mg 07/09/19 19:32 07/11/19 15:52 Dilaudid Inj/Pf 2 Mg/Ml Ampule IV 07/16/19 19:31 1 mg Q4HP PRN Administration FOR PAIN SCALE 4-5 Cefepime HCl 2 gm in 50 mls @ 100 mls/hr 07/10/19 11:00 07/11/19 12:08 Maxipime Rtu 2 Gm-D5w 50 Ml Premix Bag IV 07/17/19 10:59 Infused DAILY@1100 JOANNE Infusion Vancomycin HCl 1,000 mg/ 250 mls @ 166.667 mls/hr 07/11/19 10:00 07/11/19 23:27 Dextrose IV 07/18/19 09:59 166 mls/hr Q12 JOANNE 166 mls/hr Administration Amino Acids/Dextrose 1,000 mls @ 45 mls/hr 07/11/19 15:00 07/11/19 17:42 Clinimix 5%-20% Tpn Solution 1000 Ml Bag IV 08/10/19 14:59 45 mls/hr .CONTINUOUS PRN Administration THIS MED IS NOT "PRN" Fat Emulsion Intravenous 250 mls @ 50 mls/hr 07/12/19 10:00 Intralipid 20% Inj 50 Gm/250 Ml Bag IV 08/11/19 09:59 MoTh@1000 JOANNE Protocol Dextrose 1,000 mls @ 0 mls/hr 07/11/19 15:00 D10w 1000 Ml Iv Soln IV 08/10/19 14:59 .TEMPORARY PRN SEE LABEL COMMENTS As Directed Insulin Human Regular 100 unit 100 mls @ mls/hr 07/11/19 21:00 07/11/19 20:14 / Sodium Chloride IV 08/10/19 20:59 5 mls/hr .CONTINUOUS PRN 5 mls/hr THIS MED IS NOT "PRN" Administration Protocol Titrate Dopamine HCl/Dextrose 800 mg in 250 mls @ 0 mls/hr 07/11/19 20:43 07/11/19 21:17 Dopamine Rtu 800 Mg-D5w 250 Ml (Adult) Premix IV 08/10/19 20:42 2.5 mcg/kg/min CONTINUOUS PRN 3.61 mls/hr THIS MED IS NOT "PRN" Administration Protocol Titrate Hard Fat/Phenylephrine 40 mg/ 250 mls @ 0 mls/hr 07/11/19 21:17 07/11/19 21:42 Dextrose IV 08/10/19 21:16 100 mcg/min CONTINUOUS PRN 37.5 mls/hr THIS MED IS NOT "PRN" Administration Protocol Titrate Vasopressin 100 unit/ Dextrose 250 mls @ 0 mls/hr 07/11/19 21:18 07/11/19 21:43 IV 08/10/19 21:17 0.03 unit/min CONTINUOUS PRN 4.5 mls/hr THIS MED IS NOT "PRN" Administration Protocol Titrate Amiodarone HCl 900 mg/ 500 mls @ 0 mls/hr 07/11/19 21:44 07/11/19 22:25 Dextrose IV 07/14/19 21:43 33.33 mls/hr CONTINUOUS PRN 33.33 mls/hr THIS MED IS NOT "PRN" Administration Protocol Per Protocol Insulin Glargine 35 unit 07/11/19 18:00 07/11/19 17:43 Lantus Insulin 100 Unit/1 Ml 10 Ml SUBCUT 08/10/19 17:59 35 unit BID JOANNE Administration Insulin Human Lispro 20 unit 07/12/19 08:00 Humalog Insulin 100 Unit/1 Ml 3 Ml Vial SUBCUT 08/11/19 07:59 AC [facility] Insulin Human Regular 0 - 12 unit 07/11/19 18:00 07/11/19 17:29 Humulin R (Pyxis) Insulin 100 Unit/Ml 3ml SUBCUT 08/10/19 17:59 12 unit Q6 [facility] Administration Protocol Levothyroxine Sodium 0.088 mg 07/12/19 06:00 Synthroid 0.088 Mg Tablet NG 08/11/19 05:59 Q6AM [facility] Nitroglycerin 1 tab 07/10/19 06:41 Nitrostat 0.4 Mg (1/150 Gr) Tabs 25/Bottle SL 08/09/19 06:40 Q5MP PRN FOR CHEST PAIN Penicillin V Potassium 250 mg 07/12/19 10:00 Penicillin Vk 250 Mg Tablet NG 07/19/19 09:59 Q12 [facility] Pharmacy Profile Note 1 each 07/11/19 21:15 Medication Communication Order 08/10/19 21:14 .NOTICE NR Ropinirole HCl 2 mg 07/12/19 22:00 Requip 2 Mg Tablet NG 08/11/19 21:59 QHS [facility] Sodium Chloride 2.5 ml 07/09/19 22:00 07/11/19 22:01 Saline Flush 2.5 Ml Monoject Prefil Syrin IV 08/08/19 21:59 Not Given Q8 [facility] Torsemide 20 mg 07/12/19 08:00 Demadex 20 Mg Tablet NG 08/11/19 07:59 QAM [facility] Valsartan 20 mg 07/12/19 20:00 Diovan 40 Mg Tablet NG 08/11/19 19:59 QPM@2000 [facility] Discontinued Medications Generic Name Dose Route Start Last Admin Trade Name Freq PRN Reason Stop Dose Admin Acetaminophen 650 mg 07/09/19 19:17 Tylenol 325 Mg Tablet PO 08/08/19 19:16 Q4HP PRN FOR HEADACHE Amino Acid Protein 45 ml 07/10/19 11:00 07/10/19 11:10 Prosource Tf 11 Gm Protein/45 Ml Pkt NG 08/09/19 10:59 Not Given TID [facility] Amiodarone HCl Confirm 07/11/19 21:45 07/11/19 22:00 Cordarone Inj 150 Mg/3 Ml Vial Administered 07/11/19 21:46 Not Given Dose 150 mg IV .STK-MED ONE Amiodarone HCl Confirm 07/11/19 21:47 07/11/19 22:00 Cordarone Inj 150 Mg/3 Ml Vial Administered 07/11/19 21:48 Not Given Dose 150 mg IV .STK-MED ONE Amiodarone HCl Confirm 07/11/19 21:50 07/11/19 22:00 Cordarone Inj 150 Mg/3 Ml Vial Administered 07/11/19 21:51 Not Given Dose 150 mg IV .STK-MED ONE Amitriptyline HCl 25 mg 07/10/19 10:00 07/11/19 09:13 Elavil 25 Mg Tablet PO 08/09/19 09:59 25 mg DAILY JOANNE Administration Aspirin 81 mg 07/10/19 10:00 07/11/19 09:11 Ecotrin 81 Mg Ec Tablet PO 08/09/19 09:59 81 mg DAILY JOANNE Administration Atorvastatin Calcium 20 mg 07/10/19 22:00 07/10/19 22:25 Lipitor 20 Mg Tablet PO 08/09/19 21:59 20 mg QHS JOANNE Administration Calcium Gluconate 2,000 mg 07/10/19 06:56 Calcium Gluconate Inj 1000 Mg/10 Ml IV 07/10/19 09:00 ASDIR PRN Carvedilol 6.25 mg 07/09/19 21:00 07/09/19 21:11 Coreg 6.25 Mg Tablet PO 08/08/19 20:59 Not Given Q12 JOANNE Carvedilol 12.5 mg 07/10/19 10:00 07/11/19 22:01 Coreg 12.5 Mg Tablet PO 08/09/19 09:59 Not Given Q12 JOANNE Colchicine 0.6 mg 07/10/19 10:00 07/11/19 17:29 Colcrys 0.6 Mg Tablet PO 08/09/19 09:59 0.6 mg BID JOANNE Administration Digoxin 0.25 mg 07/11/19 21:04 07/11/19 21:40 Lanoxin Inj 0.5 Mg/2 Ml Ampule IV 07/11/19 21:05 0.25 mg NOW ONE Administration Docusate Sodium 100 mg 07/10/19 06:41 Colace 100 Mg Capsule PO 08/09/19 06:40 TIDP PRN FOR CONSTIPATION Famotidine 20 mg 07/10/19 10:00 07/11/19 17:29 Pepcid 20 Mg Tablet PO 08/09/19 09:59 20 mg BID JOANNE Administration Febuxostat 40 mg 07/10/19 10:00 07/11/19 09:12 Uloric 40 Mg Tablet PO 08/09/19 09:59 40 mg DAILY JOANNE Administration Fluconazole 200 mg 07/10/19 10:00 07/11/19 09:12 Diflucan 100 Mg Tablet PO 08/09/19 09:59 200 mg DAILY JOANNE Administration Fludrocortisone Acetate 0.1 mg 07/11/19 21:04 07/11/19 21:48 Florinef 0.1 Mg Tablet PO 07/11/19 21:05 0.1 mg NOW ONE Administration Fludrocortisone Acetate Confirm 07/11/19 21:44 07/11/19 22:00 Florinef 0.1 Mg Tablet Administered 07/11/19 21:45 Not Given Dose 0.1 mg .ROUTE .STK-MED ONE Gabapentin 300 mg 07/09/19 21:00 07/10/19 05:23 Neurontin 300 Mg Capsule PO 08/08/19 20:59 Not Given Q8 JOANNE Gabapentin 300 mg 07/10/19 14:00 07/11/19 22:01 Neurontin 300 Mg Capsule PO 08/09/19 13:59 Not Given Q8 JOANNE Hard Fat/Phenylephrine Confirm 07/11/19 20:36 07/11/19 20:36 Elias-Synephrine Inj/Pf 10 Mg/1 Ml Sdv Administered 07/11/19 20:37 1 mg Dose Administration 10 mg .ROUTE .STK-MED ONE Hydrocortisone Sodium Succinate 100 mg 07/09/19 20:00 07/09/19 19:53 Solu-Cortef Inj/Pf 100 Mg/ 2 Ml Sdv IV 07/09/19 20:01 100 mg NOW ONE Administration Sodium Chloride 500 mls @ 0 mls/hr 07/09/19 16:20 07/09/19 19:23 Nacl 0.9% 500 Ml Iv Soln IV 07/09/19 16:21 Infused NOW ONE Infusion Wide Open Sodium Chloride 1,000 mls @ 75 mls/hr 07/09/19 19:49 07/11/19 08:00 Nacl 0.9% 1000 Ml Iv Soln IV 08/08/19 19:48 0 mls/hr CONTINUOUS PRN Infusion THIS MED IS NOT "PRN" Calcium Gluconate 2,000 mg/ 120 mls @ 60 mls/hr 07/10/19 07:00 07/10/19 08:47 Dextrose IV 07/10/19 08:59 60 mls/hr NOW ONE Administration Cefepime HCl 2 gm in 50 mls @ 100 mls/hr 07/10/19 07:30 07/10/19 10:04 Maxipime Rtu 2 Gm-D5w 50 Ml Premix Bag IV 07/10/19 07:59 Not Given NOW ONE Vancomycin HCl 1,500 mg/ 250 mls @ 166.667 mls/hr 07/10/19 12:00 07/10/19 15:00 Dextrose IV 07/17/19 11:59 Infused NOON JOANNE Infusion Potassium Chloride/Water 20 meq in 50 mls @ 25 mls/hr 07/10/19 11:15 07/10/19 15:30 Potassium Chloride Sebastian 20 Meq/50 Ml IV 07/10/19 15:14 Infused Q2H JOANNE Infusion Potassium Chloride/Water Confirm 07/11/19 05:39 07/11/19 06:09 Potassium Chloride Sebastian 20 Meq/50 Ml Administered 07/11/19 05:40 Not Given Dose 60 meq in 150 mls @ ud IV .STK-MED ONE Potassium Chloride/Water 20 meq in 50 mls @ 25 mls/hr 07/11/19 06:15 07/11/19 12:15 Potassium Chloride Sebastian 20 Meq/50 Ml IV 07/11/19 12:14 Infused Q2H JOANNE Infusion Potassium Chloride/Water 20 meq in 50 mls @ 25 mls/hr 07/11/19 17:30 07/12/19 00:39 Potassium Chloride Sebastian 20 Meq/50 Ml IV 07/11/19 23:29 Infused Q2H JOANNE Infusion Dopamine HCl/Dextrose Confirm 07/11/19 19:46 07/11/19 21:17 Dopamine Rtu 800 Mg-D5w 250 Ml (Adult) Premix Administered 07/11/19 19:47 0 mcg/kg/min Dose 0 mls/hr 800 mg in 250 mls @ ud Infusion IV .STK-MED ONE Amiodarone HCl 150 mg/ 100 mls @ 600 mls/hr 07/11/19 21:43 07/11/19 21:59 Dextrose IV 07/11/19 21:52 600 mls/hr NOW ONE Administration Protocol Insulin Glargine 45 unit 07/10/19 22:00 07/10/19 22:21 Lantus Insulin 100 Unit/1 Ml 10 Ml SUBCUT 08/09/19 21:59 45 unit QHS JOANNE Administration Insulin Human Lispro Confirm 07/10/19 16:26 07/10/19 17:25 Humalog Insulin 100 Unit/1 Ml 3 Ml Vial Administered 07/10/19 16:27 Not G iven Dose 1 unit .ROUTE .STK-MED ONE Insulin Human Lispro 15 unit 07/10/19 17:00 07/11/19 16:05 Humalog Insulin 100 Unit/1 Ml 3 Ml Vial SUBCUT 08/09/19 16:59 15 unit AC JOANNE Administration Insulin Human Regular 0 - 12 unit 07/10/19 08:00 07/11/19 11:39 Humulin R (Pyxis) Insulin 100 Unit/Ml 3ml SUBCUT 08/09/19 07:59 12 unit ACHS JOANNE Administration Protocol Levothyroxine Sodium 0.088 mg 07/11/19 06:00 07/11/19 05:48 Synthroid 0.088 Mg Tablet PO 08/10/19 05:59 0.088 mg Q6AM JOANNE Administration Levothyroxine Sodium 0.088 mg 07/10/19 07:00 07/10/19 08:48 Synthroid 0.088 Mg Tablet PO 07/10/19 07:01 0.088 mg NOW ONE Administration Metronidazole 500 mg 07/10/19 14:00 Flagyl 500 Mg Tablet PO 07/17/19 13:59 Q8 JOANNE Pantoprazole Sodium 40 mg 07/10/19 10:00 07/11/19 09:[address] Tablet PO 08/09/19 09:59 40 mg DAILY JOANNE Administration Penicillin V Potassium 250 mg 07/10/19 10:00 07/11/19 22:01 Penicillin Vk 250 Mg Tablet PO 07/17/19 09:59 Not Given Q12 JOANNE Piperacillin Sod/Tazobactam Sod 3.375 gm 07/09/19 16:26 07/09/19 17:04 Zosyn Inj 3.375 Gm Vial IV 07/09/19 16:27 Not Given IVBAG (ED) ONE Ropinirole HCl 2 mg 07/09/19 22:00 07/09/19 21:14 Requip 2 Mg Tablet PO 08/08/19 21:59 Not Given QHS JOANNE Ropinirole HCl 2 mg 07/10/19 22:00 07/11/19 22:01 Requip 2 Mg Tablet PO 08/09/19 21:59 Not Given QHS JOANNE Torsemide 20 mg 07/10/19 08:00 07/11/19 09:12 Demadex 20 Mg Tablet PO 08/09/19 07:59 20 mg QAM JOANNE Administration Torsemide Confirm 07/10/19 08:54 07/10/19 08:57 Demadex 20 Mg Tablet Administered 07/10/19 08:55 Not Given Dose 20 mg .ROUTE .STK-MED ONE Valsartan 40 mg 07/10/19 10:00 Diovan 40 Mg Tablet PO 08/09/19 09:59 DAILY [facility] Valsartan 20 mg 07/10/19 20:00 07/11/19 22:31 Diovan 40 Mg Tablet PO 08/09/19 19:59 Not Given QPM@2000 [facility] Vancomycin HCl 1,000 mg 07/09/19 16:26 07/09/19 17:04 Vancocin Inj 1000 Mg Vial IV 07/09/19 16:27 Not Given NOW ONE Vasopressin Confirm 07/11/19 20:48 07/11/19 21:44 Vasopressin Inj 20 Unit/1 Ml Vial Administered 07/11/19 20:49 Not Given Dose 20 unit .ROUTE .STK-MED ONE Review SYSTEMS: CONSTITUTIONAL: Denies any fever chills or rigors. Complains of generalized fatigue and severe muscle weakness. Head denies dizziness, but states that his mentation is slow. HE eyes: No history of amblyopia diplopia. No history of amaurosis fugax. I hears: The patient has bilateral hearing loss. He has no tinnitus or vertigo. NOSE: No history of hayfever no history of bleeding from the nose. MOOD: No history of altered taste sensation. No ulcers in the mouth. THROAT: No odynophagia dysphagia no history of recurrent sore throats. SKIN: No history of skin rashes. No history of petechia or ecchymosis. No history of pruritus. No history of yellowish discoloration of the skin. NECK: Denies neck pain or neck swelling. LUNGS: Has intermittent shortness of breath. No cough or wheezing no history of sleep apnea. Patient has a history of chronic bronchitis and COPD. No history of asthma. No history of pleuritic chest pain no history of hemoptysis. No symptoms suggestive of acute exacerbation of COPD at present. HEART: History of coronary artery disease history of AK and history of stent in the LAD. No anginal symptoms. History of cardia myopathy with AICD placement no firing of AICD. History of p roximal atrial fibrillation. Has not recurred in a long time. No leg swelling no PND orthopnea. GI: History of GERD present no history of GI bleed. No history of ascites. No history of jaundice. History of questionable cirrhosis of liver most likely secondary to his chronic right heart failure. And pulmonary hypertension. RENAL: History of chronic kidney disease. No symptoms of hematuria pyuria or dysuria. ENDOCRINE: No history of polydipsia polyuria no history of heat or cold intolerance. Does seem to have diabetic retinopathy by history. MUSCULOSKELETAL denies any collagen vascular disease severe muscle weakness history of myositis present? Secondary to autoimmune disease. No history of lupus. STUDENT OUTREACH COORDINATOR: No history of TIA or CVA. No history of sleep apnea no history of headaches migraines or seizures. History of severe muscle weakness. EXTREMITIES: He has foot ulcers which had MRSA infection. He has no calf or buttock claudication. There is no pedal edema. There is no cyanosis or clubbing. Hematological: No history of bleeding diathesis or clotting disorders. But recently patient was found to be anemic and received blood transfusion. PSYCHIATRIC: History of bipolar disorder in remission. PHYSICAL EXAMINATION: The patient appears to be chronically ill and emaciated and malnourished, and cachectic. Selected Entries 07/11/19 07/11/19 07/11/19 19:26 19:29 19:30 Temperature Core Temperature Heart Rate ( 84 82 Monitors) Respiratory 18 13 Rate Blood Pressure 72/51 L 76/42 L Blood Pressure 58 53 Mean O2 Sat by Pulse 100 100 Oximetry 2 L/min by nasal cannula 07/11/19 07/11/19 21:33 22:13 Temperature 97.9 F Core 99.0 F Temperature Heart Rate ( 90 Monitors) Respiratory 23 H Rate Blood Pressure 102/58 L Blood Pressure 72 Mean O2 Sat by Pulse Oximetry HEAD: Head is atraumatic and normocephalic. EYES: Pupils are equal round regul ar reactive to in no acute dietress. light accommodation. Extraocular movements are normal, there is no conjunctival pallor, and no scleral icterus. EARS: Tympanic membranes are intact external auditory canals are clear. NOSE: There is no inflammation of the nasal mucous membrane there is no deviated nasal septum. MOUTH: Mucous membranes of mouth and tongue are moist, there is no ulcers in the mouth or tongue, and no bleeding from the gums. THROAT: There is no redness of the oropharynx, no exudate seen. SKIN: There is no petechia or ecchymosis. There is no rashes or lesions. NECK: Supple. There is no JVD. Carotids are equal there is no bruit. There is no lymphadenopathy. There is no goiter. Trachea central LUNGS: There is diminished air entry and prolonged expiration. Clear to auscultation bilaterally, no wheezes, rales or rhonchi. On percussion there is hyperresonance. There is no chest wall tenderness HEART: S1 and S2 are heard. S1 is of normal intensity, there is no S3 or S4 gallops. There is a systolic murmur the left sternal border and the apex. There is no rub. ABDOMEN: Normoactive bowel sounds, soft, nontender, no masses, no rebound, no guarding. There is no hepatosplenomegaly. EXTREMITIES: Femorals are slightly diminished. There is no femoral bruits. Leg pulses are diminished. There is no pedal edema. There is no DVT or cellulitis. There is no cyanosis or clubbing. There is no calf tenderness. NEUROLOGICAL the patient morning examined was awake and alert and oriented x3. At present the patient's lethargic but less so than what he was when his blood pressure was lower. But still with no focal deficits. 3 with no focal deficits. There is muscle weakness proximal group more than distal group of muscle show weakness. He also seems to be muscle wasting. Reflexes generalized seem to be decreased. PSYCHIATRIC: The patient judgment and insight were intact, and his affect was normal in the morning exam. He did during the evening exam psych exam was not done due to the patient being slightly somnolent Labs- Entire Visit 07/09/19 07/09/19 07/09/19 16:48 16:48 16:48 WBC 5.5 RBC 3.25 L Hgb 9.8 L Hct 30.1 L MCV 92 MCH 30.0 MCHC 32.4 RDW 19.3 H Plt Count 114 L Lymph % (Auto) Not Reportable [place] % (Auto) Not Reportable Eos % (Auto) Not Reportable Baso % (Auto) Not Reportable Absolute Neuts (auto) Not Reportable Absolute Lymphs (auto) Not Reportable Absolute Monos (auto) Not Reportable Absolute Eos (auto) Not Reportable Absolute Basos (auto) Not Reportable Total Counted 100 Seg Neutrophils % Not Reportable Seg Neuts % (Manual) 74 Band Neutrophils % 3 Lymphocytes % (Manual) 13 Monocytes % (Manual) 5 Eosinophils % (Manual) 5 Basophils % (Manual) 0 Abs Neuts (Manual) 4.2 Abs Lymphs (Manual) 0.7 Abs Monocytes (Manual) 0.3 Absolute Eos (Manual) 0.3 Abs Basophils (Manual) 0.0 Nucleated RBCs 2 Toxic Granulation Platelet Comment DECREASED Polychromasia 1+ Poikilocytosis Anisocytosis 2+ Ovalocytes SLIGHT ESR Sodium 136.8 L Potassium 3.7 Chloride 100 Carbon Dioxide 28 Anion Gap 9 BUN 51 H Creatinine 1.32 H Est GFR ( Amer) > 60 Est GFR (Non-Af Amer) Est GFR (MDRD) Non-Af 54 L Glucose 225 H POC Glucose Lactic Acid Calcium 7.8 L Phosphorus Magnesium 2.2 Total Bilirubin 0.6 Direct Bilirubin 0.3 Neonat Total Bilirubin Not Reportable Neonat Direct Bilirubin Not Reportable Neonat Indirect Bili Not Reportable AST 54 ALT 39 Alkaline Phosphatase 143 H Creatine Kinase CK-MB (CK-2) Troponin I C-Reactive Protein NT-Pro-B Natriuret Pep Total Protein 4.3 L Albumin 2.1 L Prealbumin Triglycerides EGFR TSH Free T3 pg/mL Random Cortisol 17.10 Urine Color Urine Appearance Urine pH Ur Specific [place] Urine Protein Urine Glucose (UA) Urine Ketones Urine Blood Urine Nitrite Urine Bilirubin Urine Urobilinogen Ur Leukocyte Esterase Urine WBC (Auto) Urine RBC (Auto) U Hyaline Cast (Auto) Urine Bacteria (Auto) Squamous Epi Cells Auto Urine Mucus (Auto) Urine Ascorbic Acid Blood Type Antibody Screen 07/09/19 07/09/19 07/09/19 17:17 17:17 17:45 WBC RBC Hgb Hct MCV MCH MCHC RDW Plt Count Lymph % (Auto) [place] % (Auto) Eos % (Auto) Baso % (Auto) Absolute Neuts (auto) Absolute Lymphs (auto) Absolute Monos (auto) Absolute Eos (auto) Absolute Basos (auto) Total Counted Seg Neutrophils % Seg Neuts % (Manual) Band Neutrophils % Lymphocytes % (Manual) Monocytes % (Manual) Eosinophils % (Manual) Basophils % (Manual) Abs Neuts (Manual) Abs Lymphs (Manual) Abs Monocytes (Manual) Absolute Eos (Manual) Abs Basophils (Manual) Nucleated RBCs Toxic Granulation Platelet Comment Polychromasia Poikilocytosis Anisocytosis Ovalocytes ESR Sodium Potassium Chloride Carbon Dioxide Anion Gap BUN Creatinine Est GFR ( Amer) Est GFR (Non-Af Amer) Est GFR (MDRD) Non-Af Glucose POC Glucose Lactic Acid 3.2 H Calcium Phosphorus Magnesium Total Bilirubin Direct Bilirubin Neonat Total Bilirubin Neonat Direct Bilirubin Neonat Indirect Bili AST ALT Alkaline Phosphatase Creatine Kinase CK-MB (CK-2) Troponin I 2.350 C-Reactive Protein NT-Pro-B Natriuret Pep 13752 H Total Protein Albumin Prealbumin Triglycerides EGFR TSH Free T3 pg/mL Random Cortisol Urine Color Urine Appearance Urine pH Ur Specific [place] Urine Protein Urine Glucose (UA) Urine Ketones Urine Blood Urine Nitrite Urine Bilirubin Urine Urobilinogen Ur Leukocyte Esterase Urine WBC (Auto) Urine RBC (Auto) U Hyaline Cast (Auto) Urine Bacteria (Auto) Squamous Epi Cells Auto Urine Mucus (Auto) Urine Ascorbic Acid Blood Type A POSITIVE Antibody Screen NEGATIVE 07/09/19 07/09/19 07/10/19 17:48 22:51 03:44 WBC RBC Hgb Hct MCV MCH MCHC RDW Plt Count Lymph % (Auto) [place] % (Auto) Eos % (Auto) Baso % (Auto) Absolute Neuts (auto) Absolute Lymphs (auto) Absolute Monos (auto) Absolute Eos (auto) Absolute Basos (auto) Total Counted Seg Neutrophils % Seg Neuts % (Manual) Band Neutrophils % Lymphocytes % (Manual) Monocytes % (Manual) Eosinophils % (Manual) Basophils % (Manual) Abs Neuts (Manual) Abs Lymphs (Manual) Abs Monocytes (Manual) Absolute Eos (Manual) Abs Basophils (Manual) Nucleated RBCs Toxic Granulation Platelet Comment Polychromasia Poikilocytosis Anisocytosis Ovalocytes ESR Sodium Potassium Chloride Carbon Dioxide Anion Gap BUN Creatinine Est GFR ( Amer) Est GFR (Non-Af Amer) Est GFR (MDRD) Non-Af Glucose POC Glucose Lactic Acid 3.2 H Calcium Phosphorus Magnesium Total Bilirubin Direct Bilirubin Neonat Total Bilirubin Neonat Direct Bilirubin Neonat Indirect Bili AST ALT Alkaline Phosphatase Creatine Kinase CK-MB (CK-2) Troponin I C-Reactive Protein NT-Pro-B Natriuret Pep Total Protein Albumin Prealbumin Triglycerides EGFR TSH 0.03 L Free T3 pg/mL 1.44 L Random Cortisol Urine Color [place] Urine Appearance CLOUDY Urine pH 5.0 Ur Specific [place] 1.016 Urine Protein NEGATIVE Urine Glucose (UA) 50 H Urine Ketones NEGATIVE Urine Blood MODERATE H Urine Nitrite NEGATIVE Urine Bilirubin NEGATIVE Urine Urobilinogen NEGATIVE Ur Leukocyte Esterase SMALL H Urine WBC (Auto) 10 Urine RBC (Auto) 5 U Hyaline Cast (Auto) 45 Urine Bacteria (Auto) 1+ Squamous Epi Cells Auto 1 Urine Mucus (Auto) RARE Urine Ascorbic Acid NEGATIVE Blood Type Antibody Screen 07/10/19 07/10/19 07/10/19 09:40 11:18 16:17 WBC RBC Hgb Hct MCV MCH MCHC RDW Plt Count Lymph % (Auto) [place] % (Auto) Eos % (Auto) Baso % (Auto) Absolute Neuts (auto) Absolute Lymphs (auto) Absolute Monos (auto) Absolute Eos (auto) Absolute Basos (auto) Total Counted Seg Neutrophils % Seg Neuts % (Manual) Band Neutrophils % Lymphocytes % (Manual) Monocytes % (Manual) Eosinophils % (Manual) Basophils % (Manual) Abs Neuts (Manual) Abs Lymphs (Manual) Abs Monocytes (Manual) Absolute Eos (Manual) Abs Basophils (Manual) Nucleated RBCs Toxic Granulation Platelet Comment Polychromasia Poikilocytosis Anisocytosis Ovalocytes ESR Sodium 137.6 Potassium 3.1 L Chloride 101 Carbon Dioxide 32 H Anion Gap 5 BUN 52 H Creatinine 1.12 Est GFR ( Amer) > 60 Est GFR (Non-Af Amer) Est GFR (MDRD) Non-Af > 60 Glucose 278 H POC Glucose 310 H 491 H* Lactic Acid Calcium 7.7 L Phosphorus 5.0 H Magnesium 2.1 Total Bilirubin Direct Bilirubin Neonat Total Bilirubin Neonat Direct Bilirubin Neonat Indirect Bili AST ALT Alkaline Phosphatase Creatine Kinase CK-MB (CK-2) Troponin I C-Reactive Protein NT-Pro-B Natriuret Pep Total Protein Albumin Prealbumin Triglycerides EGFR TSH Free T3 pg/mL Random Cortisol Urine Color Urine Appearance Urine pH Ur Specific [place] Urine Protein Urine Glucose (UA) Urine Ketones Urine Blood Urine Nitrite Urine Bilirubin Urine Urobilinogen Ur Leukocyte Esterase Urine WBC (Auto) Urine RBC (Auto) U Hyaline Cast (Auto) Urine Bacteria (Auto) Squamous Epi Cells Auto Urine Mucus (Auto) Urine Ascorbic Acid Blood Type Antibody Screen 07/10/19 07/11/19 07/11/19 17:15 04:34 04:34 WBC RBC Hgb Hct MCV MCH MCHC RDW Plt Count Lymph % (Auto) [place] % (Auto) Eos % (Auto) Baso % (Auto) Absolute Neuts (auto) Absolute Lymphs (auto) Absolute Monos (auto) Absolute Eos (auto) Absolute Basos (auto) Total Counted Seg Neutrophils % Seg Neuts % (Manual) Band Neutrophils % Lymphocytes % (Manual) Monocytes % (Manual) Eosinophils % (Manual) Basophils % (Manual) Abs Neuts (Manual) Abs Lymphs (Manual) Abs Monocytes (Manual) Absolute Eos (Manual) Abs Basophils (Manual) Nucleated RBCs Toxic Granulation Platelet Comment Polychromasia Poikilocytosis Anisocytosis Ovalocytes ESR Sodium Cancelled Potassium 3.7 Cancelled Chloride Cancelled Carbon Dioxide Cancelled Anion Gap Cancelled BUN Cancelled Creatinine Cancelled Est GFR ( Amer) Cancelled Est GFR (Non-Af Amer) Cancelled Est GFR (MDRD) Non-Af Cancelled Glucose Cancelled POC Glucose Lactic Acid 2.6 H Calcium Cancelled Phosphorus Magnesium Total Bilirubin Direct Bilirubin Neonat Total Bilirubin Neonat Direct Bilirubin Neonat Indirect Bili AST ALT Alkaline Phosphatase Creatine Kinase CK-MB (CK-2) Troponin I C-Reactive Protein NT-Pro-B Natriuret Pep Total Protein Albumin Prealbumin Triglycerides EGFR Cancelled TSH Free T3 pg/mL Random Cortisol Urine Color Urine Appearance Urine pH Ur Specific [place] Urine Protein Urine Glucose (UA) Urine Ketones Urine Blood Urine Nitrite Urine Bilirubin Urine Urobilinogen Ur Leukocyte Esterase Urine WBC (Auto) Urine RBC (Auto) U Hyaline Cast (Auto) Urine Bacteria (Auto) Squamous Epi Cells Auto Urine Mucus (Auto) Urine Ascorbic Acid Blood Type Antibody Screen 07/11/19 07/11/19 07/11/19 04:34 04:34 04:34 WBC RBC Hgb Hct MCV MCH MCHC RDW Plt Count Lymph % (Auto) [place] % (Auto) Eos % (Auto) Baso % (Auto) Absolute Neuts (auto) Absolute Lymphs (auto) Absolute Monos (auto) Absolute Eos (auto) Absolute Basos (auto) Total Counted Seg Neutrophils % Seg Neuts % (Manual) Band Neutrophils % Lymphocytes % (Manual) Monocytes % (Manual) Eosinophils % (Manual) Basophils % (Manual) Abs Neuts (Manual) Abs Lymphs (Manual) Abs Monocytes (Manual) Absolute Eos (Manual) Abs Basophils (Manual) Nucleated RBCs Toxic Granulation Platelet Comment Polychromasia Poikilocytosis Anisocytosis Ovalocytes ESR Sodium 138.8 Potassium 2.6 L* D Chloride 102 Carbon Dioxide 28 Anion Gap 9 BUN 50 H Creatinine 1.05 Est GFR ( Amer) > 60 Est GFR (Non-Af Amer) Est GFR (MDRD) Non-Af > 60 Glucose 398 H POC Glucose Lactic Acid Calcium 7.4 L Phosphorus 4.2 Magnesium 1.9 Total Bilirubin 0.5 Direct Bilirubin 0.2 Neonat Total Bilirubin Not Reportable Neonat Direct Bilirubin Not Reportable Neonat Indirect Bili Not Reportable AST 47 ALT 38 Alkaline Phosphatase 128 H Creatine Kinase 79 CK-MB (CK-2) Troponin I C-Reactive Protein NT-Pro-B Natriuret Pep Total Protein 4.1 L Albumin 2.1 L Prealbumin Triglycerides EGFR TSH Free T3 pg/mL Random Cortisol Urine Color Urine Appearance Urine pH Ur Specific [place] Urine Protein Urine Glucose (UA) Urine Ketones Urine Blood Urine Nitrite Urine Bilirubin Urine Urobilinogen Ur Leukocyte Esterase Urine WBC (Auto) Urine RBC (Auto) U Hyaline Cast (Auto) Urine Bacteria (Auto) Squamous Epi Cells Auto Urine Mucus (Auto) Urine Ascorbic Acid Blood Type Antibody Screen 07/11/19 07/11/19 07/11/19 04:34 04:34 05:55 WBC RBC Hgb Hct MCV MCH MCHC RDW Plt Count Lymph % (Auto) [place] % (Auto) Eos % (Auto) Baso % (Auto) Absolute Neuts (auto) Absolute Lymphs (auto) Absolute Monos (auto) Absolute Eos (auto) Absolute Basos (auto) Total Counted Seg Neutrophils % Seg Neuts % (Manual) Band Neutrophils % Lymphocytes % (Manual) Monocytes % (Manual) Eosinophils % (Manual) Basophils % (Manual) Abs Neuts (Manual) Abs Lymphs (Manual) Abs Monocytes (Manual) Absolute Eos (Manual) Abs Basophils (Manual) Nucleated RBCs Toxic Granulation Platelet Comment Polychromasia Poikilocytosis Anisocytosis Ovalocytes ESR Sodium Potassium Chloride Carbon Dioxide Anion Gap BUN Creatinine Est GFR ( Amer) Est GFR (Non-Af Amer) Est GFR (MDRD) Non-Af Glucose POC Glucose 337 H Lactic Acid Calcium Phosphorus Magnesium Total Bilirubin Direct Bilirubin Neonat Total Bilirubin Neonat Direct Bilirubin Neonat Indirect Bili AST ALT Alkaline Phosphatase Creatine Kinase CK-MB (CK-2) 8.05 H Troponin I C-Reactive Protein NT-Pro-B Natriuret Pep Total Protein Albumin Prealbumin 22.6 Triglycerides 483 H EGFR TSH Free T3 pg/mL Random Cortisol Urine Color Urine Appearance Urine pH Ur Specific [place] Urine Protein Urine Glucose (UA) Urine Ketones Urine Blood Urine Nitrite Urine Bilirubin Urine Urobilinogen Ur Leukocyte Esterase Urine WBC (Auto) Urine RBC (Auto) U Hyaline Cast (Auto) Urine Bacteria (Auto) Squamous Epi Cells Auto Urine Mucus (Auto) Urine Ascorbic Acid Blood Type Antibody Screen 07/11/19 07/11/19 07/11/19 11:31 15:50 15:50 WBC 4.9 RBC 3.36 L Hgb 10.1 L Hct 31.3 L MCV 93 MCH 30.1 MCHC 32.3 RDW 20.0 H Plt Count 126 L Lymph % (Auto) Not Reportable [place] % (Auto) Not Reportable Eos % (Auto) Not Reportable Baso % (Auto) Not Reportable Absolute Neuts (auto) Not Reportable Absolute Lymphs (auto) Not Reportable Absolute Monos (auto) Not Reportable Absolute Eos (auto) Not Reportable Absolute Basos (auto) Not Reportable Total Counted 100 Seg Neutrophils % Not Reportable Seg Neuts % (Manual) 83 H Band Neutrophils % Lymphocytes % (Manual) 11 L Monocytes % (Manual) 5 Eosinophils % (Manual) 1 Basophils % (Manual) 0 Abs Neuts (Manual) 4.1 Abs Lymphs (Manual) 0.5 Abs Monocytes (Manual) 0.2 Absolute Eos (Manual) 0.0 Abs Basophils (Manual) 0.0 Nucleated RBCs Toxic Granulation SLIGHT Platelet Comment DECREASED Polychromasia 1+ Poikilocytosis 1+ Anisocytosis 2+ Ovalocytes SLIGHT ESR 57 H Sodium Potassium 2.6 L* Chloride Carbon Dioxide Anion Gap BUN Creatinine Est GFR ( Amer) Est GFR (Non-Af Amer) Est GFR (MDRD) Non-Af Glucose POC Glucose 518 H* Lactic Acid Calcium Phosphorus Magnesium Total Bilirubin Direct Bilirubin Neonat Total Bilirubin Neonat Direct Bilirubin Neonat Indirect Bili AST ALT Alkaline Phosphatase Creatine Kinase CK-MB (CK-2) Troponin I C-Reactive Protein NT-Pro-B Natriuret Pep Total Protein Albumin Prealbumin Triglycerides EGFR TSH Free T3 pg/mL Random Cortisol Urine Color Urine Appearance Urine pH Ur Specific [place] Urine Protein Urine Glucose (UA) Urine Ketones Urine Blood Urine Nitrite Urine Bilirubin Urine Urobilinogen Ur Leukocyte Esterase Urine WBC (Auto) Urine RBC (Auto) U Hyaline Cast (Auto) Urine Bacteria (Auto) Squamous Epi Cells Auto Urine Mucus (Auto) Urine Ascorbic Acid Blood Type Antibody Screen 07/11/19 07/11/19 07/11/19 15:50 16:00 17:45 WBC RBC Hgb Hct MCV MCH MCHC RDW Plt Count Lymph % (Auto) [place] % (Auto) Eos % (Auto) Baso % (Auto) Absolute Neuts (auto) Absolute Lymphs (auto) Absolute Monos (auto) Absolute Eos (auto) Absolute Basos (auto) Total Counted Seg Neutrophils % Seg Neuts % (Manual) Band Neutrophils % Lymphocytes % (Manual) Monocytes % (Manual) Eosinophils % (Manual) Basophils % (Manual) Abs Neuts (Manual) Abs Lymphs (Manual) Abs Monocytes (Manual) Absolute Eos (Manual) Abs Basophils (Manual) Nucleated RBCs Toxic Granulation Platelet Comment Polychromasia Poikilocytosis Anisocytosis Ovalocytes ESR Sodium Potassium Chloride Carbon Dioxide Anion Gap BUN Creatinine Est GFR ( Amer) Est GFR (Non-Af Amer) Est GFR (MDRD) Non-Af Glucose POC Glucose 427 H* 482 H* Lactic Acid Calcium Phosphorus Magnesium Total Bilirubin Direct Bilirubin Neonat Total Bilirubin Neonat Direct Bilirubin Neonat Indirect Bili AST ALT Alkaline Phosphatase Creatine Kinase CK-MB (CK-2) Troponin I C-Reactive Protein 20.0 H NT-Pro-B Natriuret Pep Total Protein Albumin Prealbumin Triglycerides EGFR TSH Free T3 pg/mL Random Cortisol Urine Color Urine Appearance Urine pH Ur Specific [place] Urine Protein Urine Glucose (UA) Urine Ketones Urine Blood Urine Nitrite Urine Bilirubin Urine Urobilinogen Ur Leukocyte Esterase Urine WBC (Auto) Urine RBC (Auto) U Hyaline Cast (Auto) Urine Bacteria (Auto) Squamous Epi Cells Auto Urine Mucus (Auto) Urine Ascorbic Acid Blood Type Antibody Screen 07/11/19 07/11/19 07/11/19 19:44 21:15 21:24 WBC 6.0 RBC 3.74 L Hgb 11.2 L Hct 35.0 L MCV 94 MCH 30.1 MCHC 32.1 RDW 20.3 H Plt Count 156 Lymph % (Auto) 8.0 L [place] % (Auto) 4.4 Eos % (Auto) 0.1 Baso % (Auto) 0.2 Absolute Neuts (auto) 5.3 Absolute Lymphs (auto) 0.5 Absolute Monos (auto) 0.3 Absolute Eos (auto) 0.0 Absolute Basos (auto) 0.0 Total Counted Seg Neutrophils % 87.3 H Seg Neuts % (Manual) Band Neutrophils % Lymphocytes % (Manual) Monocytes % (Manual) Eosinophils % (Manual) Basophils % (Manual) Abs Neuts (Manual) Abs Lymphs (Manual) Abs Monocytes (Manual) Absolute Eos (Manual) Abs Basophils (Manual) Nucleated RBCs Toxic Granulation Platelet Comment Polychromasia Poikilocytosis Anisocytosis Ovalocytes ESR Sodium Potassium Chloride Carbon Dioxide Anion Gap BUN Creatinine Est GFR ( Amer) Est GFR (Non-Af Amer) Est GFR (MDRD) Non-Af Glucose POC Glucose 527 H* 452 H* Lactic Acid Calcium Phosphorus Magnesium Total Bilirubin Direct Bilirubin Neonat Total Bilirubin Neonat Direct Bilirubin Neonat Indirect Bili AST ALT Alkaline Phosphatase Creatine Kinase CK-MB (CK-2) Troponin I C-Reactive Protein NT-Pro-B Natriuret Pep Total Protein Albumin Prealbumin Triglycerides EGFR TSH Free T3 pg/mL Random Cortisol Urine Color Urine Appearance Urine pH Ur Specific [place] Urine Protein Urine Glucose (UA) Urine Ketones Urine Blood Urine Nitrite Urine Bilirubin Urine Urobilinogen Ur Leukocyte Esterase Urine WBC (Auto) Urine RBC (Auto) U Hyaline Cast (Auto) Urine Bacteria (Auto) Squamous Epi Cells Auto Urine Mucus (Auto) Urine Ascorbic Acid Blood Type Antibody Screen 07/11/19 07/11/19 07/11/19 21:24 22:28 23:30 WBC RBC Hgb Hct MCV MCH MCHC RDW Plt Count Lymph % (Auto) [place] % (Auto) Eos % (Auto) Baso % (Auto) Absolute Neuts (auto) Absolute Lymphs (auto) Absolute Monos (auto) Absolute Eos (auto) Absolute Basos (auto) Total Counted Seg Neutrophils % Seg Neuts % (Manual) Band Neutrophils % Lymphocytes % (Manual) Monocytes % (Manual) Eosinophils % (Manual) Basophils % (Manual) Abs Neuts (Manual) Abs Lymphs (Manual) Abs Monocytes (Manual) Absolute Eos (Manual) Abs Basophils (Manual) Nucleated RBCs Toxic Granulation Platelet Comment Polychromasia Poikilocytosis Anisocytosis Ovalocytes ESR Sodium Potassium Chloride Carbon Dioxide Anion Gap BUN Creatinine Est GFR ( Amer) Est GFR (Non-Af Amer) Est GFR (MDRD) Non-Af Glucose POC Glucose 484 H* 437 H* Lactic Acid 3.8 H Calcium Phosphorus Magnesium Total Bilirubin Direct Bilirubin Neonat Total Bilirubin Neonat Direct Bilirubin Neonat Indirect Bili AST ALT Alkaline Phosphatase Creatine Kinase CK-MB (CK-2) Troponin I C-Reactive Protein NT-Pro-B Natriuret Pep Total Protein Albumin Prealbumin Triglycerides EGFR TSH Free T3 pg/mL Random Cortisol Urine Color Urine Appearance Urine pH Ur Specific [place] Urine Protein Urine Glucose (UA) Urine Ketones Urine Blood Urine Nitrite Urine Bilirubin Urine Urobilinogen Ur Leukocyte Esterase Urine WBC (Auto) Urine RBC (Auto) U Hyaline Cast (Auto) Urine Bacteria (Auto) Squamous Epi Cells Auto Urine Mucus (Auto) Urine Ascorbic Acid Blood Type Antibody Screen 07/12/19 00:23 WBC RBC Hgb Hct MCV MCH MCHC RDW Plt Count Lymph % (Auto) [place] % (Auto) Eos % (Auto) Baso % (Auto) Absolute Neuts (auto) Absolute Lymphs (auto) Absolute Monos (auto) Absolute Eos (auto) Absolute Basos (auto) Total Counted Seg Neutrophils % Seg Neuts % (Manual) Band Neutrophils % Lymphocytes % (Manual) Monocytes % (Manual) Eosinophils % (Manual) Basophils % (Manual) Abs Neuts (Manual) Abs Lymphs (Manual) Abs Monocytes (Manual) Absolute Eos (Manual) Abs Basophils (Manual) Nucleated RBCs Toxic Granulation Platelet Comment Polychromasia Poikilocytosis Anisocytosis Ovalocytes ESR Sodium Potassium Chloride Carbon Dioxide Anion Gap BUN Creatinine Est GFR ( Amer) Est GFR (Non-Af Amer) Est GFR (MDRD) Non-Af Glucose POC Glucose 478 H* Lactic Acid Calcium Phosphorus Magnesium Total Bilirubin Direct Bilirubin Neonat Total Bilirubin Neonat Direct Bilirubin Neonat Indirect Bili AST ALT Alkaline Phosphatase Creatine Kinase CK-MB (CK-2) Troponin I C-Reactive Protein NT-Pro-B Natriuret Pep Total Protein Albumin Prealbumin Triglycerides EGFR TSH Free T3 pg/mL Random Cortisol Urine Color Urine Appearance Urine pH Ur Specific [place] Urine Protein Urine Glucose (UA) Urine Ketones Urine Blood Urine Nitrite Urine Bilirubin Urine Urobilinogen Ur Leukocyte Esterase Urine WBC (Auto) Urine RBC (Auto) U Hyaline Cast (Auto) Urine Bacteria (Auto) Squamous Epi Cells Auto Urine Mucus (Auto) Urine Ascorbic Acid Blood Type Antibody Screen Foot X-Ray 07/09/19 16:17 IMPRESSION: STABLE SURGICAL CHANGES. NO ACUTE FINDINGS. Chest X-Ray 07/09/19 16:20 IMPRESSION: NO ACUTE RADIOGRAPHIC FINDING IN THE CHEST. IMPRESSION/RECOMMENDATION: 1. Hypotension with somnolence and lethargy due to low cerebral perfusion. This is most likely secondary to combination of sepsis, dehydration, and the patient's severe cardiomyopathy. Would continue patient on dopamine at 2.5 mcg/kg/min. Continue vasopressin at 0.03units/min. And continue the patient on Elias-Synephrine at 100 mcg/min. Continue hydration in the form of TPN. Also in view of the multiple pressors would use IV amiodarone to prevent the patient from going to atrial fibrillation for reasons mentioned above. 2. High lactate levels most likely secondary to poor/low perfusion. 3. Sepsis? Was most likely secondary to patient diabetic foot ulcers. Which are chronic and nonhealing 4. Hyposteroidism resume most likely secondary to the patient needing increased doses of steroids due to the patient's current sepsis/infection. Also since the patient is already receiving hydrocortisone at 100 mg IV every 8 hours, we will also give the patient a dose of fludrocortisone (Florinef) at 0.1 mg p.o. now and daily. 5. Hypokalemia and dehydration, will replace the patient's potassium gently hydrate the patient. 6. Severe malnutrition: Continue TPN and increase as tolerated. 7. Paroxysmal atrial fibrillation: Start patient on amiodarone in view of the patient's multiple pressor requirements. Would rather get records from [facility], and to see if the patient can be restarted on Eliquis for his paroxysmal atrial fibrillation. 8. Cardiomyopathy with severely reduced LV ejection fraction 15%. 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 Watch patient closely for decompensation and going into heart failure. 9. AICD placement: No recent firing of AICD. 10. COPD by history: At present stable with no acute exacerbation of COPD. 11. Myositis: Note that the patient's CPK is within normal limits. Possibly not in a active state. Continue the patient on steroids.\\ 12. Calcified non-mobile left ventricular apical clot, which clinically I do not think could cause peripheral embolization, since it is old and calcified. Medications reviewed medications added management plan and medication treatment discussed with clay molder. Medical decision making is us very high complexity. Will follow.
[2019-07-11] MEDS ORDERED: DOPAMINE HCL/DEXTROSE 5%-WATER 800 MG/250 ML RTUINJ IV ONE (19:46)
[2019-07-11] MEDS: INSULIN, REGULAR 100 UNIT/100 ML NORMAL SALINE IV PRN ×2 (20:14)
[2019-07-11] MEDS ORDERED: PHENYLEPHRINE HCL INJ/PF 10 MG/1 ML SDV ONE (20:36)
[2019-07-11] MEDS ORDERED: DOPAMINE HCL 800 MG/D5W 250 ML IV PRN (20:43)
[2019-07-11] MEDS ORDERED: POTASSIUM CHLORIDE 20 MEQ/50 ML RTU IV SCH (20:45)
[2019-07-11] MEDS ORDERED: VASOPRESSIN INJ 20 UNIT/1 ML VIAL ONE (20:48)
[2019-07-11] MEDS ORDERED: DIGOXIN INJ 0.5 MG/2 ML AMPULE IV ONE (21:04)
[2019-07-11] MEDS ORDERED: FLUDROCORTISONE ACETATE 0.1 MG TABLET PO ONE (21:04)
[2019-07-11] MEDS ORDERED: PHARMACY COMMUNICATION ORDER MC NR (21:15)
[2019-07-11 21:41] LABS: ABSOLUTE LYMPHOCYTES (AUTO) 0.5 10^3/uL (0.5-4.7); ABSOLUTE MONOCYTES (AUTO) 0.3 10^3/uL (0.1-1.4); ABSOLUTE NEUT (AUTO) 5.3 10^3/uL (1.7-8.2); BASOPHILS % (AUTO) 0.2 % (0-2); EOSINOPHILS % (AUTO) 0.1 % (0-6); HEMOGLOBIN 11.2 g/dL (13.5-17.0); MEAN CORPUSCULAR HEMOGLOBIN 30.1 pg (27.0-33.4); MEAN CORPUSCULAR HGB CONC 32.1 g/dL (32.0-36.0); MEAN CORPUSCULAR VOLUME 94 fl (80-97); MONOCYTES % (AUTO) 4.4 % (3-13); PLATELET COUNT 156 10^3/uL (150-450); RED BLOOD COUNT 3.74 10^6/uL (4.35-5.55); RED CELL DISTRIBUTION WIDTH 20.3 % (11.5-14.0); SEGMENTED NEUTROPHILS % (AUTO) 87.3 % (42-78); TOTAL CELLS COUNTED % (AUTO) 100 %
[2019-07-11] MEDS: DEXTROSE 5%-WATER 250 ML with PHENYLEPHRINE HCL 40 MG IV PRN ×2 (21:42)
[2019-07-11] MEDS: DEXTROSE 5%-WATER 250 ML with VASOPRESSIN 100 UNIT IV PRN ×2 (21:43)
[2019-07-11] MEDS ORDERED: AMIODARONE HCL 150 MG in DEXTROSE 5%-WATER 100 ML IV ONE (21:43)
[2019-07-11] MEDS ORDERED: FLUDROCORTISONE ACETATE 0.1 MG TABLET ONE (21:44)
[2019-07-11] MEDS ORDERED: AMIODARONE HCL INJ 150 MG/3 ML VIAL IV ONE ×3 (21:45→21:50)
[2019-07-11] MEDS: ROPINIROLE HCL 2 MG TABLET PO SCH (22:01)
[2019-07-11] MEDS: DEXTROSE 5%-WATER 500 ML with AMIODARONE HCL 900 MG IV PRN ×2 (22:25)
--- NOTE | 2019-07-11 22:26 | RADIOLOGY REPORT (SQ) ---
XR ABDOMEN 1 VIEW (KUB) CLINICAL STATEMENT: Check Placement of NG Tube FINDINGS: Enteric tube is in place with tip below the diaphragm in the stomach.
[2019-07-11] MEDS: VALSARTAN 40 MG TABLET PO SCH (22:31)
[2019-07-12] MEDS ORDERED: ACETAMINOPHEN 325 MG TABLET NG PRN (00:43)
[2019-07-12] MEDS ORDERED: DOCUSATE SODIUM 100 MG/10 ML UDC NG PRN (00:45)
--- NOTE | 2019-07-12 01:47 | RADIOLOGY REPORT (SQ) ---
EXAM DESCRIPTION: CT abdomen and pelvis with contrast CLINICAL HISTORY: 69 years Male, Possible necrotic bowel, EF 15% hypotensive COMPARISON: None. TECHNIQUE: Axial images of the abdomen and pelvis were performed utilizing intravenous contrast, with sagittal and coronal reformatted images. Oral contrast was also administered. This exam was performed according to our departmental dose-optimization program which includes use of Automated Exposure Control, adjustment of the mA and/or kV according to patient size and/or use of iterative reconstruction technique. FINDINGS: The stomach is dilated and contains a large amount of food and fluid. The gallbladder is packed with stones. There is a large amount of stool in portions of the colon, compatible with constipation. There are atherosclerotic changes involving the abdominal aorta, but there is no aneurysm. No evidence of bowel obstruction. There is no radiographic evidence of bowel ischemia. There is no significant radiographic abnormality of the liver, spleen, pancreas, adrenal glands or kidneys. No mass or adenopathy. No free air or free fluid. There is mild left basilar atelectasis. IMPRESSION: The stomach is dilated and contains a large amount of food and fluid. Please correlate clinically. Other findings as described.
[2019-07-12 02:54] LABS: HEMOGLOBIN 10.3 g/dL (13.5-17.0); MEAN CORPUSCULAR HEMOGLOBIN 30.1 pg (27.0-33.4); MEAN CORPUSCULAR HGB CONC 32.3 g/dL (32.0-36.0); MEAN CORPUSCULAR VOLUME 93 fl (80-97); PLATELET COUNT 134 10^3/uL (150-450); RED BLOOD COUNT 3.44 10^6/uL (4.35-5.55); RED CELL DISTRIBUTION WIDTH 20.2 % (11.5-14.0); WHITE BLOOD COUNT 6.5 10^3/uL (4.0-10.5)
[2019-07-12] MEDS: HYDROMORPHONE HCL INJ/PF 2 MG/ML AMPULE IV PRN ×2 (02:58→10:50)
[2019-07-12] MEDS: NYSTATIN/DEXAMETH/DIPHEN SUSP 120 ML PO SCH ×6 (03:00→21:13)
[2019-07-12 03:01] LABS: INTERNATIONAL RATION (INR) 1.19; PROTHROMBIN TIME 15.2 SEC (11.4-15.4)
[2019-07-12] MEDS ORDERED: PHENYLEPHRINE HCL INJ/PF 10 MG/1 ML SDV ONE (03:28)
[2019-07-12 03:30] LABS: ANION GAP 9 (5-19); BLOOD UREA NITROGEN 61 mg/dL (7-20); CALCIUM 8.1 mg/dL (8.4-10.2); CARBON DIOXIDE 29 mmol/L (22-30); CHLORIDE 98 mmol/L (98-107); PHOSPHORUS 2.8 mg/dL (2.5-4.5); POTASSIUM 3.3 mmol/L (3.6-5.0)
[2019-07-12 03:37] LABS: PREALBUMIN 31.7 mg/dL (17.6-36.0)
[2019-07-12] MEDS: DEXTROSE 5%-WATER 250 ML with PHENYLEPHRINE HCL 40 MG IV PRN ×8 (03:42→23:08)
[2019-07-12 03:51] LABS: GLUCOSE 434 mg/dL (75-110)
[2019-07-12] MEDS: HYDROCORTISONE SOD SUCCINATE INJ/PF 100 MG/2 ML SDV IV SCH ×3 (05:18→21:16)
[2019-07-12] MEDS: LEVOTHYROXINE SODIUM 0.088 MG TABLET NG SCH (05:18)
[2019-07-12] MEDS: GABAPENTIN 300 MG CAPSULE NG SCH ×3 (05:18→21:15)
[2019-07-12] MEDS: POTASSIUM CHLORIDE 20 MEQ/50 ML RTU IV SCH ×5 (05:20→19:59)
[2019-07-12] MEDS ORDERED: DEXTROSE 40% GEL 15 GM TUBE PO PRN (06:23)
[2019-07-12] MEDS ORDERED: DEXTROSE 50%-WATER 25 GM/50 ML DISP.SYRIN IV PRN ×2 (06:23)
[2019-07-12] MEDS ORDERED: GLUCAGON,HUMAN RECOMB 1 MG INJ SUBCUT PRN (06:23)
[2019-07-12] MEDS ORDERED: TORSEMIDE 20 MG TABLET NG SCH (08:00)
[2019-07-12] MEDS ORDERED: INSULIN LISPRO 100 UNIT/ML 3 ML VIAL SUBCUT SCH (08:00)
[2019-07-12] MEDS: FINASTERIDE 5 MG TABLET PO SCH (09:08)
[2019-07-12] MEDS: ENOXAPARIN SODIUM INJ 40 MG/0.4 ML DISP.SYRIN SUBCUT SCH (09:09)
[2019-07-12] MEDS: FAMOTIDINE 20 MG TABLET NG SCH ×2 (09:12→17:44)
[2019-07-12] MEDS: ASPIRIN 81 MG TABLET, CHEWABLE NG SCH (09:12)
[2019-07-12] MEDS: AMITRIPTYLINE HCL 25 MG TABLET NG SCH (09:15)
[2019-07-12] MEDS: FLUCONAZOLE 100 MG TABLET NG SCH (09:15)
[2019-07-12] MEDS: COLCHICINE 0.6 MG TABLET NG SCH ×2 (09:15→17:45)
[2019-07-12] MEDS ORDERED: FAT EMULSIONS 250 ML IV SCH (10:00)
[2019-07-12] MEDS ORDERED: PENICILLIN V POTASSIUM 250 MG TABLET NG SCH (10:00)
[2019-07-12] MEDS ORDERED: CARVEDILOL 12.5 MG TABLET NG SCH (10:00)
--- NOTE | 2019-07-12 10:13 | PDOC PROGRESS REPORT ---
Subjective Progress Note for:: 07/12/19 Subjective:: ICU progress note Pt remains on dopamine, vasopressin, and neosynephrine. Complains of pain in his legs. Reason For Visit: CARDIOMYOPATHY,HYPOTENSION,HYPOADRENAL Physical Exam Vital Signs: Temp Pulse Resp BP Pulse Ox 99.7 F 76 20 97/62 L 100 07/12/19 08:00 07/12/19 08:00 07/12/19 08:00 07/12/19 08:00 07/12/19 08:00 Intake & Output 07/11/19 07/12/19 07/13/19 06:59 06:59 06:59 Intake Total 3700 2683 271 Output Total 2300 6150 460 Balance 0038 -9845 -372 Weight 77 kg 76.4 kg General appearance: PRESENT: no acute distress, thin Head exam: PRESENT: atraumatic, normocephalic Respiratory exam: PRESENT: clear to auscultation jerry, unlabored Cardiovascular exam: PRESENT: RRR GI/Abdominal exam: PRESENT: soft, other - non-tender, non-distended Extremities exam: PRESENT: other - multiple LE venous stasis ulcers. Results Laboratory Results: 07/12/19 02:45 07/12/19 02:45 07/11/19 07/11/19 07/11/19 04:34 15:50 15:50 WBC 4.9 RBC 3.36 L Hgb 10.1 L Hct 31.3 L MCV 93 MCH 30.1 MCHC 32.3 RDW 20.0 H Plt Count 126 L Seg Neutrophils % Not Reportable Sodium Potassium 2.6 L* Chloride Carbon Dioxide Anion Gap BUN Creatinine Est GFR ( Amer) Glucose Lactic Acid Calcium Phosphorus Magnesium C-Reactive Protein Prealbumin 22.6 Triglycerides 483 H 07/11/19 07/11/19 07/11/19 15:50 21:24 21:24 WBC 6.0 RBC 3.74 L Hgb 11.2 L Hct 35.0 L MCV 94 MCH 30.1 MCHC 32.1 RDW 20.3 H Plt Count 156 Seg Neutrophils % 87.3 H Sodium Potassium Chloride Carbon Dioxide Anion Gap BUN Creatinine Est GFR ( Amer) Glucose Lactic Acid 3.8 H Calcium Phosphorus Magnesium C-Reactive Protein 20.0 H Prealbumin Triglycerides 07/12/19 07/12/19 07/12/19 02:45 02:45 02:45 WBC 6.5 RBC 3.44 L Hgb 10.3 L Hct 32.0 L MCV 93 MCH 30.1 MCHC 32.3 RDW 20.2 H Plt Count 134 L Seg Neutrophils % Sodium 135.5 L Potassium 3.3 L Chloride 98 Carbon Dioxide 29 Anion Gap 9 BUN 61 H Creatinine 1.05 Est GFR ( Amer) > 60 Glucose 434 H* Lactic Acid 3.1 H Calcium 8.1 L Phosphorus 2.8 Magnesium 1.9 C-Reactive Protein Prealbumin 31.7 Triglycerides 07/10/19 13:45 Arm - Right Gram Stain - Final 07/10/19 13:45 Arm - Right Wound Culture - Final 1+ SKIN BLANQUITA 07/10/19 13:45 Leg - Diabetic Ulcer Gram Stain - Final 07/09/19 07/11/19 07/11/19 17:45 04:34 04:34 Creatine Kinase 79 CK-MB (CK-2) 8.05 H Troponin I 2.350 NT-Pro-B Natriuret Pep [id number] H Impressions: Foot X-Ray 07/09/19 16:17 IMPRESSION: STABLE SURGICAL CHANGES. NO ACUTE FINDINGS. Chest X-Ray 07/09/19 16:20 IMPRESSION: NO ACUTE RADIOGRAPHIC FINDING IN THE CHEST. Abdomen/Pelvis CT 07/11/19 00:00 IMPRESSION: The stomach is dilated and contains a large amount of food and fluid. Please correlate clinically. Other findings as described. Assessment & Plan - Diagnosis (1) Cardiomyopathy Qualifiers: Cardiomyopathy type: ischemic Qualified Code(s): I25.5 - Ischemic cardiomyopathy Is this a current diagnosis for this admission?: Yes (2) Diabetic foot ulcer associated with type 2 diabetes mellitus Qualifiers: Diabetic foot ulcer location: other Laterality: right Non-pressure ulcer stage: limited to breakdown of skin Qualified Code(s): E11.621 - Type 2 diabetes mellitus with foot ulcer; L97.511 - Non-pressure chronic ulcer of other part of right foot limited to breakdown of skin Is this a current diagnosis for this admission?: Yes (3) Hypoadrenalism Is this a current diagnosis for this admission?: Yes (4) Hypotension Qualifiers: Hypotension type: unspecified hypotension type Qualified Code(s): I95.9 - Hypotension, unspecified Is this a current diagnosis for this admission?: Yes - Plan Summary Plan Summary: Assessment: Critically ill 69 yo man with hypotension, cardiomyopathy with EF of 15%, afib, diabetes, diabetic foot ulcers, polymyositis, adrenal insuffiency, hyperglycemia, severe protein-calorie malnutrition, sepsis 1. Respiratory: stable on nasal cannula 2. Pulmonary: COPD, stable 3. CV: CM with EF of 15%, AICD, h/o calcified LV thrombus, afib, hypotension. Continue dopamine, vasopressin, erica, and amiodarone infusion. Care per Dr. Flores 4. Rheum: polymyositis. Continue steroids 5. ID: sepsis. Continue vanc, cefepime, diflucan 6. Nutrition: severe PCM. On TPN. Will start tube feeds and wean TPN once tube feeds at goal 7. Endocrine: Adrenal insuffiency. On stress dose steroids. Hyperglycemia. Insulin drip per protocol. Will add flourinef 8. Vascular: chronic diabetic foot ulcers 9. Prophylaxis: lovenox 10. D/W. Dr. Flores Critical care time= 40 min, excluding procedures
[2019-07-12] MEDS: VANCOMYCIN HCL 1,000 MG in DEXTROSE 5%-WATER 250 ML IV SCH ×2 (10:18→21:17)
[2019-07-12] MEDS: FEBUXOSTAT 40 MG TABLET NG SCH (10:18)
[2019-07-12] MEDS: INSULIN, REGULAR 100 UNIT/100 ML NORMAL SALINE IV PRN ×6 (11:18→23:06)
[2019-07-12] MEDS: CEFEPIME 2 GM/D5W RTU 2 GM/50 ML RTUPB IV SCH ×2 (11:21→21:15)
[2019-07-12] MEDS: MIDODRINE HCL 5 MG TABLET NG SCH ×2 (13:34→17:45)
[2019-07-12] MEDS: FLUDROCORTISONE ACETATE 0.1 MG TABLET NG SCH (13:34)
[2019-07-12 14:15] LABS: ANION GAP 6 (5-19); BLOOD UREA NITROGEN 57 mg/dL (7-20); CALCIUM 7.9 mg/dL (8.4-10.2); CARBON DIOXIDE 32 mmol/L (22-30); CHLORIDE 96 mmol/L (98-107)
[2019-07-12 14:24] LABS: GLUCOSE 454 mg/dL (75-110)
[2019-07-12 14:25] LABS: POTASSIUM 2.7 mmol/L (3.6-5.0)
[2019-07-12] MEDS: AMINO ACIDS 5 %/DEXTROSE 20 % 1,000 ML IV PRN (17:45)
[2019-07-12] MEDS ORDERED: VALSARTAN 40 MG TABLET NG SCH (20:00)
--- NOTE | 2019-07-12 20:09 | Progress Note ---
Provider Note Provider Note: CARDIOLOGY progress PROGRESS NOTE by Dr. Bonnie Doe on 07/12/2019. SUBJECTIVE: The patient is more awake today. His blood pressure is better. But with trying to take him off the dopamine his blood pressure does drop. His CAT scan did not show anything major except for distended stomach with fluid in it. There is impacted gallbladder with gallstones. The patient does not have any symptoms of acute cholecystitis or cholelithiasis. His blood sugars have been very high on TPN, and hence a decision has been made to change it to enteral nutrition. The patient remains in sinus rhythm with occasional APCs. There is no atrial fibrillation. Patient continues to be on Elias-Synephrine, dopamine and vasopressin. He denies any chest pain or discomfort. He continues to have muscle weakness. He denies any shortness of breath or cough or wheezing or shortness of breath or PND or orthopnea. There is no leg edema. PHYSICAL EXAMINATION: The patient is chronically ill-appearing and malnourished. He appears to be cachectic. Selected Entries 07/12/19 07/12/19 10:45 12:00 Temperature 99.7 F Temperature Core Source Core 99.5 F Temperature Pulse Rate 74 Heart Rate ( 80 Monitors) Respiratory 18 22 H Rate Blood Pressure 106/54 L Blood Pressure 93/66 L [Left Upper Arm ] Blood Pressure 71 Mean Blood Pressure 75 Mean [Left Upper Arm] Blood Pressure Supine Position [Left Upper Arm] O2 Sat by Pulse 100 Oximetry Oxygen Delivery Room Air Method ( includes room air) HEAD: Head is atraumatic and normocephalic. EYES: Pupils are equal round regular reactive to in no acute dietress. light accommodation. Extraocular movements are normal, there is no conjunctival pallor, and no scleral icterus. EARS: Tympanic membranes are intact external auditory canals are clear. NOSE: There is no inflammation of the nasal mucous membrane there is no deviated nasal septum. MOUTH: Mucous membranes of mouth and tongue are moist, there is no ulcers in the mouth or tongue, and no bleeding from the gums. THROAT: There is no redness of the oropharynx, no exudate seen. SKIN: There is no petechia or ecchymosis. There is no rashes or lesions. NECK: Supple. There is no JVD. Carotids are equal there is no bruit. There is no lymphadenopathy. There is no goiter. Trachea central LUNGS: There is diminished air entry and prolonged expiration. Clear to auscultation bilaterally, no wheezes, rales or rhonchi. On percussion there is hyperresonance. There is no chest wall tenderness HEART: S1 and S2 are heard. S1 is of normal intensity, there is no S3 or S4 gallops. There is a systolic murmur the left sternal border and the apex. There is no rub. ABDOMEN: Normoactive bowel sounds, soft, nontender, no masses, no rebound, no guarding. There is no hepatosplenomegaly. EXTREMITIES: Femorals are slightly diminished. There is no femoral bruits. Leg pulses are diminished. There is no pedal edema. There is no DVT or cellulitis. There is no cyanosis or clubbing. There is no calf tenderness. NEUROLOGICAL the patient is awake,alert and oriented X3.No focal deficits.. There is muscle weakness proximal group more than distal group of muscle show weakness. He also seems to be muscle wasting. Reflexes generalized seem to be decreased. PSYCHIATRIC: The patient judgment and insight were intact, and his affect. Labs- All tests 24 hr 07/10/19 07/11/19 07/12/19 22:07 20:21 00:23 WBC RBC Hgb Hct MCV MCH MCHC RDW Plt Count PT INR Sodium Potassium Chloride Carbon Dioxide Anion Gap BUN Creatinine Est GFR ( Amer) Est GFR (Non-Af Amer) Est GFR (MDRD) Non-Af Glucose POC Glucose 383 H 493 H* 478 H* Lactic Acid Calcium Phosphorus Magnesium Prealbumin Triglycerides EGFR 07/12/19 07/12/19 07/12/19 01:33 02:37 02:45 WBC RBC Hgb Hct MCV MCH MCHC RDW Plt Count PT INR Sodium Potassium Chloride Carbon Dioxide Anion Gap BUN Creatinine Est GFR ( Amer) Est GFR (Non-Af Amer) Est GFR (MDRD) Non-Af Glucose POC Glucose 428 H* 424 H* Lactic Acid 3.1 H Calcium Phosphorus Magnesium Prealbumin Triglycerides EGFR 07/12/19 07/12/19 07/12/19 02:45 02:45 02:45 WBC 6.5 RBC 3.44 L Hgb 10.3 L Hct 32.0 L MCV 93 MCH 30.1 MCHC 32.3 RDW 20.2 H Plt Count 134 L PT 15.2 INR 1.19 Sodium 135.5 L Potassium 3.3 L Chloride 98 Carbon Dioxide 29 Anion Gap 9 BUN 61 H Creatinine 1.05 Est GFR ( Amer) > 60 Est GFR (Non-Af Amer) Est GFR (MDRD) Non-Af > 60 Glucose 434 H* POC Glucose Lactic Acid Calcium 8.1 L Phosphorus 2.8 Magnesium 1.9 Prealbumin 31.7 Triglycerides EGFR 07/12/19 07/12/19 07/12/19 03:40 04:43 05:49 WBC RBC Hgb Hct MCV MCH MCHC RDW Plt Count PT INR Sodium Potassium Chloride Carbon Dioxide Anion Gap BUN Creatinine Est GFR ( Amer) Est GFR (Non-Af Amer) Est GFR (MDRD) Non-Af Glucose POC Glucose 414 H* 476 H* 504 H* Lactic Acid Calcium Phosphorus Magnesium Prealbumin Triglycerides EGFR 07/12/19 07/12/19 07/12/19 06:52 08:05 09:07 WBC RBC Hgb Hct MCV MCH MCHC RDW Plt Count PT INR Sodium Potassium Chloride Carbon Dioxide Anion Gap BUN Creatinine Est GFR ( Amer) Est GFR (Non-Af Amer) Est GFR (MDRD) Non-Af Glucose POC Glucose 422 H* 492 H* 493 H* Lactic Acid Calcium Phosphorus Magnesium Prealbumin Triglycerides EGFR 07/12/19 07/12/19 07/12/19 10:08 11:17 12:50 WBC RBC Hgb Hct MCV MCH MCHC RDW Plt Count PT INR Sodium Cancelled Potassium Cancelled Chloride Cancelled Carbon Dioxide Cancelled Anion Gap Cancelled BUN Cancelled Creatinine Cancelled Est GFR ( Amer) Cancelled Est GFR (Non-Af Amer) Cancelled Est GFR (MDRD) Non-Af Cancelled Glucose Cancelled POC Glucose 453 H* 498 H* Lactic Acid Calcium Cancelled Phosphorus Magnesium Prealbumin Triglycerides EGFR Cancelled 07/12/19 07/12/19 07/12/19 13:47 13:51 15:11 WBC RBC Hgb Hct MCV MCH MCHC RDW Plt Count PT INR Sodium 134.2 L Potassium 2.7 L* Chloride 96 L Carbon Dioxide 32 H Anion Gap 6 BUN 57 H Creatinine 0.89 Est GFR ( Amer) > 60 Est GFR (Non-Af Amer) Est GFR (MDRD) Non-Af > 60 Glucose 454 H* POC Glucose 500 H* 479 H* Lactic Acid Calcium 7.9 L Phosphorus Magnesium Prealbumin Triglycerides EGFR 07/12/19 07/12/19 07/12/19 16:27 17:18 18:19 WBC RBC Hgb Hct MCV MCH MCHC RDW Plt Count PT INR Sodium Potassium Chloride Carbon Dioxide Anion Gap BUN Creatinine Est GFR ( Amer) Est GFR (Non-Af Amer) Est GFR (MDRD) Non-Af Glucose POC Glucose 478 H* 435 H* 423 H* Lactic Acid Calcium Phosphorus Magnesium Prealbumin Triglycerides EGFR 07/12/19 07/12/19 07/12/19 19:55 19:56 21:03 WBC RBC Hgb Hct MCV MCH MCHC RDW Plt Count PT INR Sodium Potassium Chloride Carbon Dioxide Anion Gap BUN Creatinine Est GFR ( Amer) Est GFR (Non-Af Amer) Est GFR (MDRD) Non-Af Glucose POC Glucose 300 H 234 H Lactic Acid Calcium Phosphorus Magnesium Prealbumin Triglycerides 635 H EGFR 07/12/19 07/12/19 07/13/19 22:00 23:07 00:04 WBC RBC Hgb Hct MCV MCH MCHC RDW Plt Count PT INR Sodium Potassium Chloride Carbon Dioxide Anion Gap BUN Creatinine Est GFR ( Amer) Est GFR (Non-Af Amer) Est GFR (MDRD) Non-Af Glucose POC Glucose 203 H 272 H 440 H* Lactic Acid Calcium Phosphorus Magnesium Prealbumin Triglycerides EGFR Foot X-Ray 07/09/19 16:17 IMPRESSION: STABLE SURGICAL CHANGES. NO ACUTE FINDINGS. Chest X-Ray 07/09/19 16:20 IMPRESSION: NO ACUTE RADIOGRAPHIC FINDING IN THE CHEST. Abdomen/Pelvis CT 07/11/19 00:00 IMPRESSION: The stomach is dilated and contains a large amount of food and fluid. Please correlate clinically. Other findings as described. IMPRESSION/RECOMMENDATION: 1. Hypotension with somnolence and lethargy due to low cerebral perfusion. This is most likely secondary to combination of sepsis, dehydration, and the patient's severe cardiomyopathy. Would continue patient on dopamine at 2.5 mcg/kg/min. Continue vasopressin at 0.03units/min. And continue the patient on Elias-Synephrine at 100 mcg/min. Continue hydration in the form of TPN. Also in view of the multiple pressors would use IV amiodarone to prevent the patient from going to atrial fibrillation for reasons mentioned above. We will start the patient on Midrin 5 mill grams p.o. 3 times daily to see if we can get the patient is off pressors. Also will add fludrocortisone 0.1 mg p.o. daily. 2. High lactate levels most likely secondary to poor/low perfusion. 3. Sepsis? Was most likely secondary to patient diabetic foot ulcers. Which are chronic and nonhealing 4. Hyposteroidism resume most likely secondary to the patient needing increased doses of steroids due to the patient's current sepsis/infection. Also since the patient is already receiving hydrocortisone at 100 mg IV every 8 hours, we will also give the patient a dose of fludrocortisone (Florinef) at 0.1 mg p.o. now and daily. 5. Hypokalemia and dehydration, will replace the patient's potassium gently hydrate the patient. 6. Severe malnutrition: Blood sugars are very high on parenteral TPN. Hence patient has been made to switch to enteral nutrition. 7. Paroxysmal atrial fibrillation: Start patient on amiodarone in view of the patient's multiple pressor requirements. [facility], and to see if the patient can be restarted on Eliquis for his paroxysmal atrial fibrillation. 8. Cardiomyopathy with severely reduced LV ejection fraction 15%. 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 Watch patient closely for decompensation and going into heart failure. 9. AICD placement: No recent firing of AICD. 10. COPD by history: At present stable with no acute exacerbation of COPD. 11. Myositis: Note that the patient's CPK is within normal limits. Possibly not in a active state. Continue the patient on steroids.\ 12. Calcified non-mobile left ventricular apical clot, which clinically I do not think could cause peripheral embolization, since it is old and calcified. Medications reviewed medications added management plan and medication treatment discussed with natural sciences professor. Medical decision making is us very high complexity. 40 minutes spent on this patient more than 50% of time spent in direct patient care. The case has been discussed with the natural sciences professor Dr. Medley. Will follow.
[2019-07-12] MEDS: ROPINIROLE HCL 2 MG TABLET NG SCH (21:16)
[2019-07-13 01:02] LABS: BLOOD UREA NITROGEN 52 mg/dL (7-20); CARBON DIOXIDE 35 mmol/L (22-30); CHLORIDE 97 mmol/L (98-107); GLUCOSE 156 mg/dL (75-110)
[2019-07-13] MEDS: NYSTATIN/DEXAMETH/DIPHEN SUSP 120 ML PO SCH ×6 (01:04→22:33)
[2019-07-13 01:15] LABS: ANION GAP 4 (5-19)
[2019-07-13 01:16] LABS: POTASSIUM 2.8 mmol/L (3.6-5.0)
[2019-07-13] MEDS: POTASSIUM CHLORIDE 20 MEQ/50 ML RTU IV SCH ×3 (01:32→05:36)
[2019-07-13] MEDS: DEXTROSE 5%-WATER 500 ML with AMIODARONE HCL 900 MG IV PRN ×2 (02:28)
[2019-07-13] MEDS: HYDROMORPHONE HCL INJ/PF 2 MG/ML AMPULE IV PRN ×3 (03:26→22:32)
[2019-07-13] MEDS: INSULIN, REGULAR 100 UNIT/100 ML NORMAL SALINE IV PRN ×4 (04:20→23:54)
[2019-07-13 05:32] LABS: HEMATOCRIT 28.1 % (37.9-51.0); HEMOGLOBIN 9.1 g/dL (13.5-17.0); MEAN CORPUSCULAR HEMOGLOBIN 29.7 pg (27.0-33.4); MEAN CORPUSCULAR HGB CONC 32.5 g/dL (32.0-36.0); MEAN CORPUSCULAR VOLUME 91 fl (80-97); RED BLOOD COUNT 3.08 10^6/uL (4.35-5.55); RED CELL DISTRIBUTION WIDTH 19.8 % (11.5-14.0); WHITE BLOOD COUNT 4.7 10^3/uL (4.0-10.5)
[2019-07-13] MEDS: LEVOTHYROXINE SODIUM 0.088 MG TABLET NG SCH (05:35)
[2019-07-13] MEDS: GABAPENTIN 300 MG CAPSULE NG SCH ×3 (05:35→22:33)
[2019-07-13] MEDS: HYDROCORTISONE SOD SUCCINATE INJ/PF 100 MG/2 ML SDV IV SCH ×3 (05:35→22:33)
[2019-07-13 05:58] LABS: PLATELET COUNT 94 10^3/uL (150-450)
[2019-07-13 06:18] LABS: ABSOLUTE LYMPHOCYTES# (MANUAL) 0.8 10^3/uL (0.5-4.7); ABSOLUTE MONOCYTES # (MANUAL) 0.4 10^3/uL (0.1-1.4); BAND NEUTROPHILS % (MANUAL) 1 % (3-5); BASOPHILS % (MANUAL) 0 % (0-2); EOSINOPHILS % (MANUAL) 0 % (0-6); LYMPHOCYTES % (MANUAL) 16 % (13-45); MONOCYTES % (MANUAL) 8 % (3-13); NUCLEATED RED BLOOD CELLS 1 /100 WBC (0); SEGMENTED NEUTROPHILS % (MAN) 73 % (42-78); TOTAL CELLS COUNTED 100
[2019-07-13 06:19] LABS: TOXIC VACUOLATION PRESENT
[2019-07-13 06:20] LABS: ANISOCYTOSIS 2+; POLYCHROMASIA 1+; TARGET CELLS 1+
[2019-07-13 06:21] LABS: PLATELET COMMENT DECREASED
[2019-07-13] MEDS: DEXTROSE 5%-WATER 250 ML with PHENYLEPHRINE HCL 40 MG IV PRN ×6 (06:49→19:47)
[2019-07-13 07:01] LABS: ALKALINE PHOSPHATASE 111 U/L (38-126); ASPARTATE AMINO TRANSFERASE 69 U/L (17-59); BILIRUBIN,DIRECT 0.2 mg/dL (0.0-0.4); BILIRUBIN,TOTAL 0.5 mg/dL (0.2-1.3); BLOOD UREA NITROGEN 49 mg/dL (7-20); CALCIUM 7.6 mg/dL (8.4-10.2); GLUCOSE 71 mg/dL (75-110); PHOSPHORUS 1.5 mg/dL (2.5-4.5); POTASSIUM 3.5 mmol/L (3.6-5.0); TOTAL PROTEIN 4.2 g/dL (6.3-8.2)
[2019-07-13 07:06] LABS: CARBON DIOXIDE 34 mmol/L (22-30); CHLORIDE 101 mmol/L (98-107)
[2019-07-13 07:08] LABS: PREALBUMIN 22.7 mg/dL (17.6-36.0)
[2019-07-13 07:18] LABS: ANION GAP 2 (5-19)
--- NOTE | 2019-07-13 08:33 | RADIOLOGY REPORT (SQ) ---
EXAM DESCRIPTION: CHEST SINGLE VIEW COMPLETED DATE/TIME: 07/13/2019 8:01 am REASON FOR STUDY: sepsis. Eval for PNA COMPARISON: AP view of the chest from 07/09/2019 EXAM PARAMETERS: NUMBER OF VIEWS: One view. TECHNIQUE: Single frontal radiographic view of the chest acquired. RADIATION DOSE: NA LIMITATIONS: None. FINDINGS: LUNGS AND PLEURA: Asymmetric airspace opacity in the medial left base. The left lateral c ostophrenic sulcus is blunted. There is no pneumothorax. MEDIASTINUM AND HILAR STRUCTURES: Stable mediastinal and hilar contours. HEART AND VASCULAR STRUCTURES: The cardiac silhouette is enlarged but stable. The pulmonary vasculat ure is within normal limits given the low inspiratory lung volumes. BONES: No acute findings. HARDWARE: The tip of the right upper extremity PICC projects within the SVC. The tip of the enteric tube projects past the gastroesophageal junction and outside the field of view of the radiograph. Th ere is a triple lead left subclavian vein approach ICD in place. OTHER: No other finding. IMPRESSION: Asymmetric left lower lobe opacity and probable left pleural effusion. Clinical correla tion to exclude pneumonia is recommended. TECHNICAL DOCUMENTATION: JOB ID: [id number] [employer]- All Rights Reserved Reading location - IP/workstation name: [email or web address]
--- NOTE | 2019-07-13 08:53 | PDOC PROGRESS REPORT ---
Subjective Progress Note for:: 07/13/19 Subjective:: ICU progress Note Pt remains on pressors. Reason For Visit: CARDIOMYOPATHY,HYPOTENSION,HYPOADRENAL Physical Exam Vital Signs: Temp Pulse Resp BP Pulse Ox 100.2 F 78 19 88/59 L 87 L 07/13/19 08:00 07/13/19 08:00 07/13/19 08:00 07/13/19 08:00 07/13/19 08:00 Intake & Output 07/12/19 07/13/19 07/14/19 06:59 06:59 06:59 Intake Total 2683 2625 Output Total 6150 4210 175 Balance -3467 -1585 -175 Weight 76.4 kg 75.2 kg General appearance: PRESENT: no acute distress, thin, well-developed Head exam: PRESENT: atraumatic, normocephalic Respiratory exam: PRESENT: unlabored, other - coarse breathsounds throughout Cardiovascular exam: PRESENT: RRR GI/Abdominal exam: PRESENT: soft, other - non-tender, non-distended Extremities exam: PRESENT: other - no edema. Multiple ulcers Results Laboratory Results: 07/13/19 05:23 07/13/19 06:15 07/12/19 07/12/19 07/12/19 12:50 13:47 19:56 WBC RBC Hgb Hct MCV MCH MCHC RDW Plt Count Seg Neutrophils % Sodium Cancelled 134.2 L Potassium Cancelled 2.7 L* Chloride Cancelled 96 L Carbon Dioxide Cancelled 32 H Anion Gap Cancelled 6 BUN Cancelled 57 H Creatinine Cancelled 0.89 Est GFR ( Amer) Cancelled > 60 Est GFR (Non-Af Amer) Cancelled Glucose Cancelled 454 H* Calcium Cancelled 7.9 L Phosphorus Total Bilirubin AST Alkaline Phosphatase Total Protein Albumin Prealbumin Triglycerides 635 H 07/13/19 07/13/19 07/13/19 00:33 05:10 05:23 WBC 4.7 RBC 3.08 L Hgb 9.1 L Hct 28.1 L MCV 91 MCH 29.7 MCHC 32.5 RDW 19.8 H Plt Count 94 L Seg Neutrophils % Not Reportable Sodium 136.0 L Cancelled Potassium 2.8 L* Cancelled Chloride 97 L Cancelled Carbon Dioxide 35 H Cancelled Anion Gap 4 L Cancelled BUN 52 H Cancelled Creatinine 0.92 Cancelled Est GFR ( Amer) > 60 Cancelled Est GFR (Non-Af Amer) Cancelled Glucose 156 H Cancelled Calcium 8.0 L Cancelled Phosphorus Cancelled Total Bilirubin Cancelled AST Cancelled Alkaline Phosphatase Cancelled Total Protein Cancelled Albumin Cancelled Prealbumin Cancelled Triglycerides 07/13/19 06:15 WBC RBC Hgb Hct MCV MCH MCHC RDW Plt Count Seg Neutrophils % Sodium 137.0 Potassium 3.5 L Chloride 101 Carbon Dioxide 34 H Anion Gap 2 L BUN 49 H Creatinine 0.91 Est GFR ( Amer) > 60 Est GFR (Non-Af Amer) Glucose 71 L Calcium 7.6 L Phosphorus 1.5 L Total Bilirubin 0.5 AST 69 H Alkaline Phosphatase 111 Total Protein 4.2 L Albumin 2.0 L Prealbumin 22.7 Triglycerides 07/10/19 13:45 Leg - Diabetic Ulcer Gram Stain - Final 07/10/19 13:45 Leg - Diabetic Ulcer Wound Culture - Final Pseudomonas Aeruginosa Enterococcus Faecalis(Group D) C.albicans/C.dubliniensis 07/10/19 13:45 Arm - Right Gram Stain - Final 07/10/19 13:45 Arm - Right Wound Culture - Final 1+ SKIN BLANQUITA 07/09/19 07/11/19 07/11/19 17:45 04:34 04:34 Creatine Kinase 79 CK-MB (CK-2) 8.05 H Troponin I 2.350 NT-Pro-B Natriuret Pep [id number] H Impressions: Foot X-Ray 07/09/19 16:17 IMPRESSION: STABLE SURGICAL CHANGES. NO ACUTE FINDINGS. Abdomen/Pelvis CT 07/11/19 00:00 IMPRESSION: The stomach is dilated and contains a large amount of food and fluid. Please correlate clinically. Other findings as described. Chest X-Ray 07/13/19 07:28 IMPRESSION: Asymmetric left lower lobe opacity and probable left pleural effusion. Clinical correlation to exclude pneumonia is recommended. Assessment & Plan - Diagnosis (1) Cardiomyopathy Qualifiers: Cardiomyopathy type: ischemic Qualified Code(s): I25.5 - Ischemic cardiomyopathy Is this a current diagnosis for this admission?: Yes (2) Diabetic foot ulcer associated with type 2 diabetes mellitus Qualifiers: Diabetic foot ulcer location: other Laterality: right Non-pressure ulcer stage: limited to breakdown of skin Qualified Code(s): E11.621 - Type 2 diabetes mellitus with foot ulcer; L97.511 - Non-pressure chronic ulcer of other part of right foot limited to breakdown of skin Is this a current diagnosis for this admission?: Yes (3) Hypoadrenalism Is this a current diagnosis for this admission?: Yes (4) Hypotension Qualifiers: Hypotension type: unspecified hypotension type Qualified Code(s): I95.9 - Hypotension, unspecified Is this a current diagnosis for this admission?: Yes - Plan Summary Plan Summary: Assessment: Critically ill 69 yo man with hypotension, cardiomyopathy with EF of 15%, afib, diabetes, diabetic foot ulcers, polymyositis, adrenal insuffiency, hyperglycemia, severe protein-calorie malnutrition, sepsis 1. Respiratory: stable on room air 2. Pulmonary: COPD, stable 3. CV: CM with EF of 15%, AICD, h/o calcified LV thrombus, afib, hypotension. Continue vasopressin, erica, and amiodarone infusion. Pt with large UOP (over 4 liters) due to getting demadex yesterday ( I thought I had stopped it). Will d/c demadex and give IV albumin. Will hopefully be able to wean pressors with the addition of IV albumin 4. Rheum: polymyositis. Continue steroids 5. ID: sepsis. Infected diabetic foot ulcers. Now with fever. Wound culture is postive pseudomonas, enterococcus, and canelo. Is on vanc, cefepime, diflucan. Will consult ID. 6. Nutrition: severe PCM. On TPN. Started on tube feeds. Once tube feeds at goal, will d/c TPN 7. Heme: anemia of chronic disease. Thrombocytopenia due to sepsis. WIll d/c lovenox 8. Endocrine: Adrenal insuffiency. On stress dose steroids and florinef. Hyperglycemia,resolving. Insulin drip per protocol. 9. Vascular: chronic diabetic foot ulcers 10. Prophylaxis: will d/c lovenox due to thrombocytopenia. Will start arixtra Critical care time= 40 min, excluding procedures
[2019-07-13] MEDS: VANCOMYCIN HCL 1,000 MG in DEXTROSE 5%-WATER 250 ML IV SCH (09:17)
[2019-07-13] MEDS: ASPIRIN 81 MG TABLET, CHEWABLE NG SCH (09:17)
[2019-07-13] MEDS: ALBUMIN HUMAN 12.5 GM/50 ML RTUINJ IV SCH ×6 (09:17→16:23)
[2019-07-13] MEDS: FAMOTIDINE 20 MG TABLET NG SCH ×2 (09:17→18:04)
[2019-07-13] MEDS: MIDODRINE HCL 5 MG TABLET NG SCH ×3 (09:17→18:04)
[2019-07-13] MEDS: FLUDROCORTISONE ACETATE 0.1 MG TABLET NG SCH (09:18)
[2019-07-13] MEDS: CEFEPIME 2 GM/D5W RTU 2 GM/50 ML RTUPB IV SCH (09:18)
[2019-07-13] MEDS: AMITRIPTYLINE HCL 25 MG TABLET NG SCH (09:19)
[2019-07-13] MEDS: FEBUXOSTAT 40 MG TABLET NG SCH (09:19)
[2019-07-13] MEDS: COLCHICINE 0.6 MG TABLET NG SCH ×2 (09:20→18:04)
[2019-07-13] MEDS: FLUCONAZOLE 100 MG TABLET NG SCH (09:20)
[2019-07-13] MEDS: FINASTERIDE 5 MG TABLET PO SCH (09:21)
[2019-07-13] MEDS ORDERED: ERGOCALCIFEROL (VITAMIN D2) 50000 UNIT (1.25 MG) CAPSULE PO SCH (10:00)
[2019-07-13 10:33] LABS: VANCOMYCIN,TROUGH 34.9 ug/mL (5.0-20.0)
[2019-07-13] MEDS ORDERED: POTASSIUM PHOS,M-BASIC-D-BASIC 30 MMOL in NORMAL SALINE 500 ML IV ONE (12:00)
--- NOTE | 2019-07-13 13:14 | Progress Note ---
Provider Note Provider Note: Spoke with Infectious Disease Physician Dr. Harrison Davis. He recommended stopping the vanc and cefepime and starting zosyn.
[2019-07-13] MEDS: PIPERACILLIN SODIUM/TAZOBACTAM 3.375 GM in NORMAL SALINE 100 ML IV SCH ×2 (15:00→18:04)
--- NOTE | 2019-07-13 20:32 | Progress Note ---
Provider Note Provider Note: CARDIOLOGY PROGRESS NOTE by Dr. Bonnie Doe on 07/13/2019. Subjective: The patient denies any chest pain or discomfort. He does appear to be a little more lethargic. He still requires multiple pressors to keep his blood pressure up. Might have to increase his Midrin to 10 mg p.o. 3 times daily. The patient remains in sinus rhythm with no arrhythmias. There is no firing of his AICD. There is no ventricular arrhythmia seen on the monitor. There is no peripheral embolization. There is no TIA CVA symptoms. The patient has been started on enteral feeding. PHYSICAL EXAMINATION: The patient appears to be malnourished and cachectic Selected Entries 07/13/19 07/13/19 07/13/19 12:00 14:30 14:44 Temperature 99.9 F Temperature Core Source Core 99.9 F Temperature Pulse Rate 78 Heart Rate ( 77 Monitors) Respiratory 18 15 Rate Blood Pressure 98/58 L Blood Pressure 87/57 L [Left Upper Arm ] Blood Pressure 71 Mean Blood Pressure 67 Mean [Left Upper Arm] O2 Sat by Pulse 100 100 Oximetry Oxygen Delivery Room Air Method ( includes room air) HEART: S1 and S2 are heard. S1 is of normal intensity, there is no S3 or S4 gallops. There is a systolic murmur the left sternal border and the apex. There is no rub. ABDOMEN: Normoactive bowel sounds, soft, nontender, no masses, no rebound, no guarding. There is no hepatosplenomegaly. EXTREMITIES: Femorals are slightly diminished. There is no femoral bruits. Leg pulses are diminished. There is no pedal edema. There is no DVT or cellulitis. There is no cyanosis or clubbing. There is no calf tenderness. NEUROLOGICAL the patient is awake,alert and oriented X3.No focal deficits.. There is muscle weakness proximal group more than distal group of muscle show weakness. He also seems to be muscle wasting. Reflexes generalized seem to be decreased. PSYCHIATRIC: The patient judgment and insight were intact, and his affect. Labs- All tests 24 hr 07/12/19 07/12/19 07/12/19 19:56 21:03 22:00 WBC RBC Hgb Hct MCV MCH MCHC RDW Plt Count Lymph % (Auto) [place] % (Auto) Eos % (Auto) Baso % (Auto) Absolute Neuts (auto) Absolute Lymphs (auto) Absolute Monos (auto) Absolute Eos (auto) Absolute Basos (auto) Total Counted Seg Neutrophils % Seg Neuts % (Manual) Band Neutrophils % Lymphocytes % (Manual) Atypical Lymphs % Monocytes % (Manual) Eosinophils % (Manual) Basophils % (Manual) Abs Neuts (Manual) Abs Lymphs (Manual) Abs Monocytes (Manual) Absolute Eos (Manual) Abs Basophils (Manual) Nucleated RBCs Toxic Vacuolation Platelet Comment Polychromasia Basophilic Stippling Anisocytosis Target Cells Sodium Potassium Chloride Carbon Dioxide Anion Gap BUN Creatinine Est GFR ( Amer) Est GFR (Non-Af Amer) Est GFR (MDRD) Non-Af Glucose POC Glucose 234 H 203 H Calcium Phosphorus Magnesium Total Bilirubin Direct Bilirubin Neonat Total Bilirubin Neonat Direct Bilirubin Neonat Indirect Bili AST ALT Alkaline Phosphatase Total Protein Albumin Prealbumin Triglycerides 635 H EGFR Time Trough Drawn Vancomycin Trough 07/12/19 07/13/19 07/13/19 23:07 00:04 00:22 WBC RBC Hgb Hct MCV MCH MCHC RDW Plt Count Lymph % (Auto) [place] % (Auto) Eos % (Auto) Baso % (Auto) Absolute Neuts (auto) Absolute Lymphs (auto) Absolute Monos (auto) Absolute Eos (auto) Absolute Basos (auto) Total Counted Seg Neutrophils % Seg Neuts % (Manual) Band Neutrophils % Lymphocytes % (Manual) Atypical Lymphs % Monocytes % (Manual) Eosinophils % (Manual) Basophils % (Manual) Abs Neuts (Manual) Abs Lymphs (Manual) Abs Monocytes (Manual) Absolute Eos (Manual) Abs Basophils (Manual) Nucleated RBCs Toxic Vacuolation Platelet Comment Polychromasia Basophilic Stippling Anisocytosis Target Cells Sodium Potassium Chloride Carbon Dioxide Anion Gap BUN Creatinine Est GFR ( Amer) Est GFR (Non-Af Amer) Est GFR (MDRD) Non-Af Glucose POC Glucose 272 H 440 H* 202 H Calcium Phosphorus Magnesium Total Bilirubin Direct Bilirubin Neonat Total Bilirubin Neonat Direct Bilirubin Neonat Indirect Bili AST ALT Alkaline Phosphatase Total Protein Albumin Prealbumin Triglycerides EGFR Time Trough Drawn Vancomycin Trough 07/13/19 07/13/19 07/13/19 00:33 01:02 02:07 WBC RBC Hgb Hct MCV MCH MCHC RDW Plt Count Lymph % (Auto) [place] % (Auto) Eos % (Auto) Baso % (Auto) Absolute Neuts (auto) Absolute Lymphs (auto) Absolute Monos (auto) Absolute Eos (auto) Absolute Basos (auto) Total Counted Seg Neutrophils % Seg Neuts % (Manual) Band Neutrophils % Lymphocytes % (Manual) Atypical Lymphs % Monocytes % (Manual) Eosinophils % (Manual) Basophils % (Manual) Abs Neuts (Manual) Abs Lymphs (Manual) Abs Monocytes (Manual) Absolute Eos (Manual) Abs Basophils (Manual) Nucleated RBCs Toxic Vacuolation Platelet Comment Polychromasia Basophilic Stippling Anisocytosis Target Cells Sodium 136.0 L Potassium 2.8 L* Chloride 97 L Carbon Dioxide 35 H Anion Gap 4 L BUN 52 H Creatinine 0.92 Est GFR ( Amer) > 60 Est GFR (Non-Af Amer) Est GFR (MDRD) Non-Af > 60 Glucose 156 H POC Glucose 350 H 522 H* Calcium 8.0 L Phosphorus Magnesium Total Bilirubin Direct Bilirubin Neonat Total Bilirubin Neonat Direct Bilirubin Neonat Indirect Bili AST ALT Alkaline Phosphatase Total Protein Albumin Prealbumin Triglycerides EGFR Time Trough Drawn Vancomycin Trough 07/13/19 07/13/19 07/13/19 02:20 04:05 04:56 WBC RBC Hgb Hct MCV MCH MCHC RDW Plt Count Lymph % (Auto) [place] % (Auto) Eos % (Auto) Baso % (Auto) Absolute Neuts (auto) Absolute Lymphs (auto) Absolute Monos (auto) Absolute Eos (auto) Absolute Basos (auto) Total Counted Seg Neutrophils % Seg Neuts % (Manual) Band Neutrophils % Lymphocytes % (Manual) Atypical Lymphs % Monocytes % (Manual) Eosinophils % (Manual) Basophils % (Manual) Abs Neuts (Manual) Abs Lymphs (Manual) Abs Monocytes (Manual) Absolute Eos (Manual) Abs Basophils (Manual) Nucleated RBCs Toxic Vacuolation Platelet Comment Polychromasia Basophilic Stippling Anisocytosis Target Cells Sodium Potassium Chloride Carbon Dioxide Anion Gap BUN Creatinine Est GFR ( Amer) Est GFR (Non-Af Amer) Est GFR (MDRD) Non-Af Glucose POC Glucose 152 H 102 102 Calcium Phosphorus Magnesium Total Bilirubin Direct Bilirubin Neonat Total Bilirubin Neonat Direct Bilirubin Neonat Indirect Bili AST ALT Alkaline Phosphatase Total Protein Albumin Prealbumin Triglycerides EGFR Time Trough Drawn Vancomycin Trough 07/13/19 07/13/19 07/13/19 05:10 05:23 05:50 WBC 4.7 RBC 3.08 L Hgb 9.1 L Hct 28.1 L MCV 91 MCH 29.7 MCHC 32.5 RDW 19.8 H Plt Count 94 L Lymph % (Auto) Not Reportable [place] % (Auto) Not Reportable Eos % (Auto) Not Reportable Baso % (Auto) Not Reportable Absolute Neuts (auto) Not Reportable Absolute Lymphs (auto) Not Reportable Absolute Monos (auto) Not Reportable Absolute Eos (auto) Not Reportable Absolute Basos (auto) Not Reportable Total Counted 100 Seg Neutrophils % Not Reportable Seg Neuts % (Manual) 73 Band Neutrophils % 1 L Lymphocytes % (Manual) 16 Atypical Lymphs % 2 Monocytes % (Manual) 8 Eosinophils % (Manual) 0 Basophils % (Manual) 0 Abs Neuts (Manual) 3.5 Abs Lymphs (Manual) 0.8 Abs Monocytes (Manual) 0.4 Absolute Eos (Manual) 0.0 Abs Basophils (Manual) 0.0 Nucleated RBCs 1 Toxic Vacuolation PRESENT Platelet Comment DECREASED Polychromasia 1+ Basophilic Stippling PRESENT Anisocytosis 2+ Target Cells 1+ Sodium Cancelled Potassium Cancelled Chloride Cancelled Carbon Dioxide Cancelled Anion Gap Cancelled BUN Cancelled Creatinine Cancelled Est GFR ( Amer) Cancelled Est GFR (Non-Af Amer) Cancelled Est GFR (MDRD) Non-Af Cancelled Glucose Cancelled POC Glucose 79 Calcium Cancelled Phosphorus Cancelled Magnesium Total Bilirubin Cancelled Direct Bilirubin Cancelled Neonat Total Bilirubin Cancelled Neonat Direct Bilirubin Cancelled Neonat Indirect Bili Cancelled AST Cancelled ALT Cancelled Alkaline Phosphatase Cancelled Total Protein Cancelled Albumin Cancelled Prealbumin Cancelled Triglycerides EGFR Cancelled Time Trough Drawn Vancomycin Trough 07/13/19 07/13/19 07/13/19 06:15 06:15 06:29 WBC RBC Hgb Hct MCV MCH MCHC RDW Plt Count Lymph % (Auto) [place] % (Auto) Eos % (Auto) Baso % (Auto) Absolute Neuts (auto) Absolute Lymphs (auto) Absolute Monos (auto) Absolute Eos (auto) Absolute Basos (auto) Total Counted Seg Neutrophils % Seg Neuts % (Manual) Band Neutrophils % Lymphocytes % (Manual) Atypical Lymphs % Monocytes % (Manual) Eosinophils % (Manual) Basophils % (Manual) Abs Neuts (Manual) Abs Lymphs (Manual) Abs Monocytes (Manual) Absolute Eos (Manual) Abs Basophils (Manual) Nucleated RBCs Toxic Vacuolation Platelet Comment Polychromasia Basophilic Stippling Anisocytosis Target Cells Sodium 137.0 Potassium 3.5 L Chloride 101 Carbon Dioxide 34 H Anion Gap 2 L BUN 49 H Creatinine 0.91 Est GFR ( Amer) > 60 Est GFR (Non-Af Amer) Est GFR (MDRD) Non-Af > 60 Glucose 71 L POC Glucose 78 Calcium 7.6 L Phosphorus 1.5 L Magnesium 1.7 Total Bilirubin 0.5 Direct Bilirubin 0.2 Neonat Total Bilirubin Not Reportable Neonat Direct Bilirubin Not Reportable Neonat Indirect Bili Not Reportable AST 69 H ALT 44 Alkaline Phosphatase 111 Total Protein 4.2 L Albumin 2.0 L Prealbumin 22.7 Triglycerides EGFR Time Trough Drawn Vancomycin Trough 07/13/19 07/13/19 07/13/19 06:53 08:13 09:25 WBC RBC Hgb Hct MCV MCH MCHC RDW Plt Count Lymph % (Auto) [place] % (Auto) Eos % (Auto) Baso % (Auto) Absolute Neuts (auto) Absolute Lymphs (auto) Absolute Monos (auto) Absolute Eos (auto) Absolute Basos (auto) Total Counted Seg Neutrophils % Seg Neuts % (Manual) Band Neutrophils % Lymphocytes % (Manual) Atypical Lymphs % Monocytes % (Manual) Eosinophils % (Manual) Basophils % (Manual) Abs Neuts (Manual) Abs Lymphs (Manual) Abs Monocytes (Manual) Absolute Eos (Manual) Abs Basophils (Manual) Nucleated RBCs Toxic Vacuolation Platelet Comment Polychromasia Basophilic Stippling Anisocytosis Target Cells Sodium Potassium Chloride Carbon Dioxide Anion Gap BUN Creatinine Est GFR ( Amer) Est GFR (Non-Af Amer) Est GFR (MDRD) Non-Af Glucose POC Glucose 80 128 H 172 H Calcium Phosphorus Magnesium Total Bilirubin Direct Bilirubin Neonat Total Bilirubin Neonat Direct Bilirubin Neonat Indirect Bili AST ALT Alkaline Phosphatase Total Protein Albumin Prealbumin Triglycerides EGFR Time Trough Drawn Vancomycin Trough 07/13/19 07/13/19 07/13/19 09:57 11:04 12:30 WBC RBC Hgb Hct MCV MCH MCHC RDW Plt Count Lymph % (Auto) [place] % (Auto) Eos % (Auto) Baso % (Auto) Absolute Neuts (auto) Absolute Lymphs (auto) Absolute Monos (auto) Absolute Eos (auto) Absolute Basos (auto) Total Counted Seg Neutrophils % Seg Neuts % (Manual) Band Neutrophils % Lymphocytes % (Manual) Atypical Lymphs % Monocytes % (Manual) Eosinophils % (Manual) Basophils % (Manual) Abs Neuts (Manual) Abs Lymphs (Manual) Abs Monocytes (Manual) Absolute Eos (Manual) Abs Basophils (Manual) Nucleated RBCs Toxic Vacuolation Platelet Comment Polychromasia Basophilic Stippling Anisocytosis Target Cells Sodium Potassium Chloride Carbon Dioxide Anion Gap BUN Creatinine Est GFR ( Amer) Est GFR (Non-Af Amer) Est GFR (MDRD) Non-Af Glucose POC Glucose 250 H 385 H Calcium Phosphorus Magnesium Total Bilirubin Direct Bilirubin Neonat Total Bilirubin Neonat Direct Bilirubin Neonat Indirect Bili AST ALT Alkaline Phosphatase Total Protein Albumin Prealbumin Triglycerides EGFR Time Trough Drawn [id number] Vancomycin Trough 34.9 H 07/13/19 07/13/19 07/13/19 13:38 15:15 16:40 WBC RBC Hgb Hct MCV MCH MCHC RDW Plt Count Lymph % (Auto) [place] % (Auto) Eos % (Auto) Baso % (Auto) Absolute Neuts (auto) Absolute Lymphs (auto) Absolute Monos (auto) Absolute Eos (auto) Absolute Basos (auto) Total Counted Seg Neutrophils % Seg Neuts % (Manual) Band Neutrophils % Lymphocytes % (Manual) Atypical Lymphs % Monocytes % (Manual) Eosinophils % (Manual) Basophils % (Manual) Abs Neuts (Manual) Abs Lymphs (Manual) Abs Monocytes (Manual) Absolute Eos (Manual) Abs Basophils (Manual) Nucleated RBCs Toxic Vacuolation Platelet Comment Polychromasia Basophilic Stippling Anisocytosis Target Cells Sodium Potassium Chloride Carbon Dioxide Anion Gap BUN Creatinine Est GFR ( Amer) Est GFR (Non-Af Amer) Est GFR (MDRD) Non-Af Glucose POC Glucose 273 H 322 H 307 H Calcium Phosphorus Magnesium Total Bilirubin Direct Bilirubin Neonat Total Bilirubin Neonat Direct Bilirubin Neonat Indirect Bili AST ALT Alkaline Phosphatase Total Protein Albumin Prealbumin Triglycerides EGFR Time Trough Drawn Vancomycin Trough 07/13/19 07/13/19 17:34 19:42 WBC RBC Hgb Hct MCV MCH MCHC RDW Plt Count Lymph % (Auto) [place] % (Auto) Eos % (Auto) Baso % (Auto) Absolute Neuts (auto) Absolute Lymphs (auto) Absolute Monos (auto) Absolute Eos (auto) Absolute Basos (auto) Total Counted Seg Neutrophils % Seg Neuts % (Manual) Band Neutrophils % Lymphocytes % (Manual) Atypical Lymphs % Monocytes % (Manual) Eosinophils % (Manual) Basophils % (Manual) Abs Neuts (Manual) Abs Lymphs (Manual) Abs Monocytes (Manual) Absolute Eos (Manual) Abs Basophils (Manual) Nucleated RBCs Toxic Vacuolation Platelet Comment Polychromasia Basophilic Stippling Anisocytosis Target Cells Sodium Potassium Chloride Carbon Dioxide Anion Gap BUN Creatinine Est GFR ( Amer) Est GFR (Non-Af Amer) Est GFR (MDRD) Non-Af Glucose POC Glucose 337 H 352 H Calcium Phosphorus Magnesium Total Bilirubin Direct Bilirubin Neonat Total Bilirubin Neonat Direct Bilirubin Neonat Indirect Bili AST ALT Alkaline Phosphatase Total Protein Albumin Prealbumin Triglycerides EGFR Time Trough Drawn Vancomycin Trough Foot X-Ray 07/09/19 16:17 IMPRESSION: STABLE SURGICAL CHANGES. NO ACUTE FINDINGS. Chest X-Ray 07/09/19 16:20 IMPRESSION: NO ACUTE RADIOGRAPHIC FINDING IN THE CHEST. Abdomen/Pelvis CT 07/11/19 00:00 IMPRESSION: The stomach is dilated and contains a large amount of food and fluid. Please correlate clinically. Other findings as described. Chest X-Ray 07/13/19 07:28 IMPRESSION: Asymmetric left lower lobe opacity and probable left pleural effusion. Clinical correlation to exclude pneumonia is recommended. IMPRESSION/RECOMMENDATION: 1. Hypotension with somnolence and lethargy due to low cerebral perfusion. This is most likely secondary to combination of sepsis, dehydration, and the patient's severe cardiomyopathy. Would continue patient on dopamine at 2.5 mcg/kg/min. Continue vasopressin at 0.03units/min. And continue the patient on Elias-Synephrine at 100 mcg/min. Continue hydration in the form of TPN. Also in view of the multiple pressors would use IV amiodarone to prevent the patient from going to atrial fibrillation for reasons mentioned above. Will increase midodrine to 10 mg p.o. 3 times daily to see if we can get the patient is off pressors. Also will add fludrocortisone 0.1 mg p.o. daily. 2. High lactate levels most likely secondary to poor/low perfusion. 3. Sepsis? Was most likely secondary to patient diabetic foot ulcers. Which are chronic and nonhealing 4. Hyposteroidism resume most likely secondary to the patient needing increased doses of steroids due to the patient's current sepsis/infection. Also since the patient is already receiving hydrocortisone at 100 mg IV every 8 hours, we will also give the patient a dose of fludrocortisone (Florinef) at 0.1 mg p.o. now and daily. 5. Hypokalemia and dehydration, will replace the patient's potassium gently hydrate the patient. 6. Severe malnutrition: Blood sugars are very high on parenteral TPN. Hence patient has been made to switch to enteral nutrition. 7. Paroxysmal atrial fibrillation: Start patient on amiodarone in view of the patient's multiple pressor requirements. Would [facility] get records from [facility], and to see if the patient can be restarted on Eliquis for his paroxysmal atrial fibrillation. 8. Cardiomyopathy with severely reduced LV ejection fraction 15%. 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 Watch patient closely for decompensation and going into heart failure. 9. AICD placement: No recent firing of AICD. 10. COPD by history: At present stable with no acute exacerbation of COPD. 11. Myositis: Note that the patient's CPK is within normal limits. Possibly not in a active state. Continue the patient on steroids.\ 12. Calcified non-mobile left ventricular apical clot, which clinically I do not think could cause peripheral embolization, since it is old and calcified. Medications reviewed. Medication management plan discussed with attending physician on the case. Medical decision making is of high complexity. 40 minutes spent on this patient more than 50% of time spent direct patient care. Will follow
[2019-07-13] MEDS: ROPINIROLE HCL 2 MG TABLET NG SCH (22:33)
[2019-07-13] MEDS: DEXTROSE 5%-WATER 250 ML with VASOPRESSIN 100 UNIT IV PRN ×2 (23:57)
[2019-07-14] MEDS: PIPERACILLIN SODIUM/TAZOBACTAM 3.375 GM in NORMAL SALINE 100 ML IV SCH ×2 (00:30→07:03)
[2019-07-14] MEDS ORDERED: BUMETANIDE INJ/PF 1 MG/4 ML SDV IV ONE (01:30)
[2019-07-14] MEDS: NYSTATIN/DEXAMETH/DIPHEN SUSP 120 ML PO SCH ×3 (02:29→09:14)
[2019-07-14] MEDS: DEXTROSE 5%-WATER 250 ML with PHENYLEPHRINE HCL 40 MG IV PRN ×4 (03:01→09:14)
[2019-07-14 04:33] LABS: ALBUMIN 2.6 g/dL (3.5-5.0); ALKALINE PHOSPHATASE 107 U/L (38-126); ANION GAP 7 (5-19); ASPARTATE AMINO TRANSFERASE 65 U/L (17-59); BILIRUBIN,DIRECT 0.4 mg/dL (0.0-0.4); BILIRUBIN,TOTAL 0.9 mg/dL (0.2-1.3); BLOOD UREA NITROGEN 54 mg/dL (7-20); CALCIUM 7.5 mg/dL (8.4-10.2); CARBON DIOXIDE 31 mmol/L (22-30); CHLORIDE 97 mmol/L (98-107); GLUCOSE 324 mg/dL (75-110); PHOSPHORUS 3.1 mg/dL (2.5-4.5); TOTAL PROTEIN 4.5 g/dL (6.3-8.2)
[2019-07-14 04:37] LABS: POTASSIUM 2.8 mmol/L (3.6-5.0)
[2019-07-14] MEDS ORDERED: POTASSIUM CHLORIDE 20 MEQ/50 ML RTU IV ONE (05:15)
[2019-07-14] MEDS: HYDROCORTISONE SOD SUCCINATE INJ/PF 100 MG/2 ML SDV IV SCH (05:51)
[2019-07-14] MEDS: LEVOTHYROXINE SODIUM 0.088 MG TABLET NG SCH (05:52)
[2019-07-14] MEDS: GABAPENTIN 300 MG CAPSULE NG SCH (05:52)
[2019-07-14] MEDS ORDERED: POTASSIUM CHLORIDE 20 MEQ PACKET NG SCH (06:00)
[2019-07-14 06:02] LABS: HEMATOCRIT 25.8 % (37.9-51.0); HEMOGLOBIN 8.4 g/dL (13.5-17.0); MEAN CORPUSCULAR HEMOGLOBIN 29.8 pg (27.0-33.4); MEAN CORPUSCULAR HGB CONC 32.6 g/dL (32.0-36.0); MEAN CORPUSCULAR VOLUME 92 fl (80-97); RED BLOOD COUNT 2.82 10^6/uL (4.35-5.55)
[2019-07-14] MEDS ORDERED: INSULIN REG, HUMAN 100 UNIT/ML 3 ML VIAL (PYX) ONE (06:03)
[2019-07-14 06:05] LABS: PLATELET COUNT 76 10^3/uL (150-450); WHITE BLOOD COUNT 1.6 10^3/uL (4.0-10.5)
[2019-07-14] MEDS: INSULIN, REGULAR 100 UNIT/100 ML NORMAL SALINE IV PRN ×2 (06:10)
[2019-07-14 06:26] LABS: ABSOLUTE LYMPHOCYTES# (MANUAL) 0.4 10^3/uL (0.5-4.7); ABSOLUTE MONOCYTES # (MANUAL) 0.2 10^3/uL (0.1-1.4); BAND NEUTROPHILS % (MANUAL) 2 % (3-5); BASOPHILS % (MANUAL) 0 % (0-2); EOSINOPHILS % (MANUAL) 0 % (0-6); LYMPHOCYTES % (MANUAL) 24 % (13-45); MONOCYTES % (MANUAL) 10 % (3-13); SEGMENTED NEUTROPHILS % (MAN) 64 % (42-78); TOTAL CELLS COUNTED 50
[2019-07-14 06:27] LABS: ANISOCYTOSIS 2+; HELMET CELLS 1+; POIKILOCYTOSIS 1+; POLYCHROMASIA SLIGHT
[2019-07-14 06:28] LABS: PLATELET COMMENT DECREASED; TEAR DROP CELLS 1+
[2019-07-14 06:31] LABS: NUCLEATED RED BLOOD CELLS 16 /100 WBC (0)
[2019-07-14] MEDS ORDERED: INFLUENZA QUAD (6MOS+) 2019-20 VAC 0.5 ML SYR IM ONE (08:00)
--- NOTE | 2019-07-14 08:52 | PDOC PROGRESS REPORT ---
Subjective Progress Note for:: 07/14/19 Subjective:: ICU Progress Note: Pt remains on dopamine, neosynephrine, vasopressin. Pt got IV bumex overnight b/c the ICU nurse thought the pt "sounded wet". Reason For Visit: CARDIOMYOPATHY,HYPOTENSION,HYPOADRENAL Physical Exam Vital Signs: Temp Pulse Resp BP Pulse Ox 99.3 F 88 29 H 81/50 L 72 L 07/14/19 08:00 07/14/19 08:00 07/14/19 08:00 07/14/19 08:00 07/14/19 08:00 Intake & Output 07/13/19 07/14/19 07/15/19 06:59 06:59 06:59 Intake Total 2975 3069 8 Output Total 4210 2880 100 Balance -1235 189 -92 Weight 75.2 kg 78.4 kg General appearance: PRESENT: no acute distress, well-developed, well-nourished Head exam: PRESENT: atraumatic, normocephalic Respiratory exam: PRESENT: unlabored, other - coarse breathsounds throughout Cardiovascular exam: PRESENT: RRR GI/Abdominal exam: PRESENT: soft, other - non-tender,non-distended Gentrourinary exam: PRESENT: indwelling catheter Extremities exam: PRESENT: other - multiple LE ulcers Results Laboratory Results: 07/14/19 05:33 07/14/19 03:35 07/13/19 07/14/19 07/14/19 06:15 03:35 03:35 WBC Cancelled RBC Cancelled Hgb Cancelled Hct Cancelled MCV Cancelled MCH Cancelled MCHC Cancelled RDW Cancelled Plt Count Cancelled Seg Neutrophils % Cancelled Sodium 134.6 L Potassium 2.8 L* Chloride 97 L Carbon Dioxide 31 H Anion Gap 7 BUN 54 H Creatinine 0.92 Est GFR ( Amer) > 60 Glucose 324 H Calcium 7.5 L Phosphorus 3.1 Magnesium 1.7 1.9 Total Bilirubin 0.9 AST 65 H Alkaline Phosphatase 107 Total Protein 4.5 L Albumin 2.6 L 07/14/19 05:33 WBC 1.6 L D RBC 2.82 L Hgb 8.4 L Hct 25.8 L MCV 92 MCH 29.8 MCHC 32.6 RDW 20.0 H Plt Count 76 L Seg Neutrophils % Not Reportable Sodium Potassium Chloride Carbon Dioxide Anion Gap BUN Creatinine Est GFR ( Amer) Glucose Calcium Phosphorus Magnesium Total Bilirubin AST Alkaline Phosphatase Total Protein Albumin 07/10/19 13:45 Leg - Diabetic Ulcer Gram Stain - Final 07/10/19 13:45 Leg - Diabetic Ulcer Wound Culture - Final Pseudomonas Aeruginosa Enterococcus Faecalis(Group D) C.albicans/C.dubliniensis 07/09/19 07/11/19 07/11/19 17:45 04:34 04:34 Creatine Kinase 79 CK-MB (CK-2) 8.05 H Troponin I 2.350 NT-Pro-B Natriuret Pep 19106 H Impressions: Foot X-Ray 07/09/19 16:17 IMPRESSION: STABLE SURGICAL CHANGES. NO ACUTE FINDINGS. Abdomen/Pelvis CT 07/11/19 00:00 IMPRESSION: The stomach is dilated and contains a large amount of food and fluid. Please correlate clinically. Other findings as described. Chest X-Ray 07/13/19 07:28 IMPRESSION: Asymmetric left lower lobe opacity and probable left pleural effusion. Clinical correlation to exclude pneumonia is recommended. Assessment & Plan - Diagnosis (1) Cardiomyopathy Qualifiers: Cardiomyopathy type: ischemic Qualified Code(s): I25.5 - Ischemic cardiomyopathy Is this a current diagnosis for this admission?: Yes (2) Diabetic foot ulcer associated with type 2 diabetes mellitus Qualifiers: Diabetic foot ulcer location: other Laterality: right Non-pressure ulcer stage: limited to breakdown of skin Qualified Code(s): E11.621 - Type 2 diabetes mellitus with foot ulcer; L97.511 - Non-pressure chronic ulcer of other part of right foot limited to breakdown of skin Is this a current diagnosis for this admission?: Yes (3) Hypoadrenalism Is this a current diagnosis for this admission?: Yes (4) Hypotension Qualifiers: Hypotension type: unspecified hypotension type Qualified Code(s): I95.9 - Hypotension, unspecified Is this a current diagnosis for this admission?: Yes - Plan Summary Plan Summary: Assessment: Critically ill 69 yo man with hypotension, cardiomyopathy with EF of 15%, afib, diabetes, diabetic foot ulcers, polymyositis, adrenal insuffiency, hyperglycemia, severe protein-calorie malnutrition, sepsis 1. Respiratory: stable on room air 2. Pulmonary: COPD, stable 3. CV: CM with EF of 15%, AICD, h/o calcified LV thrombus, afib, hypotension. Continue vasopressin, erica, and amiodarone infusion. Pt got another dose of bumex overnight. Will give IVF bolus today. Pt is volume depleted and needs volume. Will avoid diureses. Pt can tolerate the additional IVF since he is in no respiratory distress and is on room air. Pt has been on pressors for at least three days and we must continue to wean the pressors as tolerated. Have explained this to the overnight nurse and the dayshift nurse. 4. Rheum: polymyositis. Continue steroids 5. ID: sepsis. Infected diabetic foot ulcers. Wound culture is postive pseudomonas, enterococcus, and canelo. Spoke with ID yesterday. ATBX change to zosyn 6. Nutrition: severe PCM. Off TPN. Tolerating tube feeds 7. Heme: anemia of chronic disease. Thrombocytopenia due to sepsis. Leukopenia, due to sepsis. Will continue to monitor 8. Endocrine: Adrenal insuffiency. On stress dose steroids and florinef. Hyperglycemia,resolving. Accuchecks, SSI. 9. Vascular: chronic diabetic foot ulcers 10. Prophylaxis: continue arixtra Critical care time= 50 min, excluding procedures
[2019-07-14] MEDS: FLUDROCORTISONE ACETATE 0.1 MG TABLET NG SCH (09:08)
[2019-07-14] MEDS: ASPIRIN 81 MG TABLET, CHEWABLE NG SCH (09:12)
[2019-07-14] MEDS: FEBUXOSTAT 40 MG TABLET NG SCH (09:12)
[2019-07-14] MEDS: COLCHICINE 0.6 MG TABLET NG SCH (09:12)
[2019-07-14] MEDS: FAMOTIDINE 20 MG TABLET NG SCH (09:13)
[2019-07-14] MEDS: FINASTERIDE 5 MG TABLET PO SCH (09:13)
[2019-07-14] MEDS: AMITRIPTYLINE HCL 25 MG TABLET NG SCH (09:13)
[2019-07-14] MEDS: DEXTROSE 5%-WATER 500 ML with AMIODARONE HCL 900 MG IV PRN ×2 (09:15)
[2019-07-14] MEDS ORDERED: FONDAPARINUX SODIUM INJ 2.5 MG/0.5 ML DISP.SYRIN SUBCUT SCH (10:00)
[2019-07-14] MEDS ORDERED: RINGERS SOLUTION,LACTATED 1,000 ML IV ONE (10:00)
[2019-07-14] MEDS ORDERED: MIDODRINE HCL 5 MG TABLET NG SCH (10:00)
[2019-07-14 10:54] VITALS: BP 86/44
[2019-07-14] MEDS ORDERED: SODIUM BICARBONATE 8.4% INJ 50 MEQ/50 ML DISP.SYRIN ONE ×2 (11:28→15:00)
--- NOTE | 2019-07-14 11:47 | Progress Note ---
Provider Note Provider Note: Code Blue Note: Pt was being cleaned up after having a bowel movement and became unresponsive. I was called to the bedside. Pt had agonal breathing and was pulseless. A code blue was called and ACLS was initiated. I intubated the pt. Pt recieved 5 rounds of epi, but ROSC was not obtained. Dr. Flores was called and he came to the bedside. was at the bedside during the entire code. Resucitation attempts were unsuccessful. Time of 11:47 am.
--- NOTE | 2019-07-14 11:51 | Death Summary ---
Summary Date : 07/14/19 Time of :: 11:47 Autopsy: No Resuscitation Status: Full Code - Final Diagnosis (1) Cardiomyopathy Is this a current diagnosis for this admission?: Yes (2) Diabetic foot ulcer associated with type 2 diabetes mellitus Is this a current diagnosis for this admission?: Yes (3) Hypoadrenalism Is this a current diagnosis for this admission?: Yes (4) Hypotension Is this a current diagnosis for this admission?: Yes (6) Sepsis associated hypotension Is this a current diagnosis for this admission?: Yes (7) Sepsis Is this a current diagnosis for this admission?: Yes Hospital Course:: Assessment: Critically ill 69 yo man with hypotension, cardiomyopathy with EF of 15%, afib, diabetes, diabetic foot ulcers, polymyositis, adrenal insuffiency, hyperglycemia, severe protein-calorie malnutrition, sepsis 1. Respiratory: stable on room air 2. Pulmonary: COPD, stable 3. CV: CM with EF of 15%, AICD, h/o calcified LV thrombus, afib, hypotension. Continue vasopressin, erica, and amiodarone infusion. Pt got another dose of bumex overnight. Will give IVF bolus today. Pt is volume depleted and needs volume. Will avoid diureses. Pt can tolerate the additional IVF since he is in no respiratory distress and is on room air. Pt has been on pressors for at least three days and we must continue to wean the pressors as tolerated. Have explained this to the overnight nurse and the dayshift nurse. 4. Rheum: polymyositis. Continue steroids 5. ID: sepsis. Infected diabetic foot ulcers. Wound culture is postive pseudomonas, enterococcus, and canelo. Spoke with ID yesterday. ATBX change to zosyn 6. Nutrition: severe PCM. Off TPN. Tolerating tube feeds 7. Heme: anemia of chronic disease. Thrombocytopenia due to sepsis. Leukopenia, due to sepsis. Will continue to monitor 8. Endocrine: Adrenal insuffiency. On stress dose steroids and florinef. Hyperglycemia,resolving. Accuchecks, SSI. 9. Vascular: chronic diabetic foot ulcers 10. Prophylaxis: arixtra This was the plan of care for today. Today at around 11:20, after while being cleaned from a bowel movement, he became unresponsive. He was found to have agonal breathing and to be pulseless. A ubadlo de la fuente was called and pt was intubated. He was unable to be resucitated. Time of 11:47 am.
[2019-07-14] MEDS ORDERED: EPINEPHRINE INJ 1 MG/10 ML DISP.SYRIN ONE (15:00)
== END 2019-07-14 15:55 | disposition expired | DRG 871 ==
LOC: ER 16:03 → EH 19:33 → ICU 20:39
PROVIDERS: ADMIT Anesthesiology; ATTEND Anesthesiology
PROC: 0BH17EZ Insertion of Endotracheal Airway into Trachea, Via Natural or Artificial Opening (ICD-10-PCS; principal; 2019-07-14)
DX: A41.81 Sepsis due to Enterococcus (principal); E43 Unspecified severe protein-calorie malnutrition; E27.40 Unspecified adrenocortical insufficiency; M33.20 Polymyositis, organ involvement unspecified; I47.1 Supraventricular tachycardia; M86.9 Osteomyelitis, unspecified; D69.6 Thrombocytopenia, unspecified; I27.20 Pulmonary hypertension, unspecified; D63.8 Anemia in other chronic diseases classified elsewhere; E11.319 Type 2 diabetes mellitus with unspecified diabetic retinopathy without macular edema; L97.511 Non-pressure chronic ulcer of other part of right foot limited to breakdown of skin; E11.69 Type 2 diabetes mellitus with other specified complication; E11.621 Type 2 diabetes mellitus with foot ulcer; A41.52 Sepsis due to Pseudomonas; B37.7 Candidal sepsis; E11.65 Type 2 diabetes mellitus with hyperglycemia; J44.9 Chronic obstructive pulmonary disease, unspecified; D72.819 Decreased white blood cell count, unspecified; I48.0 Paroxysmal atrial fibrillation; E86.0 Dehydration; I45.10 Unspecified right bundle-branch block; I49.3 Ventricular premature depolarization; Z66 Do not resuscitate; H91.93 Unspecified hearing loss, bilateral; I25.10 Atherosclerotic heart disease of native coronary artery without angina pectoris; K21.9 Gastro-esophageal reflux disease without esophagitis; E87.6 Hypokalemia; M10.9 Gout, unspecified; F31.9 Bipolar disorder, unspecified; E03.9 Hypothyroidism, unspecified; K80.80 Other cholelithiasis without obstruction; I25.5 Ischemic cardiomyopathy; N40.0 Benign prostatic hyperplasia without lower urinary tract symptoms; Z95.810 Presence of automatic (implantable) cardiac defibrillator; Z86.14 Personal history of Methicillin resistant Staphylococcus aureus infection; Z89.421 Acquired absence of other right toe(s); Z87.891 Personal history of nicotine dependence; Z88.6 Allergy status to analgesic agent; Z88.8 Allergy status to other drugs, medicaments and biological substances; I25.2 Old myocardial infarction; Z95.5 Presence of coronary angioplasty implant and graft
CPT/HCPCS: 36415; 71045; 74018; 74177; 80048; 80053; 80202; 81001; 82088; 82533; 82550; 82553; 82962; 83605; 83735; 83880; 84100; 84132; 84134; 84443; 84478; 84481; 84484; 85025; 85027; 85610; 85652; 86140; 86850; 86900; 86901; 87040; 87070; 87077; 87186; 87205; 92950; 93005; 93010; 96360; 96361; 99285; J0171; J0282; J0610; J0692; J1160; J1170; J1265; J1650; J1652; J1720; J1815; J2370; J2543; J3370; J3480; J3490; J7030; J7040; J7050; J7060; J7120; P9047